=== PATIENT | female | born 1965 | race African-American/Black ===

== ENCOUNTER 2018-06-28 19:34 | Inpatient (IN) | payer MEDICARE, OTHER ==
[~2018-06-28] VITALS: Ht 165.1 cm; Wt 123.8 kg
[2018-06-28 19:40] VITALS: BP 126/72
--- NOTE | 2018-06-28 19:40 | NUR ---
ED Nurse Note: Patient presents wth complaints of increased pain and swelling at left middle finger and thumb, finger necrosis/gangrene confirmed.
[2018-06-28] MEDS ORDERED: DOCUSATE SODIU100 M2 ORAL (20:10)
[2018-06-28] MEDS ORDERED: FERROUS SULFAT325 M2 ORAL (20:10)
[2018-06-28] MEDS ORDERED: FLONASE1 SPRAYS NASAL (20:10)
[2018-06-28] MEDS ORDERED: NEURONTIN300 MG ORAL (20:10)
[2018-06-28] MEDS ORDERED: BISACODYL5 MG ORAL (20:10)
[2018-06-28] MEDS ORDERED: HYDROCODON-ACE1 EA13 ORAL (20:10)
[2018-06-28] MEDS ORDERED: LIPITOR80 MG ORAL (20:10)
[2018-06-28] MEDS ORDERED: ACETAMINOPHEN325 M1 ORAL (20:10)
[2018-06-28] MEDS ORDERED: LACTULOSE10 GM PO (20:10)
[2018-06-28] MEDS ORDERED: ELIQUIS2.5 MG PO (20:10)
--- NOTE | 2018-06-28 21:00 | Emergency Room Report ---
History of Present Illness General Chief Complaint: General Complaint Source: Patient Present Illness HPI 53-year-old female presents ED for evaluation. Patient brought in by EMS from long term facility. Complaining of pain and swelling and discoloration to her left middle finger and left thumb. Has been there for several months now. Was told that it may be gangrene. Had a procedure at [facility] one month ago to restore circulation to the extremity. States it did not help. Pain is throbbing, 8 out of 10, nonradiating. Denies fevers or chills. History of end- stage renal disease. Gets dialysis Saturday. No other aggravating relieving factors. Denies any other associated symptoms Allergies: Coded Allergies: LATEX (Verified Allergy, Unknown, 06/28/18) Patient History Past Medical History: DM, HTN, GERD, renal disease, dialysis Past Surgical History: none Pertinent Family History: none Social History: Denies: smoking, alcohol use, drug use Now: No Immunizations: UTD Reviewed Nursing Documentation: PMH: Agreed; PSxH: Agreed Nursing Documentation-PMH Hx Hypertension: Yes Hx Diabetes: Yes Hx Gastrointestinal Problems: Yes - GERD, constipation Hx Dialysis: Yes - Tue, Thur, Sat, Shunt on L arm, R leg amputation Hx Neurological Problems: Yes - Hx of fall Hx Cerebrovascular Accident: Yes - Anemia Review of Systems All Other Systems: negative except mentioned in HPI Physical Exam Vital Signs Date Time Temp Pulse Resp B/P (MAP) Pulse Ox O2 Delivery O2 Flow Rate FiO2 06/28/18 19:37 98.1 82 20 126/72 95 Room Air Sp02 EP Interpretation: reviewed, normal General Appearance: no apparent distress, alert, GCS 15, non-toxic, obese Head: normocephalic, atraumatic Eyes: bilateral eye normal inspection, bilateral eye PERRL ENT: hearing grossly normal, normal pharynx, no angioedema, normal voice Neck: full range of motion, supple/symm/no masses Respiratory: chest non-tender, lungs clear, normal breath sounds, speaking full sentences Cardiovascular #1: regular rate, rhythm, no edema Cardiovascular #2: 2+ carotid (R), 2+ carotid (L), 2+ radial (R), 2+ radial (L) , 2+ dorsalis pedis (R), 2+ dorsalis pedis (L) Gastrointestinal: normal bowel sounds, non tender, soft, non-distended, no guarding, no rebound Rectal: deferred Genitourinary: normal inspection, no CVA tenderness Musculoskeletal: back normal, gait/station normal, normal range of motion, tender - discoloration/swelling to L middle finger, L thumb. dry gangrene Neurologic: alert, oriented x3, responsive, motor strength/tone normal, sensory intact, speech normal Psychiatric: judgement/insight normal, memory normal, mood/affect normal, no suicidal/homicidal ideation Reflexes: 3+ bicep (R), 3+ bicep (L), 3+ tricep (R), 3+ tricep (L), 3+ knee (R) , 3+ knee (L) Skin: normal color, no rash, warm/dry, well hydrated Lymphatic: no adenopathy Medical Decision Making Diagnostic Impression: Primary Impression: Gangrene of finger of left hand Additional Impressions: ESRD (end stage renal disease) on dialysis Colitis ER Course dHospital Course 53 yo F presents to ED c/o gangrene L middle finger, L thumb gangrene. diarrhea Differential diagnoses include: Cellulitis, DVT, abscess, rash. Clinical course Patient placed on stretcher. After initial history and physical I ordered labs , blood Cx, UA, CXR, EKG labs reviewed - no leukocytosis, Hb/Hct stable, BUN/Cr elevatd, K ok EKG - NSR, no acute ischemic changes interpreted by me CXR - no acute process patient given small IVF bolus. Dr Santana consulted to evaluate the gangrene for possible operative intervention Case discussed with Dr Herbert and he agreed to accept the patient to his service for further care and support Diagnosis - gangrene of finger of L hand, ESRD on dialysis, colitis Patient admitted to floor in serious condition Labs Test 06/28/18 21:22 06/29/18 06:50 06/30/18 06:10 White Blood Count 9.1 K/UL (4.8-10.8) 8.0 K/UL (4.8-10.8) 8.6 K/UL (4.8-10.8) Red Blood Count 3.37 M/UL (4.20-5.40) 3.22 M/UL (4.20-5.40) 3.27 M/UL (4.20-5.40) Hemoglobin 9.4 G/DL (12.0-16.0) 9.0 G/DL (12.0-16.0) 9.0 G/DL (12.0-16.0) Hematocrit 30.0 % (37.0-47.0) 28.5 % (37.0-47.0) 29.1 % (37.0-47.0) Mean Corpuscular Volume 89 FL (80-99) 89 FL (80-99) 89 FL (80-99) Mean Corpuscular Hemoglobin 27.8 PG (27.0-31.0) 28.0 PG (27.0-31.0) 27.6 PG (27.0-31.0) Mean Corpuscular Hemoglobin Concent 31.2 G/DL (32.0-36.0) 31.7 G/DL (32.0-36.0) 30.9 G/DL (32.0-36.0) Red Cell Distribution Width 13.7 % (11.6-14.8) 14.1 % (11.6-14.8) 13.8 % (11.6-14.8) Platelet Count 218 K/UL (150-450) 219 K/UL (150-450) 219 K/UL (150-450) Mean Platelet Volume 6.1 FL (6.5-10.1) 7.3 FL (6.5-10.1) 7.2 FL (6.5-10.1) Neutrophils (%) (Auto) 56.8 % (45.0-75.0) 54.9 % (45.0-75.0) 62.9 % (45.0-75.0) Lymphocytes (%) (Auto) 33.9 % (20.0-45.0) 35.6 % (20.0-45.0) 27.3 % (20.0-45.0) Monocytes (%) (Auto) 6.8 % (1.0-10.0) 6.7 % (1.0-10.0) 7.1 % (1.0-10.0) Eosinophils (%) (Auto) 1.9 % (0.0-3.0) 2.0 % (0.0-3.0) 1.9 % (0.0-3.0) Basophils (%) (Auto) 0.6 % (0.0-2.0) 0.8 % (0.0-2.0) 0.8 % (0.0-2.0) Prothrombin Time 11.0 SEC (9.30-11.50) Prothromb Time International Ratio 1.0 (0.9-1.1) Activated Partial Thromboplast Time 35 SEC (23-33) Sodium Level 138 MMOL/L (136-145) 139 MMOL/L (136-145) 138 MMOL/L (136-145) Potassium Level 4.0 MMOL/L (3.5-5.1) 3.9 MMOL/L (3.5-5.1) 4.4 MMOL/L (3.5-5.1) Chloride Level 97 MMOL/L (98-107) 98 MMOL/L (98-107) 99 MMOL/L (98-107) Carbon Dioxide Level 35 MMOL/L (21-32) 32 MMOL/L (21-32) 29 MMOL/L (21-32) Anion Gap 7 mmol/L (5-15) 9 mmol/L (5-15) 11 mmol/L (5-15) Blood Urea Nitrogen 32 mg/dL (7-18) 34 mg/dL (7-18) 46 mg/dL (7-18) Creatinine 5.3 MG/DL (0.55-1.30) 5.7 MG/DL (0.55-1.30) 7.3 MG/DL (0.55-1.30) Estimat Glomerular Filtration Rate 10.3 mL/min (>60) 9.5 mL/min (>60) 7.2 mL/min (>60) Glucose Level 152 MG/DL (74-106) 119 MG/DL (74-106) 124 MG/DL (74-106) Lactic Acid Level 1.20 mmol/L (0.4-2.0) Calcium Level 9.1 MG/DL (8.5-10.1) 9.1 MG/DL (8.5-10.1) 9.4 MG/DL (8.5-10.1) Total Bilirubin 0.3 MG/DL (0.2-1.0) Aspartate Amino Transf (AST/SGOT) 8 U/L (15-37) Alanine Aminotransferase (ALT/SGPT) 15 U/L (12-78) Alkaline Phosphatase 123 U/L (46-116) Creatine Kinase MB 0.5 NG/ML (0.0-3.6) Total Protein 7.9 G/DL (6.4-8.2) Albumin 2.9 G/DL (3.4-5.0) Globulin 5.0 g/dL Albumin/Globulin Ratio 0.6 (1.0-2.7) Phosphorus Level 4.9 MG/DL (2.5-4.9) EKG Diagnostic Results Rate: normal Rhythm: NSR ST Segments: no acute changes ASA given to the pt in ED: No Rhythm Strip Diag. Results EP Interpretation: yes Rhythm: NSR, no PVC's, no ectopy Chest X-Ray Diagnostic Results Chest X-Ray Diagnostic Results : Chest X-Ray Ordered: Yes # of Views/Limited/Complete: 1 View Indication: Other Interpretation: no consolidation, no pneumothorax, other - cardiomegaly Impression: Other - cardiomegaly Electronically Signed by: Electronically signed by Johnny Guzman MD Last Vital Signs Date Time Temp Pulse Resp B/P (MAP) Pulse Ox O2 Delivery O2 Flow Rate FiO2 06/28/18 19:37 98.1 82 20 126/72 95 Room Air Status: improved Disposition: ADMITTED INPATIENT Condition: Serious Johnny Guzman MD Jun 28, 2018 21:00
[2018-06-28] MEDS ORDERED: SENNA8.6 M2 PO (21:05)
[2018-06-28] MEDS ORDERED: OMEPRAZOLE20 M2 ORAL (21:05)
[2018-06-28] MEDS ORDERED: PERCOCET 5-3251 EACH ORAL (21:05)
[2018-06-28] MEDS ORDERED: RENVELA800 MG ORAL (21:05)
[2018-06-28] MEDS ORDERED: LYRICA75 M1 ORAL (21:05)
[2018-06-28] MEDS ORDERED: VITAMIN C500 M1 ORAL (21:05)
[2018-06-28] MEDS ORDERED: LIDOCAINE700 M1 TP (21:05)
[2018-06-28 21:44] LABS: BASOPHILS % (AUTO) 0.6 % (0.0-2.0); EOSINOPHILS % (AUTO) 1.9 % (0.0-3.0); HEMOGLOBIN 9.4 G/DL (12.0-16.0); LYMPHOCYTES % (AUTO) 33.9 % (20.0-45.0); MEAN CORPUSCULAR VOLUME 89 FL (80-99); MONOCYTES % (AUTO) 6.8 % (1.0-10.0); NEUTROPHILS % (AUTO) 56.8 % (45.0-75.0); PLATELET COUNT 218 K/UL (150-450); RED BLOOD COUNT 3.37 M/UL (4.20-5.40); RED CELL DISTRIBUTION WIDTH 13.7 % (11.6-14.8); WHITE BLOOD COUNT 9.1 K/UL (4.8-10.8)
[2018-06-28] MEDS ORDERED: HYDROmorphone 1mg/ml Carpuject IVP ONE (21:45)
--- NOTE | 2018-06-28 21:51 | NUR ---
ED Nurse Note: patient tolerated medication well and is resting with no complaints of pain at this time.
[2018-06-28 21:57] LABS: ANION GAP 7 mmol/L (5-15); BLOOD UREA NITROGEN 32 mg/dL (7-18); CALCIUM 9.1 MG/DL (8.5-10.1); CARBON DIOXIDE 35 MMOL/L (21-32); CHLORIDE 97 MMOL/L (98-107); CREATININE 5.3 MG/DL (0.55-1.30); SODIUM 138 MMOL/L (136-145)
[2018-06-28 22:11] LABS: ALANINE AMINOTRANSFERASE 15 U/L (12-78); ALBUMIN 2.9 G/DL (3.4-5.0); ALBUMIN/GLOBULIN RATIO 0.6 (1.0-2.7); ALKALINE PHOSPHATASE 123 U/L (46-116); ASPARTATE AMINO TRANSFERASE 8 U/L (15-37); BILIRUBIN,TOTAL 0.3 MG/DL (0.2-1.0); CKMB 0.5 NG/ML (0.0-3.6)
[2018-06-28] MEDS ORDERED: LORazepam Inj 2mg/ml 1ml IV PRN (23:45)
--- NOTE | 2018-06-28 23:52 | NUR ---
ED Nurse Note: Patient cleared for transport to floor. Swabs done, pictures taken, report called into rony RN. Patient will be accompanied by geological technical officer to floor.
[2018-06-29] VITALS: BP 110/55
--- NOTE | 2018-06-29 | NUR ---
NURSE NOTES: Pt is admitted from ER in stable condition. Vitals stable.Pt is awake and alert. No acute distress noted. Pt reports pain on left thumb and left middle finger. Room air. Pt has right BKA skin tear, left toe wound. Wound pictures taken. Dressing applied to wounds per protocol. Pt is a HD patient Hx ESRD. Admission orders acknowledged from dr. Herbert. Pt is oriented to the unit. Pt's belongings checked, refused to send valuables for safekeeping. Bed low in position,side rails up and call light within reach. Pt will be monitored.
[2018-06-29] MEDS: Morphine Sulfate 2mg/ml Inj(IV/IM USE ONLY) IVP PRN ×4 (03:41→21:26)
[2018-06-29 04:00] VITALS: BP 122/51
--- NOTE | 2018-06-29 05:30 | NUR ---
NURSE NOTES: Pt is in bed, awake. No acute distress noted.
--- NOTE | 2018-06-29 06:00 | NUR ---
NURSE NOTES: Stock Repairer Lou unable to draw blood at this moment, someone from lab will come to draw lab again.
--- NOTE | 2018-06-29 07:20 | NUR ---
HAND-OFF: Report given to Nury Amato RN.
[2018-06-29 07:26] LABS: BASOPHILS % (AUTO) 0.8 % (0.0-2.0); HEMATOCRIT 28.5 % (37.0-47.0); LYMPHOCYTES % (AUTO) 35.6 % (20.0-45.0); MEAN CORPUSCULAR VOLUME 89 FL (80-99); MONOCYTES % (AUTO) 6.7 % (1.0-10.0); NEUTROPHILS % (AUTO) 54.9 % (45.0-75.0); PLATELET COUNT 219 K/UL (150-450); RED BLOOD COUNT 3.22 M/UL (4.20-5.40); RED CELL DISTRIBUTION WIDTH 14.1 % (11.6-14.8)
[2018-06-29 07:29] LABS: ANION GAP 9 mmol/L (5-15); BLOOD UREA NITROGEN 34 mg/dL (7-18); CALCIUM 9.1 MG/DL (8.5-10.1); CARBON DIOXIDE 32 MMOL/L (21-32); CHLORIDE 98 MMOL/L (98-107); CREATININE 5.7 MG/DL (0.55-1.30); PHOSPHORUS 4.9 MG/DL (2.5-4.9); POTASSIUM 3.9 MMOL/L (3.5-5.1); SODIUM 139 MMOL/L (136-145)
[2018-06-29 08:00] VITALS: BP 103/58
--- NOTE | 2018-06-29 08:00 | NUR ---
NURSE NOTES: RECEIVED PATIENT IN BED, RESTING AND ALERT X4. PATIENT C/O PAIN. WILL ADMINISTER PAIN MEDS ONCE DUE. NO SIGNS OF RESPIRATORY DISTRESS, PATIENT IN ROOM AIR. DRESSINGS INTACT. BED IN LOWEST POSITION, CALL LIGHT WITHIN REACH. WILL CONTINUE TO MONITOR.
[2018-06-29] MEDS: Docusate 100mg cap ORAL SCH ×3 (08:22→21:24)
[2018-06-29] MEDS: Ascorbic Acid 500mg tab ORAL SCH (08:23)
[2018-06-29] MEDS: Eliquis 2.5mg tablet ORAL SCH ×2 (09:58→17:05)
[2018-06-29 12:00] VITALS: BP 113/74
--- NOTE | 2018-06-29 12:49 | NUR ---
CASE MANAGEMENT: REVIEW 53/F BIBA FROM [facility] CC: SWELLING / PAIN LEFT MIDDLE FINGER & LEFT THUMB . DIARRHEA SI: GANGRENE OF FINGER OF LEFT HAND . ESRD ON HD T 98.1 HR 82 RR 20 BP 126/72 SAT 95% ROOM AIR H/H 9.4/30.0 BUN 32 CR 5.3 AST 8 ALK PHOS 123 IS: IVF BOLUS X1 ZOFRAN IV X1 DILAUDID IV X1 MED/SURG STATUS DCP: PATIENT IS FROM [facility]
[2018-06-29 16:00] VITALS: BP 130/54
--- NOTE | 2018-06-29 19:15 | History and Physical Report ---
DATE OF ADMISSION: 06/28/2018 REASON FOR ADMISSION: 1. End-stage renal disease, on dialysis. 2. Necrotic index finger. HISTORY OF PRESENT ILLNESS: The patient is a 53-year-old female, on chronic hemodialysis Saturday, , and Saturday. She was brought in from her [facility] facility complaining of pain and swelling of her left middle finger and thumb. Necrotic in nature. It had worsened despite care. The patient had a a vascularization 1 month ago to try to restore circulation to the extremity, but seemingly has not helped and the patient was complaining of 8/10 pain. ALLERGIES: Latex. PAST MEDICAL HISTORY: 1. Diabetes. 2. Hypertension. 3. GERD. 4. End-stage renal disease, on dialysis. 5. Anemia. 6. Secondary hyperparathyroidism. PAST SURGICAL HISTORY: 1. of digits. 2. Dialysis access. SOCIAL HISTORY: No tobacco, alcohol, or illicit drug use. FAMILY HISTORY: Positive for hypertension. REVIEW OF SYSTEMS: NEUROLOGIC: The patient denies headache, change in vision, syncope, or presyncopal episodes. CARDIOVASCULAR: No current chest pain, palpitations, or angina. PULMONARY: No difficulty breathing, productive cough, or sputum. GASTROINTESTINAL/GENITOURINARY: No change in bowel habits. No nausea, vomiting, or diarrhea. ENDOCRINOLOGY: No night sweats, fevers, or chills. MUSCULOSKELETAL: The patient complaining of left middle, index finger, and thumb pain. LABORATORY DATA: Labs dated 06/29/2018, sodium 139, potassium 3.9, BUN 34, creatinine 5.7, glucose 119. White cell count 8, hemoglobin 9, platelet count 219. PHYSICAL EXAMINATION: VITAL SIGNS: Blood pressure 122/51, pulse oximetry 93% on room air, respiratory rate 17, pulse 86, temperature 99.2. GENERAL: The patient awake, alert, not in distress. HEENT: Extraocular muscles intact. No lymphadenopathy noted. CARDIOVASCULAR: S1 and S2. No rubs or gallops. PULMONARY: Clear to auscultation bilaterally. No rales, rhonchi, or wheezes. ABDOMEN: Nondistended, nontender. EXTREMITIES: The patient noted to be right [id number] amputation. ASSESSMENT AND PLAN: 1. Necrotic left middle digit finger. At this time, we will consult Surgery, Dr. Santana to evaluate the patient. 2. End-stage renal disease, on hemodialysis. Electrolytes stable. Continue Saturday, , Saturday dialysis session. 3. Anemia of chronic kidney disease. We will continue Epogen with hemodialysis. 4. Hypertension. Adjust medications as appropriate. 5. Secondary hyperparathyroidism. Continue phosphate binder with meals. 6. Disposition. At this time, we will try to arrange the patient to be discharged home with home health to take care of her wound care. 7. DVT prophylaxis. This patient is already on Eliquis. Stephen Herbert MD DR: LAWRENCE JOB#: [id number] CC: JAY
--- NOTE | 2018-06-29 19:33 | NUR ---
HAND-OFF: Report given to PINKY STERN.
--- NOTE | 2018-06-29 19:59 | NUR ---
NURSE NOTES: Received report from PINKY Arrington. Patient sleeping. On room air, no signs of labored breathing or distress. IV intact, patent, and saline locked. Bed in lowest position with call light in reach. Will continue with plan of care.
[2018-06-29 20:00] VITALS: BP 103/49
[2018-06-29] MEDS: Atorvastatin 80mg tab ORAL SCH (21:25)
--- NOTE | 2018-06-29 21:33 | Consultation ---
History of Present Illness General Date patient seen: Jun 29, 2018 Reason for Hospitalization: General Complaint Present Illness HPI This is a 53-year-old female with multiple medical comorbidities who presented to the emergency department [facility] complaining of worsening left middle finger pain/left hand pain. Patient has end-stage renal disease on hemodialysis with a left upper extremity fistula that was created sometime ago. Over the past month patient states that she has began to develop gangrene of her left middle finger phalanx. States that she initially went to her vascular surgeon that created the fistula at [facility] and he had performed a procedure endovascular to help with blood flow. States that since finger has continued to hurt and recently began to hurt more. Denies any nausea vomiting fever chills. Denies any drainage. Has dry gangrene of the finger which has been worsening. States she no longer wants to go to [facility] and came to [facility]. States that she is used to taking a significant amount of narcotics and is asking directly for more because of the pain. Surgery called to evaluate. Patient seen, patient evaluated, chart reviewed. Labs noted. Allergies: Coded Allergies: LATEX (Verified Allergy, Unknown, 06/28/18) Medication History Scheduled Ascorbic Acid* (Vitamin C*), 500 MG ORAL DAILY, (Reported) Atorvastatin (Lipitor), 80 MG ORAL DAILY, (Reported) Bisacodyl* (Dulcolax*), 5 MG ORAL DAILY, (Reported) Docusate Sodium (Docusate Sodium), 100 MG ORAL TWICE A DAY, (Reported) Fluticasone Propionate (Fluticasone Propionate), 1 SPRAY NASAL DAILY, (Reported) Gabapentin (Neurontin), 300 MG ORAL THREE TIMES A DAY, (Reported) Hydrocodone Bit/Acetaminophen 10-325* (Hydrocodon-Acetaminophn 10-325*), 1 TAB ORAL Q6H, (Reported) Omeprazole (Omeprazole), 20 MG ORAL DAILY, (Reported) Pregabalin* (Lyrica*), 75 MG ORAL THREE TIMES A DAY, (Reported) Sevelamer Carbonate (Renvela), 800 MG ORAL THREE TIMES A DAY, (Reported) Scheduled PRN Acetaminophen* (Acetaminophen 325MG Tablet*), 325 MG ORAL Q4H PRN for Mild Pain/ Temp > 100.5, (Reported) Oxycodone/Acetaminophen 5-325* (Percocet 5-325 Mg Tablet*), 1 TAB ORAL Q6H PRN for For Pain, (Reported) Miscellaneous Medications Apixaban (Eliquis), 2.5 MG PO, (Reported) Ferrous Sulfate (Ferrous Sulfate), 325 MG ORAL, (Reported) Lactulose (Lactulose), 10 GM PO, (Reported) Lidocaine (Lidocaine), 700 MG TP, (Reported) Sennosides (Senna), 8.6 MG PO, (Reported) Patient History Healthcare decision maker Resuscitation status Full Code Advanced Directive on File Review of Systems Review of Symptoms General ROS: no weight loss or fever Psychological ROS: no depression or mood changes, no memory loss Ophthalmic ROS: no visual changes or eye irritation ENT ROS: no nasal congestion, hearing loss, dizziness Allergy and Immunology ROS: no allergic symptoms or urticaria Hematological and Lymphatic ROS: no swollen glands, unusual bleeding or bruising Endocrine ROS: no polyuria, polydipsia, weight changes, temperature intolerance Respiratory ROS: no cough, shortness of breath, or wheezing Cardiovascular ROS: no chest pain or dyspnea on exertion Gastrointestinal ROS: denies abdominal pain, bright red blood in stool. Musculoskeletal ROS: no myalgias or arthralgias Neurological ROS: no TIA or stroke symptoms Dermatological ROS: no new or changing skin lesions, rashes or pruritis Physical Exam Physical Exam General appearance: alert, cooperative, no distress, appears stated age Head: Normocephalic, without obvious abnormality, atraumatic Eyes: conjunctivae/corneas clear. PERRL, EOM's intact. Fundi benign Throat: Lips, mucosa, and tongue normal. Teeth and gums normal Neck: supple, symmetrical, trachea midline, no adenopathy, thyroid: not enlarged, symmetric, no tenderness/mass/nodules, no carotid bruit and no JVD Lungs: clear to auscultation bilaterally Heart: regular rate and rhythm, S1, S2 normal, no murmur, click, rub or gallop Abdomen: soft, non-tender. Bowel sounds normal. No masses, no organomegaly Extremities: left upper extremity fistula with good thrill. left distal middle finger with dry gangrene and tissue loss. no open wound, chronic without signs of active infection. tender on palpation. prior lower extremity amputation. Pulses: 2+ and symmetric Skin: Skin color, texture, turgor normal. No rashes or lesions Neurologic: Grossly normal Last 24 Hour Vital Signs Date Time Temp Pulse Resp B/P (MAP) Pulse Ox O2 Delivery O2 Flow Rate FiO2 06/29/18 16:00 99.6 81 16 130/54 (79) 97 06/29/18 12:00 98.1 84 18 113/74 (87) 99 06/29/18 09:00 Room Air 06/29/18 08:00 98.2 89 20 103/58 (73) 100 06/29/18 04:00 99.2 86 17 122/51 (74) 93 06/29/18 00:53 Room Air 06/29/18 00:00 99.6 87 17 110/55 (73) 94 06/28/18 23:51 98.1 20 126/72 95 Room Air Intake and Output 06/28/18 06/29/18 18:59 06:59 Intake Total 240 ml Balance 240 ml Intake Oral 240 ml # Voids 1 Laboratory Tests Test 06/29/18 06:50 White Blood Count 8.0 K/UL (4.8-10.8) Red Blood Count 3.22 M/UL (4.20-5.40) L Hemoglobin 9.0 G/DL (12.0-16.0) L Hematocrit 28.5 % (37.0-47.0) L Mean Corpuscular Volume 89 FL (80-99) Mean Corpuscular Hemoglobin 28.0 PG (27.0-31.0) Mean Corpuscular Hemoglobin Concent 31.7 G/DL (32.0-36.0) L Red Cell Distribution Width 14.1 % (11.6-14.8) Platelet Count 219 K/UL (150-450) Mean Platelet Volume 7.3 FL (6.5-10.1) Neutrophils (%) (Auto) 54.9 % (45.0-75.0) Lymphocytes (%) (Auto) 35.6 % (20.0-45.0) Monocytes (%) (Auto) 6.7 % (1.0-10.0) Eosinophils (%) (Auto) 2.0 % (0.0-3.0) Basophils (%) (Auto) 0.8 % (0.0-2.0) Sodium Level 139 MMOL/L (136-145) Potassium Level 3.9 MMOL/L (3.5-5.1) Chloride Level 98 MMOL/L (98-107) Carbon Dioxide Level 32 MMOL/L (21-32) Anion Gap 9 mmol/L (5-15) Blood Urea Nitrogen 34 mg/dL (7-18) H Creatinine 5.7 MG/DL (0.55-1.30) H Estimat Glomerular Filtration Rate 9.5 mL/min (>60) Glucose Level 119 MG/DL (74-106) H Calcium Level 9.1 MG/DL (8.5-10.1) Phosphorus Level 4.9 MG/DL (2.5-4.9) Height (Feet): 5 Height (Inches): 5.00 Weight (Pounds): 278 Medications Current Medications Medications (Trade) Dose Ordered Sig/Alex Route PRN Reason Start Time Stop Time Status Last Admin Dose Admin Acetaminophen (Tylenol) 650 mg Q4H PRN ORAL Mild Pain (Pain Scale 1-3) 06/28/18 23:45 07/28/18 23:44 Apixaban (Eliquis) 2.5 mg BID ORAL 06/29/18 09:00 07/29/18 08:59 06/29/18 17:05 Ascorbic Acid (Vitamin C) 500 mg DAILY ORAL 06/29/18 09:00 07/29/18 08:59 Atorvastatin Calcium (Lipitor) 80 mg BEDTIME ORAL 06/29/18 21:00 07/29/18 20:59 Dextrose (Dextrose 50%) 25 ml Q30M PRN IV Hypoglycemia 06/28/18 23:45 07/28/18 23:44 Dextrose (Dextrose 50%) 50 ml Q30M PRN IV Hypoglycemia 06/28/18 23:45 07/28/18 23:44 Diphenhydramine HCl (Benadryl) 25 mg Q6H PRN ORAL Itching/Pruritis 06/28/18 23:45 07/28/18 23:44 Docusate Sodium (Colace) 100 mg EVERY 12 HOURS ORAL 06/29/18 09:00 07/29/18 08:59 Epoetin Delfino (Epoetin Delfino(ESRD on dialysis)) 10,000 unit 3XW@2100 SUBQ 06/30/18 21:00 07/30/18 20:59 Gabapentin (Neurontin) 100 mg THREE TIMES A DAY ORAL 06/29/18 09:00 07/29/18 08:59 06/29/18 17:05 Lorazepam (Ativan 2mg/ml 1ml) 0.5 mg Q4H PRN IV For Anxiety 06/28/18 23:45 07/05/18 23:44 Morphine Sulfate (Morphine Sulfate) 2 mg Q4HR PRN IVP Moderate Pain (Pain Scale 4-6) 06/28/18 23:45 07/05/18 23:44 06/29/18 13:40 Ondansetron HCl (Zofran) 4 mg Q6H PRN IVP Nausea & Vomiting 06/28/18 23:45 07/28/18 23:44 Pantoprazole (Protonix) 40 mg ACBREAKFAST ORAL 06/29/18 06:30 07/29/18 06:29 06/29/18 05:46 Sevelamer Carbonate (Renvela) 800 mg BIDLS ORAL 06/29/18 11:30 07/29/18 11:29 06/29/18 17:05 Assessment/Plan Problem List: (1) Gangrene of finger of left hand Assessment & Plan: This is a 53-year-old female with 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 She has severe peripheral vasculopathy with history of diabetes, hypertension, end-stage renal disease on dialysis. She has a left upper extremity fistula that was created prior gangrene began after fistula creation. She has had prior intervention by her vascular surgeon to improve the blood flow and potentially salvage left upper extremity. She presents complaining of pain in the left upper extremity/ finger. There is no sign of active infection. Discussion was had with the patient regards to findings clinical examination and history. Patient expressed she does not want to go back to her treating facility for care any longer. I stated to the patient that she would be best served with a hand surgeon and/vascular team for her peripheral vasculopathy and resulting gangrene. Currently condition is chronic without any acute infection. Patient states the pain has been ongoing for some time now and she just needs more pain medication. We will see if a vascular surgeon is available to see patient while she is in the hospital. If not patient will need to follow-up with her vascular surgeon or obtain a another vascular surgeon for continued monitoring evaluation of her peripheral vasculopathy and attempts to salvage left hand/finger/upper extremity. Will follow with recommendations. Thank you. Studies ordered. ICD Codes: I96 - Gangrene, not elsewhere classified SNOMED: [id number] Melvin Santana Jun 29, 2018 21:33
[2018-06-30] VITALS: BP 141/61
[2018-06-30 04:00] VITALS: BP 136/50
[2018-06-30] MEDS: Morphine Sulfate 2mg/ml Inj(IV/IM USE ONLY) IVP PRN ×4 (05:02→20:43)
--- NOTE | 2018-06-30 07:04 | NUR ---
HAND-OFF: Report given to PINKY Mathis.
[2018-06-30 07:05] LABS: BASOPHILS % (AUTO) 0.8 % (0.0-2.0); EOSINOPHILS % (AUTO) 1.9 % (0.0-3.0); HEMATOCRIT 29.1 % (37.0-47.0); LYMPHOCYTES % (AUTO) 27.3 % (20.0-45.0); MEAN CORPUSCULAR VOLUME 89 FL (80-99); MONOCYTES % (AUTO) 7.1 % (1.0-10.0); NEUTROPHILS % (AUTO) 62.9 % (45.0-75.0); PLATELET COUNT 219 K/UL (150-450); RED BLOOD COUNT 3.27 M/UL (4.20-5.40); RED CELL DISTRIBUTION WIDTH 13.8 % (11.6-14.8); WHITE BLOOD COUNT 8.6 K/UL (4.8-10.8)
[2018-06-30 07:17] LABS: ANION GAP 11 mmol/L (5-15); BLOOD UREA NITROGEN 46 mg/dL (7-18); CALCIUM 9.4 MG/DL (8.5-10.1); CARBON DIOXIDE 29 MMOL/L (21-32); CHLORIDE 99 MMOL/L (98-107); CREATININE 7.3 MG/DL (0.55-1.30); POTASSIUM 4.4 MMOL/L (3.5-5.1); SODIUM 138 MMOL/L (136-145)
--- NOTE | 2018-06-30 07:52 | NUR ---
NURSE NOTES: Received report from PINKY Monroy. Pt in bed, asleep, respirations regular and unlabored, no apparent distress noted, bed in lowest position, call light within reach.
[2018-06-30 08:00] VITALS: BP 124/57
--- NOTE | 2018-06-30 08:36 | Nephrology Progress Note ---
Assessment/Plan Assessment/Plan A/P 1) ESRD- TTS dialysis arranged 2) Ischemic Digit - patient has requested amputation - Gen surg to follow 3) Anemia CKD- EPO 4) DVT prophylaxis- on eliquis Subjective Date patient seen: Jun 30, 2018 Time patient seen: 08:34 ROS Limited/Unobtainable: No Allergies: Coded Allergies: LATEX (Verified Allergy, Unknown, 06/28/18) Subjective C/O digit pain Objective Last 24 Hour Vital Signs Date Time Temp Pulse Resp B/P (MAP) Pulse Ox O2 Delivery O2 Flow Rate FiO2 06/30/18 04:00 99.5 88 18 136/50 (78) 100 06/30/18 00:00 98.6 89 18 141/61 (87) 100 06/29/18 21:00 Room Air 06/29/18 20:00 98.8 82 18 103/49 (67) 100 06/29/18 16:00 99.6 81 16 130/54 (79) 97 06/29/18 12:00 98.1 84 18 113/74 (87) 99 06/29/18 09:00 Room Air Intake and Output 06/29/18 06/30/18 19:00 07:00 Intake Total 850 ml Balance 850 ml Intake Oral 600 ml Other 250 ml # Voids 4 1 Laboratory Tests 06/30/18 06:10: White Blood Count 8.6, Red Blood Count 3.27L, Hemoglobin 9.0L, Hematocrit 29.1L , Mean Corpuscular Volume 89, Mean Corpuscular Hemoglobin 27.6, Mean Corpuscular Hemoglobin Concent 30.9L, Red Cell Distribution Width 13.8, Platelet Count 219, Mean Platelet Volume 7.2, Neutrophils (%) (Auto) 62.9, Lymphocytes (%) (Auto) 27.3, Monocytes (%) (Auto) 7.1, Eosinophils (%) (Auto) 1.9, Basophils (%) (Auto) 0.8, Sodium Level 138, Potassium Level 4.4, Chloride Level 99, Carbon Dioxide Level 29, Anion Gap 11, Blood Urea Nitrogen 46H, Creatinine 7.3H, Estimat Glomerular Filtration Rate 7.2, Glucose Level 124H, Calcium Level 9.4 Height (Feet): 5 Height (Inches): 5.00 Weight (Pounds): 278 General Appearance: no apparent distress, alert EENT: normal ENT inspection Neck: normal alignment, supple Cardiovascular: normal rate, regular rhythm Respiratory/Chest: lungs clear, normal breath sounds Abdomen: non tender, soft Edema: no edema noted Arm (L), no edema noted Arm (R), no edema noted Leg (L), no edema noted Leg (R), no edema noted Pedal (L), no edema noted Pedal (R), no edema noted Generalized Stephen Herbert MD Jun 30, 2018 08:35
[2018-06-30] MEDS: Docusate 100mg cap ORAL SCH ×3 (09:00→20:43)
[2018-06-30] MEDS: Eliquis 2.5mg tablet ORAL SCH ×2 (09:39→17:47)
[2018-06-30] MEDS: Ascorbic Acid 500mg tab ORAL SCH (09:39)
--- NOTE | 2018-06-30 10:44 | NUR ---
RADIOLOGY DEPT., LEFT HAND X-RAY PERFORMED.-P.DYE
[2018-06-30 11:57] VITALS: BP 123/52
--- NOTE | 2018-06-30 13:55 | Surgery Progress Note ---
Surgery Progress Note Subjective Additional Comments no acute events. states she feels better today. pain improved. Objective Last 24 Hour Vital Signs Date Time Temp Pulse Resp B/P (MAP) Pulse Ox O2 Delivery O2 Flow Rate FiO2 06/30/18 11:57 99.0 83 20 123/52 (75) 98 06/30/18 10:14 99.2 06/30/18 09:00 Room Air 06/30/18 08:00 99.2 87 18 124/57 (79) 100 06/30/18 04:00 99.5 88 18 136/50 (78) 100 06/30/18 00:00 98.6 89 18 141/61 (87) 100 06/29/18 21:00 Room Air 06/29/18 20:00 98.8 82 18 103/49 (67) 100 06/29/18 16:00 99.6 81 16 130/54 (79) 97 I&O Intake and Output 06/29/18 06/30/18 19:00 07:00 Intake Total 850 ml Balance 850 ml Intake Oral 600 ml Other 250 ml # Voids 4 1 Cardiovascular: RSR Respiratory: clear Abdomen: soft, non-tender, non-distended Extremities: tenderness, cyanosis, no edema Laboratory Tests Test 06/30/18 06:10 White Blood Count 8.6 K/UL (4.8-10.8) Red Blood Count 3.27 M/UL (4.20-5.40) L Hemoglobin 9.0 G/DL (12.0-16.0) L Hematocrit 29.1 % (37.0-47.0) L Mean Corpuscular Volume 89 FL (80-99) Mean Corpuscular Hemoglobin 27.6 PG (27.0-31.0) Mean Corpuscular Hemoglobin Concent 30.9 G/DL (32.0-36.0) L Red Cell Distribution Width 13.8 % (11.6-14.8) Platelet Count 219 K/UL (150-450) Mean Platelet Volume 7.2 FL (6.5-10.1) Neutrophils (%) (Auto) 62.9 % (45.0-75.0) Lymphocytes (%) (Auto) 27.3 % (20.0-45.0) Monocytes (%) (Auto) 7.1 % (1.0-10.0) Eosinophils (%) (Auto) 1.9 % (0.0-3.0) Basophils (%) (Auto) 0.8 % (0.0-2.0) Sodium Level 138 MMOL/L (136-145) Potassium Level 4.4 MMOL/L (3.5-5.1) Chloride Level 99 MMOL/L (98-107) Carbon Dioxide Level 29 MMOL/L (21-32) Anion Gap 11 mmol/L (5-15) Blood Urea Nitrogen 46 mg/dL (7-18) H Creatinine 7.3 MG/DL (0.55-1.30) H Estimat Glomerular Filtration Rate 7.2 mL/min (>60) Glucose Level 124 MG/DL (74-106) H Calcium Level 9.4 MG/DL (8.5-10.1) Plan Problems: (1) Gangrene of finger of left hand Assessment & Plan: This is a 53-year-old female with 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 She has severe peripheral vasculopathy with history of diabetes, hypertension, end-stage renal disease on dialysis. She has a left upper extremity fistula that was created prior gangrene began after fistula creation. She has had prior intervention by her vascular surgeon to improve the blood flow and potentially salvage left upper extremity. She presents complaining of pain in the left upper extremity/ finger. There is no sign of active infection. Discussion was had with the patient regards to findings clinical examination and history. Patient expressed she does not want to go back to her treating facility for care any longer. I stated to the patient that she would be best served with a hand surgeon and/vascular team for her peripheral vasculopathy and resulting gangrene. Currently condition is chronic without any acute infection. Patient states the pain has been ongoing for some time now and she just needs more pain medication. We will see if a vascular surgeon is available to see patient while she is in the hospital. If not patient will need to follow-up with her vascular surgeon or obtain a another vascular surgeon for continued monitoring evaluation of her peripheral vasculopathy and attempts to salvage left hand/finger/upper extremity. Will follow with recommendations. doing better today no active infection no arterial obstruction okay to d/c with outpatient follow with her vascular surgeon or hand surgeon no acute emergency surgical intervention planned. Melvin Santana Jun 30, 2018 13:55
--- NOTE | 2018-06-30 15:27 | NUR ---
RD ASSESSMENT & RECOMMENDATIONS SEE CARE ACTIVITY FOR COMPLETE ASSESSMENT DAILY ESTIMATED NEEDS: Needs based on Obesity, HD/ 74kg abw 22-25 kcals/kg 3199-8071 total kcals 1.2-1.8 g protein/kg 88-133 g total protein 20-22 mL/kg 0869-0838 total fluid mLs NUTRITION DIAGNOSIS: * Altered nutrition related lab values R/T ESRD, DM as evidenced by elev creat (7.3), elev BGs (124 119 152) CURRENT DIET:RENAL, CARDIAC PO DIET RECOMMENDATIONS: RENAL, CCHO MED ADDITIONAL RECOMMENDATIONS: * Calibrated bedscale wt for accurate CBW, obtain dry wt post HD * A1C for eval of glycemic control * Monitor BGs closely, rec accucheck w/ SSI- h/o DM * Monitor renal fxn + lytes * Delonte 1pkt BID for wound healing
--- NOTE | 2018-06-30 15:57 | NUR ---
CHARGE NURSE NOTES: DR. CARLSON MADE AWARE OF ATRIAL DUPLEX RESULT, DVT ON BASILIC VEIN. WITH NO NEW ORDERS AT THIS TIME.
[2018-06-30 16:00] VITALS: BP 140/89
--- NOTE | 2018-06-30 16:28 | NUR ---
P.T Note: P.T evaluation completed and treatment initiated. Please refer to P.T evaluation for current functional status. Pt. is limited by generalized weakness , R BKA and pain on the R middle finger affecting her mobility independence. Pt also has skin tear on the toes of the L foot limiting her standing ability. Pt currently require SBA for bed mobilities and MOD A for sit to/from stand transition with bed elevated at thigh high. Skilled P.T service is warranted to improve her functional mobility independence. Pt is good candidate for prosthetic training therefore would require intensive rehab. Recommend SNF for for short term rehab at [place]. Thank you for this referral.
--- NOTE | 2018-06-30 19:32 | NUR ---
HAND-OFF: Report given to PINKY Frank.
[2018-06-30 20:00] VITALS: BP 125/69
--- NOTE | 2018-06-30 20:30 | NUR ---
NURSE NOTES: Pt is in bed, awake and alert. No acute distress noted. vitals stable. Pt reports pain on left hand 8/10. Pain medication will be given as ordered PRN. bed low in position,side rails up and jane;l light within reach.
[2018-06-30] MEDS: Atorvastatin 80mg tab ORAL SCH (20:43)
[2018-06-30] MEDS ORDERED: Epoetin Alfa(ESRD on dialysis)10,000 unit/ml vial SUBQ SCH (21:00)
[2018-07-01] VITALS: BP 133/58
[2018-07-01 04:00] VITALS: BP 109/63
[2018-07-01] MEDS: Morphine Sulfate 2mg/ml Inj(IV/IM USE ONLY) IVP PRN ×3 (06:23→17:37)
--- NOTE | 2018-07-01 07:10 | NUR ---
HAND-OFF: Report given to Camilla Palmer RN.Pt is awake and alert. No acute distress noted.
[2018-07-01 08:00] VITALS: BP 114/47
--- NOTE | 2018-07-01 08:02 | NUR ---
NURSE NOTES: Patient alert x4, on room air, no sign of distress and shortness of breath; no sign of chest pain; IV LEJ, flushes well; patient schedules for dialysis for this shift, will follow up on that; will keep monitoring pain and give medications as ordered. Bed at lowest position, side rails up x2, breaks engaged; Call light within reach; will keep monitoring.
[2018-07-01] MEDS: Docusate 100mg cap ORAL SCH (09:01)
[2018-07-01] MEDS: Ascorbic Acid 500mg tab ORAL SCH (09:01)
[2018-07-01] MEDS: Eliquis 2.5mg tablet ORAL SCH ×2 (09:02→17:33)
--- NOTE | 2018-07-01 09:26 | Discharge Instructions ---
Discharge Instructions Discharge Instructions Services at Discharge: day care Diet: renal (80g protein, 2GM) Activity: light activity Follow Up Orders DC home with Home health and PT For Congestive Heart Failure Reminder Report to your physician any weight gain of 5 pounds or more in one week. Stephen Herbert MD Jul 01, 2018 09:26
--- NOTE | 2018-07-01 09:28 | Nephrology Progress Note ---
Assessment/Plan Assessment/Plan A/P 1) ESRD- TTS dialysis 2) Ischemic Digit - Needs outpt Vasc surgery follow up - Gen surg cleared for DC 3) Anemia CKD- EPO 4) DVT prophylaxis- on eliquis Subjective Date patient seen: Jul 01, 2018 Time patient seen: 09:27 ROS Limited/Unobtainable: No Allergies: Coded Allergies: LATEX (Verified Allergy, Unknown, 06/28/18) Subjective Patient stable. Set for DC today Objective Last 24 Hour Vital Signs Date Time Temp Pulse Resp B/P (MAP) Pulse Ox O2 Delivery O2 Flow Rate FiO2 07/01/18 09:00 Room Air 07/01/18 08:00 98.9 86 20 114/47 (69) 99 07/01/18 04:00 98.6 86 22 109/63 (78) 95 07/01/18 00:00 99.7 86 20 133/58 (83) 95 06/30/18 21:00 Room Air 06/30/18 20:00 99.3 85 18 125/69 (87) 95 06/30/18 16:00 98.5 80 17 140/89 (106) 100 06/30/18 14:45 99.0 06/30/18 11:57 99.0 83 20 123/52 (75) 98 Intake and Output 06/30/18 07/01/18 19:00 07:00 Intake Total 700 ml 240 ml Balance 700 ml 240 ml Intake Oral 700 ml 240 ml # Voids 6 Height (Feet): 5 Height (Inches): 5.00 Weight (Pounds): 273 General Appearance: no apparent distress, alert EENT: normal ENT inspection Neck: normal alignment, supple Cardiovascular: normal rate, regular rhythm Respiratory/Chest: lungs clear, normal breath sounds Abdomen: non tender, soft Edema: no edema noted Arm (L), no edema noted Arm (R), no edema noted Leg (L), no edema noted Leg (R), no edema noted Pedal (L), no edema noted Pedal (R), no edema noted Generalized Stephen Herbert MD Jul 01, 2018 09:28
--- NOTE | 2018-07-01 11:51 | NUR ---
DC PLANNING TEXT DR. ALEJANDRO TO CHANGE DC ORDER FROM HOME BK TO FACILITY DR SAID "OK" CALLED [facility] AND GOT Pt. BED 127C CONFIRMED PT DIALYSIS TTS AT 4:30 AM
[2018-07-01 12:00] VITALS: BP 124/41
--- NOTE | 2018-07-01 12:13 | NUR ---
DISCHARGE PLANNED Pt. WILL DC TO [facility] ROOM 127C SKILLED T- FOR NURSE TO NURSE REPORT [facility] HAS BEEN ARRANGED FOR 1330 TUBE DRAWING SUPERVISOR Addendum: 07/01/18 at 1229 by Clara Dash LVN PATIENT HAS DIALYSIS SCHEDULED FOR TODAY SO AMBULANCE TUBE DRAWING SUPERVISOR WAS CHANGED TO WILL CALL INSTEAD OF 1:30
[2018-07-01 13:00] LABS: ANION GAP 13 mmol/L (5-15); BLOOD UREA NITROGEN 57 mg/dL (7-18); CALCIUM 8.8 MG/DL (8.5-10.1); CARBON DIOXIDE 28 MMOL/L (21-32); CHLORIDE 99 MMOL/L (98-107); CREATININE 8.9 MG/DL (0.55-1.30); POTASSIUM 4.5 MMOL/L (3.5-5.1); SODIUM 140 MMOL/L (136-145)
--- NOTE | 2018-07-01 14:45 | NUR ---
NURSE NOTES: Patient is getting dialysis, will keep monitoring.
--- NOTE | 2018-07-01 15:49 | Surgery Progress Note ---
Surgery Progress Note Subjective Symptoms: improved, pain same, tolerating diet, passing flatus, BM Objective Last 24 Hour Vital Signs Date Time Temp Pulse Resp B/P (MAP) Pulse Ox O2 Delivery O2 Flow Rate FiO2 07/01/18 12:00 99.0 85 18 124/41 (68) 95 07/01/18 11:19 98.9 07/01/18 09:00 Room Air 07/01/18 08:00 98.9 86 20 114/47 (69) 99 07/01/18 04:00 98.6 86 22 109/63 (78) 95 07/01/18 00:00 99.7 86 20 133/58 (83) 95 06/30/18 21:00 Room Air 06/30/18 20:00 99.3 85 18 125/69 (87) 95 06/30/18 16:00 98.5 80 17 140/89 (106) 100 I&O Intake and Output 06/30/18 07/01/18 19:00 07:00 Intake Total 700 ml 240 ml Balance 700 ml 240 ml Intake Oral 700 ml 240 ml # Voids 6 Dressing: dry Wound: clean Drains: none Cardiovascular: RSR Respiratory: clear Abdomen: soft, flat, non-tender, present bowel sounds, non-distended Extremities: cyanosis, no cyanosis Laboratory Tests Test 07/01/18 12:00 Sodium Level 140 MMOL/L (136-145) Potassium Level 4.5 MMOL/L (3.5-5.1) Chloride Level 99 MMOL/L (98-107) Carbon Dioxide Level 28 MMOL/L (21-32) Anion Gap 13 mmol/L (5-15) Blood Urea Nitrogen 57 mg/dL (7-18) H Creatinine 8.9 MG/DL (0.55-1.30) H Estimat Glomerular Filtration Rate 5.7 mL/min (>60) Glucose Level 178 MG/DL (74-106) H Calcium Level 8.8 MG/DL (8.5-10.1) Plan Problems: (1) Gangrene of finger of left hand Assessment & Plan: This is a 53-year-old female with 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 She has severe peripheral vasculopathy with history of diabetes, hypertension, end-stage renal disease on dialysis. She has a left upper extremity fistula that was created prior gangrene began after fistula creation. She has had prior intervention by her vascular surgeon to improve the blood flow and potentially salvage left upper extremity. She presents complaining of pain in the left upper extremity/ finger. There is no sign of active infection. Discussion was had with the patient regards to findings clinical examination and history. Patient expressed she does not want to go back to her treating facility for care any longer. I stated to the patient that she would be best served with a hand surgeon and/vascular team for her peripheral vasculopathy and resulting gangrene. Currently condition is chronic without any acute infection. Patient states the pain has been ongoing for some time now and she just needs more pain medication. We will see if a vascular surgeon is available to see patient while she is in the hospital. If not patient will need to follow-up with her vascular surgeon or obtain a another vascular surgeon for continued monitoring evaluation of her peripheral vasculopathy and attempts to salvage left hand/finger/upper extremity. Will follow with recommendations. doing better today no active infection no arterial obstruction okay to d/c with outpatient follow with her vascular surgeon or hand surgeon no acute emergency surgical intervention planned. Melvin Santana Jul 01, 2018 15:49
[2018-07-01 16:00] VITALS: BP 90/40
--- NOTE | 2018-07-01 19:13 | Diagnostic Imaging Report ---
Indication: left hand pain. Findings: 3 views of the left hand were obtained. Normal alignment is demonstrated. The bones are osteopenic diffusely. No acute fractures, erosions, or periosteal reaction are seen. Soft tissues are unremarkable. Arterial calcifications noted throughout the hand. Impression: No acute findings. Vascular disease. Osteoporosis
--- NOTE | 2018-07-01 19:14 | Cardiology Report ---
APPROVED REPORT EKG Measurement Heart [id number] Normal sinus rhythm Voltage criteria for left ventricular hypertrophy Abnormal ECG
--- NOTE | 2018-07-01 19:16 | Diagnostic Imaging Report ---
APPROVED REPORT CPT Code: 40801 Symptoms Rest Pain : LEFT UPPER EXTREMITY: Imaging of the subclavian, axillary, brachial, radial and ulnar arteries is within normal limits. There is no evidence of stenosis or occlusions within these segments. The Doppler waveforms of the left upper extremity are multiphasic, consistent with normal inflow to the left upper extremity. Noted a synthetic graft from left axillary artery to left mid brachial artery. Velocities obtained from the fistula are within normal limits in the proximal and distal anastomotic site. The venous outflow is widely patent. There is no evidence of pseudo-aneurysm or abscess. Venous imaging reveals acute thrombus in distal left basillic vein in upper arm. PINKY Mathis was informed about abnormal results at 12:35.
--- NOTE | 2018-07-01 19:54 | NUR ---
NURSE NOTES: Patient left the floor by sanjeev accompanied by two ambulance personnel; vitals were stable upon discharge; report given to Saul; tylenol 650 mg before discharge; wound pictures taken and wound care provided upon discharge. IV access removed, name tag removed. Belonging list singed by discharging nurse and patient. patient was stable.
--- NOTE | 2018-07-03 11:26 | Discharge Summary ---
Discharge Summary Discharge Summary _ DATE OF ADMISSION: 06/28/2018 DATE OF DISCHARGE: 07/01/2018 DISCHARGED BY : Dr.De Sepulveda : REASON FOR ADMISSION: 53 years old female with past medical history of end-stage renal disease, hemodialysis, PVD, right BKA, secondary hyperparathyroidism, diabetes mellitus , hypertension, GERD, anemia, was brought from the group home facility due to pain and swelling on the left middle finger , which appeared to be necrotic . Apparently, condition worsened despite nursing care provided. Patient also had a vascularization procedure done 1 month ago to restore circulation, but it did not help . Patient was complaining of 8-10 pain in affected digit . Vital signs were stable. Laboratory workup revealed no leukocytosis. Hemoglobin 9.4, hematocrit 30. BUN 32, creatinine 5.3, consistent with known history of end-stage renal disease. Glucose 152. Lactic acid 1.2. Stable LFT and electrolytes. EKG revealed sinus rhythm, no acute ischemic changes. Chest x-ray revealed cardiomegaly , but no acute process otherwise. Patient subsequently was admitted for necrotic left middle digit . CONSULTANTS: surgery Dr. Santana HOSPITAL COURSE Patient admitted to medical surgical floor. General surgeon consulted for evaluation of necrotic left middle digit. According to surgeon patient had severe peripheral vasculopathy in the setting of diabetes, hypertension and end-stage renal disease, on dialysis. Patient also had left upper extremity fistula created. Gangrene began after fistula creation. Patient had prior intervention by her vascular surgeon to improve the blood flow, potentially salvage left upper extremity. Patient was explained that she will need to have a team of hand surgeon and vascular surgeon to address peripheral vasculopathy and resulting gangrene . Per surgeon, her condition appeared to be chronic, without any acute infection. There was no signs of active infection. Blood cultures were negative. Pain management was addressed , pain was controlled. Left hand x-ray revealed no acute findings ; vascular disease noted , osteoporosis noted. Venous Duplex left upper extremity revealed acute thrombus in the distal left basilic vein upper arm. Patient was already on Eliquis. Hemodialysis provided with close monitoring of volumes, renal parameters and electrolytes , electrolytes corrected as needed. Hemoglobin and hematocrit were closely monitored with goal to keep hemoglobin above 7. Epogen was continued. Blood pressure was closely monitored. Phosphate binders with meals continued for secondary hyperparathyroidism. Pain management was addressed as needed. Bowel regimen instituted. Supportive care provided. GI prophylaxis provided. Neurontin was continued. Patient need to follow-up with a vascular surgeon per general surgeon recommendation and continue management of peripheral vasculopathy and attempts to salvage left hand/finger/upper extremity. FINAL DIAGNOSES: Necrotic left middle digit finger Peripheral vasculopathy in the setting of hypertension, diabetes, end stage renal disease End-stage renal disease , on hemodialysis Anemia of chronic kidney disease Hypertension Secondary hyperparathyroidism DISCHARGE MEDICATIONS: See Medication Reconciliation list. DISCHARGE INSTRUCTIONS: Patient was discharged to the group home facility. Follow up with medical doctor at the facility. Follow up with vascuaklr surgeon for further management. I have been assigned to dictate discharge summary for this account. I was not involved in the patient's management. Monika White NP Jul 03, 2018 11:26
== END 2018-07-01 19:20 | DRG 299 ==
LOC: EDBD 19:34 → EMR 20:17 → EDBEDREQ 22:42 → 4E 22:53
PROC: 5A1D70Z Performance of Urinary Filtration, Intermittent, Less than 6 Hours Per Day (ICD-10-PCS; principal; 2018-07-01)
DX: E11.52 Type 2 diabetes mellitus with diabetic peripheral angiopathy with gangrene (principal); N18.6 End stage renal disease; I96 Gangrene, not elsewhere classified; I12.0 Hypertensive chronic kidney disease with stage 5 chronic kidney disease or end stage renal disease; N25.81 Secondary hyperparathyroidism of renal origin; M79.645 Pain in left finger(s); E11.22 Type 2 diabetes mellitus with diabetic chronic kidney disease; I82.622 Acute embolism and thrombosis of deep veins of left upper extremity; Z99.2 Dependence on renal dialysis; D63.1 Anemia in chronic kidney disease; Z89.511 Acquired absence of right leg below knee; M81.0 Age-related osteoporosis without current pathological fracture; Z79.01 Long term (current) use of anticoagulants
CPT/HCPCS: 36415; 71045; 80048; 80053; 82553; 82962; 83605; 84100; 85025; 85610; 85730; 86850; 86900; 86901; 87040; 93005; 93931; 96361; 96374; 96375; 99285; J2405

== ENCOUNTER 2018-10-06 08:48 | Inpatient (IN) | payer MEDICARE, OTHER ==
[~2018-10-06] VITALS: Ht 165.1 cm; Wt 135.2 kg
[~2018-10-06 08:48] MED LIST: ACETAMINOPHEN325 M1 ORAL; BISACODYL5 MG ORAL; DOCUSATE SODIU100 M2 ORAL; ELIQUIS2.5 MG PO; FERROUS SULFAT325 M2 ORAL; FLONASE1 SPRAYS NASAL; HYDROCODON-ACE1 EA13 ORAL; LACTULOSE10 GM PO; LIDOCAINE700 M1 TP; LIPITOR80 MG ORAL; LYRICA75 M1 ORAL; NEURONTIN300 MG ORAL; OMEPRAZOLE20 M2 ORAL; PERCOCET 5-3251 EACH ORAL; RENVELA800 MG ORAL; SENNA8.6 M2 PO; VITAMIN C500 M1 ORAL
--- NOTE | 2018-10-06 08:49 | NUR ---
ED Nurse Note: pt relates dialysis fistula is located on left arm. relates due for dialysis on and did receive dialysis on sat
--- NOTE | 2018-10-06 08:50 | NUR ---
ED Nurse Note: pt presents a/ox4 with cough and congestion x 4 days. states cough causes pain to chest area. pt speaks full sentences well. pt noted to have right BKA. md baum pt. pt indicates pressure and congestion to face along sinus area. non productive intermittant cough.
[2018-10-06] MEDS ORDERED: LORATADINE10 M1 PO (08:54)
[2018-10-06] MEDS ORDERED: NOVOLOG100 UNIT/4 SQ (08:54)
[2018-10-06] MEDS ORDERED: CRESTOR10 M2 ORAL (08:54)
[2018-10-06] MEDS ORDERED: NEPHROVITE1 TAB ORAL (08:54)
[2018-10-06] MEDS: Ipratropium 0.02% Inh Soln 2.5ml UD HHN SCH ×5 (09:15→19:29)
[2018-10-06] MEDS ORDERED: Solu-MEDROL 125mg Inj IVP ONE (09:15)
[2018-10-06] MEDS ORDERED: Albuterol ud Inhalation HHN SCH (09:15)
[2018-10-06] MEDS: Levalbuterol Inh UD 1.25mg/0.5ml HHN SCH ×4 (09:36→19:29)
--- NOTE | 2018-10-06 09:53 | NUR ---
ED Nurse Note: organic lab worker here to draw pt as she is difficult stick. pt states hhn has helped a little.
--- NOTE | 2018-10-06 10:23 | Emergency Room Report ---
History of Present Illness General Chief Complaint: Upper Respiratory Illness Source: Patient, Medical Record Present Illness HPI 53-year-old female presents ED for evaluation. Brought in by EMS from [facility] facility. Complaining of cough and shortness of breath for the last 5 days. Cough is productive with yellowish phlegm. Notes history of asthma. Denies chest pain. Denies fevers or chills. States she was at [facility] last night for similar presentation. Was subsequently discharged with patient states she does not feel better. No other aggravating relieving factors. Denies any other associated symptoms Allergies: Coded Allergies: LATEX (Verified Allergy, Unknown, 06/28/18) Patient History Past Medical History: GERD, renal disease, dialysis Past Surgical History: none Pertinent Family History: none Social History: Denies: smoking, alcohol use, drug use Now: No Immunizations: UTD Reviewed Nursing Documentation: PMH: Agreed; PSxH: Agreed Nursing Documentation-PMH Past Medical History: No History, Except For Hx Hypertension: Yes - HYPERLIPIDEMIA, DVT Hx Diabetes: Yes Hx Gastrointestinal Problems: Yes - GERD Hx Dialysis: Yes - Tue, Thur, Sat, Shunt on L arm, R leg amputation Hx Neurological Problems: Yes - Hx of fall Hx Cerebrovascular Accident: Yes - Anemia Review of Systems All Other Systems: negative except mentioned in HPI Physical Exam Vital Signs Date Time Temp Pulse Resp B/P (MAP) Pulse Ox O2 Delivery O2 Flow Rate FiO2 10/06/18 08:44 98.1 85 16 114/52 (72) 96 Room Air 10/06/18 09:30 21 Sp02 EP Interpretation: reviewed, normal General Appearance: no apparent distress, alert, GCS 15, non-toxic, obese Head: normocephalic, atraumatic Eyes: bilateral eye normal inspection, bilateral eye PERRL ENT: hearing grossly normal, normal pharynx, no angioedema, normal voice Neck: full range of motion, supple/symm/no masses Respiratory: chest non-tender, decreased breath sounds, speaking full sentences , wheezing Cardiovascular #1: regular rate, rhythm, no edema Cardiovascular #2: 2+ carotid (R), 2+ carotid (L), 2+ radial (R), 2+ radial (L) , 2+ dorsalis pedis (R), 2+ dorsalis pedis (L) Gastrointestinal: normal bowel sounds, non tender, soft, non-distended, no guarding, no rebound Rectal: deferred Genitourinary: normal inspection, no CVA tenderness Musculoskeletal: back normal, gait/station normal Neurologic: alert, oriented x3, responsive, motor strength/tone normal, sensory intact, speech normal Psychiatric: judgement/insight normal, memory normal, mood/affect normal, no suicidal/homicidal ideation Reflexes: 3+ bicep (R), 3+ bicep (L), 3+ tricep (R), 3+ tricep (L), 3+ knee (R) , 3+ knee (L) Skin: other - see nursing notes Lymphatic: no adenopathy Medical Decision Making Diagnostic Impression: Primary Impression: Bronchitis, acute, with bronchospasm Additional Impressions: ESRD (end stage renal disease) on dialysis UTI (urinary tract infection) Qualified Codes: N39.0 - Urinary tract infection, site not specified ER Course Hospital Course 53 yo F presents to ED c/o cough, SOB Differential diagnoses include: Pneumonia, CHF exacerbation, pneumothorax, fluid overload Clinical course Patient placed on stretcher. On electronic device monitor with stable vitals. After initial history and physical, I ordered nebulizer treatments, solumedrol. I ordered labs, IV fluids, EKG, chest x-ray, blood cultures, UA. Labs -no leukocytosis, hemoglobin/hematocrit stable, BUN/Cr elevated, trop negative, UA + bacteria EKG - NSR, no acute ischemic changes interpreted by me CXR - no obvious focal consolidation Abx given. patient seen at [facility] yest[facility] and evaluated/discharged. states she feels worse, we will admit today. Case discussed with Dr. Chan and he agreed to the patient to his service for further care and support I feel this is a highly complex case requiring extensive working including EKG/ Rhythm strip, Xray/CT/US, Blood/urine lab work, repeat exams while in ED, and administration of strong opiates/narcotics for pain control, admission to hospital or close patient follow up. Diagnosis - bronchitis with broncospasm, ESRD on dialysis, UTI Patient admitted to floor in serious condition Labs Test 10/06/18 09:12 10/06/18 10:00 10/06/18 10:20 10/06/18 13:50 White Blood Count 8.6 K/UL (4.8-10.8) Red Blood Count 3.55 M/UL (4.20-5.40) Hemoglobin 9.8 G/DL (12.0-16.0) Hematocrit 32.3 % (37.0-47.0) Mean Corpuscular Volume 91 FL (80-99) Mean Corpuscular Hemoglobin 27.6 PG (27.0-31.0) Mean Corpuscular Hemoglobin Concent 30.4 G/DL (32.0-36.0) Red Cell Distribution Width 16.2 % (11.6-14.8) Platelet Count 129 K/UL (150-450) Mean Platelet Volume 7.9 FL (6.5-10.1) Neutrophils (%) (Auto) 41.2 % (45.0-75.0) Lymphocytes (%) (Auto) 49.3 % (20.0-45.0) Monocytes (%) (Auto) 5.6 % (1.0-10.0) Eosinophils (%) (Auto) 2.8 % (0.0-3.0) Basophils (%) (Auto) 1.1 % (0.0-2.0) Sodium Level 141 MMOL/L (136-145) Potassium Level 5.3 MMOL/L (3.5-5.1) Chloride Level 101 MMOL/L (98-107) Carbon Dioxide Level 30 MMOL/L (21-32) Anion Gap 10 mmol/L (5-15) Blood Urea Nitrogen 62 mg/dL (7-18) Creatinine 6.6 MG/DL (0.55-1.30) Estimat Glomerular Filtration Rate 8.0 mL/min (>60) Glucose Level 237 MG/DL (74-106) Lactic Acid Level 1.30 mmol/L (0.4-2.0) Calcium Level 9.5 MG/DL (8.5-10.1) Total Bilirubin 0.4 MG/DL (0.2-1.0) Aspartate Amino Transf (AST/SGOT) 11 U/L (15-37) Alanine Aminotransferase (ALT/SGPT) 19 U/L (12-78) Alkaline Phosphatase 153 U/L (46-116) Total Creatine Kinase 59 U/L (26-308) Creatine Kinase MB 0.7 NG/ML (0.0-3.6) Creatine Kinase MB Relative Index 1.1 Pro-B-Type Natriuretic Peptide 519 pg/mL (0-125) Total Protein 7.5 G/DL (6.4-8.2) Albumin 3.1 G/DL (3.4-5.0) Globulin 4.4 g/dL Albumin/Globulin Ratio 0.7 (1.0-2.7) Urine Color Pale yellow Urine Appearance Clear Urine pH 8 (4.5-8.0) Urine Specific [place] 1.010 (1.005-1.035) Urine Protein 3+ (NEGATIVE) Urine Glucose (UA) 3+ (NEGATIVE) Urine Ketones Negative (NEGATIVE) Urine Blood 1+ (NEGATIVE) Urine Nitrite Negative (NEGATIVE) Urine Bilirubin Negative (NEGATIVE) Urine Urobilinogen Normal MG/DL (0.0-1.0) Urine Leukocyte Esterase 3+ (NEGATIVE) Urine RBC 2-4 /HPF (0 - 2) Urine WBC 15-20 /HPF (0 - 2) Urine Squamous Epithelial Cells Few /LPF (NONE/OCC) Urine Bacteria Few /HPF (NONE) Arterial Blood pH 7.374 (7.350-7.450) Arterial Blood Partial Pressure CO2 48.4 mmHg (35.0-45.0) Arterial Blood Partial Pressure O2 53.4 mmHg (75.0-100.0) Arterial Blood HCO3 27.6 mmol/L (22.0-26.0) Arterial Blood Oxygen Saturation 85.1 % (95-100) Arterial Blood Base Excess 1.9 (-2-2) Asim Test Positive EKG Diagnostic Results Rate: normal Rhythm: NSR ST Segments: no acute changes ASA given to the pt in ED: No Rhythm Strip Diag. Results EP Interpretation: yes Rhythm: NSR, no PVC's, no ectopy Chest X-Ray Diagnostic Results Chest X-Ray Diagnostic Results : Chest X-Ray Ordered: Yes # of Views/Limited/Complete: 1 View Indication: Shortness of Breath EP Interpretation: Yes Interpretation: no consolidation, no effusion, no pneumothorax, no acute cardiopulmonary disease Impression: No acute disease Electronically Signed by: Electronically signed by Johnny Guzman MD Last Vital Signs Date Time Temp Pulse Resp B/P (MAP) Pulse Ox O2 Delivery O2 Flow Rate FiO2 10/06/18 09:43 82 20 100 Room Air 21 10/06/18 08:44 98.1 114/52 (72) Status: improved Disposition: ADMITTED INPATIENT Condition: Serious Referrals: Archana Chan MD (PCP) Johnny Guzman MD Oct 06, 2018 10:23
[2018-10-06 10:25] LABS: BASOPHILS % (AUTO) 1.1 % (0.0-2.0); EOSINOPHILS % (AUTO) 2.8 % (0.0-3.0); HEMATOCRIT 32.3 % (37.0-47.0); HEMOGLOBIN 9.8 G/DL (12.0-16.0); LYMPHOCYTES % (AUTO) 49.3 % (20.0-45.0); MEAN CORPUSCULAR VOLUME 91 FL (80-99); MONOCYTES % (AUTO) 5.6 % (1.0-10.0); NEUTROPHILS % (AUTO) 41.2 % (45.0-75.0); PLATELET COUNT 129 K/UL (150-450); RED BLOOD COUNT 3.55 M/UL (4.20-5.40); RED CELL DISTRIBUTION WIDTH 16.2 % (11.6-14.8); WHITE BLOOD COUNT 8.6 K/UL (4.8-10.8)
[2018-10-06 10:30] VITALS: BP 131/40
[2018-10-06 10:36] LABS: ANION GAP 10 mmol/L (5-15); BLOOD UREA NITROGEN 62 mg/dL (7-18); CALCIUM 9.5 MG/DL (8.5-10.1); CARBON DIOXIDE 30 MMOL/L (21-32); CHLORIDE 101 MMOL/L (98-107); CREATININE 6.6 MG/DL (0.55-1.30); POTASSIUM 5.3 MMOL/L (3.5-5.1); SODIUM 141 MMOL/L (136-145)
--- NOTE | 2018-10-06 10:39 | NUR ---
ED Nurse Note: pt tolerates I/O st. cath urine obtainment well. clear light yellow urine noted, specimen sent to lab. pt with admission swabs and belongings list done.
[2018-10-06 10:43] LABS: APPEARANCE,URINE CLEAR; BILIRUBIN, URINE NEGATIVE (NEGATIVE); COLOR,URINE PALE YELLOW; GLUCOSE, URINE (UA) 3+ (NEGATIVE); KETONES,URINE NEGATIVE (NEGATIVE); LEUKOCYTE ESTERASE ,URINE 3+ (NEGATIVE); NITRITE,URINE NEGATIVE (NEGATIVE); PH,URINE 8 (4.5-8.0); PROTEIN,URINE 3+ (NEGATIVE); UROBILINOGEN,URINE NORMAL MG/DL (0.0-1.0)
--- NOTE | 2018-10-06 11:08 | Diagnostic Imaging Report ---
Indication: Shortness of breath Technique: One view of the chest Comparison: 06/28/2017 Findings: Body habitus limits evaluation. Inspiration is suboptimal. Equivocal mild interstitial prominence is probably exaggerated by low lung volumes. There is central bronchial wall thickening. No focal airspace consolidation. Pleural spaces are grossly clear. Heart size is upper limits of normal. No significant interim change allowing for differences in degree of inspiration Impression: Findings as noted. No definite acute process
--- NOTE | 2018-10-06 11:16 | NUR ---
ED Nurse Note: attempted to give report to rn on 3 [facility] states pt cannot be admitted to their unit as she has hx gangrene with amputations
[2018-10-06 11:24] LABS: ALANINE AMINOTRANSFERASE 19 U/L (12-78); ALBUMIN 3.1 G/DL (3.4-5.0); ALBUMIN/GLOBULIN RATIO 0.7 (1.0-2.7); ALKALINE PHOSPHATASE 153 U/L (46-116); ASPARTATE AMINO TRANSFERASE 11 U/L (15-37); BILIRUBIN,TOTAL 0.4 MG/DL (0.2-1.0); CKMB 0.7 NG/ML (0.0-3.6); CREATINE KINASE 59 U/L (26-308)
--- NOTE | 2018-10-06 11:46 | NUR ---
ED Nurse Note: md aware of labs and no new orders per md. admitting md to order further interventions.
--- NOTE | 2018-10-06 11:46 | NUR ---
ED Nurse Note: vice president medical affairs aware to transport pt to unit
--- NOTE | 2018-10-06 12:18 | Consultation ---
Consult Note Assessment/Plan DICT # [id number] Castillo Carrizales MD Oct 06, 2018 12:18
[2018-10-06 12:30] VITALS: BP 151/76
[2018-10-06] MEDS ORDERED: Ipratropium 0.02% Inh Soln 2.5ml UD HHN PRN (12:30)
[2018-10-06] MEDS ORDERED: Levalbuterol Inh UD 1.25mg/0.5ml HHN PRN (12:30)
[2018-10-06] MEDS ORDERED: Flonase Nasal Inhaler 16gm NASAL PRN (13:00)
[2018-10-06] MEDS ORDERED: Lactulose 20gm/30ml UDC ORAL PRN ×2 (13:00→13:30)
[2018-10-06] MEDS ORDERED: Sennosides 8.6mg tab ORAL PRN (13:00)
--- NOTE | 2018-10-06 14:17 | Infectious Diseases Prog Note ---
Assessment/Plan Problems: (1) Bronchitis, acute, with bronchospasm Assessment & Plan: will start vancomycin and cefepime and send sputum culture , continue inhalers (2) Cough productive of yellow sputum Assessment & Plan: possible pneumonia , will start vancomycin and cefepime since HD patient and send sputum culture (3) UTI (urinary tract infection) Assessment & Plan: will start cefepime pending urine culture (4) ESRD (end stage renal disease) on dialysis Assessment & Plan: continue HD as per renal Subjective Allergies: Coded Allergies: LATEX (Verified Allergy, Unknown, 06/28/18) Objective Vital Signs Last 24 Hour Vital Signs Date Time Temp Pulse Resp B/P (MAP) Pulse Ox O2 Delivery O2 Flow Rate FiO2 10/06/18 13:25 108 20 98 Room Air 21 10/06/18 13:06 105 20 95 Room Air 10/06/18 11:42 90 14 134/46 98 Room Air 10/06/18 10:30 88 14 131/40 96 Room Air 10/06/18 09:43 82 20 100 Room Air 10/06/18 09:41 85 16 Room Air 10/06/18 09:30 111 22 98 Room Air 10/06/18 09:30 36 10/06/18 09:30 111 22 98 Room Air 21 10/06/18 08:44 98.1 85 16 114/52 (72) 96 Room Air Height (Feet): 5 Height (Inches): 5.00 Weight (Pounds): 279 Microbiology Date/Time Source Procedure Growth Status 10/06/18 10:10 Rectal Mucosa Received Laboratory Tests Test 10/06/18 09:12 10/06/18 10:00 10/06/18 10:20 10/06/18 13:50 White Blood Count 8.6 K/UL (4.8-10.8) Red Blood Count 3.55 M/UL (4.20-5.40) L Hemoglobin 9.8 G/DL (12.0-16.0) L Hematocrit 32.3 % (37.0-47.0) L Mean Corpuscular Volume 91 FL (80-99) Mean Corpuscular Hemoglobin 27.6 PG (27.0-31.0) Mean Corpuscular Hemoglobin Concent 30.4 G/DL (32.0-36.0) L Red Cell Distribution Width 16.2 % (11.6-14.8) H Platelet Count 129 K/UL (150-450) L Mean Platelet Volume 7.9 FL (6.5-10.1) Neutrophils (%) (Auto) 41.2 % (45.0-75.0) L Lymphocytes (%) (Auto) 49.3 % (20.0-45.0) H Monocytes (%) (Auto) 5.6 % (1.0-10.0) Eosinophils (%) (Auto) 2.8 % (0.0-3.0) Basophils (%) (Auto) 1.1 % (0.0-2.0) Sodium Level 141 MMOL/L (136-145) Potassium Level 5.3 MMOL/L (3.5-5.1) H Chloride Level 101 MMOL/L (98-107) Carbon Dioxide Level 30 MMOL/L (21-32) Anion Gap 10 mmol/L (5-15) Blood Urea Nitrogen 62 mg/dL (7-18) H Creatinine 6.6 MG/DL (0.55-1.30) H Estimat Glomerular Filtration Rate 8.0 mL/min (>60) Glucose Level 237 MG/DL (74-106) H Lactic Acid Level 1.30 mmol/L (0.4-2.0) Calcium Level 9.5 MG/DL (8.5-10.1) Total Bilirubin 0.4 MG/DL (0.2-1.0) Aspartate Amino Transf (AST/SGOT) 11 U/L (15-37) L Alanine Aminotransferase (ALT/SGPT) 19 U/L (12-78) Alkaline Phosphatase 153 U/L (46-116) H Total Creatine Kinase 59 U/L (26-308) Creatine Kinase MB 0.7 NG/ML (0.0-3.6) Creatine Kinase MB Relative Index 1.1 Pro-B-Type Natriuretic Peptide 519 pg/mL (0-125) H Total Protein 7.5 G/DL (6.4-8.2) Albumin 3.1 G/DL (3.4-5.0) L Globulin 4.4 g/dL Albumin/Globulin Ratio 0.7 (1.0-2.7) L Urine Color Pale yellow Urine Appearance Clear Urine pH 8 (4.5-8.0) Urine Specific [place] 1.010 (1.005-1.035) Urine Protein 3+ (NEGATIVE) H Urine Glucose (UA) 3+ (NEGATIVE) H Urine Ketones Negative (NEGATIVE) Urine Blood 1+ (NEGATIVE) H Urine Nitrite Negative (NEGATIVE) Urine Bilirubin Negative (NEGATIVE) Urine Urobilinogen Normal MG/DL (0.0-1.0) Urine Leukocyte Esterase 3+ (NEGATIVE) H Urine RBC 2-4 /HPF (0 - 2) H Urine WBC 15-20 /HPF (0 - 2) H Urine Squamous Epithelial Cells Few /LPF (NONE/OCC) Urine Bacteria Few /HPF (NONE) Arterial Blood pH 7.374 (7.350-7.450) Arterial Blood Partial Pressure CO2 48.4 mmHg (35.0-45.0) H Arterial Blood Partial Pressure O2 53.4 mmHg (75.0-100.0) L Arterial Blood HCO3 27.6 mmol/L (22.0-26.0) H Arterial Blood Oxygen Saturation 85.1 % (95-100) *L Arterial Blood Base Excess 1.9 (-2-2) Asim Test Positive Current Medications Medications (Trade) Dose Ordered Sig/Alex Route PRN Reason Start Time Stop Time Status Last Admin Dose Admin Acetaminophen (Tylenol) 650 mg Q4H PRN ORAL Mild Pain/Temp > 100.5 10/06/18 13:00 11/05/18 12:59 Acetaminophen/ Hydrocodone Bitart ([place] 10/325) 1 tab Q6H PRN ORAL For Pain 10/06/18 13:00 10/13/18 12:59 Apixaban (Eliquis) 2.5 mg BID ORAL 10/06/18 18:00 11/05/18 17:59 Docusate Sodium (Colace) 100 mg THREE TIMES A DAY ORAL 10/06/18 13:20 11/05/18 13:19 Fluticasone Propionate (Flonase) 1 spray Q8H PRN NASAL NASAL CONGESTION 10/06/18 13:00 11/05/18 12:59 Gabapentin (Neurontin) 300 mg THREE TIMES A DAY ORAL 10/06/18 13:20 11/05/18 13:19 Ipratropium [place] (Atrovent) 500 mcg Q4H PRN HHN Shortness of Breath 10/06/18 12:30 10/11/18 12:29 Ipratropium [place] (Atrovent) 500 mcg Q6HRT HHN 10/06/18 13:00 10/11/18 12:59 10/06/18 13:00 Lactulose (Cephulac) 45 gm Q12H PRN ORAL CONSTIPATION 10/06/18 13:30 11/05/18 12:59 Levalbuterol HCl (Xopenex) 0.63 mg Q4H PRN HHN SOB/wheezing 10/06/18 12:30 10/11/18 12:29 Levalbuterol HCl (Xopenex) 0.63 mg Q6HRT HHN 10/06/18 13:00 10/11/18 12:59 10/06/18 13:00 Levofloxacin (Levaquin) 500 mg Q48H ORAL 10/08/18 09:00 10/15/18 08:59 Lidocaine (Lidoderm 5% PATCH) 1 patch DAILYPRN PRN TDERMAL BACK PAIN 10/06/18 13:00 11/05/18 12:59 Loratadine (Claritin 10mg) 10 mg DAILY ORAL 10/07/18 09:00 11/06/18 08:59 Methylprednisolone Sodium Succinate (Solu-MEDROL) 40 mg EVERY 12 HOURS IVP 10/06/18 21:00 11/05/18 20:59 Pregabalin (Lyrica) 75 mg BID ORAL 10/06/18 18:00 11/05/18 17:59 Sennosides (Senokot) 8.6 mg BIDPRN PRN ORAL Constipation 10/06/18 13:00 11/05/18 12:59 Sevelamer Carbonate (Renvela) 800 mg THREE TIMES A DAY ORAL 10/06/18 13:22 11/05/18 13:21 Vitamin B Complex/ Vit C/Folic Acid (Nephrovite) 1 tab DAILY ORAL 10/07/18 09:00 11/06/18 08:59 Zinc Sulfate (Zinc Sulfate) 220 mg DAILY ORAL 10/07/18 09:00 11/06/18 08:59 Naa Mina M.D. Oct 06, 2018 14:17
--- NOTE | 2018-10-06 14:36 | Consultation ---
Consult Note Consult Note asked to eval for dialysis management Chief Complaint: Upper Respiratory Illness 53-year-old female presents ED for evaluation. Brought in by EMS from alf facility. Complaining of cough and shortness of breath for the last 5 days. Cough is productive with yellowish phlegm. Notes history of asthma. Denies chest pain. Denies fevers or chills. States she was at [facility] last night for similar presentation. Was subsequently discharged with patient states she does not feel better. No other aggravating relieving factors. Denies any other associated symptoms Allergies: LATEX (Verified Allergy, Unknown, 06/28/18) Patient History Past Medical History: GERD, renal disease, dialysis Past Medical History: No History, Except For Hx Hypertension: Yes - HYPERLIPIDEMIA, DVT Hx Diabetes: Yes Hx Gastrointestinal Problems: Yes - GERD Hx Dialysis: Yes - [place], [place], Sat, Shunt on L arm, R leg amputation Hx Neurological Problems: Yes - Hx of fall Hx Cerebrovascular Accident: Yes - Anemia interviewed examined data reviewed . Assessment/Plan ESRD , HD Tue Gisela Sat Obese DM PVD s/p LE amputation Rt Anemia of CKD Bronchitis / UTI Per ID HD in am Kayexelate for now pulm toilet starlix BP and BS control per orders Ronen Leone MD Oct 06, 2018 14:36
[2018-10-06] MEDS ORDERED: Sodium Polystyrene Sulfonate 15gm Powder ORAL SCH (14:53)
[2018-10-06] MEDS: HYDROcodone/Acetamin 10/325 tab ORAL PRN (15:49)
[2018-10-06] MEDS: Docusate 100mg cap ORAL SCH ×2 (15:49→18:16)
[2018-10-06 16:00] VITALS: BP 173/89
[2018-10-06] MEDS: Cefepime HCl 1 GM in D5W 55 ML IVPB SCH (16:09)
[2018-10-06] MEDS: NovoLOG Insulin Flexpen SUBQ SCH ×2 (16:55→20:29)
[2018-10-06] MEDS ORDERED: Vancomycin 1.5gm Premix IVPB SCH (17:00)
--- NOTE | 2018-10-06 17:00 | NUR ---
NURSE NOTES: Received pt from PINKY BLOOM at 1200. Pt is alert and orient x4. 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 Dr BAUGH visited pt and ordered to continue SNF meds NAD levaquin 250mg iv q48hr. Noted and carried out. pt has AV SHUNT L arm. pt has order for sputum culture and she is aware about collecting it but she stated she doesn't have any at this moment. Dr is aware about K, BUN, CREA GLU and other lab results. pt has HTN at [address] castro, waiting to call back. endorsed to PINKY SMITH to F/U for HTN and SPUTUM CULTURE.
--- NOTE | 2018-10-06 17:34 | General Progress Note ---
Assessment/Plan Assessment/Plan: patient is seen and examined. Full Dictation completed Subjective Allergies: Coded Allergies: LATEX (Verified Allergy, Unknown, 06/28/18) Objective Last 24 Hour Vital Signs Date Time Temp Pulse Resp B/P (MAP) Pulse Ox O2 Delivery O2 Flow Rate FiO2 10/06/18 16:24 Nasal Cannula 2.0 10/06/18 16:19 98.0 10/06/18 16:00 99.0 99 20 173/89 (117) 95 10/06/18 13:25 108 20 98 Room Air 21 10/06/18 13:06 105 20 95 Room Air 21 10/06/18 12:30 98.4 93 20 151/76 (101) 93 10/06/18 11:42 90 14 134/46 98 Room Air 10/06/18 10:30 88 14 131/40 96 Room Air 10/06/18 09:43 82 20 100 Room Air 10/06/18 09:41 85 16 Room Air 10/06/18 09:30 111 22 98 Room Air 10/06/18 09:30 36 10/06/18 09:30 111 22 98 Room Air 21 10/06/18 08:44 98.1 85 16 114/52 (72) 96 Room Air Laboratory Tests 10/06/18 09:12: White Blood Count 8.6, Red Blood Count 3.55L, Hemoglobin 9.8L, Hematocrit 32.3L , Mean Corpuscular Volume 91, Mean Corpuscular Hemoglobin 27.6, Mean Corpuscular Hemoglobin Concent 30.4L, Red Cell Distribution Width 16.2H, Platelet Count 129L, Mean Platelet Volume 7.9, Neutrophils (%) (Auto) 41.2L, Lymphocytes (%) (Auto) 49.3H, Monocytes (%) (Auto) 5.6, Eosinophils (%) (Auto) 2.8, Basophils (%) (Auto) 1.1 10/06/18 10:00: Sodium Level 141, Potassium Level 5.3H, Chloride Level 101, Carbon Dioxide Level 30, Anion Gap 10, Blood Urea Nitrogen 62H, Creatinine 6.6H, Estimat Glomerular Filtration Rate 8.0, Glucose Level 237H, Lactic Acid Level 1.30, Calcium Level 9.5, Total Bilirubin 0.4, Aspartate Amino Transf (AST/SGOT) 11L, Alanine Aminotransferase (ALT/SGPT) 19, Alkaline Phosphatase 153H, Total Creatine Kinase 59, Creatine Kinase MB 0.7, Creatine Kinase MB Relative Index 1.1, Pro-B-Type Natriuretic Peptide 519H, Total Protein 7.5, Albumin 3.1L, Globulin 4.4, Albumin/Globulin Ratio 0.7L 10/06/18 10:20: Urine Color Pale yellow, Urine Appearance Clear, Urine pH 8, Urine Specific [place] 1.010, Urine Protein 3+H, Urine Glucose (UA) 3+H, Urine Ketones Negative , Urine Blood 1+H, Urine Nitrite Negative, Urine Bilirubin Negative, Urine Urobilinogen Normal, Urine Leukocyte Esterase 3+H, Urine RBC 2-4H, Urine WBC 15- 20H, Urine Squamous Epithelial Cells Few, Urine Bacteria Few 10/06/18 13:50: Arterial Blood pH 7.374, Arterial Blood Partial Pressure CO2 48.4H, Arterial Blood Partial Pressure O2 53.4L, Arterial Blood HCO3 27.6H, Arterial Blood Oxygen Saturation 85.1*L, Arterial Blood Base Excess 1.9, Asim Test Positive Height (Feet): 5 Height (Inches): 5.00 Weight (Pounds): 279 Archana Chan MD Oct 06, 2018 17:34
[2018-10-06] MEDS ORDERED: Eliquis 2.5mg tablet ORAL SCH (18:00)
--- NOTE | 2018-10-06 18:15 | NUR ---
NURSE NOTES: Patient received from [facility] for continuity of care. Will continue to monitor.
[2018-10-06] MEDS: Lyrica 75mg cap ORAL SCH (18:16)
[2018-10-06] MEDS: Eliquis 2.5mg tablet ORAL SCH (18:17)
[2018-10-06] MEDS ORDERED: LEVEMIR FL100 UNIT/1 SUBQ (18:20)
[2018-10-06] MEDS ORDERED: ZINC SULFATE220 M1 ORAL (18:23)
[2018-10-06] MEDS ORDERED: MILK OF MA400 MG/51 ORAL (18:41)
[2018-10-06] MEDS ORDERED: DULCOLAX10 MG RC (18:43)
[2018-10-06] MEDS ORDERED: FLUTICASONE PRO16 G1 NASAL (18:46)
[2018-10-06] MEDS ORDERED: LACTULOSE10 GM/154 PO (18:48)
[2018-10-06] MEDS ORDERED: LIDOCAINE 5% PATCH TOPIC (18:52)
[2018-10-06 19:29] VITALS: BP 123/94
--- NOTE | 2018-10-06 19:34 | NUR ---
HAND-OFF: Report given to PINKY Nelson.
--- NOTE | 2018-10-06 19:45 | NUR ---
NURSE NOTES: Received report from PINKY Choi. Patient in bed, awake and alert x 4, speaking on the phone. Two bed rails up and bed in the lowest position. Call light in reach. RT is at bedside. IV - right chest is intact. HOB elevated. Will continue to monitor.
--- NOTE | 2018-10-06 19:45 | Consultation ---
DATE OF CONSULTATION: 10/06/2018 CONSULTING PHYSICIAN: Castillo Carrizales M.D. REFERRING PHYSICIAN: Archana Chan M.D. REASON FOR CONSULTATION: Shortness of breath. HISTORY OF PRESENT ILLNESS: The patient is a 53-year-old female with a history of morbid obesity, end-stage renal disease on dialysis, peripheral vascular disease, status post right BKA and finger amputations, questionable history of asthma, and [facility] resident, presenting with shortness of breath and cough x5 days. She was seen in the [facility] Emergency Department last night, where her initial workup was negative and discharged home, but her symptoms persisted. Cough is productive of yellowish sputum. She had some wheezing. She is not using any inhalers. Denies any continued fevers or chills. No nausea, vomiting, diarrhea, constipation, or abdominal pain. She does have dysuria and culture procedure is pending. PAST MEDICAL HISTORY: 1. End-stage renal disease, on dialysis. 2. Hypertension. 3. Prior DVT. 4. Hyperlipidemia. 5. Peripheral vascular disease. 6. Obesity. 7. Question history of asthma. 8. Diabetes. 9. Neuropathy. PAST SURGICAL HISTORY: Right leg amputation below the knee and finger amputations as well as shunt. ALLERGIES: Latex. MEDICATIONS: Prior to admission medications, acetaminophen, [place], Eliquis, vitamin C, atorvastatin, bisacodyl, docusate, ferrous sulfate, Flonase, Neurontin, insulin, lactulose, omeprazole, oxycodone, Pregaba, sevelamer, and vitamin D. SOCIAL HISTORY: She denies tobacco, alcohol, or drug use. She lives with a cousin. FAMILY HISTORY: Noncontributory. REVIEW OF SYSTEMS: Negative other than history of present illness. PHYSICAL EXAMINATION: VITAL SIGNS: Temperature 98.1, pulse 85, blood pressure 114/50, and respiratory rate 16. Saturating 96% on room air. GENERAL: She is an obese female, in no acute distress. Awake, alert, and oriented x3. HEENT: Normocephalic and atraumatic. Oropharynx is clear with moist mucous membranes. NECK: Supple without lymphadenopathy or JVD. CHEST: Few scattered coarse breath sounds with faint end-expiratory wheezing, but good air movement. HEART: Regular rhythm. ABDOMEN: Obese, soft, nontender, and nondistended. EXTREMITIES: No cyanosis, clubbing, or edema. Evidence for right [id number] amputation and finger amputations. LABORATORY DATA: White count 8.6, hemoglobin 9.8, and platelet count 129. Sodium 141, potassium 5.3, chloride 101, bicarbonate 30, anion gap 10, BUN 60, and creatinine 6.2. Glucose 237. Lactic acid 1.3. Calcium 9.5. Total bilirubin 0.3. AST 11, ALT 19, and alkaline phosphatase 153. Total CK 59. BNP 519. CK-MB 1.1. Urinalysis, 1+ blood, negative nitrites, 3+ leukocyte esterase. Cultures pending. ASSESSMENT: The patient is a 53-year-old female with a history of obesity, questionable history of asthma, end-stage renal disease on dialysis, diabetes, hypertension, peripheral vascular disease, BKA and finger amputations, presenting with shortness of breath and cough likely secondary to URI/bronchitis with an exacerbation of her asthma. PROBLEM LIST: 1. URI/bronchitis. 2. Asthma with acute exacerbation. 3. Urinary tract infection. 4. Morbid obesity. 5. End-stage renal disease, on dialysis. 6. Diabetes. 7. Hypertension. 8. Peripheral vascular disease, status post right BKA and finger amputations. 9. Neuropathy. 10. Anemia. 11. Thrombocytopenia. 12. Prior stated history of DVT. TREATMENT PLAN: 1. Optimize pulmonary hygiene/mobilize as tolerated. 2. Check an ABG. 3. P.r.n. O2 to keep saturations greater than 90%. 4. Exdah-[id number]-vlbqs and p.r.n. Atrovent and Xopenex hand-held nebulizers (the patient states she has palpitations with albuterol). 5. We will start Levaquin for treatment of both urinary tract infection and atypical respiratory pathogens. 6. Follow up sputum culture. 7. Monitor volumes and renal function. 8. Diabetic diet. 9. Continue Eliquis for prior DVT. 10. Weight loss diet and exercise have to be addressed. 11. The patient should have full PFTs and a sleep study as an outpatient. Dr. Chan, thank you for allowing me to assist in the care of your patient. If I may be of any assistance, please not hesitate to ask. Castillo Carrizales M.D. DR: JENY JOB#: [id number] CC:
[2018-10-06 20:00] VITALS: BP 123/56
[2018-10-06] MEDS: Solu-MEDROL 40mg Inj IVP SCH (20:15)
[2018-10-06] MEDS: Levemir Flexpen SUBQ SCH (20:28)
--- NOTE | 2018-10-06 22:15 | Consultation ---
DATE OF CONSULTATION: 10/06/2018 INFECTIOUS DISEASES CONSULTATION CONSULTING PHYSICIAN: Naa Mina M.D. REQUESTING PHYSICIAN: Archana Chan M.D. REASON FOR CONSULTATION: Acute bronchitis with productive cough, possible pneumonia, urinary tract infection in hemodialysis patient. Recommendation for antibiotics treatment. HISTORY OF PRESENT ILLNESS: The patient is a 53-year-old female with past medical history of end-stage renal disease on hemodialysis, GERD, hyperlipidemia, diabetes, chronic anemia, DVT was sent to [facility] for worsening respiratory symptom. The patient was brought into the ER in [facility] by paramedics from [facility] due to cough productive of yellowish phlegm over the last five days with shortness of breath and difficulty breathing. The patient cough has been dry initially but now productive of yellowish phlegm. She also had a fever of 100.4, measured at home. The patient visited [facility] the night prior for similar presentation and she was subsequently discharged back to the [facility]. She had sore throat and earache. No runny nose. No headache or blurry vision. No recent travel but other resident in the long term facility has been coughing and sneezing around her. In ED, she had a chest x-ray, which did not reveal any infiltrates or pleural effusion. Urinalysis showed evidence of infection. The patient was started on Levaquin and steroid empirically and Infectious Diseases consultation was requested for antibiotics treatment and further management. REVIEW OF SYSTEMS: A 14-point of system reviewed were all negative apart from the one I mentioned above in my History and Physical. PAST MEDICAL HISTORY: Significant for end-stage renal disease on hemodialysis, GERD, hyperlipidemia, DVT, hypertension diabetes, anemia, remote history of asthma. PAST SURGICAL HISTORY: She had left arm graft placement. SOCIAL HISTORY: The patient lives at [facility]. No recent drugs, tobacco, or alcohol abuse. ALLERGIES: She is allergic to latex. MEDICATIONS: She was started on Levaquin 500 mg once daily. For the rest of her medications, please refer to MAR. LABORATORY AND DIAGNOSTIC DATA: White count of 8.6, hemoglobin of 9.8, platelet count of 129. BUN of 62, creatinine 6.6. AST of 11, ALT of 19, alkaline phosphatase 153. Urinalysis showed +3 leukocyte esterase, wbc's 15 to 20, with few bacteria. Imaging, chest x-ray showed no definite acute process. PHYSICAL EXAMINATION: VITAL SIGNS: Temperature 98.1, pulse 108, respirations 20, blood pressure 134/46, and saturation 98% on room air. GENERAL: Morbidly obese female, up in bed, coughing, sneezing, and wheezing, not in acute distress. HEENT: Normocephalic and atraumatic. Pupils are reactive to light equally. Moist oral mucosa. No exudate or thrush. NECK: Supple. No lymphadenopathy. CARDIOVASCULAR: Tachycardic. S1 and S2 normal. No gallop. LUNGS: She had diffuse wheezing mainly on the lower lobes with diminished breathing sounds. Poor air entry. Normal breathing efforts. ABDOMEN: Soft, morbidly obese, nontender, normal bowel sounds. No hepatosplenomegaly or ascites. EXTREMITIES: No edema or cyanosis. No clubbing. SKIN: No rash. No hives. No ulceration. ASSESSMENT AND RECOMMENDATION: 1. Acute bronchitis with bronchospasm, suspect asthma exacerbation. We will start vancomycin and cefepime empiric coverage and send sputum culture if she produces any more. Continue inhalers as needed. Monitor chest x-ray. 2. Cough productive of yellowish sputum, possible pneumonia in a hemodialysis patient, we will consider vancomycin and cefepime. Empiric coverage for now. Pending sputum culture and blood culture. We will deescalate antibiotics based on culture result and clinical improvement. 3. Urinary tract infection. We will start cefepime empirically, pending urine culture results. 4. End-stage renal disease, on hemodialysis. Continue dialysis as per Renal. 5. Diabetes mellitus. Recommend tight glycemic control to keep blood glucose between 100 to 140. Thank you for the consult. ID will continue to follow. Please feel free to call with any question. Naa Mina M.D. DR: Rich JOB#: [id number] CC:
--- NOTE | 2018-10-06 22:30 | NUR ---
NURSE NOTES: Administered Levofloxacin around 2029. Checked IV, which was patent and intact. Patient later called and reported her IV was leaking. Checked and noted her IV to be out and her gown to be wet. Patient was asking if she needs to have another dose. Sent a message to the pharmacy. Pharmacy put an order of 1 dose. Will administer as soon as we get IV access.
[2018-10-07] VITALS: BP 140/62
--- NOTE | 2018-10-07 00:30 | History and Physical Report ---
DATE OF ADMISSION: 10/06/2018 SOURCE OF INFORMATION: Patient and EMR. HISTORY OF PRESENT ILLNESS: The patient is 53-year-old female with a history of end-stage renal disease, on hemodialysis. The patient presented with feeling tired associated with shortness of breath for the last couple of days. The patient had a prior history of the urinary tract infection. Also, the patient reportedly had episodes of the low pulse ox with no chest pain. The patient had initially sent to the [facility] Emergency Room. However there, given the persistent symptoms, the patient requested to be transferred to this hospital. The patient denies any fever. Denies any severe headache or blurry vision. PAST MEDICAL HISTORY: History of atrial fibrillation, congestive heart failure, hyperlipidemia, anemia, diabetes, and end-stage renal disease. PAST SURGICAL HISTORY: Right-sided AKA and left-sided toe and left-sided finger amputations. CURRENT HOSPITAL MEDICATIONS: Including acetaminophen, Eliquis, and atorvastatin. ALLERGIES: Latex. SOCIAL HISTORY: The patient denies history of illicit drug abuse, smoking, or alcohol abuse. The patient has 2 children. FAMILY HISTORY: Reviewed and noncontributory. REVIEW OF SYSTEMS: All 12 elements of review of systems reviewed. Pertinent positives and negatives as above. PHYSICAL EXAMINATION: VITAL SIGNS: Blood pressure 170/80, temperature 98.2, pulse oximetry 98% on room air, respiratory rate 18, temperature 98.2, and pulse rate 110. HEAD AND NECK: Atraumatic and normocephalic. CHEST: Clear to auscultation. HEART: S1 and S2. Regular rate and rhythm. ABDOMEN: Soft. No organomegaly. MUSCULOSKELETAL: Positive for the right AKA, left-sided amputation of toe. NEUROLOGY: The patient is awake, alert, and oriented x3. LABORATORY DATA: Labs dated 10/06/2018 shows WBC 8.6, hemoglobin of 9.8, and platelet count of 129,000. Sodium 141, potassium 5.3, BUN 62, and creatinine 6.6. AST 11. Chest x-ray dated 10/06/2018 reviewed. It is unremarkable for the acute process. Urinalysis dated 10/06/2018 shows 15 to 20 wbc, negative for , and few bacteria. ASSESSMENT AND PLAN: 1. End-stage renal disease, on hemodialysis. 2. SIRS. 3. UTI. 4. AFib. On anticoagulation. 5. Hypoxemic respiratory distress, one episode. 6. Anemia. 7. Severe peripheral vascular disease, status post amputation of the extremities and toes. 8. Hypertension. 9. Diabetes type 2. 10. GI and DVT prophylaxis. PLAN OF CARE: Nephrology, Infectious Disease, and Pulmonary are consulted. We will continue with empiric antibiotic regimen treatments. We will agree with the admission to the medical floor. Start with the initial empiric antibiotic treatments. Archana Chan M.D. DR: HARIKA JOB#: [id number] CC:
[2018-10-07] MEDS: Ipratropium 0.02% Inh Soln 2.5ml UD HHN SCH ×4 (01:25→20:00)
[2018-10-07] MEDS: Levalbuterol Inh UD 1.25mg/0.5ml HHN SCH ×4 (01:25→20:00)
[2018-10-07 04:00] VITALS: BP 139/60
[2018-10-07] MEDS: NovoLOG Insulin Flexpen SUBQ SCH ×5 (06:42→20:14)
[2018-10-07 07:25] LABS: BASOPHILS % (AUTO) 0.2 % (0.0-2.0); HEMATOCRIT 30.6 % (37.0-47.0); HEMOGLOBIN 9.6 G/DL (12.0-16.0); LYMPHOCYTES % (AUTO) 19.2 % (20.0-45.0); MEAN CORPUSCULAR VOLUME 88 FL (80-99); MONOCYTES % (AUTO) 4.9 % (1.0-10.0); NEUTROPHILS % (AUTO) 75.8 % (45.0-75.0); PLATELET COUNT 145 K/UL (150-450); RED BLOOD COUNT 3.47 M/UL (4.20-5.40); RED CELL DISTRIBUTION WIDTH 16.3 % (11.6-14.8); WHITE BLOOD COUNT 5.9 K/UL (4.8-10.8)
--- NOTE | 2018-10-07 07:30 | NUR ---
NURSE NOTES: Received pt from [facility]. Pt is alert and orient x4. 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 pt has AV SHUNT L arm. Pt has schedule for HD today. pt has intact iv access RFA 20G SL. pt is eating breakfast independently. All needs attended, bed is locked and is in the lowest position. call light within easy reach. will continue to monitor.
--- NOTE | 2018-10-07 07:34 | NUR ---
HAND-OFF: Report given to PINK[facility] Macdonald.
[2018-10-07 07:50] LABS: AMMONIA < 10 umol/L (11-32)
[2018-10-07 07:54] LABS: % IRON SATURATION 29 % (15-50); IRON 47 ug/dL (50-175); TOTAL IRON BINDING CAPACITY 161 ug/dL (250-450)
[2018-10-07 07:59] LABS: ALANINE AMINOTRANSFERASE 16 U/L (12-78); ALBUMIN/GLOBULIN RATIO 0.7 (1.0-2.7); ALKALINE PHOSPHATASE 143 U/L (46-116); ANION GAP 15 mmol/L (5-15); ASPARTATE AMINO TRANSFERASE 10 U/L (15-37); BILIRUBIN,TOTAL 0.4 MG/DL (0.2-1.0); BLOOD UREA NITROGEN 78 mg/dL (7-18); CARBON DIOXIDE 24 MMOL/L (21-32); CHLORIDE 99 MMOL/L (98-107); CHOLESTEROL 108 MG/DL (< 200); CREATININE 7.4 MG/DL (0.55-1.30); FERRITIN 812 NG/ML (8-388); HDL CHOLESTEROL 53 MG/DL (40-60); POTASSIUM 5.7 MMOL/L (3.5-5.1); SODIUM 138 MMOL/L (136-145); TRIGLYCERIDES 27 MG/DL (30-150)
[2018-10-07 08:00] VITALS: BP 114/62
[2018-10-07 08:05] LABS: GAMMA GLUTAMYL TRANSPEPTIDASE 134 U/L (5-85)
[2018-10-07] MEDS: HYDROcodone/Acetamin 10/325 tab ORAL PRN ×2 (08:31→16:58)
[2018-10-07] MEDS: Zinc Sulfate 220mg cap ORAL SCH (08:32)
[2018-10-07] MEDS: Docusate 100mg cap ORAL SCH ×3 (08:32→16:59)
[2018-10-07] MEDS: Eliquis 2.5mg tablet ORAL SCH ×2 (08:32→16:59)
[2018-10-07] MEDS: Nephrovite tab (Rena-Vite) ORAL SCH (08:32)
[2018-10-07] MEDS: Solu-MEDROL 40mg Inj IVP SCH ×2 (08:33→20:03)
[2018-10-07] MEDS: Lyrica 75mg cap ORAL SCH ×2 (08:33→17:00)
--- NOTE | 2018-10-07 09:54 | NUR ---
NURSE NOTES: Dr NORTON visited pt and he is aware about K, PH, and other lab results, stated to CALL [facility] and let them know to come sooner because K is increasing. RN called [facility] spoke with ALFRED. will continue to monitor.
--- NOTE | 2018-10-07 10:58 | Nephrology Progress Note ---
Assessment/Plan Problem List: (1) ESRD (end stage renal disease) on dialysis (2) Bronchitis, acute, with bronchospasm (3) Morbid obesity (4) Anemia in chronic kidney disease (CKD) (5) PVD (peripheral vascular disease) Assessment ESRD , HD Tue Gisela Sat Obese DM PVD s/p LE amputation Rt Anemia of CKD Bronchitis / UTI Plan Per ID HD today Kayexelate as needed pulm toilet starlix BP and BS control per orders Subjective ROS Limited/Unobtainable: No Constitutional: Reports: malaise Objective Objective Last 24 Hour Vital Signs Date Time Temp Pulse Resp B/P (MAP) Pulse Ox O2 Delivery O2 Flow Rate FiO2 10/07/18 09:01 98.4 10/07/18 09:01 98.4 10/07/18 08:00 98.4 100 20 114/62 (79) 94 10/07/18 07:36 81 20 100 Nasal Cannula 2.0 28 10/07/18 07:36 80 22 100 Nasal Cannula 2.0 28 10/07/18 07:36 100 Nasal Cannula 2.0 28 10/07/18 07:28 78 18 100 Nasal Cannula 2.0 28 10/07/18 04:00 98.3 88 18 139/60 (86) 99 10/07/18 01:36 94 20 98 Nasal Cannula 2.0 28 10/07/18 01:25 89 18 98 Nasal Cannula 2.0 28 10/07/18 00:00 98.6 90 20 140/62 (88) 97 10/06/18 21:00 Nasal Cannula 2.0 10/06/18 20:00 99.9 92 18 123/56 (78) 99 10/06/18 19:39 95 20 95 Nasal Cannula 2.0 28 10/06/18 19:29 123/94 (104) 10/06/18 19:29 94 18 95 Nasal Cannula 3.0 32 10/06/18 19:29 94 18 95 Nasal Cannula 3.0 32 10/06/18 19:29 95 Nasal Cannula 3.0 32 10/06/18 16:24 Nasal Cannula 2.0 10/06/18 16:00 99.0 99 20 173/89 (117) 95 10/06/18 13:25 108 20 98 Room Air 21 10/06/18 13:06 105 20 95 Room Air 21 10/06/18 12:30 98.4 93 20 151/76 (101) 93 10/06/18 11:42 90 14 134/46 98 Room Air Intake and Output 10/06/18 10/07/18 19:00 07:00 Intake Total 515 ml 300 ml Output Total 600 ml 1200 ml Balance -85 ml -900 ml Intake Oral 460 ml 300 ml IV Total 55 ml Output Urine Total 600 ml 1200 ml Laboratory Tests 10/06/18 13:50: Arterial Blood pH 7.374, Arterial Blood Partial Pressure CO2 48.4H, Arterial Blood Partial Pressure O2 53.4L, Arterial Blood HCO3 27.6H, Arterial Blood Oxygen Saturation 85.1*L, Arterial Blood Base Excess 1.9, Asim Test Positive 10/07/18 07:00: White Blood Count 5.9, Red Blood Count 3.47L, Hemoglobin 9.6L, Hematocrit 30.6L , Mean Corpuscular Volume 88, Mean Corpuscular Hemoglobin 27.6, Mean Corpuscular Hemoglobin Concent 31.3L, Red Cell Distribution Width 16.3H, Platelet Count 145L, Mean Platelet Volume 7.9, Neutrophils (%) (Auto) 75.8H, Lymphocytes (%) (Auto) 19.2L, Monocytes (%) (Auto) 4.9, Eosinophils (%) (Auto) 0.0, Basophils (%) (Auto) 0.2, Sodium Level 138, Potassium Level 5.7H, Chloride Level 99, Carbon Dioxide Level 24, Anion Gap 15, Blood Urea Nitrogen 78H, Creatinine 7.4H, Estimat Glomerular Filtration Rate 7.0, Glucose Level 301H, Hemoglobin A1c 7.0H, Uric Acid 6.1, Calcium Level 9.0, Phosphorus Level 6.0H, Magnesium Level 2.1, Iron Level 47L, Total Iron Binding Capacity 161L, Percent Iron Saturation 29, Unsaturated Iron Binding 114, Ferritin 812H, Total Bilirubin 0.4, Gamma Glutamyl Transpeptidase 134H, Aspartate Amino Transf (AST/ SGOT) 10L, Alanine Aminotransferase (ALT/SGPT) 16, Alkaline Phosphatase 143H, Ammonia < 10L, Troponin I 0.009, C-Reactive Protein, Quantitative 2.8H, Pro-B- Type Natriuretic Peptide 1701H, Total Protein 7.5, Albumin 3.0L, Globulin 4.5, Albumin/Globulin Ratio 0.7L, Triglycerides Level 27L, Cholesterol Level 108, LDL Cholesterol 54, HDL Cholesterol 53, Cholesterol/HDL Ratio 2.0L, Vitamin B12 Level 1126H, Folate 41.4, Thyroid Stimulating Hormone (TSH) 0.552, Random Vancomycin Level 14.0 Height (Feet): 5 Height (Inches): 5.00 Weight (Pounds): 303 General Appearance: no apparent distress Cardiovascular: normal rate Respiratory/Chest: decreased breath sounds Abdomen: soft, distended Ronen Leone MD Oct 07, 2018 10:58
[2018-10-07] MEDS ORDERED: Vancomycin 1.5gm Premix IVPB ONE (11:00)
--- NOTE | 2018-10-07 11:20 | NUR ---
NURSE NOTES: Pt is during HD and VANCOMYCIN will start after HD. Will continue to monitor.
--- NOTE | 2018-10-07 11:53 | Pulmonology Progress Note ---
Assessment/Plan Problems: (1) Morbid obesity (2) ESRD (end stage renal disease) on dialysis (3) Bronchitis, acute, with bronchospasm (4) UTI (urinary tract infection) (5) Cough productive of yellow sputum (6) Bronchitis (7) PVD (peripheral vascular disease) (8) Anemia in chronic kidney disease (CKD) Assessment/Plan ASSESSMENT: The patient is a 53-year-old female with a history of obesity, questionable history of asthma, end-stage renal disease on dialysis, diabetes, hypertension, peripheral vascular disease, BKA and finger amputations, presenting with shortness of breath and cough likely secondary to URI/bronchitis with an exacerbation of her asthma. PROBLEM LIST: 1. URI/bronchitis. 2. Asthma with acute exacerbation. 3. Urinary tract infection. 4. Morbid obesity. 5. End-stage renal disease, on dialysis. 6. Diabetes. 7. Hypertension. 8. Peripheral vascular disease, status post right BKA and finger amputations. 9. Neuropathy. 10. Anemia. 11. Thrombocytopenia. 12. Prior stated history of DVT. 13. SANDOVAL, likely OHS TREATMENT PLAN: 1. Optimize pulmonary hygiene/mobilize as tolerated. 2. CPAP 12 cm qHS ordered 3. P.r.n. O2 to keep saturations greater than 90%. 4. [id number] and p.r.n. Atrovent and Xopenex hand-held nebulizers (the patient states she has palpitations with albuterol). 5. Abx per ID 6. Follow up Cx's 7. Monitor volumes and renal function. 8. Diabetic diet. 9. Continue Eliquis for prior DVT. 10. Weight loss diet and exercise have to be addressed. 11. The patient should have full PFTs and a sleep study as an outpatient. Subjective Allergies: Coded Allergies: LATEX (Verified Allergy, Unknown, 06/28/18) Subjective AFVSS on 2L Less cough and congestion some wheezing no FC Objective Last 24 Hour Vital Signs Date Time Temp Pulse Resp B/P (MAP) Pulse Ox O2 Delivery O2 Flow Rate FiO2 10/07/18 09:01 98.4 10/07/18 09:01 98.4 10/07/18 08:00 98.4 100 20 114/62 (79) 94 10/07/18 07:36 81 20 100 Nasal Cannula 2.0 28 10/07/18 07:36 80 22 100 Nasal Cannula 2.0 28 10/07/18 07:36 100 Nasal Cannula 2.0 28 10/07/18 07:28 78 18 100 Nasal Cannula 2.0 28 10/07/18 04:00 98.3 88 18 139/60 (86) 99 10/07/18 01:36 94 20 98 Nasal Cannula 2.0 28 10/07/18 01:25 89 18 98 Nasal Cannula 2.0 28 10/07/18 00:00 98.6 90 20 140/62 (88) 97 10/06/18 21:00 Nasal Cannula 2.0 10/06/18 20:00 99.9 92 18 123/56 (78) 99 10/06/18 19:39 95 20 95 Nasal Cannula 2.0 28 10/06/18 19:29 123/94 (104) 10/06/18 19:29 94 18 95 Nasal Cannula 3.0 32 10/06/18 19:29 94 18 95 Nasal Cannula 3.0 32 10/06/18 19:29 95 Nasal Cannula 3.0 32 10/06/18 16:24 Nasal Cannula 2.0 10/06/18 16:00 99.0 99 20 173/89 (117) 95 10/06/18 13:25 108 20 98 Room Air 21 10/06/18 13:06 105 20 95 Room Air 21 10/06/18 12:30 98.4 93 20 151/76 (101) 93 Intake and Output 10/06/18 10/07/18 19:00 07:00 Intake Total 515 ml 300 ml Output Total 600 ml 1200 ml Balance -85 ml -900 ml Intake Oral 460 ml 300 ml IV Total 55 ml Output Urine Total 600 ml 1200 ml General Appearance: WD/WN, no acute distress, other - morbidly obese female HEENT: normocephalic, atraumatic, anicteric, mucous membranes moist Respiratory/Chest: rhonchi Cardiovascular: normal peripheral pulses, normal rate, regular rhythm Abdomen: normal bowel sounds, soft, non tender, no organomegaly, non distended Extremities: no cyanosis, no clubbing, no edema, other - BKA Microbiology Date/Time Source Procedure Growth Status 10/07/18 00:45 Sputum Induced Gram Stain - Final Resulted 10/07/18 00:45 Sputum Induced Sputum Culture Pending Resulted 10/06/18 10:20 Urine,Clean Catch Urine Culture - Preliminary NO GROWTH Resulted 10/06/18 10:10 Rectal Mucosa Received Laboratory Tests 10/06/18 13:50: Arterial Blood pH 7.374, Arterial Blood Partial Pressure CO2 48.4H, Arterial Blood Partial Pressure O2 53.4L, Arterial Blood HCO3 27.6H, Arterial Blood Oxygen Saturation 85.1*L, Arterial Blood Base Excess 1.9, Asim Test Positive 10/07/18 07:00: White Blood Count 5.9, Red Blood Count 3.47L, Hemoglobin 9.6L, Hematocrit 30.6L , Mean Corpuscular Volume 88, Mean Corpuscular Hemoglobin 27.6, Mean Corpuscular Hemoglobin Concent 31.3L, Red Cell Distribution Width 16.3H, Platelet Count 145L, Mean Platelet Volume 7.9, Neutrophils (%) (Auto) 75.8H, Lymphocytes (%) (Auto) 19.2L, Monocytes (%) (Auto) 4.9, Eosinophils (%) (Auto) 0.0, Basophils (%) (Auto) 0.2, Sodium Level 138, Potassium Level 5.7H, Chloride Level 99, Carbon Dioxide Level 24, Anion Gap 15, Blood Urea Nitrogen 78H, Creatinine 7.4H, Estimat Glomerular Filtration Rate 7.0, Glucose Level 301H, Hemoglobin A1c 7.0H, Uric Acid 6.1, Calcium Level 9.0, Phosphorus Level 6.0H, Magnesium Level 2.1, Iron Level 47L, Total Iron Binding Capacity 161L, Percent Iron Saturation 29, Unsaturated Iron Binding 114, Ferritin 812H, Total Bilirubin 0.4, Gamma Glutamyl Transpeptidase 134H, Aspartate Amino Transf (AST/ SGOT) 10L, Alanine Aminotransferase (ALT/SGPT) 16, Alkaline Phosphatase 143H, Ammonia < 10L, Troponin I 0.009, C-Reactive Protein, Quantitative 2.8H, Pro-B- Type Natriuretic Peptide 1701H, Total Protein 7.5, Albumin 3.0L, Globulin 4.5, Albumin/Globulin Ratio 0.7L, Triglycerides Level 27L, Cholesterol Level 108, LDL Cholesterol 54, HDL Cholesterol 53, Cholesterol/HDL Ratio 2.0L, Vitamin B12 Level 1126H, Folate 41.4, Thyroid Stimulating Hormone (TSH) 0.552, Random Vancomycin Level 14.0 Current Medications Medications (Trade) Dose Ordered Sig/Alex Route PRN Reason Start Time Stop Time Status Last Admin Dose Admin Acetaminophen (Tylenol) 650 mg Q4H PRN ORAL Mild Pain/Temp > 100.5 10/06/18 13:00 11/05/18 12:59 Acetaminophen/ Hydrocodone Bitart ([place] 10/325) 1 tab Q6H PRN ORAL For Pain 10/06/18 13:00 10/13/18 12:59 10/07/18 08:31 Apixaban (Eliquis) 2.5 mg BID ORAL 10/06/18 18:00 11/05/18 17:59 10/07/18 08:32 Atorvastatin Calcium (Lipitor) 10 mg BEDTIME ORAL 10/06/18 21:00 11/05/18 20:59 10/06/18 20:16 Cefepime HCl 1 gm/ Dextrose 55 ml @ 110 mls/hr Q24H IVPB 10/06/18 16:00 10/13/18 15:59 10/06/18 16:09 Dextrose (Dextrose 50%) 25 ml Q30M PRN IV Hypoglycemia 10/06/18 15:15 11/05/18 15:14 Dextrose (Dextrose 50%) 50 ml Q30M PRN IV Hypoglycemia 10/06/18 15:15 11/05/18 15:14 Docusate Sodium (Colace) 100 mg THREE TIMES A DAY ORAL 10/06/18 13:20 11/05/18 13:19 10/07/18 08:32 Fluticasone Propionate (Flonase) 1 spray Q8H PRN NASAL NASAL CONGESTION 10/06/18 13:00 11/05/18 12:59 Gabapentin (Neurontin) 300 mg THREE TIMES A DAY ORAL 10/06/18 13:20 11/05/18 13:19 10/07/18 08:31 Insulin Aspart (NovoLOG) BEFORE MEALS AND HS SUBQ 10/06/18 16:30 11/05/18 16:29 10/07/18 06:42 Insulin Detemir (Levemir) 30 units BEDTIME SUBQ 10/06/18 21:00 11/05/18 20:59 10/06/18 20:28 Ipratropium Bond (Atrovent) 500 mcg Q4H PRN HHN Shortness of Breath 10/06/18 12:30 10/11/18 12:29 Ipratropium Bond (Atrovent) 500 mcg Q6HRT HHN 10/06/18 13:00 10/11/18 12:59 10/07/18 07:35 Lactulose (Cephulac) 45 gm Q12H PRN ORAL CONSTIPATION 10/06/18 13:30 11/05/18 12:59 Levalbuterol HCl (Xopenex) 0.63 mg Q4H PRN HHN SOB/wheezing 10/06/18 12:30 10/11/18 12:29 Levalbuterol HCl (Xopenex) 0.63 mg Q6HRT HHN 10/06/18 13:00 10/11/18 12:59 10/07/18 07:35 Levofloxacin 50 ml @ 50 mls/hr Q48H IVPB 10/06/18 20:00 10/13/18 19:59 10/06/18 20:15 Lidocaine (Lidoderm 5% PATCH) 1 patch DAILYPRN PRN TDERMAL BACK PAIN 10/06/18 13:00 11/05/18 12:59 Loratadine (Claritin 10mg) 10 mg DAILY ORAL 10/07/18 09:00 11/06/18 08:59 10/07/18 08:32 Methylprednisolone Sodium Succinate (Solu-MEDROL) 40 mg EVERY 12 HOURS IVP 10/06/18 21:00 11/05/18 20:59 10/07/18 08:33 Nateglinide (Starlix) 120 mg TIAC ORAL 10/06/18 16:30 11/05/18 16:29 10/07/18 06:37 Pantoprazole (Protonix) 40 mg DAILY ORAL 10/07/18 09:00 11/06/18 08:59 10/07/18 08:32 Pregabalin (Lyrica) 75 mg BID ORAL 10/06/18 18:00 11/05/18 17:59 10/07/18 08:33 Sennosides (Senokot) 8.6 mg BIDPRN PRN ORAL Constipation 10/06/18 13:00 11/05/18 12:59 Sevelamer Carbonate (Renvela) 1,600 mg THREE TIMES A DAY ORAL 10/07/18 13:00 11/05/18 13:21 Vancomycin HCl (Vanco rx to dose) 1 ea DAILY PRN MISC Per rx protocol 10/06/18 14:15 11/05/18 14:14 Vancomycin HCl/ Dextrose 275 ml @ 137.5 mls/ hr ONCE ONCE IVPB 10/07/18 11:00 10/07/18 12:59 Vitamin B Complex/ Vit C/Folic Acid (Nephrovite) 1 tab DAILY ORAL 10/07/18 09:00 11/06/18 08:59 10/07/18 08:32 Zinc Sulfate (Zinc Sulfate) 220 mg DAILY ORAL 10/07/18 09:00 11/06/18 08:59 10/07/18 08:32 Castillo Carrizales MD Oct 07, 2018 11:53
[2018-10-07 12:00] VITALS: BP 158/109
--- NOTE | 2018-10-07 12:09 | NUR ---
CASE MANAGEMENT: [facility] 53 [facility] PMHx: GERD. HD. ESRD. HLD. DVT. CVA. ANEMIA. SI:FLU LIKE SYMPTOMS. ASTHMA EXACERBATION. ESRD. T 98.1 HR 85 RR 16 B/P 114/52 SATS 96% ON RA K 5.3 BUN 62 CR 6.6 GLU 237 AST 11 ALP 153 BNP 519 ABGs PCO2 48.4 PO2 53.4 HCO3 27.6 O2 SAT 85.1 IS: DUO NEB HHN X1 SOLU MEDROL IV X1 LEVALBUTEROL HHN X1 PATIENT ADMITTED TO MED/SURG 10/06/2018 @ 1058 DCP: PATIENT TO BE DISCHARGED TO HOME ONCE MEDICALLY CLEARED. PLAN OF CARE: Nephrology, Infectious Disease, and Pulmonary CONSULT Addendum: 10/07/18 at 1333 by Martha Maya CM INTERQUAL MET
--- NOTE | 2018-10-07 12:37 | Consultation ---
History of Present Illness General Date patient seen: Oct 07, 2018 Reason for Hospitalization: Upper Respiratory Illness Present Illness HPI 53 year old female well known to me from prior hospital visits currently admitted for medical care and management. patient with multiple medical comorbidities and on HD. On admission c/o left hand/finger pain. of note patient prior had distal ischemia of left hand middle finger. since she has had a partial distal amputation that flap is not viable and has necrotic eschar. states second and forth digit are painful as well. surgery called to evaluate and assist with care. patient seen, chart reviewed, patient examined. Allergies: Coded Allergies: LATEX (Verified Allergy, Unknown, 06/28/18) Medication History Scheduled Apixaban (Eliquis), 2.5 MG PO BID, (Reported) Docusate Sodium (Docusate Sodium), 100 MG ORAL THREE TIMES A DAY, (Reported) Gabapentin (Neurontin), 300 MG ORAL THREE TIMES A DAY, (Reported) Insulin Aspart (Novolog), UNIT SQ AC + QHS, (Reported) Insulin Detemir (Levemir Flexpen), UNITS SUBQ BEDTIME, (Reported) Loratadine (Loratadine), 10 MG PO DAILY, (Reported) Omeprazole (Omeprazole), 20 MG ORAL DAILY, (Reported) Pregabalin* (Lyrica*), 75 MG ORAL BID, (Reported) Rosuvastatin Calcium* (Crestor*), 5 MG ORAL DAILY, (Reported) Sennosides (Senna), 8.6 MG PO BID, (Reported) Sevelamer Carbonate (Renvela), 800 MG ORAL THREE TIMES A DAY, (Reported) Vitamin B Cmplx/Vit C/Folic AC (Nephro-Yancy Tablet), 1 TAB ORAL DAILY, (Reported ) Zinc Sulfate (Zinc Sulfate*), 220 MG ORAL DAILY, (Reported) Scheduled PRN Acetaminophen* (Acetaminophen 325MG Tablet*), 650 MG ORAL Q4H PRN for Mild Pain/ Temp > 100.5, (Reported) Bisacodyl (Dulcolax), 10 MG RC DAILY PRN for Constipation, (Reported) Fluticasone Propionate* (Fluticasone Propionate*), 1 SPRAY NASAL EVERY 8 HOURS PRN for CONGESTION, (Reported) Hydrocodone Bit/Acetaminophen 10-325* (Hydrocodon-Acetaminophn 10-325*), 1 TAB ORAL Q6H PRN for Moderate Pain (Pain Scale 4-6), (Reported) Lactulose (Lactulose), 45 ML PO BID PRN for Constipation, (Reported) Magnesium Hydroxide* (Milk Of Magnesia*), 30 ML ORAL DAILY PRN for Constipation, (Reported) [Lidocaine 5% Patch], 1 PATCH TOPIC DAILY PRN for BACK PAIN, (Reported) Patient History History Provided By: Patient, Medical Record, PMD Healthcare decision maker Resuscitation status Advanced Directive on File Past Medical/Surgical History Past Medical/Surgical History: (1) Bronchitis (2) Cough productive of yellow sputum (3) UTI (urinary tract infection) (4) Bronchitis, acute, with bronchospasm (5) ESRD (end stage renal disease) on dialysis (6) Morbid obesity (7) Anemia in chronic kidney disease (CKD) (8) PVD (peripheral vascular disease) Review of Systems Review of Symptoms General ROS: no weight loss or fever Psychological ROS: no depression or mood changes, no memory loss Ophthalmic ROS: no visual changes or eye irritation ENT ROS: no nasal congestion, hearing loss, dizziness Allergy and Immunology ROS: no allergic symptoms or urticaria Hematological and Lymphatic ROS: no swollen glands, unusual bleeding or bruising Endocrine ROS: no polyuria, polydipsia, weight changes, temperature intolerance Respiratory ROS: no cough, shortness of breath, or wheezing Cardiovascular ROS: no chest pain or dyspnea on exertion Gastrointestinal ROS: denies abdominal pain,no bright red blood in stool. Musculoskeletal ROS: no myalgias or arthralgias Neurological ROS: no TIA or stroke symptoms Dermatological ROS: no new or changing skin lesions, rashes or pruritis Physical Exam Physical Exam General appearance: alert, cooperative, no distress, appears stated age Head: Normocephalic, without obvious abnormality, atraumatic Eyes: conjunctivae/corneas clear. PERRL, EOM's intact. Fundi benign Throat: Lips, mucosa, and tongue normal. Teeth and gums normal Neck: supple, symmetrical, trachea midline, no adenopathy, thyroid: not enlarged, symmetric, no tenderness/mass/nodules, no carotid bruit and no JVD Lungs: clear to auscultation bilaterally Heart: regular rate and rhythm, S1, S2 normal, no murmur, click, rub or gallop Abdomen: soft, non-tender. Bowel sounds normal. No masses, no organomegaly Extremities: extremities normal, atraumatic, no cyanosis or edema. right LE amputation, left foot great toe amputation, left hand distal 3rd digit amputation Pulses: 2+ and symmetric Skin: Skin color, texture, turgor normal. No rashes or lesions Neurologic: Grossly normal Last 24 Hour Vital Signs Date Time Temp Pulse Resp B/P (MAP) Pulse Ox O2 Delivery O2 Flow Rate FiO2 10/07/18 12:00 98.4 68 20 158/109 (125) 98 10/07/18 09:01 98.4 10/07/18 09:01 98.4 10/07/18 08:00 98.4 100 20 114/62 (79) 94 10/07/18 07:36 81 20 100 Nasal Cannula 2.0 28 10/07/18 07:36 80 22 100 Nasal Cannula 2.0 28 10/07/18 07:36 100 Nasal Cannula 2.0 28 10/07/18 07:28 78 18 100 Nasal Cannula 2.0 28 10/07/18 04:00 98.3 88 18 139/60 (86) 99 10/07/18 01:36 94 20 98 Nasal Cannula 2.0 28 10/07/18 01:25 89 18 98 Nasal Cannula 2.0 28 10/07/18 00:00 98.6 90 20 140/62 (88) 97 10/06/18 21:00 Nasal Cannula 2.0 10/06/18 20:00 99.9 92 18 123/56 (78) 99 10/06/18 19:39 95 20 95 Nasal Cannula 2.0 28 10/06/18 19:29 123/94 (104) 10/06/18 19:29 94 18 95 Nasal Cannula 3.0 32 10/06/18 19:29 94 18 95 Nasal Cannula 3.0 32 10/06/18 19:29 95 Nasal Cannula 3.0 32 10/06/18 16:24 Nasal Cannula 2.0 10/06/18 16:00 99.0 99 20 173/89 (117) 95 10/06/18 13:25 108 20 98 Room Air 21 10/06/18 13:06 105 20 95 Room Air 21 Intake and Output 10/06/18 10/07/18 19:00 07:00 Intake Total 515 ml 300 ml Output Total 600 ml 1200 ml Balance -85 ml -900 ml Intake Oral 460 ml 300 ml IV Total 55 ml Output Urine Total 600 ml 1200 ml Laboratory Tests Test 10/06/18 13:50 10/07/18 07:00 Arterial Blood pH 7.374 (7.350-7.450) Arterial Blood Partial Pressure CO2 48.4 mmHg (35.0-45.0) H Arterial Blood Partial Pressure O2 53.4 mmHg (75.0-100.0) L Arterial Blood HCO3 27.6 mmol/L (22.0-26.0) H Arterial Blood Oxygen Saturation 85.1 % (95-100) *L Arterial Blood Base Excess 1.9 (-2-2) Asim Test Positive White Blood Count 5.9 K/UL (4.8-10.8) Red Blood Count 3.47 M/UL (4.20-5.40) L Hemoglobin 9.6 G/DL (12.0-16.0) L Hematocrit 30.6 % (37.0-47.0) L Mean Corpuscular Volume 88 FL (80-99) Mean Corpuscular Hemoglobin 27.6 PG (27.0-31.0) Mean Corpuscular Hemoglobin Concent 31.3 G/DL (32.0-36.0) L Red Cell Distribution Width 16.3 % (11.6-14.8) H Platelet Count 145 K/UL (150-450) L Mean Platelet Volume 7.9 FL (6.5-10.1) Neutrophils (%) (Auto) 75.8 % (45.0-75.0) H Lymphocytes (%) (Auto) 19.2 % (20.0-45.0) L Monocytes (%) (Auto) 4.9 % (1.0-10.0) Eosinophils (%) (Auto) 0.0 % (0.0-3.0) Basophils (%) (Auto) 0.2 % (0.0-2.0) Sodium Level 138 MMOL/L (136-145) Potassium Level 5.7 MMOL/L (3.5-5.1) H Chloride Level 99 MMOL/L (98-107) Carbon Dioxide Level 24 MMOL/L (21-32) Anion Gap 15 mmol/L (5-15) Blood Urea Nitrogen 78 mg/dL (7-18) H Creatinine 7.4 MG/DL (0.55-1.30) H Estimat Glomerular Filtration Rate 7.0 mL/min (>60) Glucose Level 301 MG/DL (74-106) H Hemoglobin A1c 7.0 % (4.3-6.0) H Uric Acid 6.1 MG/DL (2.6-7.2) Calcium Level 9.0 MG/DL (8.5-10.1) Phosphorus Level 6.0 MG/DL (2.5-4.9) H Magnesium Level 2.1 MG/DL (1.8-2.4) Iron Level 47 ug/dL (50-175) L Total Iron Binding Capacity 161 ug/dL (250-450) L Percent Iron Saturation 29 % (15-50) Unsaturated Iron Binding 114 ug/dL (112-346) Ferritin 812 NG/ML (8-388) H Total Bilirubin 0.4 MG/DL (0.2-1.0) Gamma Glutamyl Transpeptidase 134 U/L (5-85) H Aspartate Amino Transf (AST/SGOT) 10 U/L (15-37) L Alanine Aminotransferase (ALT/SGPT) 16 U/L (12-78) Alkaline Phosphatase 143 U/L (46-116) H Ammonia < 10 umol/L (11-32) L Troponin I 0.009 ng/mL (0.000-0.056) C-Reactive Protein, Quantitative 2.8 mg/dL (0.00-0.90) H Pro-B-Type Natriuretic Peptide 1701 pg/mL (0-125) H Total Protein 7.5 G/DL (6.4-8.2) Albumin 3.0 G/DL (3.4-5.0) L Globulin 4.5 g/dL Albumin/Globulin Ratio 0.7 (1.0-2.7) L Triglycerides Level 27 MG/DL (30-150) L Cholesterol Level 108 MG/DL (< 200) LDL Cholesterol 54 mg/dL (<100) HDL Cholesterol 53 MG/DL (40-60) Cholesterol/HDL Ratio 2.0 (3.3-4.4) L Vitamin B12 Level 1126 PG/ML (193-986) H Folate 41.4 NG/ML (8.6-58.9) Thyroid Stimulating Hormone (TSH) 0.552 uiU/mL (0.358-3.740) Random Vancomycin Level 14.0 ug/mL Microbiology Date/Time Source Procedure Growth Status 10/07/18 00:45 Sputum Induced Gram Stain - Final Resulted 10/07/18 00:45 Sputum Induced Sputum Culture Pending Resulted Height (Feet): 5 Height (Inches): 5.00 Weight (Pounds): 303 Medications Current Medications Medications (Trade) Dose Ordered Sig/Alex Route PRN Reason Start Time Stop Time Status Last Admin Dose Admin Acetaminophen (Tylenol) 650 mg Q4H PRN ORAL Mild Pain/Temp > 100.5 10/06/18 13:00 11/05/18 12:59 Acetaminophen/ Hydrocodone Bitart ([place] 10/325) 1 tab Q6H PRN ORAL For Pain 10/06/18 13:00 10/13/18 12:59 10/07/18 08:31 Apixaban (Eliquis) 2.5 mg BID ORAL 10/06/18 18:00 11/05/18 17:59 10/07/18 08:32 Atorvastatin Calcium (Lipitor) 10 mg BEDTIME ORAL 10/06/18 21:00 11/05/18 20:59 10/06/18 20:16 Cefepime HCl 1 gm/ Dextrose 55 ml @ 110 mls/hr Q24H IVPB 10/06/18 16:00 10/13/18 15:59 10/06/18 16:09 Dextrose (Dextrose 50%) 25 ml Q30M PRN IV Hypoglycemia 10/06/18 15:15 11/05/18 15:14 Dextrose (Dextrose 50%) 50 ml Q30M PRN IV Hypoglycemia 10/06/18 15:15 11/05/18 15:14 Docusate Sodium (Colace) 100 mg THREE TIMES A DAY ORAL 10/06/18 13:20 11/05/18 13:19 10/07/18 08:32 Fluticasone Propionate (Flonase) 1 spray Q8H PRN NASAL NASAL CONGESTION 10/06/18 13:00 11/05/18 12:59 Gabapentin (Neurontin) 300 mg THREE TIMES A DAY ORAL 10/06/18 13:20 11/05/18 13:19 10/07/18 08:31 Insulin Aspart (NovoLOG) BEFORE MEALS AND HS SUBQ 10/06/18 16:30 11/05/18 16:29 10/07/18 06:42 Insulin Detemir (Levemir) 30 units BEDTIME SUBQ 10/06/18 21:00 11/05/18 20:59 10/06/18 20:28 Ipratropium [place] (Atrovent) 500 mcg Q4H PRN HHN Shortness of Breath 10/06/18 12:30 10/11/18 12:29 Ipratropium [place] (Atrovent) 500 mcg Q6HRT HHN 10/06/18 13:00 10/11/18 12:59 10/07/18 07:35 Lactulose (Cephulac) 45 gm Q12H PRN ORAL CONSTIPATION 10/06/18 13:30 11/05/18 12:59 Levalbuterol HCl (Xopenex) 0.63 mg Q4H PRN HHN SOB/wheezing 10/06/18 12:30 10/11/18 12:29 Levalbuterol HCl (Xopenex) 0.63 mg Q6HRT HHN 10/06/18 13:00 10/11/18 12:59 10/07/18 07:35 Levofloxacin 50 ml @ 50 mls/hr Q48H IVPB 10/06/18 20:00 10/13/18 19:59 10/06/18 20:15 Lidocaine (Lidoderm 5% PATCH) 1 patch DAILYPRN PRN TDERMAL BACK PAIN 10/06/18 13:00 11/05/18 12:59 Loratadine (Claritin 10mg) 10 mg DAILY ORAL 10/07/18 09:00 11/06/18 08:59 10/07/18 08:32 Methylprednisolone Sodium Succinate (Solu-MEDROL) 40 mg EVERY 12 HOURS IVP 10/06/18 21:00 11/05/18 20:59 10/07/18 08:33 Nateglinide (Starlix) 120 mg TIAC ORAL 10/06/18 16:30 11/05/18 16:29 10/07/18 06:37 Pantoprazole (Protonix) 40 mg DAILY ORAL 10/07/18 09:00 11/06/18 08:59 10/07/18 08:32 Pregabalin (Lyrica) 75 mg BID ORAL 10/06/18 18:00 11/05/18 17:59 10/07/18 08:33 Sennosides (Senokot) 8.6 mg BIDPRN PRN ORAL Constipation 10/06/18 13:00 11/05/18 12:59 Sevelamer Carbonate (Renvela) 1,600 mg THREE TIMES A DAY ORAL 10/07/18 13:00 11/05/18 13:21 Vancomycin HCl (Vanco rx to dose) 1 ea DAILY PRN MISC Per rx protocol 10/06/18 14:15 11/05/18 14:14 Vancomycin HCl/ Dextrose 275 ml @ 137.5 mls/ hr ONCE ONCE IVPB 10/07/18 11:00 10/07/18 12:59 Vitamin B Complex/ Vit C/Folic Acid (Nephrovite) 1 tab DAILY ORAL 10/07/18 09:00 11/06/18 08:59 10/07/18 08:32 Zinc Sulfate (Zinc Sulfate) 220 mg DAILY ORAL 10/07/18 09:00 11/06/18 08:59 10/07/18 08:32 Assessment/Plan Problem List: (1) Cellulitis Assessment & Plan: Patient presents with left hand 3rd finger discomfort. prior distal amputation with necrotic flap. no abscess. mild cellulitis vs edema. no acute surgical intervention planned will monitor while in hospital will need to see hand vs surgeon who performed amputation for revision. likely pip amp next as very poor distal flow. on HD with PVD and left arm used for HD via bb fistula okay to leave open to air. thank you ICD Codes: L03.90 - Cellulitis, unspecified SNOMED: 182770666 Qualifiers: Qualified Codes: L03.012 - Cellulitis of left finger (2) Bronchitis ICD Codes: J40 - Bronchitis, not specified as acute or chronic SNOMED: 46856757 (3) Cough productive of yellow sputum ICD Codes: R05 - Cough SNOMED: 318312415 (4) UTI (urinary tract infection) ICD Codes: N39.0 - Urinary tract infection, site not specified SNOMED: 21961441 Qualifiers: Qualified Codes: N39.0 - Urinary tract infection, site not specified (5) Bronchitis, acute, with bronchospasm ICD Codes: J20.9 - Acute bronchitis, unspecified SNOMED: 87653827 (6) ESRD (end stage renal disease) on dialysis ICD Codes: N18.6 - End stage renal disease; Z99.2 - Dependence on renal dialysis SNOMED: 668815330 (7) Morbid obesity ICD Codes: E66.01 - Morbid (severe) obesity due to excess calories SNOMED: 877123723 (8) Anemia in chronic kidney disease (CKD) ICD Codes: N18.9 - Chronic kidney disease, unspecified; D63.1 - Anemia in chronic kidney disease SNOMED: 085094485 (9) PVD (peripheral vascular disease) Assessment & Plan: known PVD multiple studies done prior right LE amputation stable. flap viable without wound left foot with great toe amp cont with current care plan ICD Codes: I73.9 - Peripheral vascular disease, unspecified SNOMED: 540965275 Melvin Santana Oct 07, 2018 12:37
--- NOTE | 2018-10-07 13:02 | NUR ---
NURSE NOTES: Dr BAUGH visited pt and he is aware about BS, order noted and carried out. will continue to monitor.
--- NOTE | 2018-10-07 13:14 | General Progress Note ---
Assessment/Plan Assessment/Plan: S: I am feeling warm O: seems comfortable. Denies chest pain. complains of stable SOB PHYSICAL EXAMINATION:HEAD AND NECK: Atraumatic and normocephalic. CHEST: Clear to auscultation.HEART: S1 and S2. Regular rate and rhythm. ABDOMEN: Soft. No organomegaly.MUSCULOSKELETAL: Positive for the right AKA, left-sided amputation of toe.NEUROLOGY: The patient is awake, alert, and oriented x3. Chest x-ray dated 10/06/2018 reviewed. It is unremarkable for the acute process. ASSESSMENT AND PLAN: 1. End-stage renal disease, on hemodialysis. 2. SIRS. 3. UTI. 4. AFib. On anticoagulation. 5. Hypoxemic respiratory distress, one episode. 6. Anemia. 7. Severe peripheral vascular disease, status post amputation of the extremities and toes. 8. Hypertension. 9. Diabetes type 2. 10. GI and DVT prophylaxis. plan: will follow culture results persistant sob, continue current mgt will add scheduled Meal time insulin Dr Roman is consulted Subjective Allergies: Coded Allergies: LATEX (Verified Allergy, Unknown, 06/28/18) Objective Last 24 Hour Vital Signs Date Time Temp Pulse Resp B/P (MAP) Pulse Ox O2 Delivery O2 Flow Rate FiO2 10/07/18 12:00 98.4 68 20 158/109 (125) 98 10/07/18 09:01 98.4 10/07/18 09:01 98.4 10/07/18 09:00 Nasal Cannula 2.0 10/07/18 08:00 98.4 100 20 114/62 (79) 94 10/07/18 07:36 81 20 100 Nasal Cannula 2.0 10/07/18 07:36 80 22 100 Nasal Cannula 2.0 28 10/07/18 07:36 100 Nasal Cannula 2.0 28 10/07/18 07:28 78 18 100 Nasal Cannula 2.0 28 10/07/18 04:00 98.3 88 18 139/60 (86) 99 10/07/18 01:36 94 20 98 Nasal Cannula 2.0 28 10/07/18 01:25 89 18 98 Nasal Cannula 2.0 28 10/07/18 00:00 98.6 90 20 140/62 (88) 97 10/06/18 21:00 Nasal Cannula 2.0 10/06/18 20:00 99.9 92 18 123/56 (78) 99 10/06/18 19:39 95 20 95 Nasal Cannula 2.0 28 10/06/18 19:29 123/94 (104) 10/06/18 19:29 94 18 95 Nasal Cannula 3.0 32 10/06/18 19:29 94 18 95 Nasal Cannula 3.0 32 10/06/18 19:29 95 Nasal Cannula 3.0 32 10/06/18 16:24 Nasal Cannula 2.0 10/06/18 16:00 99.0 99 20 173/89 (117) 95 10/06/18 13:25 108 20 98 Room Air 21 Intake and Output 10/06/18 10/07/18 18:59 06:59 Intake Total 515 ml 300 ml Output Total 600 ml 1200 ml Balance -85 ml -900 ml Intake Oral 460 ml 300 ml IV Total 55 ml Output Urine Total 600 ml 1200 ml Laboratory Tests 10/06/18 13:50: Arterial Blood pH 7.374, Arterial Blood Partial Pressure CO2 48.4H, Arterial Blood Partial Pressure O2 53.4L, Arterial Blood HCO3 27.6H, Arterial Blood Oxygen Saturation 85.1*L, Arterial Blood Base Excess 1.9, Asim Test Positive 10/07/18 07:00: White Blood Count 5.9, Red Blood Count 3.47L, Hemoglobin 9.6L, Hematocrit 30.6L , Mean Corpuscular Volume 88, Mean Corpuscular Hemoglobin 27.6, Mean Corpuscular Hemoglobin Concent 31.3L, Red Cell Distribution Width 16.3H, Platelet Count 145L, Mean Platelet Volume 7.9, Neutrophils (%) (Auto) 75.8H, Lymphocytes (%) (Auto) 19.2L, Monocytes (%) (Auto) 4.9, Eosinophils (%) (Auto) 0.0, Basophils (%) (Auto) 0.2, Sodium Level 138, Potassium Level 5.7H, Chloride Level 99, Carbon Dioxide Level 24, Anion Gap 15, Blood Urea Nitrogen 78H, Creatinine 7.4H, Estimat Glomerular Filtration Rate 7.0, Glucose Level 301H, Hemoglobin A1c 7.0H, Uric Acid 6.1, Calcium Level 9.0, Phosphorus Level 6.0H, Magnesium Level 2.1, Iron Level 47L, Total Iron Binding Capacity 161L, Percent Iron Saturation 29, Unsaturated Iron Binding 114, Ferritin 812H, Total Bilirubin 0.4, Gamma Glutamyl Transpeptidase 134H, Aspartate Amino Transf (AST/ SGOT) 10L, Alanine Aminotransferase (ALT/SGPT) 16, Alkaline Phosphatase 143H, Ammonia < 10L, Troponin I 0.009, C-Reactive Protein, Quantitative 2.8H, Pro-B- Type Natriuretic Peptide 1701H, Total Protein 7.5, Albumin 3.0L, Globulin 4.5, Albumin/Globulin Ratio 0.7L, Triglycerides Level 27L, Cholesterol Level 108, LDL Cholesterol 54, HDL Cholesterol 53, Cholesterol/HDL Ratio 2.0L, Vitamin B12 Level 1126H, Folate 41.4, Thyroid Stimulating Hormone (TSH) 0.552, Random Vancomycin Level 14.0 Height (Feet): 5 Height (Inches): 5.00 Weight (Pounds): 303 Archana Chan MD Oct 07, 2018 13:14
--- NOTE | 2018-10-07 13:38 | Infectious Diseases Prog Note ---
Assessment/Plan Problems: (1) Bronchitis, acute, with bronchospasm Assessment & Plan: continue vancomycin and cefepime pending sputum culture , continue inhalers (2) Cough productive of yellow sputum Assessment & Plan: possible pneumonia , on vancomycin and cefepime since HD patient pending sputum culture and blood culture (3) UTI (urinary tract infection) Assessment & Plan: already on cefepime pending urine culture (4) ESRD (end stage renal disease) on dialysis Assessment & Plan: continue HD as per renal Subjective Constitutional: Reports: fever, fatigue Respiratory: Reports: productive cough Cardiovascular: Reports: chest pain Gastrointestinal/Abdominal: Reports: no symptoms Genitourinary: Reports: no symptoms Neurologic: Reports: no symptoms Psychiatric: Reports: no symptoms Skin: Reports: no symptoms Endocrine: Reports: no symptoms Hematologic: Reports: no symptoms Musculoskeletal: Reports: no symptoms Allergies: Coded Allergies: LATEX (Verified Allergy, Unknown, 06/28/18) Objective Vital Signs Last 24 Hour Vital Signs Date Time Temp Pulse Resp B/P (MAP) Pulse Ox O2 Delivery O2 Flow Rate FiO2 10/07/18 12:00 98.4 68 20 158/109 (125) 98 10/07/18 09:01 98.4 10/07/18 09:01 98.4 10/07/18 09:00 Nasal Cannula 2.0 10/07/18 08:00 98.4 100 20 114/62 (79) 94 10/07/18 07:36 81 20 100 Nasal Cannula 2.0 10/07/18 07:36 80 22 100 Nasal Cannula 2.0 10/07/18 07:36 100 Nasal Cannula 2.0 28 10/07/18 07:28 78 18 100 Nasal Cannula 2.0 28 10/07/18 04:00 98.3 88 18 139/60 (86) 99 10/07/18 01:36 94 20 98 Nasal Cannula 2.0 28 10/07/18 01:25 89 18 98 Nasal Cannula 2.0 28 10/07/18 00:00 98.6 90 20 140/62 (88) 97 10/06/18 21:00 Nasal Cannula 2.0 10/06/18 20:00 99.9 92 18 123/56 (78) 99 10/06/18 19:39 95 20 95 Nasal Cannula 2.0 10/06/18 19:29 123/94 (104) 10/06/18 19:29 94 18 95 Nasal Cannula 3.0 32 10/06/18 19:29 94 18 95 Nasal Cannula 3.0 32 10/06/18 19:29 95 Nasal Cannula 3.0 32 10/06/18 16:24 Nasal Cannula 2.0 10/06/18 16:00 99.0 99 20 173/89 (117) 95 Height (Feet): 5 Height (Inches): 5.00 Weight (Pounds): 303 General Appearance: WD/WN, no acute distress HEENT: normocephalic, atraumatic, anicteric, mucous membranes moist, PERRL, EOMI, pharynx normal, supple, no JVD Respiratory/Chest: chest wall non-tender, no respiratory distress, no accessory muscle use, decreased breath sounds, crackles/rales, expiratory wheezing Cardiovascular: normal peripheral pulses, normal rate, regular rhythm, no gallop/murmur, no JVD Abdomen: normal bowel sounds, soft, non tender, no organomegaly, non distended , no mass, no scars Extremities: no cyanosis, no clubbing Skin: no rash, no lesions, no ulcers Neurologic/Psychiatric: alert, responsive Lymphatic: no neck adenopathy, no groin adenopathy Musculoskeletal: normal muscle bulk, no effusion Microbiology Date/Time Source Procedure Growth Status 10/07/18 00:45 Sputum Induced Gram Stain - Final Resulted 10/07/18 00:45 Sputum Induced Sputum Culture Pending Resulted 10/06/18 10:20 Urine,Clean Catch Urine Culture - Preliminary NO GROWTH Resulted 10/06/18 10:10 Rectal Mucosa Received Laboratory Tests Test 10/06/18 13:50 10/07/18 07:00 Arterial Blood pH 7.374 (7.350-7.450) Arterial Blood Partial Pressure CO2 48.4 mmHg (35.0-45.0) H Arterial Blood Partial Pressure O2 53.4 mmHg (75.0-100.0) L Arterial Blood HCO3 27.6 mmol/L (22.0-26.0) H Arterial Blood Oxygen Saturation 85.1 % (95-100) *L Arterial Blood Base Excess 1.9 (-2-2) Asim Test Positive White Blood Count 5.9 K/UL (4.8-10.8) Red Blood Count 3.47 M/UL (4.20-5.40) L Hemoglobin 9.6 G/DL (12.0-16.0) L Hematocrit 30.6 % (37.0-47.0) L Mean Corpuscular Volume 88 FL (80-99) Mean Corpuscular Hemoglobin 27.6 PG (27.0-31.0) Mean Corpuscular Hemoglobin Concent 31.3 G/DL (32.0-36.0) L Red Cell Distribution Width 16.3 % (11.6-14.8) H Platelet Count 145 K/UL (150-450) L Mean Platelet Volume 7.9 FL (6.5-10.1) Neutrophils (%) (Auto) 75.8 % (45.0-75.0) H Lymphocytes (%) (Auto) 19.2 % (20.0-45.0) L Monocytes (%) (Auto) 4.9 % (1.0-10.0) Eosinophils (%) (Auto) 0.0 % (0.0-3.0) Basophils (%) (Auto) 0.2 % (0.0-2.0) Sodium Level 138 MMOL/L (136-145) Potassium Level 5.7 MMOL/L (3.5-5.1) H Chloride Level 99 MMOL/L (98-107) Carbon Dioxide Level 24 MMOL/L (21-32) Anion Gap 15 mmol/L (5-15) Blood Urea Nitrogen 78 mg/dL (7-18) H Creatinine 7.4 MG/DL (0.55-1.30) H Estimat Glomerular Filtration Rate 7.0 mL/min (>60) Glucose Level 301 MG/DL (74-106) H Hemoglobin A1c 7.0 % (4.3-6.0) H Uric Acid 6.1 MG/DL (2.6-7.2) Calcium Level 9.0 MG/DL (8.5-10.1) Phosphorus Level 6.0 MG/DL (2.5-4.9) H Magnesium Level 2.1 MG/DL (1.8-2.4) Iron Level 47 ug/dL (50-175) L Total Iron Binding Capacity 161 ug/dL (250-450) L Percent Iron Saturation 29 % (15-50) Unsaturated Iron Binding 114 ug/dL (112-346) Ferritin 812 NG/ML (8-388) H Total Bilirubin 0.4 MG/DL (0.2-1.0) Gamma Glutamyl Transpeptidase 134 U/L (5-85) H Aspartate Amino Transf (AST/SGOT) 10 U/L (15-37) L Alanine Aminotransferase (ALT/SGPT) 16 U/L (12-78) Alkaline Phosphatase 143 U/L (46-116) H Ammonia < 10 umol/L (11-32) L Troponin I 0.009 ng/mL (0.000-0.056) C-Reactive Protein, Quantitative 2.8 mg/dL (0.00-0.90) H Pro-B-Type Natriuretic Peptide 1701 pg/mL (0-125) H Total Protein 7.5 G/DL (6.4-8.2) Albumin 3.0 G/DL (3.4-5.0) L Globulin 4.5 g/dL Albumin/Globulin Ratio 0.7 (1.0-2.7) L Triglycerides Level 27 MG/DL (30-150) L Cholesterol Level 108 MG/DL (< 200) LDL Cholesterol 54 mg/dL (<100) HDL Cholesterol 53 MG/DL (40-60) Cholesterol/HDL Ratio 2.0 (3.3-4.4) L Vitamin B12 Level 1126 PG/ML (193-986) H Folate 41.4 NG/ML (8.6-58.9) Thyroid Stimulating Hormone (TSH) 0.552 uiU/mL (0.358-3.740) Random Vancomycin Level 14.0 ug/mL Current Medications Medications (Trade) Dose Ordered Sig/Alex Route PRN Reason Start Time Stop Time Status Last Admin Dose Admin Acetaminophen (Tylenol) 650 mg Q4H PRN ORAL Mild Pain/Temp > 100.5 10/06/18 13:00 11/05/18 12:59 Acetaminophen/ Hydrocodone Bitart ([place] 10/325) 1 tab Q6H PRN ORAL For Pain 10/06/18 13:00 10/13/18 12:59 10/07/18 08:31 Apixaban (Eliquis) 2.5 mg BID ORAL 10/06/18 18:00 11/05/18 17:59 10/07/18 08:32 Atorvastatin Calcium (Lipitor) 10 mg BEDTIME ORAL 10/06/18 21:00 11/05/18 20:59 10/06/18 20:16 Cefepime HCl 1 gm/ Dextrose 55 ml @ 110 mls/hr Q24H IVPB 10/06/18 16:00 10/13/18 15:59 10/06/18 16:09 Dextrose (Dextrose 50%) 25 ml Q30M PRN IV Hypoglycemia 10/06/18 15:15 11/05/18 15:14 Dextrose (Dextrose 50%) 50 ml Q30M PRN IV Hypoglycemia 10/06/18 15:15 11/05/18 15:14 Docusate Sodium (Colace) 100 mg THREE TIMES A DAY ORAL 10/06/18 13:20 11/05/18 13:19 10/07/18 13:24 Fluticasone Propionate (Flonase) 1 spray Q8H PRN NASAL NASAL CONGESTION 10/06/18 13:00 11/05/18 12:59 Gabapentin (Neurontin) 300 mg THREE TIMES A DAY ORAL 10/06/18 13:20 11/05/18 13:19 10/07/18 13:24 Insulin Aspart (NovoLOG) BEFORE MEALS AND HS SUBQ 10/06/18 16:30 11/05/18 16:29 10/07/18 13:27 Insulin Aspart (NovoLOG) 5 units NOVOTIAC SUBQ 10/07/18 16:50 11/06/18 16:49 Insulin Detemir (Levemir) 30 units BEDTIME SUBQ 10/06/18 21:00 11/05/18 20:59 10/06/18 20:28 Ipratropium [place] (Atrovent) 500 mcg Q4H PRN HHN Shortness of Breath 10/06/18 12:30 10/11/18 12:29 Ipratropium [place] (Atrovent) 500 mcg Q6HRT HHN 10/06/18 13:00 10/11/18 12:59 10/07/18 07:35 Lactulose (Cephulac) 45 gm Q12H PRN ORAL CONSTIPATION 10/06/18 13:30 11/05/18 12:59 Levalbuterol HCl (Xopenex) 0.63 mg Q4H PRN HHN SOB/wheezing 10/06/18 12:30 10/11/18 12:29 Levalbuterol HCl (Xopenex) 0.63 mg Q6HRT HHN 10/06/18 13:00 10/11/18 12:59 10/07/18 07:35 Levofloxacin 50 ml @ 50 mls/hr Q48H IVPB 10/06/18 20:00 10/13/18 19:59 10/06/18 20:15 Lidocaine (Lidoderm 5% PATCH) 1 patch DAILYPRN PRN TDERMAL BACK PAIN 10/06/18 13:00 11/05/18 12:59 Loratadine (Claritin 10mg) 10 mg DAILY ORAL 10/07/18 09:00 11/06/18 08:59 10/07/18 08:32 Methylprednisolone Sodium Succinate (Solu-MEDROL) 40 mg EVERY 12 HOURS IVP 10/06/18 21:00 11/05/18 20:59 10/07/18 08:33 Nateglinide (Starlix) 120 mg TIAC ORAL 10/06/18 16:30 11/05/18 16:29 10/07/18 13:24 Pantoprazole (Protonix) 40 mg DAILY ORAL 10/07/18 09:00 11/06/18 08:59 10/07/18 08:32 Pregabalin (Lyrica) 75 mg BID ORAL 10/06/18 18:00 11/05/18 17:59 10/07/18 08:33 Sennosides (Senokot) 8.6 mg BIDPRN PRN ORAL Constipation 10/06/18 13:00 11/05/18 12:59 Sevelamer Carbonate (Renvela) 1,600 mg THREE TIMES A DAY ORAL 10/07/18 13:00 11/05/18 13:21 10/07/18 13:24 Vancomycin HCl (Vanco rx to dose) 1 ea DAILY PRN MISC Per rx protocol 10/06/18 14:15 11/05/18 14:14 Vitamin B Complex/ Vit C/Folic Acid (Nephrovite) 1 tab DAILY ORAL 10/07/18 09:00 11/06/18 08:59 10/07/18 08:32 Zinc Sulfate (Zinc Sulfate) 220 mg DAILY ORAL 10/07/18 09:00 11/06/18 08:59 10/07/18 08:32 Naa Mina M.D. Oct 07, 2018 13:38
--- NOTE | 2018-10-07 14:50 | NUR ---
NURSE NOTES: HD started 944 and finished 5 with 4LIT out put. pt is stable. will continue to monitor.
[2018-10-07] MEDS ORDERED: DiphenhydrAMINE 50mg/ml Inj IVP PRN (15:00)
--- NOTE | 2018-10-07 15:01 | Consultation ---
History of Present Illness General Date patient seen: Oct 07, 2018 Chief Complaint: Upper Respiratory Illness Present Illness Allergies: Coded Allergies: LATEX (Verified Allergy, Unknown, 06/28/18) Medication History Scheduled Apixaban (Eliquis), 2.5 MG PO BID, (Reported) Docusate Sodium (Docusate Sodium), 100 MG ORAL THREE TIMES A DAY, (Reported) Gabapentin (Neurontin), 300 MG ORAL THREE TIMES A DAY, (Reported) Insulin Aspart (Novolog), UNIT SQ AC + QHS, (Reported) Insulin Detemir (Levemir Flexpen), UNITS SUBQ BEDTIME, (Reported) Loratadine (Loratadine), 10 MG PO DAILY, (Reported) Omeprazole (Omeprazole), 20 MG ORAL DAILY, (Reported) Pregabalin* (Lyrica*), 75 MG ORAL BID, (Reported) Rosuvastatin Calcium* (Crestor*), 5 MG ORAL DAILY, (Reported) Sennosides (Senna), 8.6 MG PO BID, (Reported) Sevelamer Carbonate (Renvela), 800 MG ORAL THREE TIMES A DAY, (Reported) Vitamin B Cmplx/Vit C/Folic AC (Nephro-Yancy Tablet), 1 TAB ORAL DAILY, (Reported ) Zinc Sulfate (Zinc Sulfate*), 220 MG ORAL DAILY, (Reported) Scheduled PRN Acetaminophen* (Acetaminophen 325MG Tablet*), 650 MG ORAL Q4H PRN for Mild Pain/ Temp > 100.5, (Reported) Bisacodyl (Dulcolax), 10 MG RC DAILY PRN for Constipation, (Reported) Fluticasone Propionate* (Fluticasone Propionate*), 1 SPRAY NASAL EVERY 8 HOURS PRN for CONGESTION, (Reported) Hydrocodone Bit/Acetaminophen 10-325* (Hydrocodon-Acetaminophn 10-325*), 1 TAB ORAL Q6H PRN for Moderate Pain (Pain Scale 4-6), (Reported) Lactulose (Lactulose), 45 ML PO BID PRN for Constipation, (Reported) Magnesium Hydroxide* (Milk Of Magnesia*), 30 ML ORAL DAILY PRN for Constipation, (Reported) [Lidocaine 5% Patch], 1 PATCH TOPIC DAILY PRN for BACK PAIN, (Reported) Patient History Healthcare decision maker Resuscitation status Advanced Directive on File Physical Exam Last 24 Hour Vital Signs Date Time Temp Pulse Resp B/P (MAP) Pulse Ox O2 Delivery O2 Flow Rate FiO2 10/07/18 13:58 82 20 100 Nasal Cannula 2.0 28 10/07/18 13:52 86 16 100 Nasal Cannula 2.0 28 10/07/18 12:00 98.4 68 20 158/109 (125) 98 10/07/18 09:01 98.4 10/07/18 09:01 98.4 10/07/18 09:00 Nasal Cannula 2.0 10/07/18 08:00 98.4 100 20 114/62 (79) 94 10/07/18 07:36 81 20 100 Nasal Cannula 2.0 10/07/18 07:36 80 22 100 Nasal Cannula 2.0 10/07/18 07:36 100 Nasal Cannula 2.0 28 10/07/18 07:28 78 18 100 Nasal Cannula 2.0 28 10/07/18 04:00 98.3 88 18 139/60 (86) 99 10/07/18 01:36 94 20 98 Nasal Cannula 2.0 10/07/18 01:25 89 18 98 Nasal Cannula 2.0 28 10/07/18 00:00 98.6 90 20 140/62 (88) 97 10/06/18 21:00 Nasal Cannula 2.0 10/06/18 20:00 99.9 92 18 123/56 (78) 99 10/06/18 19:39 95 20 95 Nasal Cannula 2.0 28 10/06/18 19:29 123/94 (104) 10/06/18 19:29 94 18 95 Nasal Cannula 3.0 32 10/06/18 19:29 94 18 95 Nasal Cannula 3.0 32 10/06/18 19:29 95 Nasal Cannula 3.0 32 10/06/18 16:24 Nasal Cannula 2.0 10/06/18 16:00 99.0 99 20 173/89 (117) 95 Intake and Output 10/06/18 10/07/18 19:00 07:00 Intake Total 515 ml 300 ml Output Total 600 ml 1200 ml Balance -85 ml -900 ml Intake Oral 460 ml 300 ml IV Total 55 ml Output Urine Total 600 ml 1200 ml Laboratory Tests Test 10/07/18 07:00 White Blood Count 5.9 K/UL (4.8-10.8) Red Blood Count 3.47 M/UL (4.20-5.40) L Hemoglobin 9.6 G/DL (12.0-16.0) L Hematocrit 30.6 % (37.0-47.0) L Mean Corpuscular Volume 88 FL (80-99) Mean Corpuscular Hemoglobin 27.6 PG (27.0-31.0) Mean Corpuscular Hemoglobin Concent 31.3 G/DL (32.0-36.0) L Red Cell Distribution Width 16.3 % (11.6-14.8) H Platelet Count 145 K/UL (150-450) L Mean Platelet Volume 7.9 FL (6.5-10.1) Neutrophils (%) (Auto) 75.8 % (45.0-75.0) H Lymphocytes (%) (Auto) 19.2 % (20.0-45.0) L Monocytes (%) (Auto) 4.9 % (1.0-10.0) Eosinophils (%) (Auto) 0.0 % (0.0-3.0) Basophils (%) (Auto) 0.2 % (0.0-2.0) Sodium Level 138 MMOL/L (136-145) Potassium Level 5.7 MMOL/L (3.5-5.1) H Chloride Level 99 MMOL/L (98-107) Carbon Dioxide Level 24 MMOL/L (21-32) Anion Gap 15 mmol/L (5-15) Blood Urea Nitrogen 78 mg/dL (7-18) H Creatinine 7.4 MG/DL (0.55-1.30) H Estimat Glomerular Filtration Rate 7.0 mL/min (>60) Glucose Level 301 MG/DL (74-106) H Hemoglobin A1c 7.0 % (4.3-6.0) H Uric Acid 6.1 MG/DL (2.6-7.2) Calcium Level 9.0 MG/DL (8.5-10.1) Phosphorus Level 6.0 MG/DL (2.5-4.9) H Magnesium Level 2.1 MG/DL (1.8-2.4) Iron Level 47 ug/dL (50-175) L Total Iron Binding Capacity 161 ug/dL (250-450) L Percent Iron Saturation 29 % (15-50) Unsaturated Iron Binding 114 ug/dL (112-346) Ferritin 812 NG/ML (8-388) H Total Bilirubin 0.4 MG/DL (0.2-1.0) Gamma Glutamyl Transpeptidase 134 U/L (5-85) H Aspartate Amino Transf (AST/SGOT) 10 U/L (15-37) L Alanine Aminotransferase (ALT/SGPT) 16 U/L (12-78) Alkaline Phosphatase 143 U/L (46-116) H Ammonia < 10 umol/L (11-32) L Troponin I 0.009 ng/mL (0.000-0.056) C-Reactive Protein, Quantitative 2.8 mg/dL (0.00-0.90) H Pro-B-Type Natriuretic Peptide 1701 pg/mL (0-125) H Total Protein 7.5 G/DL (6.4-8.2) Albumin 3.0 G/DL (3.4-5.0) L Globulin 4.5 g/dL Albumin/Globulin Ratio 0.7 (1.0-2.7) L Triglycerides Level 27 MG/DL (30-150) L Cholesterol Level 108 MG/DL (< 200) LDL Cholesterol 54 mg/dL (<100) HDL Cholesterol 53 MG/DL (40-60) Cholesterol/HDL Ratio 2.0 (3.3-4.4) L Vitamin B12 Level 1126 PG/ML (193-986) H Folate 41.4 NG/ML (8.6-58.9) Thyroid Stimulating Hormone (TSH) 0.552 uiU/mL (0.358-3.740) Random Vancomycin Level 14.0 ug/mL Microbiology Date/Time Source Procedure Growth Status 10/07/18 00:45 Sputum Induced Gram Stain - Final Resulted 10/07/18 00:45 Sputum Induced Sputum Culture Pending Resulted Height (Feet): 5 Height (Inches): 5.00 Weight (Pounds): 297 Medications Current Medications Medications (Trade) Dose Ordered Sig/Alex Route PRN Reason Start Time Stop Time Status Last Admin Dose Admin Acetaminophen (Tylenol) 650 mg Q4H PRN ORAL Mild Pain/Temp > 100.5 10/06/18 13:00 11/05/18 12:59 Acetaminophen/ Hydrocodone Bitart ([place] 10325) 1 tab Q6H PRN ORAL For Pain 10/06/18 13:00 10/13/18 12:59 10/07/18 08:31 Apixaban (Eliquis) 2.5 mg BID ORAL 10/06/18 18:00 11/05/18 17:59 10/07/18 08:32 Atorvastatin Calcium (Lipitor) 10 mg BEDTIME ORAL 10/06/18 21:00 11/05/18 20:59 10/06/18 20:16 Cefepime HCl 1 gm/ Dextrose 55 ml @ 110 mls/hr Q24H IVPB 10/06/18 16:00 10/13/18 15:59 10/06/18 16:09 Dextrose (Dextrose 50%) 25 ml Q30M PRN IV Hypoglycemia 10/06/18 15:15 11/05/18 15:14 Dextrose (Dextrose 50%) 50 ml Q30M PRN IV Hypoglycemia 10/06/18 15:15 11/05/18 15:14 Docusate Sodium (Colace) 100 mg THREE TIMES A DAY ORAL 10/06/18 13:20 11/05/18 13:19 10/07/18 13:24 Fluticasone Propionate (Flonase) 1 spray Q8H PRN NASAL NASAL CONGESTION 10/06/18 13:00 11/05/18 12:59 Gabapentin (Neurontin) 300 mg THREE TIMES A DAY ORAL 10/06/18 13:20 11/05/18 13:19 10/07/18 13:24 Insulin Aspart (NovoLOG) BEFORE MEALS AND HS SUBQ 10/06/18 16:30 11/05/18 16:29 10/07/18 13:27 Insulin Aspart (NovoLOG) 5 units NOVOTIAC SUBQ 10/07/18 16:50 11/06/18 16:49 Insulin Detemir (Levemir) 30 units BEDTIME SUBQ 10/06/18 21:00 11/05/18 20:59 10/06/18 20:28 Ipratropium [place] (Atrovent) 500 mcg Q4H PRN HHN Shortness of Breath 10/06/18 12:30 10/11/18 12:29 Ipratropium [place] (Atrovent) 500 mcg Q6HRT HHN 10/06/18 13:00 10/11/18 12:59 10/07/18 13:59 Lactulose (Cephulac) 45 gm Q12H PRN ORAL CONSTIPATION 10/06/18 13:30 11/05/18 12:59 Levalbuterol HCl (Xopenex) 0.63 mg Q4H PRN HHN SOB/wheezing 10/06/18 12:30 10/11/18 12:29 Levalbuterol HCl (Xopenex) 0.63 mg Q6HRT HHN 10/06/18 13:00 10/11/18 12:59 10/07/18 13:58 Levofloxacin 50 ml @ 50 mls/hr Q48H IVPB 10/06/18 20:00 10/13/18 19:59 10/06/18 20:15 Lidocaine (Lidoderm 5% PATCH) 1 patch DAILYPRN PRN TDERMAL BACK PAIN 10/06/18 13:00 11/05/18 12:59 Loratadine (Claritin 10mg) 10 mg DAILY ORAL 10/07/18 09:00 11/06/18 08:59 10/07/18 08:32 Methylprednisolone Sodium Succinate (Solu-MEDROL) 40 mg EVERY 12 HOURS IVP 10/06/18 21:00 11/05/18 20:59 10/07/18 08:33 Nateglinide (Starlix) 120 mg TIAC ORAL 10/06/18 16:30 11/05/18 16:29 10/07/18 13:24 Pantoprazole (Protonix) 40 mg DAILY ORAL 10/07/18 09:00 11/06/18 08:59 10/07/18 08:32 Pregabalin (Lyrica) 75 mg BID ORAL 10/06/18 18:00 11/05/18 17:59 10/07/18 08:33 Sennosides (Senokot) 8.6 mg BIDPRN PRN ORAL Constipation 10/06/18 13:00 11/05/18 12:59 Sevelamer Carbonate (Renvela) 1,600 mg THREE TIMES A DAY ORAL 10/07/18 13:00 11/05/18 13:21 10/07/18 13:24 Vancomycin HCl (Vanco rx to dose) 1 ea DAILY PRN MISC Per rx protocol 10/06/18 14:15 11/05/18 14:14 Vitamin B Complex/ Vit C/Folic Acid (Nephrovite) 1 tab DAILY ORAL 10/07/18 09:00 11/06/18 08:59 10/07/18 08:32 Zinc Sulfate (Zinc Sulfate) 220 mg DAILY ORAL 10/07/18 09:00 11/06/18 08:59 10/07/18 08:32 Assessment/Plan Assessment/Plan: HEME/ONC CONSULTATION DOS: 10/07/2018 REFERRING MD: Archana Chan REASON FOR CONSULT: Thrombocytopenia HISTORY OF PRESENT ILLNESS: The patient is 53-year-old female with a history of end-stage renal disease, on hemodialysis. The patient presented with feeling tired associated with shortness of breath for the last couple of days. The patient had a prior history of the urinary tract infection. Also, the patient reportedly had episodes of the low pulse ox with no chest pain. The patient had initially sent to the [facility] Emergency Room. However there, given the persistent symptoms, the patient requested to be transferred to this hospital. The patient denies any fever, denies any severe headache or blurry vision. Review of cbc showed a low hgb level of 129k yesterday. Heme/Onc services were consulted for the evaluation and management of thrombocytopenia. PAST MEDICAL HISTORY: atrial fibrillation, congestive heart failure, hyperlipidemia, anemia, diabetes, and end-stage renal disease. PAST SURGICAL HISTORY: Right-sided AKA and left-sided toe and left-sided finger amputations. CURRENT HOSPITAL MEDICATIONS: acetaminophen, Eliquis, and atorvastatin. ALLERGIES: Latex. SOCIAL HISTORY: The patient denies history of illicit drug abuse, smoking, or alcohol abuse. The patient has 2 children. FAMILY HISTORY: Reviewed and noncontributory. REVIEW OF SYSTEMS: All 12 elements of review of systems reviewed. Pertinent positives and negatives as above. PHYSICAL EXAMINATION: VITAL SIGNS: Have been reviewed HEAD AND NECK: Atraumatic and normocephalic. CHEST: Clear to auscultation. HEART: S1 and S2. Regular rate and rhythm. ABDOMEN: Soft. No organomegaly. MUSCULOSKELETAL: Positive for the right AKA, left-sided amputation of toe. NEUROLOGY: The patient is awake, alert, and oriented x3. LABS wbc 5.9 hgb 9.6 plt 145 ASSESSMENT AND PLAN # Thrombocytopenia - potential causes multifactorial, evaluate liver and viral etiologies to begin, also could be related to underlying medications patient has received. --> Hep panel and HIV ordered --> US abd to evaluate for cirrhosis and hsm ordered --> Peripheral smear ordered to evaluate for blasts /schistocytes --> abx and other meds have been reviewed --> ok for ppx if plt >50k w/ either heparin or lovenox --> Transfuse if Plt < 20k and fever, or if Plt < 10k without fever # Anemia of chronic disease due to underlying chronic medical issues, multifactorial -- noted with HD --> Anemia workup has been ordered, rule out gi bleed --> No evidence of hemolysis is noted, peripheral smear has been reviewed. --> Hgb goal >7. Transfuse prn. --> Epogen 3X a week SQ as needed --> Medications have been reviewed --> low threshold for gi evaluation in case has occult + # DVT of the lower extremity --> given anemia that is not acute, okay to continue anticoag --> on eliquis at this time # ESRD. Nephro is following, appreciate recs. # SIRS. --> per ID recs # UTI. # AFib. On anticoagulation eliquis # Severe peripheral vascular disease, status post amputation of the extremities and toes. # Hypertension. # Diabetes type 2. The time this note is entered does not reflect the time the patient was examined. I greatly appreciate the consultation. Fabiano Perez MD Oct 07, 2018 15:01
--- NOTE | 2018-10-07 15:26 | NUR ---
NURSE NOTES:WOUND CARE NOTES: Morbidly obese female whom presented on admission with necrotic 3rd digit of L hand. 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 Hx of TMA L st metatarsal.Necrotic area noted to dorsal aspect of L TMA.Small amt sanguineous exudate noted. No odor noted .Periwound without erythema or edema. L heel is dry ,firm and blanchable. 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 No evidence of skin breakdown to sacrum. Pt demonstrated good mobility repositioning self in bed. Educated on wound prevention and encouraged to frequently turn and to off-lift buttocks when repositioning to prevent friction to skin. Tx.Plan: Swab 3rd digit of L hand with Betadine daily . May cover with Optifoam s needed. Swab L 1st TMA with Betadine. Cover with Gauze and wrap loosely with Kerlix Daily and prn. Off-load L heel with pillow. Encourage and assist as needed with repositioning at least every 2hours or as tolerated.
[2018-10-07 15:57] VITALS: BP 131/96
[2018-10-07] MEDS ORDERED: NovoLOG Insulin Flexpen SUBQ SCH (16:50)
[2018-10-07] MEDS: Cefepime HCl 1 GM in D5W 55 ML IVPB SCH (16:58)
--- NOTE | 2018-10-07 19:18 | NUR ---
NURSE NOTES: Received report from PINKY Macdonald. Patient is in bed sleeping. Patient on nasal cannula 2 L. No s/s of pain or respiratory distress. 2 side rails up and HOB elevated. Right forearm IV intact. Bed in lowest position with call light in reach. Will continue to monitor.
--- NOTE | 2018-10-07 19:29 | NUR ---
HAND-OFF: Report given to
[2018-10-07 20:00] VITALS: BP 116/59
[2018-10-07] MEDS: Levemir Flexpen SUBQ SCH (20:13)
--- NOTE | 2018-10-07 20:55 | NUR ---
NURSE NOTES: Patient's blood sugar was 404. Called MD at 2050 per protocol. Coverage was given - 12 units.
[2018-10-08] VITALS: BP 145/78
--- NOTE | 2018-10-08 00:20 | NUR ---
NURSE NOTES: PT CURRENTLY DO NOT HAVE IV ACCESS AFTER MANY ATTEMPTS TO START A NEW IV. D/C PREVIOUS IV PER PT FROM C/O PAIN AND BURNING. ANTIBIOTIC MEDICATIONS WERE DELIVERED LATE FROM PHARMACY. UNABLE TO ADMINISTER IV MEDICATIONS D/T NO IV ACCESS. CHARGE NURSE AWARE. NOTIFIED DR. BAUGH. WAITING FOR NEW ORDERS. WILL FOLLOW UP. Addendum: 10/09/18 at 0404 by Gisela Ridley RN DISREGARD. WRONG TIME STAMP.
[2018-10-08] MEDS: Ipratropium 0.02% Inh Soln 2.5ml UD HHN SCH ×4 (00:42→20:12)
[2018-10-08] MEDS: Levalbuterol Inh UD 1.25mg/0.5ml HHN SCH ×4 (00:42→20:12)
[2018-10-08] MEDS: HYDROcodone/Acetamin 10/325 tab ORAL PRN ×3 (00:52→22:47)
[2018-10-08 04:00] VITALS: BP 149/70
[2018-10-08] MEDS: NovoLOG Insulin Flexpen SUBQ SCH ×7 (05:55→22:04)
--- NOTE | 2018-10-08 07:47 | NUR ---
NURSE NOTES: Pt awake eating breakfast . Microbiology phoned for results pt positive vre to rectum. Will notify MD. Report given by Amira.
[2018-10-08 08:00] VITALS: BP 135/58
[2018-10-08 08:45] LABS: ANION GAP 10 mmol/L (5-15); BLOOD UREA NITROGEN 70 mg/dL (7-18); CALCIUM 8.5 MG/DL (8.5-10.1); CARBON DIOXIDE 29 MMOL/L (21-32); CHLORIDE 97 MMOL/L (98-107); CREATININE 6.5 MG/DL (0.55-1.30); POTASSIUM 4.5 MMOL/L (3.5-5.1); SODIUM 136 MMOL/L (136-145)
[2018-10-08 08:50] LABS: ALANINE AMINOTRANSFERASE 12 U/L (12-78); ALBUMIN 3.5 G/DL (3.4-5.0); ALBUMIN/GLOBULIN RATIO 0.9 (1.0-2.7); ALKALINE PHOSPHATASE 140 U/L (46-116); ASPARTATE AMINO TRANSFERASE 13 U/L (15-37); BILIRUBIN,TOTAL 0.3 MG/DL (0.2-1.0); PHOSPHORUS 5.9 MG/DL (2.5-4.9)
[2018-10-08] MEDS ORDERED: Levofloxacin 500mg tab ORAL SCH (09:00)
[2018-10-08] MEDS: Eliquis 2.5mg tablet ORAL SCH ×2 (09:08→17:54)
[2018-10-08] MEDS: Solu-MEDROL 40mg Inj IVP SCH ×3 (09:08→21:00)
[2018-10-08] MEDS: Nephrovite tab (Rena-Vite) ORAL SCH (09:09)
[2018-10-08] MEDS: Docusate 100mg cap ORAL SCH ×3 (09:09→18:05)
[2018-10-08] MEDS: Zinc Sulfate 220mg cap ORAL SCH (09:09)
[2018-10-08] MEDS: Lyrica 75mg cap ORAL SCH ×2 (09:11→17:55)
--- NOTE | 2018-10-08 09:27 | Nephrology Progress Note ---
Assessment/Plan Problem List: (1) ESRD (end stage renal disease) on dialysis (2) Bronchitis, acute, with bronchospasm (3) Morbid obesity (4) Anemia in chronic kidney disease (CKD) (5) PVD (peripheral vascular disease) (6) Diabetes mellitus Assessment: OOC Assessment ESRD , HD Tue Gisela Sat Obese DM PVD s/p LE amputation Rt Anemia of CKD Bronchitis / UTI Plan Per ID HD in am 7/ Kayexelate as needed pulm toilet BP and BS control taper steroids as possible per orders Subjective ROS Limited/Unobtainable: No Constitutional: Reports: malaise Objective Objective Last 24 Hour Vital Signs Date Time Temp Pulse Resp B/P (MAP) Pulse Ox O2 Delivery O2 Flow Rate FiO2 10/08/18 06:47 77 18 99 Nasal Cannula 2.0 28 10/08/18 06:30 98 Nasal Cannula 2.0 10/08/18 06:30 70 18 99 Nasal Cannula 2.0 10/08/18 06:30 70 18 99 Nasal Cannula 2.0 10/08/18 05:57 80 11 98 Facial 28 10/08/18 04:00 98.0 75 17 149/70 (96) 100 10/08/18 02:54 81 11 98 Facial 28 10/08/18 00:55 87 21 97 Facial 28 10/08/18 00:52 87 21 97 Bi-Pap 10/08/18 00:42 86 18 97 Nasal Cannula 2.0 10/08/18 00:00 98.2 80 16 145/78 (100) 99 10/07/18 21:00 Nasal Cannula 2.0 10/07/18 20:00 84 18 98 Nasal Cannula 2.0 10/07/18 20:00 98.1 89 17 116/59 (78) 96 10/07/18 20:00 Nasal Cannula 2.0 28 10/07/18 20:00 98 Nasal Cannula 2.0 10/07/18 20:00 84 98 Nasal Cannula 2.0 28 10/07/18 17:28 99.0 10/07/18 17:28 99.0 10/07/18 15:57 99.0 97 20 131/96 (108) 98 10/07/18 13:58 82 20 100 Nasal Cannula 2.0 28 10/07/18 13:52 86 16 100 Nasal Cannula 2.0 28 10/07/18 12:00 98.4 68 20 158/109 (125) 98 Intake and Output 10/07/18 10/08/18 19:00 07:00 Intake Total 1322.5 ml 480 ml Output Total 4500 ml 600 ml Balance -3177.5 ml -120 ml Intake Oral 1130 ml 480 ml IV Total 192.5 ml Output Urine Total 500 ml 600 ml Hemodialysis UF 4000 ml # Voids 7 1 # Bowel Movements 1 Laboratory Tests 10/08/18 08:20: Sodium Level 136, Potassium Level 4.5, Chloride Level 97L, Carbon Dioxide Level 29, Anion Gap 10, Blood Urea Nitrogen 70H, Creatinine 6.5H, Estimat Glomerular Filtration Rate 8.1, Glucose Level 330H, Calcium Level 8.5, Phosphorus Level 5.9H, Total Bilirubin 0.3, Aspartate Amino Transf (AST/SGOT) 13L, Alanine Aminotransferase (ALT/SGPT) 12, Alkaline Phosphatase 140H, Total Protein 7.6, Albumin 3.5, Globulin 4.1, Albumin/Globulin Ratio 0.9L Height (Feet): 5 Height (Inches): 5.00 Weight (Pounds): 299 General Appearance: no apparent distress Cardiovascular: normal rate Respiratory/Chest: decreased breath sounds Abdomen: soft Ronen Leone MD Oct 08, 2018 09:27
--- NOTE | 2018-10-08 11:04 | NUR ---
NURSE NOTES: [address] Chan office, to inform him of positive results vre, , pt is also coughing with complaint of pain.
--- NOTE | 2018-10-08 11:18 | NUR ---
NURSE NOTES: gave orders for chest xray stat. No new orders for VRE status
--- NOTE | 2018-10-08 11:24 | NUR ---
NURSE NOTES: Chest xray ordered , nno orders related to pain medication, will follow protocol for VRE status
--- NOTE | 2018-10-08 11:39 | Pulmonology Progress Note ---
Assessment/Plan Problems: (1) Morbid obesity (2) ESRD (end stage renal disease) on dialysis (3) Bronchitis, acute, with bronchospasm (4) UTI (urinary tract infection) (5) Cough productive of yellow sputum (6) Bronchitis (7) PVD (peripheral vascular disease) (8) Anemia in chronic kidney disease (CKD) Assessment/Plan ASSESSMENT: The patient is a 53-year-old female with a history of obesity, questionable history of asthma, end-stage renal disease on dialysis, diabetes, hypertension, peripheral vascular disease, BKA and finger amputations, presenting with shortness of breath and cough likely secondary to URI/bronchitis with an exacerbation of her asthma. PROBLEM LIST: 1. URI/bronchitis. 2. Asthma with acute exacerbation. 3. Urinary tract infection. 4. Morbid obesity. 5. End-stage renal disease, on dialysis. 6. Diabetes. 7. Hypertension. 8. Peripheral vascular disease, status post right BKA and finger amputations. 9. Neuropathy. 10. Anemia. 11. Thrombocytopenia. 12. Prior stated history of DVT. 13. SANDOVAL, likely OHS TREATMENT PLAN: 1. Optimize pulmonary hygiene/mobilize as tolerated. 2. CPAP 12 cm qHS 3. P.r.n. O2 to keep saturations greater than 90%. 4. [id number] and p.r.n. Atrovent and Xopenex hand-held nebulizers (the patient states she has palpitations with albuterol). 5. Abx per ID 6. Follow up Cx's 7. Monitor volumes and renal function. 8. Diabetic diet. 9. Continue Eliquis for prior DVT. 10. Weight loss diet and exercise have to be addressed. 11. The patient should have full PFTs and a sleep study as an outpatient. Subjective Allergies: Coded Allergies: LATEX (Verified Allergy, Unknown, 06/28/18) Subjective AFVSS O2 needs stable Less cough and congestion some wheezing no FC Objective Last 24 Hour Vital Signs Date Time Temp Pulse Resp B/P (MAP) Pulse Ox O2 Delivery O2 Flow Rate FiO2 10/08/18 06:47 77 18 99 Nasal Cannula 2.0 28 10/08/18 06:30 98 Nasal Cannula 2.0 28 10/08/18 06:30 70 18 99 Nasal Cannula 2.0 28 10/08/18 06:30 70 18 99 Nasal Cannula 2.0 28 10/08/18 05:57 80 11 98 Facial 28 10/08/18 04:00 98.0 75 17 149/70 (96) 100 10/08/18 02:54 81 11 98 Facial 28 10/08/18 00:55 87 21 97 Facial 28 10/08/18 00:52 87 21 97 Bi-Pap 10/08/18 00:42 86 18 97 Nasal Cannula 2.0 10/08/18 00:00 98.2 80 16 145/78 (100) 99 10/07/18 21:00 Nasal Cannula 2.0 10/07/18 20:00 84 18 98 Nasal Cannula 2.0 10/07/18 20:00 98.1 89 17 116/59 (78) 96 10/07/18 20:00 Nasal Cannula 2.0 10/07/18 20:00 98 Nasal Cannula 2.0 10/07/18 20:00 84 98 Nasal Cannula 2.0 10/07/18 17:28 99.0 10/07/18 17:28 99.0 10/07/18 15:57 99.0 97 20 131/96 (108) 98 10/07/18 13:58 82 20 100 Nasal Cannula 2.0 10/07/18 13:52 86 16 100 Nasal Cannula 2.0 10/07/18 12:00 98.4 68 20 158/109 (125) 98 Intake and Output 10/07/18 10/08/18 19:00 07:00 Intake Total 1322.5 ml 480 ml Output Total 4500 ml 600 ml Balance -3177.5 ml -120 ml Intake Oral 1130 ml 480 ml IV Total 192.5 ml Output Urine Total 500 ml 600 ml Hemodialysis UF 4000 ml # Voids 7 1 # Bowel Movements 1 General Appearance: WD/WN, no acute distress, other - ob F HEENT: normocephalic, atraumatic, anicteric, mucous membranes moist Respiratory/Chest: rhonchi Cardiovascular: normal peripheral pulses, normal rate, regular rhythm Abdomen: normal bowel sounds, soft, non tender, no organomegaly, non distended , no mass Extremities: no cyanosis, no clubbing, other - BKA Microbiology Date/Time Source Procedure Growth Status 10/06/18 10:00 Blood Blood Culture - Preliminary NO GROWTH AFTER 24 HOURS Resulted 10/06/18 09:55 Blood Blood Culture - Preliminary NO GROWTH AFTER 24 HOURS Resulted 10/07/18 00:45 Sputum Induced Gram Stain - Final Resulted 10/07/18 00:45 Sputum Induced Sputum Culture Pending Resulted 10/06/18 10:20 Urine,Clean Catch Urine Culture - Preliminary NO GROWTH AFTER 24 HOURS Resulted 10/06/18 10:10 Rectum - Final NO CARBAPENEM-RESISTANT ENTEROBACTERI... Complete 10/06/18 10:10 Rectal Mucosa VRE Culture - Final Enterococcus Faecalis - Vre Complete Laboratory Tests 10/08/18 08:20: Sodium Level 136, Potassium Level 4.5, Chloride Level 97L, Carbon Dioxide Level 29, Anion Gap 10, Blood Urea Nitrogen 70H, Creatinine 6.5H, Estimat Glomerular Filtration Rate 8.1, Glucose Level 330H, Calcium Level 8.5, Phosphorus Level 5.9H, Total Bilirubin 0.3, Aspartate Amino Transf (AST/SGOT) 13L, Alanine Aminotransferase (ALT/SGPT) 12, Alkaline Phosphatase 140H, Total Protein 7.6, Albumin 3.5, Globulin 4.1, Albumin/Globulin Ratio 0.9L Current Medications Medications (Trade) Dose Ordered Sig/Alex Route PRN Reason Start Time Stop Time Status Last Admin Dose Admin Acetaminophen (Tylenol) 650 mg Q4H PRN ORAL Mild Pain/Temp > 100.5 10/06/18 13:00 11/05/18 12:59 Acetaminophen/ Hydrocodone Bitart ([place] 10/325) 1 tab Q6H PRN ORAL For Pain 10/06/18 13:00 10/13/18 12:59 10/08/18 11:34 Apixaban (Eliquis) 2.5 mg BID ORAL 10/06/18 18:00 11/05/18 17:59 10/08/18 09:08 Atorvastatin Calcium (Lipitor) 10 mg BEDTIME ORAL 10/06/18 21:00 11/05/18 20:59 10/07/18 20:04 Cefepime HCl 0.5 gm/Dextrose 55 ml @ 110 mls/hr Q24H IVPB 10/08/18 16:00 10/15/18 15:59 Dextrose (Dextrose 50%) 25 ml Q30M PRN IV Hypoglycemia 10/06/18 15:15 11/05/18 15:14 Dextrose (Dextrose 50%) 50 ml Q30M PRN IV Hypoglycemia 10/06/18 15:15 11/05/18 15:14 Diphenhydramine HCl (Benadryl) 25 mg DAILYPRN PRN IVP Itching/Pruritis 10/07/18 15:00 11/06/18 14:59 10/07/18 17:00 Docusate Sodium (Colace) 100 mg THREE TIMES A DAY ORAL 10/06/18 13:20 11/05/18 13:19 10/08/18 09:09 Fluticasone Propionate (Flonase) 1 spray Q8H PRN NASAL NASAL CONGESTION 10/06/18 13:00 11/05/18 12:59 Gabapentin (Neurontin) 300 mg THREE TIMES A DAY ORAL 10/06/18 13:20 11/05/18 13:19 10/08/18 09:09 Insulin Aspart (NovoLOG) BEFORE MEALS AND HS SUBQ 10/06/18 16:30 11/05/18 16:29 10/08/18 05:55 Insulin Aspart (NovoLOG) 5 units BEFORE MEALS SUBQ 10/07/18 16:30 11/06/18 16:49 10/08/18 05:57 Insulin Detemir (Levemir) 30 units BEDTIME SUBQ 10/06/18 21:00 11/05/18 20:59 10/07/18 20:13 Ipratropium [place] (Atrovent) 500 mcg Q4H PRN HHN Shortness of Breath 10/06/18 12:30 10/11/18 12:29 Ipratropium [place] (Atrovent) 500 mcg Q6HRT HHN 10/06/18 13:00 10/11/18 12:59 10/08/18 06:33 Lactulose (Cephulac) 45 gm Q12H PRN ORAL CONSTIPATION 10/06/18 13:30 11/05/18 12:59 Levalbuterol HCl (Xopenex) 0.63 mg Q4H PRN HHN SOB/wheezing 10/06/18 12:30 10/11/18 12:29 Levalbuterol HCl (Xopenex) 0.63 mg Q6HRT HHN 10/06/18 13:00 10/11/18 12:59 10/08/18 06:33 Levofloxacin 50 ml @ 50 mls/hr Q48H IVPB 10/06/18 20:00 10/13/18 19:59 10/06/18 20:15 Lidocaine (Lidoderm 5% PATCH) 1 patch DAILYPRN PRN TDERMAL BACK PAIN 10/06/18 13:00 11/05/18 12:59 Loratadine (Claritin 10mg) 10 mg DAILY ORAL 10/07/18 09:00 11/06/18 08:59 10/08/18 09:09 Methylprednisolone Sodium Succinate (Solu-MEDROL) 40 mg EVERY 12 HOURS IVP 10/06/18 21:00 11/05/18 20:59 10/08/18 09:08 Nateglinide (Starlix) 120 mg TIAC ORAL 10/06/18 16:30 11/05/18 16:29 10/08/18 11:32 Pantoprazole (Protonix) 40 mg DAILY ORAL 10/07/18 09:00 11/06/18 08:59 10/08/18 09:09 Pregabalin (Lyrica) 75 mg BID ORAL 10/06/18 18:00 11/05/18 17:59 10/08/18 09:11 Sennosides (Senokot) 8.6 mg BIDPRN PRN ORAL Constipation 10/06/18 13:00 11/05/18 12:59 Sevelamer Carbonate (Renvela) 1,600 mg THREE TIMES A DAY ORAL 10/07/18 13:00 11/05/18 13:21 10/08/18 09:09 Vancomycin HCl (Vanco rx to dose) 1 ea DAILY PRN MISC Per rx protocol 10/06/18 14:15 11/05/18 14:14 Vitamin B Complex/ Vit C/Folic Acid (Nephrovite) 1 tab DAILY ORAL 10/07/18 09:00 11/06/18 08:59 10/08/18 09:09 Zinc Sulfate (Zinc Sulfate) 220 mg DAILY ORAL 10/07/18 09:00 11/06/18 08:59 10/08/18 09:09 Castillo Carrizales MD Oct 08, 2018 11:39
[2018-10-08 12:00] VITALS: BP 137/66
--- NOTE | 2018-10-08 12:43 | Diagnostic Imaging Report ---
Indication: Dyspnea Comparison: 10/06/2018 A single view chest radiograph was obtained. Findings: There is suspected mild pulmonary vascular congestion with cardiomegaly. Findings are unchanged. IMPRESSION: Suspected mild pulmonary vascular congestion
--- NOTE | 2018-10-08 13:13 | Surgery Progress Note ---
Surgery Progress Note Objective Last 24 Hour Vital Signs Date Time Temp Pulse Resp B/P (MAP) Pulse Ox O2 Delivery O2 Flow Rate FiO2 10/08/18 12:39 76 18 100 Nasal Cannula 2.0 10/08/18 12:28 78 20 98 Nasal Cannula 2.0 10/08/18 08:00 98.2 96 18 135/58 (83) 96 10/08/18 06:47 77 18 99 Nasal Cannula 2.0 10/08/18 06:30 98 Nasal Cannula 2.0 10/08/18 06:30 70 18 99 Nasal Cannula 2.0 10/08/18 06:30 70 18 99 Nasal Cannula 2.0 10/08/18 05:57 80 11 98 Facial 28 10/08/18 04:00 98.0 75 17 149/70 (96) 100 10/08/18 02:54 81 11 98 Facial 10/08/18 00:55 87 21 97 Facial 28 10/08/18 00:52 87 21 97 Bi-Pap 10/08/18 00:42 86 18 97 Nasal Cannula 2.0 10/08/18 00:00 98.2 80 16 145/78 (100) 99 10/07/18 21:00 Nasal Cannula 2.0 10/07/18 20:00 84 18 98 Nasal Cannula 2.0 10/07/18 20:00 98.1 89 17 116/59 (78) 96 10/07/18 20:00 Nasal Cannula 2.0 10/07/18 20:00 98 Nasal Cannula 2.0 10/07/18 20:00 84 98 Nasal Cannula 2.0 10/07/18 17:28 99.0 10/07/18 17:28 99.0 10/07/18 15:57 99.0 97 20 131/96 (108) 98 10/07/18 13:58 82 20 100 Nasal Cannula 2.0 10/07/18 13:52 86 16 100 Nasal Cannula 2.0 28 I&O Intake and Output 10/07/18 10/08/18 19:00 07:00 Intake Total 1322.5 ml 480 ml Output Total 4500 ml 600 ml Balance -3177.5 ml -120 ml Intake Oral 1130 ml 480 ml IV Total 192.5 ml Output Urine Total 500 ml 600 ml Hemodialysis UF 4000 ml # Voids 7 1 # Bowel Movements 1 Dressing: dry Wound: clean Cardiovascular: RSR Respiratory: clear Abdomen: soft, flat, non-tender, present bowel sounds Extremities: tenderness, cyanosis, no edema Laboratory Tests Test 10/08/18 08:20 Sodium Level 136 MMOL/L (136-145) Potassium Level 4.5 MMOL/L (3.5-5.1) Chloride Level 97 MMOL/L (98-107) L Carbon Dioxide Level 29 MMOL/L (21-32) Anion Gap 10 mmol/L (5-15) Blood Urea Nitrogen 70 mg/dL (7-18) H Creatinine 6.5 MG/DL (0.55-1.30) H Estimat Glomerular Filtration Rate 8.1 mL/min (>60) Glucose Level 330 MG/DL (74-106) H Calcium Level 8.5 MG/DL (8.5-10.1) Phosphorus Level 5.9 MG/DL (2.5-4.9) H Total Bilirubin 0.3 MG/DL (0.2-1.0) Aspartate Amino Transf (AST/SGOT) 13 U/L (15-37) L Alanine Aminotransferase (ALT/SGPT) 12 U/L (12-78) Alkaline Phosphatase 140 U/L (46-116) H Total Protein 7.6 G/DL (6.4-8.2) Albumin 3.5 G/DL (3.4-5.0) Globulin 4.1 g/dL Albumin/Globulin Ratio 0.9 (1.0-2.7) L Plan Problems: (1) Cellulitis Assessment & Plan: Morbidly obese female whom presented on admission with necrotic 3rd digit of L hand. 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 Hx of TMA L st metatarsal.Necrotic area noted to dorsal aspect of L TMA.Small amt sanguineous exudate noted. No odor noted .Periwound without erythema or edema. L heel is dry ,firm and blanchable. 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 No evidence of skin breakdown to sacrum. Pt demonstrated good mobility repositioning self in bed. Educated on wound prevention and encouraged to frequently turn and to off-lift buttocks when repositioning to prevent friction to skin. Tx.Plan: Swab 3rd digit of L hand with Betadine daily . May cover with Optifoam s needed. Swab L 1st TMA with Betadine. Cover with Gauze and wrap loosely with Kerlix Daily and prn. Off-load L heel with pillow. Encourage and assist as needed with repositioning at least every 2hours or as tolerated. f/u with plastic and podiatry as outpatient for revision (2) Bronchitis (3) Cough productive of yellow sputum (4) UTI (urinary tract infection) (5) Bronchitis, acute, with bronchospasm (6) ESRD (end stage renal disease) on dialysis (7) Morbid obesity (8) Anemia in chronic kidney disease (CKD) (9) PVD (peripheral vascular disease) Assessment & Plan: known PVD multiple studies done prior right LE amputation stable. flap viable without wound left foot with great toe amp cont with current care plan Melvin Santana Oct 08, 2018 13:13
--- NOTE | 2018-10-08 15:17 | Infectious Diseases Prog Note ---
Assessment/Plan Problems: (1) Bronchitis, acute, with bronchospasm Assessment & Plan: continue vancomycin and cefepime pending sputum culture , continue inhalers (2) Cough productive of yellow sputum Assessment & Plan: possible pneumonia , on vancomycin and cefepime since HD patient pending sputum culture and blood culture (3) UTI (urinary tract infection) Assessment & Plan: already on cefepime pending urine culture (4) ESRD (end stage renal disease) on dialysis Assessment & Plan: continue HD as per renal Subjective Constitutional: Reports: no symptoms HEENT: Reports: no symptoms Respiratory: Reports: dry cough Cardiovascular: Reports: chest pain Gastrointestinal/Abdominal: Reports: no symptoms Genitourinary: Reports: no symptoms Neurologic: Reports: no symptoms Psychiatric: Reports: no symptoms Skin: Reports: no symptoms Endocrine: Reports: no symptoms Hematologic: Reports: no symptoms Musculoskeletal: Reports: no symptoms Allergies: Coded Allergies: LATEX (Verified Allergy, Unknown, 06/28/18) Objective Vital Signs Last 24 Hour Vital Signs Date Time Temp Pulse Resp B/P (MAP) Pulse Ox O2 Delivery O2 Flow Rate FiO2 10/08/18 12:39 76 18 100 Nasal Cannula 2.0 10/08/18 12:28 78 20 98 Nasal Cannula 2.0 10/08/18 12:00 98.1 87 18 137/66 (89) 97 10/08/18 09:00 Room Air 10/08/18 08:00 98.2 96 18 135/58 (83) 96 10/08/18 06:47 77 18 99 Nasal Cannula 2.0 10/08/18 06:30 98 Nasal Cannula 2.0 10/08/18 06:30 70 18 99 Nasal Cannula 2.0 10/08/18 06:30 70 18 99 Nasal Cannula 2.0 10/08/18 05:57 80 11 98 Facial 28 10/08/18 04:00 98.0 75 17 149/70 (96) 100 10/08/18 02:54 81 11 98 Facial 28 10/08/18 00:55 87 21 97 Facial 28 10/08/18 00:52 87 21 97 Bi-Pap 10/08/18 00:42 86 18 97 Nasal Cannula 2.0 10/08/18 00:00 98.2 80 16 145/78 (100) 99 10/07/18 21:00 Nasal Cannula 2.0 10/07/18 20:00 84 18 98 Nasal Cannula 2.0 28 10/07/18 20:00 98.1 89 17 116/59 (78) 96 10/07/18 20:00 Nasal Cannula 2.0 28 10/07/18 20:00 98 Nasal Cannula 2.0 28 10/07/18 20:00 84 98 Nasal Cannula 2.0 28 10/07/18 17:28 99.0 10/07/18 17:28 99.0 10/07/18 15:57 99.0 97 20 131/96 (108) 98 Height (Feet): 5 Height (Inches): 5.00 Weight (Pounds): 299 General Appearance: WD/WN, no acute distress HEENT: normocephalic, atraumatic, anicteric, mucous membranes moist, PERRL Respiratory/Chest: chest wall non-tender, lungs clear, normal breath sounds, no respiratory distress, no accessory muscle use Cardiovascular: normal peripheral pulses, normal rate, regular rhythm, no gallop/murmur, no JVD Abdomen: normal bowel sounds, soft, non tender, no organomegaly, non distended , no mass, no scars Extremities: no cyanosis, no clubbing Skin: no rash, no lesions, no ulcers Neurologic/Psychiatric: alert, responsive Lymphatic: no neck adenopathy, no groin adenopathy Musculoskeletal: normal muscle bulk, no effusion Microbiology Date/Time Source Procedure Growth Status 10/06/18 10:00 Blood Blood Culture - Preliminary NO GROWTH AFTER 24 HOURS Resulted 10/06/18 09:55 Blood Blood Culture - Preliminary NO GROWTH AFTER 24 HOURS Resulted 10/07/18 00:45 Sputum Induced Gram Stain - Final Resulted 10/07/18 00:45 Sputum Induced Sputum Culture Pending Resulted 10/06/18 10:20 Urine,Clean Catch Urine Culture - Preliminary NO GROWTH AFTER 24 HOURS Resulted 10/06/18 10:10 Rectum - Final NO CARBAPENEM-RESISTANT ENTEROBACTERI... Complete 10/06/18 10:10 Rectal Mucosa VRE Culture - Final Enterococcus Faecalis - Vre Complete Laboratory Tests Test 10/08/18 08:20 Sodium Level 136 MMOL/L (136-145) Potassium Level 4.5 MMOL/L (3.5-5.1) Chloride Level 97 MMOL/L (98-107) L Carbon Dioxide Level 29 MMOL/L (21-32) Anion Gap 10 mmol/L (5-15) Blood Urea Nitrogen 70 mg/dL (7-18) H Creatinine 6.5 MG/DL (0.55-1.30) H Estimat Glomerular Filtration Rate 8.1 mL/min (>60) Glucose Level 330 MG/DL (74-106) H Calcium Level 8.5 MG/DL (8.5-10.1) Phosphorus Level 5.9 MG/DL (2.5-4.9) H Total Bilirubin 0.3 MG/DL (0.2-1.0) Aspartate Amino Transf (AST/SGOT) 13 U/L (15-37) L Alanine Aminotransferase (ALT/SGPT) 12 U/L (12-78) Alkaline Phosphatase 140 U/L (46-116) H Total Protein 7.6 G/DL (6.4-8.2) Albumin 3.5 G/DL (3.4-5.0) Globulin 4.1 g/dL Albumin/Globulin Ratio 0.9 (1.0-2.7) L Current Medications Medications (Trade) Dose Ordered Sig/Alex Route PRN Reason Start Time Stop Time Status Last Admin Dose Admin Acetaminophen (Tylenol) 650 mg Q4H PRN ORAL Mild Pain/Temp > 100.5 10/06/18 13:00 11/05/18 12:59 Acetaminophen/ Hydrocodone Bitart ([place] 10/325) 1 tab Q6H PRN ORAL For Pain 10/06/18 13:00 10/13/18 12:59 10/08/18 11:34 Apixaban (Eliquis) 2.5 mg BID ORAL 10/06/18 18:00 11/05/18 17:59 10/08/18 09:08 Atorvastatin Calcium (Lipitor) 10 mg BEDTIME ORAL 10/06/18 21:00 11/05/18 20:59 10/07/18 20:04 Cefepime HCl 0.5 gm/Dextrose 55 ml @ 110 mls/hr Q24H IVPB 10/08/18 16:00 10/15/18 15:59 Dextrose (Dextrose 50%) 25 ml Q30M PRN IV Hypoglycemia 10/06/18 15:15 11/05/18 15:14 Dextrose (Dextrose 50%) 50 ml Q30M PRN IV Hypoglycemia 10/06/18 15:15 11/05/18 15:14 Diphenhydramine HCl (Benadryl) 25 mg DAILYPRN PRN IVP Itching/Pruritis 10/07/18 15:00 11/06/18 14:59 10/07/18 17:00 Docusate Sodium (Colace) 100 mg THREE TIMES A DAY ORAL 10/06/18 13:20 11/05/18 13:19 10/08/18 13:00 Fluticasone Propionate (Flonase) 1 spray Q8H PRN NASAL NASAL CONGESTION 10/06/18 13:00 11/05/18 12:59 Gabapentin (Neurontin) 300 mg THREE TIMES A DAY ORAL 10/06/18 13:20 11/05/18 13:19 10/08/18 14:50 Insulin Aspart (NovoLOG) BEFORE MEALS AND HS SUBQ 10/06/18 16:30 11/05/18 16:29 10/08/18 12:10 Insulin Aspart (NovoLOG) 5 units BEFORE MEALS SUBQ 10/07/18 16:30 11/06/18 16:49 10/08/18 12:09 Insulin Detemir (Levemir) 30 units BEDTIME SUBQ 10/06/18 21:00 11/05/18 20:59 10/07/18 20:13 Ipratropium [place] (Atrovent) 500 mcg Q4H PRN HHN Shortness of Breath 10/06/18 12:30 10/11/18 12:29 Ipratropium [place] (Atrovent) 500 mcg Q6HRT HHN 10/06/18 13:00 10/11/18 12:59 10/08/18 12:28 Lactulose (Cephulac) 45 gm Q12H PRN ORAL CONSTIPATION 10/06/18 13:30 11/05/18 12:59 Levalbuterol HCl (Xopenex) 0.63 mg Q4H PRN HHN SOB/wheezing 10/06/18 12:30 10/11/18 12:29 Levalbuterol HCl (Xopenex) 0.63 mg Q6HRT HHN 10/06/18 13:00 10/11/18 12:59 10/08/18 12:28 Levofloxacin 50 ml @ 50 mls/hr Q48H IVPB 10/06/18 20:00 10/13/18 19:59 10/06/18 20:15 Lidocaine (Lidoderm 5% PATCH) 1 patch DAILYPRN PRN TDERMAL BACK PAIN 10/06/18 13:00 11/05/18 12:59 Loratadine (Claritin 10mg) 10 mg DAILY ORAL 10/07/18 09:00 11/06/18 08:59 10/08/18 09:09 Methylprednisolone Sodium Succinate (Solu-MEDROL) 40 mg EVERY 12 HOURS IVP 10/06/18 21:00 11/05/18 20:59 10/08/18 09:08 Nateglinide (Starlix) 120 mg TIAC ORAL 10/06/18 16:30 11/05/18 16:29 10/08/18 11:32 Pantoprazole (Protonix) 40 mg DAILY ORAL 10/07/18 09:00 11/06/18 08:59 10/08/18 09:09 Pregabalin (Lyrica) 75 mg BID ORAL 10/06/18 18:00 11/05/18 17:59 10/08/18 09:11 Sennosides (Senokot) 8.6 mg BIDPRN PRN ORAL Constipation 10/06/18 13:00 11/05/18 12:59 Sevelamer Carbonate (Renvela) 1,600 mg THREE TIMES A DAY ORAL 10/07/18 13:00 11/05/18 13:21 10/08/18 14:50 Vancomycin HCl (Vanco rx to dose) 1 ea DAILY PRN MISC Per rx protocol 10/06/18 14:15 11/05/18 14:14 Vitamin B Complex/ Vit C/Folic Acid (Nephrovite) 1 tab DAILY ORAL 10/07/18 09:00 11/06/18 08:59 10/08/18 09:09 Zinc Sulfate (Zinc Sulfate) 220 mg DAILY ORAL 10/07/18 09:00 11/06/18 08:59 10/08/18 09:09 Naa Mina M.D. Oct 08, 2018 15:16
[2018-10-08 16:00] VITALS: BP 152/71
[2018-10-08] MEDS ORDERED: Cefepime HCl 0.5 GM in D5W 55 ML IVPB SCH (16:00)
--- NOTE | 2018-10-08 16:02 | NUR ---
NURSE NOTES: Pt is able to verbalize needs . Very talkative lacks knowledge of disease process. Per pt has had DM for over 25 years. Pt is inquiring if she can give her partner VRE , denies engaging in anal sex. Positive VRE to rectal area . Will attempt to inquire
--- NOTE | 2018-10-08 16:11 | Hematology/Onc Progress Note ---
Assessment/Plan Assessment/Plan # Thrombocytopenia - potential causes multifactorial, evaluate liver and viral etiologies to begin, also could be related to underlying medications patient has received. --> Hep panel and HIV ordered --> US abd to evaluate for cirrhosis and hsm ordered --> Peripheral smear ordered to evaluate for blasts /schistocytes --> abx and other meds have been reviewed --> ok for ppx if plt >50k w/ either heparin or lovenox --> Traend 129k-->145k # Anemia of chronic disease due to underlying chronic medical issues, multifactorial -- noted with HD --> Anemia workup has been ordered, rule out gi bleed --> No evidence of hemolysis is noted, peripheral smear has been reviewed. --> Hgb goal >7. Transfuse prn. --> Epogen 3X a week SQ as needed --> Medications have been reviewed --> low threshold for gi evaluation in case has occult + --> trend hgb 9.8-->9.6 # DVT of the lower extremity --> given anemia that is not acute, okay to continue anticoag --> on eliquis at this time # ESRD. Nephro is following, appreciate recs. # SIRS. --> per ID recs # UTI. # AFib. On anticoagulation eliquis # Severe peripheral vascular disease, status post amputation of the extremities and toes. # Hypertension. # Diabetes type 2. The time this note is entered does not reflect the time the patient was examined. I greatly appreciate the consultation. Subjective Cardiovascular: Denies: no symptoms, chest pain, edema, irregular heart rate, lightheadedness, palpitations, syncope, other Respiratory: Denies: no symptoms, cough, shortness of breath, SOB with excertion, SOB at rest, sputum, wheezing, other Gastrointestinal/Abdominal: Denies: no symptoms, abdomen distended, abdominal pain, black stools, tarry stools, blood in stool, constipated, diarrhea, difficulty swallowing, nausea, poor appetite, poor fluid intake, rectal bleeding , vomiting, other Genitourinary: Denies: no symptoms, burning, discharge, frequency, flank pain, hematuria, incontinence, pain, urgency, other Endocrine: Denies: no symptoms, excessive sweating, flushing, intolerance to cold, intolerance to heat, increased hunger, increased thirst, increased urine, unexplained weight gain, unexplained weight loss, other Hematologic/Lymphatic: Denies: no symptoms, anemia, easy bleeding, easy bruising, adenopathy, other Allergies: Coded Allergies: LATEX (Verified Allergy, Unknown, 06/28/18) Subjective 10/08: cxr is better, is on abx per id Objective Objective Current Medications Medications (Trade) Dose Ordered Sig/Alex Route PRN Reason Start Time Stop Time Status Last Admin Dose Admin Acetaminophen (Tylenol) 650 mg Q4H PRN ORAL Mild Pain/Temp > 100.5 10/06/18 13:00 11/05/18 12:59 Acetaminophen/ Hydrocodone Bitart ([place] 10/325) 1 tab Q6H PRN ORAL For Pain 10/06/18 13:00 10/13/18 12:59 10/08/18 11:34 Apixaban (Eliquis) 2.5 mg BID ORAL 10/06/18 18:00 11/05/18 17:59 10/08/18 09:08 Atorvastatin Calcium (Lipitor) 10 mg BEDTIME ORAL 10/06/18 21:00 11/05/18 20:59 10/07/18 20:04 Cefepime HCl 0.5 gm/Dextrose 55 ml @ 110 mls/hr Q24H IVPB 10/08/18 16:00 10/15/18 15:59 Dextrose (Dextrose 50%) 25 ml Q30M PRN IV Hypoglycemia 10/06/18 15:15 11/05/18 15:14 Dextrose (Dextrose 50%) 50 ml Q30M PRN IV Hypoglycemia 10/06/18 15:15 11/05/18 15:14 Diphenhydramine HCl (Benadryl) 25 mg DAILYPRN PRN IVP Itching/Pruritis 10/07/18 15:00 11/06/18 14:59 10/07/18 17:00 Docusate Sodium (Colace) 100 mg THREE TIMES A DAY ORAL 10/06/18 13:20 11/05/18 13:19 10/08/18 13:00 Fluticasone Propionate (Flonase) 1 spray Q8H PRN NASAL NASAL CONGESTION 10/06/18 13:00 11/05/18 12:59 Gabapentin (Neurontin) 300 mg THREE TIMES A DAY ORAL 10/06/18 13:20 11/05/18 13:19 10/08/18 14:50 Insulin Aspart (NovoLOG) BEFORE MEALS AND HS SUBQ 10/06/18 16:30 11/05/18 16:29 10/08/18 12:10 Insulin Aspart (NovoLOG) 5 units BEFORE MEALS SUBQ 10/07/18 16:30 11/06/18 16:49 10/08/18 12:09 Insulin Detemir (Levemir) 30 units BEDTIME SUBQ 10/06/18 21:00 11/05/18 20:59 10/07/18 20:13 Ipratropium [place] (Atrovent) 500 mcg Q4H PRN HHN Shortness of Breath 10/06/18 12:30 10/11/18 12:29 Ipratropium [place] (Atrovent) 500 mcg Q6HRT N 10/06/18 13:00 10/11/18 12:59 10/08/18 12:28 Lactulose (Cephulac) 45 gm Q12H PRN ORAL CONSTIPATION 10/06/18 13:30 11/05/18 12:59 Levalbuterol HCl (Xopenex) 0.63 mg Q4H PRN HHN SOB/wheezing 10/06/18 12:30 10/11/18 12:29 Levalbuterol HCl (Xopenex) 0.63 mg Q6HRT HHN 10/06/18 13:00 10/11/18 12:59 10/08/18 12:28 Levofloxacin 50 ml @ 50 mls/hr Q48H IVPB 10/06/18 20:00 10/13/18 19:59 10/06/18 20:15 Lidocaine (Lidoderm 5% PATCH) 1 patch DAILYPRN PRN TDERMAL BACK PAIN 10/06/18 13:00 11/05/18 12:59 Loratadine (Claritin 10mg) 10 mg DAILY ORAL 10/07/18 09:00 11/06/18 08:59 10/08/18 09:09 Methylprednisolone Sodium Succinate (Solu-MEDROL) 40 mg EVERY 12 HOURS IVP 10/06/18 21:00 11/05/18 20:59 10/08/18 09:08 Nateglinide (Starlix) 120 mg TIAC ORAL 10/06/18 16:30 11/05/18 16:29 10/08/18 11:32 Pantoprazole (Protonix) 40 mg DAILY ORAL 10/07/18 09:00 11/06/18 08:59 10/08/18 09:09 Pregabalin (Lyrica) 75 mg BID ORAL 10/06/18 18:00 11/05/18 17:59 10/08/18 09:11 Sennosides (Senokot) 8.6 mg BIDPRN PRN ORAL Constipation 10/06/18 13:00 11/05/18 12:59 Sevelamer Carbonate (Renvela) 1,600 mg THREE TIMES A DAY ORAL 10/07/18 13:00 11/05/18 13:21 10/08/18 14:50 Vancomycin HCl (Vanco rx to dose) 1 ea DAILY PRN MISC Per rx protocol 10/06/18 14:15 11/05/18 14:14 Vitamin B Complex/ Vit C/Folic Acid (Nephrovite) 1 tab DAILY ORAL 10/07/18 09:00 11/06/18 08:59 10/08/18 09:09 Zinc Sulfate (Zinc Sulfate) 220 mg DAILY ORAL 10/07/18 09:00 11/06/18 08:59 10/08/18 09:09 Last 24 Hour Vital Signs Date Time Temp Pulse Resp B/P (MAP) Pulse Ox O2 Delivery O2 Flow Rate FiO2 10/08/18 12:39 76 18 100 Nasal Cannula 2.0 10/08/18 12:28 78 20 98 Nasal Cannula 2.0 10/08/18 12:00 98.1 87 18 137/66 (89) 97 10/08/18 09:00 Room Air 10/08/18 08:00 98.2 96 18 135/58 (83) 96 10/08/18 06:47 77 18 99 Nasal Cannula 2.0 28 10/08/18 06:30 98 Nasal Cannula 2.0 28 10/08/18 06:30 70 18 99 Nasal Cannula 2.0 28 10/08/18 06:30 70 18 99 Nasal Cannula 2.0 28 10/08/18 05:57 80 11 98 Facial 28 10/08/18 04:00 98.0 75 17 149/70 (96) 100 10/08/18 02:54 81 11 98 Facial 28 10/08/18 00:55 87 21 97 Facial 28 10/08/18 00:52 87 21 97 Bi-Pap 10/08/18 00:42 86 18 97 Nasal Cannula 2.0 10/08/18 00:00 98.2 80 16 145/78 (100) 99 10/07/18 21:00 Nasal Cannula 2.0 10/07/18 20:00 84 18 98 Nasal Cannula 2.0 10/07/18 20:00 98.1 89 17 116/59 (78) 96 10/07/18 20:00 Nasal Cannula 2.0 10/07/18 20:00 98 Nasal Cannula 2.0 10/07/18 20:00 84 98 Nasal Cannula 2.0 10/07/18 17:28 99.0 10/07/18 17:28 99.0 10/07/18 15:57 99.0 97 20 131/96 (108) 98 10/07/18 13:58 82 20 100 Nasal Cannula 2.0 10/07/18 13:52 86 16 100 Nasal Cannula 2.0 10/07/18 12:00 98.4 68 20 158/109 (125) 98 10/07/18 09:00 Nasal Cannula 2.0 10/07/18 08:00 98.4 100 20 114/62 (79) 94 10/07/18 07:36 81 20 100 Nasal Cannula 2.0 10/07/18 07:36 80 22 100 Nasal Cannula 2.0 10/07/18 07:36 100 Nasal Cannula 2.0 10/07/18 07:28 78 18 100 Nasal Cannula 2.0 10/07/18 04:00 98.3 88 18 139/60 (86) 99 10/07/18 01:36 94 20 98 Nasal Cannula 2.0 10/07/18 01:25 89 18 98 Nasal Cannula 2.0 10/07/18 00:00 98.6 90 20 140/62 (88) 97 10/06/18 21:00 Nasal Cannula 2.0 10/06/18 20:00 99.9 92 18 123/56 (78) 99 10/06/18 19:39 95 20 95 Nasal Cannula 2.0 10/06/18 19:29 123/94 (104) 10/06/18 19:29 94 18 95 Nasal Cannula 3.0 32 10/06/18 19:29 94 18 95 Nasal Cannula 3.0 32 10/06/18 19:29 95 Nasal Cannula 3.0 32 10/06/18 16:24 Nasal Cannula 2.0 Intake and Output 10/07/18 10/08/18 19:00 07:00 Intake Total 1322.5 ml 480 ml Output Total 4500 ml 600 ml Balance -3177.5 ml -120 ml Intake Oral 1130 ml 480 ml IV Total 192.5 ml Output Urine Total 500 ml 600 ml Hemodialysis UF 4000 ml # Voids 7 1 # Bowel Movements 1 Labs Test 10/06/18 09:12 10/06/18 10:00 10/06/18 10:20 10/06/18 13:50 White Blood Count 8.6 K/UL (4.8-10.8) Red Blood Count 3.55 M/UL (4.20-5.40) Hemoglobin 9.8 G/DL (12.0-16.0) Hematocrit 32.3 % (37.0-47.0) Mean Corpuscular Volume 91 FL (80-99) Mean Corpuscular Hemoglobin 27.6 PG (27.0-31.0) Mean Corpuscular Hemoglobin Concent 30.4 G/DL (32.0-36.0) Red Cell Distribution Width 16.2 % (11.6-14.8) Platelet Count 129 K/UL (150-450) Mean Platelet Volume 7.9 FL (6.5-10.1) Neutrophils (%) (Auto) 41.2 % (45.0-75.0) Lymphocytes (%) (Auto) 49.3 % (20.0-45.0) Monocytes (%) (Auto) 5.6 % (1.0-10.0) Eosinophils (%) (Auto) 2.8 % (0.0-3.0) Basophils (%) (Auto) 1.1 % (0.0-2.0) Sodium Level 141 MMOL/L (136-145) Potassium Level 5.3 MMOL/L (3.5-5.1) Chloride Level 101 MMOL/L (98-107) Carbon Dioxide Level 30 MMOL/L (21-32) Anion Gap 10 mmol/L (5-15) Blood Urea Nitrogen 62 mg/dL (7-18) Creatinine 6.6 MG/DL (0.55-1.30) Estimat Glomerular Filtration Rate 8.0 mL/min (>60) Glucose Level 237 MG/DL (74-106) Lactic Acid Level 1.30 mmol/L (0.4-2.0) Calcium Level 9.5 MG/DL (8.5-10.1) Total Bilirubin 0.4 MG/DL (0.2-1.0) Aspartate Amino Transf (AST/SGOT) 11 U/L (15-37) Alanine Aminotransferase (ALT/SGPT) 19 U/L (12-78) Alkaline Phosphatase 153 U/L (46-116) Total Creatine Kinase 59 U/L (26-308) Creatine Kinase MB 0.7 NG/ML (0.0-3.6) Creatine Kinase MB Relative Index 1.1 Pro-B-Type Natriuretic Peptide 519 pg/mL (0-125) Total Protein 7.5 G/DL (6.4-8.2) Albumin 3.1 G/DL (3.4-5.0) Globulin 4.4 g/dL Albumin/Globulin Ratio 0.7 (1.0-2.7) Urine Color Pale yellow Urine Appearance Clear Urine pH 8 (4.5-8.0) Urine Specific [place] 1.010 (1.005-1.035) Urine Protein 3+ (NEGATIVE) Urine Glucose (UA) 3+ (NEGATIVE) Urine Ketones Negative (NEGATIVE) Urine Blood 1+ (NEGATIVE) Urine Nitrite Negative (NEGATIVE) Urine Bilirubin Negative (NEGATIVE) Urine Urobilinogen Normal MG/DL (0.0-1.0) Urine Leukocyte Esterase 3+ (NEGATIVE) Urine RBC 2-4 /HPF (0 - 2) Urine WBC 15-20 /HPF (0 - 2) Urine Squamous Epithelial Cells Few /LPF (NONE/OCC) Urine Bacteria Few /HPF (NONE) Arterial Blood pH 7.374 (7.350-7.450) Arterial Blood Partial Pressure CO2 48.4 mmHg (35.0-45.0) Arterial Blood Partial Pressure O2 53.4 mmHg (75.0-100.0) Arterial Blood HCO3 27.6 mmol/L (22.0-26.0) Arterial Blood Oxygen Saturation 85.1 % (95-100) Arterial Blood Base Excess 1.9 (-2-2) Asim Test Positive Test 10/07/18 07:00 10/08/18 08:20 White Blood Count 5.9 K/UL (4.8-10.8) Red Blood Count 3.47 M/UL (4.20-5.40) Hemoglobin 9.6 G/DL (12.0-16.0) Hematocrit 30.6 % (37.0-47.0) Mean Corpuscular Volume 88 FL (80-99) Mean Corpuscular Hemoglobin 27.6 PG (27.0-31.0) Mean Corpuscular Hemoglobin Concent 31.3 G/DL (32.0-36.0) Red Cell Distribution Width 16.3 % (11.6-14.8) Platelet Count 145 K/UL (150-450) Mean Platelet Volume 7.9 FL (6.5-10.1) Neutrophils (%) (Auto) 75.8 % (45.0-75.0) Lymphocytes (%) (Auto) 19.2 % (20.0-45.0) Monocytes (%) (Auto) 4.9 % (1.0-10.0) Eosinophils (%) (Auto) 0.0 % (0.0-3.0) Basophils (%) (Auto) 0.2 % (0.0-2.0) Sodium Level 138 MMOL/L (136-145) 136 MMOL/L (136-145) Potassium Level 5.7 MMOL/L (3.5-5.1) 4.5 MMOL/L (3.5-5.1) Chloride Level 99 MMOL/L (98-107) 97 MMOL/L (98-107) Carbon Dioxide Level 24 MMOL/L (21-32) 29 MMOL/L (21-32) Anion Gap 15 mmol/L (5-15) 10 mmol/L (5-15) Blood Urea Nitrogen 78 mg/dL (7-18) 70 mg/dL (7-18) Creatinine 7.4 MG/DL (0.55-1.30) 6.5 MG/DL (0.55-1.30) Estimat Glomerular Filtration Rate 7.0 mL/min (>60) 8.1 mL/min (>60) Glucose Level 301 MG/DL (74-106) 330 MG/DL (74-106) Hemoglobin A1c 7.0 % (4.3-6.0) Uric Acid 6.1 MG/DL (2.6-7.2) Calcium Level 9.0 MG/DL (8.5-10.1) 8.5 MG/DL (8.5-10.1) Phosphorus Level 6.0 MG/DL (2.5-4.9) 5.9 MG/DL (2.5-4.9) Magnesium Level 2.1 MG/DL (1.8-2.4) Iron Level 47 ug/dL (50-175) Total Iron Binding Capacity 161 ug/dL (250-450) Percent Iron Saturation 29 % (15-50) Unsaturated Iron Binding 114 ug/dL (112-346) Ferritin 812 NG/ML (8-388) Total Bilirubin 0.4 MG/DL (0.2-1.0) 0.3 MG/DL (0.2-1.0) Gamma Glutamyl Transpeptidase 134 U/L (5-85) Aspartate Amino Transf (AST/SGOT) 10 U/L (15-37) 13 U/L (15-37) Alanine Aminotransferase (ALT/SGPT) 16 U/L (12-78) 12 U/L (12-78) Alkaline Phosphatase 143 U/L (46-116) 140 U/L (46-116) Ammonia < 10 umol/L (11-32) Troponin I 0.009 ng/mL (0.000-0.056) C-Reactive Protein, Quantitative 2.8 mg/dL (0.00-0.90) Pro-B-Type Natriuretic Peptide 1701 pg/mL (0-125) Total Protein 7.5 G/DL (6.4-8.2) 7.6 G/DL (6.4-8.2) Albumin 3.0 G/DL (3.4-5.0) 3.5 G/DL (3.4-5.0) Globulin 4.5 g/dL 4.1 g/dL Albumin/Globulin Ratio 0.7 (1.0-2.7) 0.9 (1.0-2.7) Triglycerides Level 27 MG/DL (30-150) Cholesterol Level 108 MG/DL (< 200) LDL Cholesterol 54 mg/dL (<100) HDL Cholesterol 53 MG/DL (40-60) Cholesterol/HDL Ratio 2.0 (3.3-4.4) Vitamin B12 Level 1126 PG/ML (193-986) Folate 41.4 NG/ML (8.6-58.9) Thyroid Stimulating Hormone (TSH) 0.552 uiU/mL (0.358-3.740) Random Vancomycin Level 14.0 ug/mL Hepatitis A IgM Antibody Negative (Negative) Hepatitis B Surface Antigen Negative (Negative) Hepatitis B Core IgM Antibody Negative (Negative) Hepatitis C Antibody <0.1 s/co ratio HIV (1&2) Antibody Rapid Negative (NEGATIVE) Height (Feet): 5 Height (Inches): 5.00 Weight (Pounds): 299 Objective PHYSICAL EXAMINATION: VITAL SIGNS: Have been reviewed HEAD AND NECK: Atraumatic and normocephalic. CHEST: Clear to auscultation. HEART: S1 and S2. Regular rate and rhythm. ABDOMEN: Soft. No organomegaly. MUSCULOSKELETAL: Positive for the right AKA, left-sided amputation of toe. NEUROLOGY: The patient is awake, alert, and oriented x3. Fabiano Perez MD Oct 08, 2018 16:11
--- NOTE | 2018-10-08 16:27 | Cardiology Report ---
APPROVED REPORT EKG Measurement Heart [id number] AL [id number] [id number] [id number] Normal sinus rhythm Minimal voltage criteria for LVH, may be normal variant Cannot rule out Anterior infarct, age undetermined Abnormal ECG
[2018-10-08] MEDS ORDERED: guaiFENesin 100mg/5ml Liq ud ORAL PRN (17:30)
--- NOTE | 2018-10-08 18:48 | NUR ---
NURSE NOTES: Lyrica is routine per pt medication is not effective pain goes down slowly from 7-8 on pain scale at times staying at 7 and going to a 6/10 . made aware earlier in shift in regards to her chronic pain. NNO given
--- NOTE | 2018-10-08 18:50 | NUR ---
NURSE NOTES: Mor is not available to give lead pharmacy technician informed
[2018-10-08] MEDS: Cefepime HCl 0.5 GM in D5W 55 ML IVPB SCH ×2 (19:00→20:52)
--- NOTE | 2018-10-08 19:42 | NUR ---
NURSE NOTES: Pt very talkative requires emotional support. Dr Roman here seen pt made aware of elevated blood sugar at 410 . stated he would adjust her medications. Related her high sugar levels to Solumedrol use. Pt requires emotional support for disease process, regrets that she did not take care of herself properly. Call light is in reach pt is able to verbalize known needs. Low platelet and possible parameters follow up endorsed to oncoming nurse.
[2018-10-08 20:00] VITALS: BP 129/53
--- NOTE | 2018-10-08 20:05 | NUR ---
HAND-OFF: Report given to Lucy VANCE.
--- NOTE | 2018-10-08 20:10 | NUR ---
NURSE NOTES: RECEIVED PT FROM PINKY ANDRES. PT IS AWAKE, AAO X4, ON NC 2L. NO ACUTE DISTRESS NOTED. IV NOTED ON LEFT FA 20G, INTACT, FLUSHING WELL. GANGRENE NOTED ON LEFT 3RD DIGIT, AND R KNEE AMPUTATED. BED IS LOCKED AT THE LOWEST POSITION, BED ALARMS ACTIVE, SIDE RAILS UP X2, CALL LIGHT IS WITHIN REACH. WILL CONTINUE TO MONITOR.
[2018-10-08] MEDS: Levemir Flexpen SUBQ SCH (22:02)
[2018-10-09] VITALS: BP 132/59
[2018-10-09] MEDS: Ipratropium 0.02% Inh Soln 2.5ml UD HHN SCH ×4 (00:10→19:31)
[2018-10-09] MEDS: Levalbuterol Inh UD 1.25mg/0.5ml HHN SCH ×4 (00:10→19:32)
--- NOTE | 2018-10-09 00:20 | NUR ---
NURSE NOTES: PT CURRENTLY DO NOT HAVE IV ACCESS AFTER MANY ATTEMPTS TO START A NEW IV. D/C PREVIOUS IV PER PT FROM C/O PAIN AND BURNING. ANTIBIOTIC MEDICATIONS WERE DELIVERED LATE FROM PHARMACY. UNABLE TO ADMINISTER IV MEDICATIONS D/T NO IV ACCESS. CHARGE NURSE AWARE. NOTIFIED DR. BAUGH. WAITING FOR NEW ORDERS. WILL FOLLOW UP
--- NOTE | 2018-10-09 02:30 | Consultation ---
DATE OF CONSULTATION: 10/08/2018 ENDOCRINOLOGY CONSULTATION CONSULTING PHYSICIAN: Todd Roman M.D. REFERRING PHYSICIAN: Archana Chan M.D. REASON FOR CONSULTATION: Diabetes management. HISTORY OF PRESENT ILLNESS: This is a morbidly obese female with a history of diabetes, presented to the hospital with bronchospasm and was started on intravenous Solu-Medrol which raised glucose level significantly. Endocrinology was consulted in order to assist in the management of hyperglycemia. Glucose is running in the 200 to 300 mg/dL range. The patient has end-stage renal disease, on hemodialysis. PAST MEDICAL HISTORY: 1. End-stage renal disease, on hemodialysis. 2. Morbid obesity. 3. Hypertension. 4. Diabetes. 5. Neuropathy. 6. Asthma. 7. Peripheral vascular disease. 8. Hyperlipidemia. 9. DVT. PAST SURGICAL HISTORY: Right knee amputation below the knee and finger amputation as well as shunt placement. HOME MEDICATIONS: Reviewed and reconciled. ALLERGIES: Latex. SOCIAL HISTORY: No smoking, alcohol, or drug use. FAMILY HISTORY: Noncontributory. REVIEW OF SYSTEMS: A 12-point review of systems was performed and the pertinent positives and negatives as mentioned in the history of present illness. PHYSICAL EXAM: GENERAL: She is awake and alert. VITAL SIGNS: Blood pressure 152/71, pulse 92, temperature 98.9, and respiratory rate of 20. HEENT: Pupils are equal and reactive to light. Sclerae anicteric. NECK: No jugular venous distention. HEART: Regular. LUNGS: Clear. ABDOMEN: Positive bowel sounds. EXTREMITIES: + edema. LABORATORY DATA: WBC 5, hemoglobin 9.6, hematocrit 30.6, and platelets of 145,000. Sodium 136, potassium 4.5, chloride 97, bicarbonate 29, BUN 70, creatinine 6.5, and glucose of 330. Hemoglobin A1c of 7. DIAGNOSIS: 1. Diabetes exacerbated by stero. 2. Morbid obesity. 3. End-stage renal disease. 4. Bronchospasm. PLAN: 1. Increase Levemir to 40 units at bedtime. 2. Increase NovoLog to 12 units before each meal. 3. Starlix 120 mg before meals b.i.d. 4. Further adjustment according to blood glucose value and steadily taper. 5. I will follow the patient closely during the hospital stay. Thank you, Dr. Chan, for the courtesy of this consultation. Todd Roman M.D. DR: JEANNE JOB#: [id number] CC: JAY
[2018-10-09 04:00] VITALS: BP 102/49
[2018-10-09] MEDS: NovoLOG Insulin Flexpen SUBQ SCH ×7 (06:51→21:10)
--- NOTE | 2018-10-09 07:44 | General Progress Note ---
Assessment/Plan Problem List: (1) ESRD (end stage renal disease) on dialysis ICD Codes: N18.6 - End stage renal disease; Z99.2 - Dependence on renal dialysis SNOMED: 443249131 (2) Bronchitis, acute, with bronchospasm ICD Codes: J20.9 - Acute bronchitis, unspecified SNOMED: 28670811 (3) Morbid obesity ICD Codes: E66.01 - Morbid (severe) obesity due to excess calories SNOMED: 902113098 (4) Diabetes mellitus ICD Codes: E11.9 - Type 2 diabetes mellitus without complications SNOMED: 12755623 (5) PVD (peripheral vascular disease) ICD Codes: I73.9 - Peripheral vascular disease, unspecified SNOMED: 576119736 Assessment/Plan: continue Levemir 40 units qhs continue Novolog 12 units ac tid continue NISS ac / hs continue Starlix 120 mg ac tid Subjective Allergies: Coded Allergies: LATEX (Verified Allergy, Unknown, 06/28/18) All Systems: reviewed and negative except above Subjective events noted glucose values are trending down Item Value Date Time Bedside Blood Glucose 213 mg/dl H 10/09/18 0652 Bedside Blood Glucose 393 mg/dl H 10/08/18 2204 Bedside Blood Glucose 410 mg/dl H 10/08/18 1804 Bedside Blood Glucose 299 mg/dl H 10/08/18 1210 Objective Last 24 Hour Vital Signs Date Time Temp Pulse Resp B/P (MAP) Pulse Ox O2 Delivery O2 Flow Rate FiO2 10/09/18 07:34 66 20 99 Nasal Cannula 2.0 28 10/09/18 07:24 99 Nasal Cannula 2.0 28 10/09/18 04:45 84 16 95 Facial 28 10/09/18 04:00 98.7 86 15 102/49 (66) 99 10/09/18 03:40 88 15 97 Facial 28 10/09/18 00:25 102 14 96 Facial 28 10/09/18 00:20 102 18 98 Bi-Pap 28 10/09/18 00:10 112 22 96 Bi-Pap 28 10/09/18 00:00 98.9 94 16 132/59 (83) 99 10/08/18 23:25 82 16 96 Facial 28 10/08/18 21:04 95 Nasal Cannula 3.0 32 10/08/18 21:00 Nasal Cannula 2.0 10/08/18 20:22 86 18 99 Nasal Cannula 3.0 32 10/08/18 20:12 84 20 95 Nasal Cannula 2.0 28 10/08/18 20:00 99.4 91 18 129/53 (78) 98 10/08/18 16:00 98.9 93 20 152/71 (98) 98 10/08/18 12:39 76 18 100 Nasal Cannula 2.0 28 10/08/18 12:28 78 20 98 Nasal Cannula 2.0 28 10/08/18 12:00 98.1 87 18 137/66 (89) 97 10/08/18 09:00 Room Air 10/08/18 08:00 98.2 96 18 135/58 (83) 96 Intake and Output 10/08/18 10/09/18 18:59 06:59 Intake Total 960 ml Output Total 600 ml 400 ml Balance 360 ml -400 ml Intake Oral 960 ml Output Urine Total 600 ml 400 ml # Voids 1 # Bowel Movements 1 Laboratory Tests 10/08/18 08:20: Sodium Level 136, Potassium Level 4.5, Chloride Level 97L, Carbon Dioxide Level 29, Anion Gap 10, Blood Urea Nitrogen 70H, Creatinine 6.5H, Estimat Glomerular Filtration Rate 8.1, Glucose Level 330H, Calcium Level 8.5, Phosphorus Level 5.9H, Total Bilirubin 0.3, Aspartate Amino Transf (AST/SGOT) 13L, Alanine Aminotransferase (ALT/SGPT) 12, Alkaline Phosphatase 140H, Total Protein 7.6, Albumin 3.5, Globulin 4.1, Albumin/Globulin Ratio 0.9L Height (Feet): 5 Height (Inches): 5.00 Weight (Pounds): 299 General Appearance: no apparent distress Neck: normal alignment Cardiovascular: normal rate Respiratory/Chest: expiratory wheezing Abdomen: normal bowel sounds Pelvis: normal external exam Edema: 1+ Arm (L), 1+ Arm (R), 1+ Leg (L), 1+ Leg (R), 1+ Pedal (L), 1+ Pedal ( R), 1+ Generalized Objective Current Medications Medications (Trade) Dose Ordered Sig/Alex Route PRN Reason Start Time Stop Time Status Last Admin Dose Admin Acetaminophen (Tylenol) 650 mg Q4H PRN ORAL Mild Pain/Temp > 100.5 10/06/18 13:00 11/05/18 12:59 Acetaminophen/ Hydrocodone Bitart ([place] 10/325) 1 tab Q6H PRN ORAL For Pain 10/06/18 13:00 10/13/18 12:59 10/08/18 22:47 Apixaban (Eliquis) 2.5 mg BID ORAL 10/06/18 18:00 11/05/18 17:59 10/08/18 17:54 Atorvastatin Calcium (Lipitor) 10 mg BEDTIME ORAL 10/06/18 21:00 11/05/18 20:59 10/08/18 20:53 Cefepime HCl 0.5 gm/Dextrose 55 ml @ 110 mls/hr Q24H IVPB 10/08/18 19:00 10/15/18 18:59 Dextrose (Dextrose 50%) 25 ml Q30M PRN IV Hypoglycemia 10/06/18 15:15 11/05/18 15:14 Dextrose (Dextrose 50%) 50 ml Q30M PRN IV Hypoglycemia 10/06/18 15:15 11/05/18 15:14 Diphenhydramine HCl (Benadryl) 25 mg DAILYPRN PRN IVP Itching/Pruritis 10/07/18 15:00 11/06/18 14:59 10/07/18 17:00 Docusate Sodium (Colace) 100 mg THREE TIMES A DAY ORAL 10/06/18 13:20 11/05/18 13:19 10/08/18 18:05 Fluticasone Propionate (Flonase) 1 spray Q8H PRN NASAL NASAL CONGESTION 10/06/18 13:00 11/05/18 12:59 Gabapentin (Neurontin) 300 mg THREE TIMES A DAY ORAL 10/06/18 13:20 11/05/18 13:19 10/08/18 17:57 Guaifenesin (Robitussin) 200 mg Q4H PRN ORAL For Cough 10/08/18 17:30 11/07/18 17:29 Insulin Aspart (NovoLOG) BEFORE MEALS AND HS SUBQ 10/06/18 16:30 11/05/18 16:29 10/09/18 06:51 Insulin Aspart (NovoLOG) 12 units BEFORE MEALS SUBQ 10/09/18 06:30 11/06/18 16:49 10/09/18 06:52 Insulin Detemir (Levemir) 40 units BEDTIME SUBQ 10/08/18 21:00 11/05/18 20:59 10/08/18 22:02 Ipratropium [place] (Atrovent) 500 mcg Q4H PRN HHN Shortness of Breath 10/06/18 12:30 10/11/18 12:29 Ipratropium [place] (Atrovent) 500 mcg Q6HRT HHN 10/06/18 13:00 10/11/18 12:59 10/09/18 00:10 Lactulose (Cephulac) 45 gm Q12H PRN ORAL CONSTIPATION 10/06/18 13:30 11/05/18 12:59 Levalbuterol HCl (Xopenex) 0.63 mg Q4H PRN HHN SOB/wheezing 10/06/18 12:30 10/11/18 12:29 Levalbuterol HCl (Xopenex) 0.63 mg Q6HRT HHN 10/06/18 13:00 10/11/18 12:59 10/09/18 00:10 Levofloxacin 50 ml @ 50 mls/hr Q48H IVPB 10/06/18 20:00 10/13/18 19:59 10/06/18 20:15 Lidocaine (Lidoderm 5% PATCH) 1 patch DAILYPRN PRN TDERMAL BACK PAIN 10/06/18 13:00 11/05/18 12:59 Loratadine (Claritin 10mg) 10 mg DAILY ORAL 10/07/18 09:00 11/06/18 08:59 10/08/18 09:09 Methylprednisolone Sodium Succinate (Solu-MEDROL) 40 mg EVERY 12 HOURS IVP 10/06/18 21:00 11/05/18 20:59 10/08/18 09:08 Nateglinide (Starlix) 120 mg TIAC ORAL 10/06/18 16:30 11/05/18 16:29 10/09/18 06:50 Pantoprazole (Protonix) 40 mg DAILY ORAL 10/07/18 09:00 11/06/18 08:59 10/08/18 09:09 Pregabalin (Lyrica) 75 mg BID ORAL 10/06/18 18:00 11/05/18 17:59 10/08/18 17:55 Sennosides (Senokot) 8.6 mg BIDPRN PRN ORAL Constipation 10/06/18 13:00 11/05/18 12:59 Sevelamer Carbonate (Renvela) 1,600 mg THREE TIMES A DAY ORAL 10/07/18 13:00 11/05/18 13:21 10/08/18 17:57 Vancomycin HCl (Vanco rx to dose) 1 ea DAILY PRN MISC Per rx protocol 10/06/18 14:15 11/05/18 14:14 Vitamin B Complex/ Vit C/Folic Acid (Nephrovite) 1 tab DAILY ORAL 10/07/18 09:00 11/06/18 08:59 10/08/18 09:09 Zinc Sulfate (Zinc Sulfate) 220 mg DAILY ORAL 10/07/18 09:00 11/06/18 08:59 10/08/18 09:09 Todd Roman MD Oct 09, 2018 07:44
--- NOTE | 2018-10-09 07:52 | NUR ---
HAND-OFF: Report given to PINKY MAYORGA.
--- NOTE | 2018-10-09 07:54 | NUR ---
NURSE NOTES: received report from Gisela,RN patient in bed. alert. oriented. verbally responsive. no respiratory distress noted on 2l via NC. no pain at this time. NoIV aware no further order at this time. Contact isolation. HD today with VIP. bed in the lowest position . call light within reach. will continue to monitor.
[2018-10-09 08:00] VITALS: BP 120/63
[2018-10-09] MEDS: Solu-MEDROL 40mg Inj IVP SCH ×2 (08:25→08:30)
[2018-10-09] MEDS: Eliquis 2.5mg tablet ORAL SCH ×2 (08:25→17:32)
[2018-10-09] MEDS: Zinc Sulfate 220mg cap ORAL SCH (08:25)
[2018-10-09] MEDS: Docusate 100mg cap ORAL SCH ×3 (08:25→17:32)
[2018-10-09] MEDS: Nephrovite tab (Rena-Vite) ORAL SCH (08:25)
[2018-10-09] MEDS: Lyrica 75mg cap ORAL SCH ×2 (08:26→17:32)
[2018-10-09] MEDS: HYDROcodone/Acetamin 10/325 tab ORAL PRN ×3 (08:35→23:40)
--- NOTE | 2018-10-09 11:44 | Nephrology Progress Note ---
Assessment/Plan Problem List: (1) ESRD (end stage renal disease) on dialysis (2) Bronchitis, acute, with bronchospasm (3) Morbid obesity (4) Anemia in chronic kidney disease (CKD) (5) PVD (peripheral vascular disease) (6) Diabetes mellitus Assessment: OOC Assessment ESRD , HD Tue Gisela Sat Obese DM PVD s/p LE amputation Rt Anemia of CKD Bronchitis / UTI Plan Per ID HD in am 7/4 in process Kayexelate as needed pulm toilet BP and BS control taper steroids as possible per orders Subjective ROS Limited/Unobtainable: No Objective Objective Last 24 Hour Vital Signs Date Time Temp Pulse Resp B/P (MAP) Pulse Ox O2 Delivery O2 Flow Rate FiO2 10/09/18 09:00 Nasal Cannula 2.0 10/09/18 08:00 98.2 82 19 120/63 (82) 97 10/09/18 07:49 83 20 99 Bi-Pap 10/09/18 07:34 66 20 99 Nasal Cannula 2.0 10/09/18 07:24 99 Nasal Cannula 2.0 10/09/18 04:45 84 16 95 Facial 28 10/09/18 04:00 98.7 86 15 102/49 (66) 99 10/09/18 03:40 88 15 97 Facial 28 10/09/18 00:25 102 14 96 Facial 28 10/09/18 00:20 102 18 98 Bi-Pap 10/09/18 00:10 112 22 96 Bi-Pap 28 10/09/18 00:00 98.9 94 16 132/59 (83) 99 10/08/18 23:25 82 16 96 Facial 28 10/08/18 21:04 95 Nasal Cannula 3.0 32 10/08/18 21:00 Nasal Cannula 2.0 10/08/18 20:22 86 18 99 Nasal Cannula 3.0 32 10/08/18 20:12 84 20 95 Nasal Cannula 2.0 10/08/18 20:00 99.4 91 18 129/53 (78) 98 10/08/18 16:00 98.9 93 20 152/71 (98) 98 10/08/18 12:39 76 18 100 Nasal Cannula 2.0 28 10/08/18 12:28 78 20 98 Nasal Cannula 2.0 28 7/3/19 12:00 98.1 87 18 137/66 (89) 97 Intake and Output 10/08/18 10/09/18 19:00 07:00 Intake Total 960 ml Output Total 600 ml 400 ml Balance 360 ml -400 ml Intake Oral 960 ml Output Urine Total 600 ml 400 ml # Voids 1 # Bowel Movements 1 Laboratory Tests 10/09/18 09:30: Random Vancomycin Level 20.7 Height (Feet): 5 Height (Inches): 5.00 Weight (Pounds): 299 General Appearance: no apparent distress Objective no change Ronen Leone MD Oct 09, 2018 11:44
[2018-10-09 12:00] VITALS: BP 107/43
--- NOTE | 2018-10-09 12:45 | Surgery Progress Note ---
Surgery Progress Note Subjective Symptoms: other Objective Last 24 Hour Vital Signs Date Time Temp Pulse Resp B/P (MAP) Pulse Ox O2 Delivery O2 Flow Rate FiO2 10/09/18 12:00 97.4 80 19 107/43 (64) 98 10/09/18 09:00 Nasal Cannula 2.0 10/09/18 08:00 98.2 82 19 120/63 (82) 97 10/09/18 07:49 83 20 99 Bi-Pap 28 10/09/18 07:34 66 20 99 Nasal Cannula 2.0 28 10/09/18 07:24 99 Nasal Cannula 2.0 28 10/09/18 04:45 84 16 95 Facial 28 10/09/18 04:00 98.7 86 15 102/49 (66) 99 10/09/18 03:40 88 15 97 Facial 28 10/09/18 00:25 102 14 96 Facial 28 10/09/18 00:20 102 18 98 Bi-Pap 28 10/09/18 00:10 112 22 96 Bi-Pap 28 10/09/18 00:00 98.9 94 16 132/59 (83) 99 10/08/18 23:25 82 16 96 Facial 28 10/08/18 21:04 95 Nasal Cannula 3.0 32 10/08/18 21:00 Nasal Cannula 2.0 10/08/18 20:22 86 18 99 Nasal Cannula 3.0 32 10/08/18 20:12 84 20 95 Nasal Cannula 2.0 28 10/08/18 20:00 99.4 91 18 129/53 (78) 98 10/08/18 16:00 98.9 93 20 152/71 (98) 98 I&O Intake and Output 10/08/18 10/09/18 19:00 07:00 Intake Total 960 ml Output Total 600 ml 400 ml Balance 360 ml -400 ml Intake Oral 960 ml Output Urine Total 600 ml 400 ml # Voids 1 # Bowel Movements 1 Dressing: dry Wound: clean, other Drains: other Cardiovascular: RSR Respiratory: decreased breath sounds Abdomen: soft, present bowel sounds, non-distended Extremities: cyanosis Laboratory Tests Test 10/09/18 09:30 Random Vancomycin Level 20.7 ug/mL Plan Problems: (1) Cellulitis Assessment & Plan: Morbidly obese female whom presented on admission with necrotic 3rd digit of L hand. 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 Hx of TMA L st metatarsal.Necrotic area noted to dorsal aspect of L TMA.Small amt sanguineous exudate noted. No odor noted .Periwound without erythema or edema. L heel is dry ,firm and blanchable. 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 No evidence of skin breakdown to sacrum. Pt demonstrated good mobility repositioning self in bed. Educated on wound prevention and encouraged to frequently turn and to off-lift buttocks when repositioning to prevent friction to skin. Tx.Plan: Swab 3rd digit of L hand with Betadine daily . May cover with Optifoam s needed. Swab L 1st TMA with Betadine. Cover with Gauze and wrap loosely with Kerlix Daily and prn. Off-load L heel with pillow. Encourage and assist as needed with repositioning at least every 2hours or as tolerated. f/u with plastic and podiatry as outpatient for revision (2) Bronchitis (3) Cough productive of yellow sputum (4) UTI (urinary tract infection) (5) Bronchitis, acute, with bronchospasm (6) ESRD (end stage renal disease) on dialysis (7) Morbid obesity (8) Anemia in chronic kidney disease (CKD) (9) PVD (peripheral vascular disease) Assessment & Plan: known PVD multiple studies done prior right LE amputation stable. flap viable without wound left foot with great toe amp cont with current care plan Melvin Santana Oct 09, 2018 12:45
[2018-10-09 16:00] VITALS: BP 97/39
--- NOTE | 2018-10-09 16:39 | General Progress Note ---
Assessment/Plan Assessment/Plan: S: I am feeling better O: seems comfortable. Denies chest pain. complains of stable SOB PHYSICAL EXAMINATION:HEAD AND NECK: Atraumatic and normocephalic. CHEST: Clear to auscultation.HEART: S1 and S2. Regular rate and rhythm. ABDOMEN: Soft. No organomegaly.MUSCULOSKELETAL: Positive for the right AKA, left-sided amputation of toe.NEUROLOGY: The patient is awake, alert, and oriented x3. Chest x-ray dated 10/06/2018 reviewed. It is unremarkable for the acute process. ASSESSMENT AND PLAN: 1. End-stage renal disease, on hemodialysis. 2. SIRS. 3. UTI. 4. AFib. On anticoagulation. 5. Hypoxemic respiratory distress, one episode. 6. Anemia. 7. Severe peripheral vascular disease, status post amputation of the extremities and toes. 8. Hypertension. 9. Diabetes type 2. 10. GI and DVT prophylaxis. plan: negative cultures Current empirical antibiotic Will c/s DC planning Subjective Allergies: Coded Allergies: LATEX (Verified Allergy, Unknown, 06/28/18) Objective Last 24 Hour Vital Signs Date Time Temp Pulse Resp B/P (MAP) Pulse Ox O2 Delivery O2 Flow Rate FiO2 10/09/18 13:02 Nasal Cannula 2.0 28 10/09/18 13:02 Nasal Cannula 2.0 10/09/18 12:00 97.4 80 19 107/43 (64) 98 10/09/18 09:00 Nasal Cannula 2.0 10/09/18 08:00 98.2 82 19 120/63 (82) 97 10/09/18 07:49 83 20 99 Nasal Cannula 2.0 10/09/18 07:34 66 20 99 Nasal Cannula 2.0 10/09/18 07:24 99 Nasal Cannula 2.0 10/09/18 04:45 84 16 95 Facial 28 10/09/18 04:00 98.7 86 15 102/49 (66) 99 10/09/18 03:40 88 15 97 Facial 10/09/18 00:25 102 14 96 Facial 10/09/18 00:20 102 18 98 Bi-Pap 10/09/18 00:10 112 22 96 Bi-Pap 10/09/18 00:00 98.9 94 16 132/59 (83) 99 10/08/18 23:25 82 16 96 Facial 28 10/08/18 21:04 95 Nasal Cannula 3.0 32 10/08/18 21:00 Nasal Cannula 2.0 10/08/18 20:22 86 18 99 Nasal Cannula 3.0 32 10/08/18 20:12 84 20 95 Nasal Cannula 2.0 28 10/08/18 20:00 99.4 91 18 129/53 (78) 98 Intake and Output 10/08/18 10/09/18 19:00 07:00 Intake Total 960 ml Output Total 600 ml 400 ml Balance 360 ml -400 ml Intake Oral 960 ml Output Urine Total 600 ml 400 ml # Voids 1 # Bowel Movements 1 Laboratory Tests 10/09/18 09:30: Random Vancomycin Level 20.7 Height (Feet): 5 Height (Inches): 5.00 Weight (Pounds): 299 Archana Chan MD Oct 09, 2018 16:39
--- NOTE | 2018-10-09 18:08 | Coder Physician Query ---
Clarification is required for compliance, coding accuracy, and to reflect severity of illness for this patient Dear Dr. Mina Date: 10/09/18 CDS Name: Jairo Bueno Possible Pneumonia has been documented in consult and PNs. Upon review it is difficult to determine whether this diagnosis has been treated, ruled out or still being worked up. Patient is admitted with Acute Bronchitis. Rx: IV Cefepime, Vancomycin Can you please clarify the status of Pneumonia? [ ] Treated and resolved [ ] Presumed and treated [ ] Still being worked up [ ] Ruled out Present on Admission: [ ] Yes [ ] No [ ] Clinically Undetermined Physician signature Date Please also document in your Progress Notes and/or Discharge Summary and indicate if the condition was present on admission. JOHND
[2018-10-09] MEDS ORDERED: Vancomycin 1 GM in D5W 275 ML IVPB ONE (18:15)
--- NOTE | 2018-10-09 18:19 | NUR ---
NURSE NOTES: patient does not have IV access since yesterday. hard stick. not able to get IV access. notified Dr. Mina and received change order of Vanco 1gm once on saturday (10/11/18) during HD. Cefepime 2gm on //SAT during HD. order noted and carried out.
--- NOTE | 2018-10-09 19:03 | NUR ---
HAND-OFF: Report given to PINKY Higgins.
--- NOTE | 2018-10-09 19:21 | NUR ---
NURSE NOTES: RECEIVED PT FROM PINKY MAYORGA. PT IS AWAKE, AAOX4, VERY TALKATIVE. PT IS ON NC 2L, DENIES SOB, AND PAIN AT THE MOMENT. DRESSING ON LEFT FOOT IS INTACT AND DRY. LEFT HAND GANGRENE WOUND IS DRY OPEN TO AIR PER PT REQUEST, WILL FOLLOW UP AND CHANGE DRESSING. BED IS LOCKED AT THE LOWEST POSITION, BED ALARMS ACTIVE, SIDE RAILS UP X2 AND CALL LIGHT IS WITHIN REACH. WILL CONTINUE TO MONITOR.
--- NOTE | 2018-10-09 19:26 | NUR ---
NURSE NOTES: PT STILL DOES NOT HAVE AN IV ACCESS. MD AWARE. PT REQUESTED AND INSISTED ON HAVING A NEW IV INSERTED EVEN WHEN RN INFORMED ABOUT MD NEW ANTIBIOTIC TREATMENT PLANS. WILL FOLLOW UP.
[2018-10-09 20:00] VITALS: BP 97/51
--- NOTE | 2018-10-09 20:13 | Infectious Diseases Prog Note ---
Assessment/Plan Problems: (1) Bronchitis, acute, with bronchospasm Assessment & Plan: continue vancomycin and cefepime for 7-10 days empirically . sputum culture grew normal tessa , continue inhalers (2) Cough productive of yellow sputum Assessment & Plan: possible pneumonia , on vancomycin and cefepime since HD patient and improving clinically on this regimen , sputum culture and blood culture showed no growth of pathogenic bacteria (3) UTI (urinary tract infection) Assessment & Plan: already on cefepime pending urine culture (4) ESRD (end stage renal disease) on dialysis Assessment & Plan: continue HD as per renal Subjective Constitutional: Reports: no symptoms HEENT: Reports: no symptoms Respiratory: Reports: dry cough Breasts: Reports: no symptoms Cardiovascular: Reports: no symptoms Gastrointestinal/Abdominal: Reports: no symptoms Genitourinary: Reports: no symptoms Neurologic: Reports: no symptoms Psychiatric: Reports: no symptoms Skin: Reports: no symptoms Endocrine: Reports: no symptoms Hematologic: Reports: no symptoms Musculoskeletal: Reports: no symptoms Allergies: Coded Allergies: LATEX (Verified Allergy, Unknown, 06/28/18) Objective Vital Signs Last 24 Hour Vital Signs Date Time Temp Pulse Resp B/P (MAP) Pulse Ox O2 Delivery O2 Flow Rate FiO2 10/09/18 19:49 81 18 97 Nasal Cannula 2.0 10/09/18 19:31 84 20 99 Nasal Cannula 2.0 10/09/18 19:31 99 Nasal Cannula 2.0 10/09/18 16:00 98.8 89 19 97/39 (58) 100 10/09/18 13:02 Nasal Cannula 2.0 10/09/18 13:02 Nasal Cannula 2.0 10/09/18 12:00 97.4 80 19 107/43 (64) 98 10/09/18 09:00 Nasal Cannula 2.0 10/09/18 08:00 98.2 82 19 120/63 (82) 97 10/09/18 07:49 83 20 99 Nasal Cannula 2.0 10/09/18 07:34 66 20 99 Nasal Cannula 2.0 10/09/18 07:24 99 Nasal Cannula 2.0 10/09/18 04:45 84 16 95 Facial 28 10/09/18 04:00 98.7 86 15 102/49 (66) 99 10/09/18 03:40 88 15 97 Facial 28 10/09/18 00:25 102 14 96 Facial 28 10/09/18 00:20 102 18 98 Bi-Pap 28 10/09/18 00:10 112 22 96 Bi-Pap 28 10/09/18 00:00 98.9 94 16 132/59 (83) 99 10/08/18 23:25 82 16 96 Facial 28 10/08/18 21:04 95 Nasal Cannula 3.0 32 10/08/18 21:00 Nasal Cannula 2.0 10/08/18 20:22 86 18 99 Nasal Cannula 3.0 32 10/08/18 20:12 84 20 95 Nasal Cannula 2.0 28 Height (Feet): 5 Height (Inches): 5.00 Weight (Pounds): 296 General Appearance: WD/WN, no acute distress HEENT: normocephalic, atraumatic, anicteric, mucous membranes moist, PERRL, EOMI, pharynx normal, supple, no JVD Respiratory/Chest: chest wall non-tender, no respiratory distress, no accessory muscle use, decreased breath sounds, expiratory wheezing Cardiovascular: normal peripheral pulses, normal rate, regular rhythm, no gallop/murmur, no JVD Abdomen: normal bowel sounds, soft, non tender, no organomegaly, non distended , no mass, no scars Genitourinary: normal external genitalia Extremities: no cyanosis, no clubbing Skin: no rash, no lesions, no ulcers Neurologic/Psychiatric: staking technician II-XII grossly normal, no motor/sensory deficits, oriented x 3, responsive, normal mood/affect Lymphatic: no neck adenopathy, no groin adenopathy Musculoskeletal: normal muscle bulk, no effusion Microbiology Date/Time Source Procedure Growth Status 10/07/18 00:45 Sputum Induced Gram Stain - Final Complete 10/07/18 00:45 Sputum Induced Sputum Culture - Final NORMAL UPPER RESPIRATORY TESSA PRESENT Complete Laboratory Tests Test 10/09/18 09:30 Random Vancomycin Level 20.7 ug/mL Current Medications Medications (Trade) Dose Ordered Sig/Alex Route PRN Reason Start Time Stop Time Status Last Admin Dose Admin Acetaminophen (Tylenol) 650 mg Q4H PRN ORAL Mild Pain/Temp > 100.5 10/06/18 13:00 11/05/18 12:59 Acetaminophen/ Hydrocodone Bitart ([place] 10/325) 1 tab Q6H PRN ORAL For Pain 10/06/18 13:00 10/13/18 12:59 10/09/18 17:10 Apixaban (Eliquis) 2.5 mg BID ORAL 10/06/18 18:00 11/05/18 17:59 10/09/18 17:32 Atorvastatin Calcium (Lipitor) 10 mg BEDTIME ORAL 10/06/18 21:00 11/05/18 20:59 10/08/18 20:53 Cefepime HCl 2 gm/ Dextrose 55 ml @ 110 mls/hr 3XW IVPB 10/11/18 09:00 10/18/18 08:59 UNV Dextrose (Dextrose 50%) 25 ml Q30M PRN IV Hypoglycemia 10/06/18 15:15 11/05/18 15:14 Dextrose (Dextrose 50%) 50 ml Q30M PRN IV Hypoglycemia 10/06/18 15:15 11/05/18 15:14 Diphenhydramine HCl (Benadryl) 25 mg DAILYPRN PRN IVP Itching/Pruritis 10/07/18 15:00 11/06/18 14:59 10/07/18 17:00 Docusate Sodium (Colace) 100 mg THREE TIMES A DAY ORAL 10/06/18 13:20 11/05/18 13:19 10/09/18 17:32 Fluticasone Propionate (Flonase) 1 spray Q8H PRN NASAL NASAL CONGESTION 10/06/18 13:00 11/05/18 12:59 Gabapentin (Neurontin) 300 mg THREE TIMES A DAY ORAL 10/06/18 13:20 11/05/18 13:19 10/09/18 17:31 Guaifenesin (Robitussin) 200 mg Q4H PRN ORAL For Cough 10/08/18 17:30 11/07/18 17:29 Insulin Aspart (NovoLOG) BEFORE MEALS AND HS SUBQ 10/06/18 16:30 11/05/18 16:29 10/09/18 17:19 Insulin Aspart (NovoLOG) 12 units BEFORE MEALS SUBQ 10/09/18 06:30 11/06/18 16:49 10/09/18 06:52 Insulin Detemir (Levemir) 40 units BEDTIME SUBQ 10/08/18 21:00 11/05/18 20:59 10/08/18 22:02 Ipratropium Mclain (Atrovent) 500 mcg Q4H PRN HHN Shortness of Breath 10/06/18 12:30 10/11/18 12:29 Ipratropium Mclain (Atrovent) 500 mcg Q6HRT HHN 10/06/18 13:00 10/11/18 12:59 10/09/18 19:31 Lactulose (Cephulac) 45 gm Q12H PRN ORAL CONSTIPATION 10/06/18 13:30 11/05/18 12:59 Levalbuterol HCl (Xopenex) 0.63 mg Q4H PRN HHN SOB/wheezing 10/06/18 12:30 10/11/18 12:29 Levalbuterol HCl (Xopenex) 0.63 mg Q6HRT HHN 10/06/18 13:00 10/11/18 12:59 10/09/18 19:32 Lidocaine (Lidoderm 5% PATCH) 1 patch DAILYPRN PRN TDERMAL BACK PAIN 10/06/18 13:00 11/05/18 12:59 Loratadine (Claritin 10mg) 10 mg DAILY ORAL 10/07/18 09:00 11/06/18 08:59 10/09/18 08:25 Nateglinide (Starlix) 120 mg TIAC ORAL 10/06/18 16:30 11/05/18 16:29 10/09/18 17:09 Pantoprazole (Protonix) 40 mg DAILY ORAL 10/07/18 09:00 11/06/18 08:59 10/09/18 08:25 Prednisone (PredniSONE) 40 mg DAILY ORAL 10/10/18 09:00 11/09/18 08:59 Pregabalin (Lyrica) 75 mg BID ORAL 10/06/18 18:00 11/05/18 17:59 10/09/18 17:32 Sennosides (Senokot) 8.6 mg BIDPRN PRN ORAL Constipation 10/06/18 13:00 11/05/18 12:59 Sevelamer Carbonate (Renvela) 1,600 mg THREE TIMES A DAY ORAL 10/07/18 13:00 11/05/18 13:21 10/09/18 17:31 Vancomycin HCl (Vanco rx to dose) 1 ea DAILY PRN MISC Per rx protocol 10/06/18 14:15 11/05/18 14:14 Vancomycin HCl 1 gm/Dextrose 275 ml @ 183.708 mls/hr ONCE ONCE IVPB 10/09/18 18:15 10/09/18 19:44 UNV Vitamin B Complex/ Vit C/Folic Acid (Nephrovite) 1 tab DAILY ORAL 10/07/18 09:00 11/06/18 08:59 10/09/18 08:25 Zinc Sulfate (Zinc Sulfate) 220 mg DAILY ORAL 10/07/18 09:00 11/06/18 08:59 10/09/18 08:25 Naa Mina M.D. Oct 09, 2018 20:13
[2018-10-09] MEDS ORDERED: Tubing IV Secondary IV ONE (20:54)
[2018-10-09] MEDS: Levemir Flexpen SUBQ SCH (21:11)
--- NOTE | 2018-10-09 22:55 | Pulmonology Progress Note ---
Assessment/Plan Assessment/Plan Pulmonary Progress Note Assessment/Plan Problems: (1) Morbid obesity (2) ESRD (end stage renal disease) on dialysis (3) Bronchitis, acute, with bronchospasm (4) UTI (urinary tract infection) (5) Cough productive of yellow sputum (6) Bronchitis (7) PVD (peripheral vascular disease) (8) Anemia in chronic kidney disease (CKD) Assessment/Plan ASSESSMENT: The patient is a 53-year-old female with a history of obesity, questionable history of asthma, end-stage renal disease on dialysis, diabetes, hypertension, peripheral vascular disease, BKA and finger amputations, presenting with shortness of breath and cough likely secondary to URI/bronchitis with an exacerbation of her asthma. Less SOB PROBLEM LIST: 1. URI/bronchitis. 2. Asthma with acute exacerbation. 3. Urinary tract infection. 4. Morbid obesity. 5. End-stage renal disease, on dialysis. 6. Diabetes. 7. Hypertension. 8. Peripheral vascular disease, status post right BKA and finger amputations. 9. Neuropathy. 10. Anemia. 11. Thrombocytopenia. 12. Prior stated history of DVT. 13. SANDOVAL, likely OHS TREATMENT PLAN: 1. Optimize pulmonary hygiene/mobilize as tolerated. 2. CPAP 12 cm qHS 3. P.r.n. O2 to keep saturations greater than 90%. 4. Ajrdr-env-qnrve and p.r.n. Atrovent and Xopenex hand-held nebulizers (the patient states she has palpitations with albuterol). 5. Abx per ID 6. Follow up Cx's 7. Monitor volumes and renal function. 8. Diabetic diet. 9. Continue Eliquis for prior DVT. 10. Weight loss diet and exercise have to be addressed. 11. The patient should have full PFTs and a sleep study as an outpatient. Subjective Allergies: Coded Allergies: LATEX (Verified Allergy, Unknown, 06/28/18) Subjective AFVSS O2 needs stable Less cough and congestion some wheezing no FC Objective Vital Signs Noted General Appearance: WD/WN, no acute distress, other - ob F HEENT: normocephalic, atraumatic, anicteric, mucous membranes moist Respiratory/Chest: rhonchi Cardiovascular: normal peripheral pulses, normal rate, regular rhythm Abdomen: normal bowel sounds, soft, non tender, no organomegaly, non distended , no mass Extremities: no cyanosis, no clubbing, other - BKA Microbiology Date/Time Source Procedure Growth Status 10/06/18 10:00 Blood Blood Culture - Preliminary NO GROWTH AFTER 24 HOURS Resulted 10/06/18 09:55 Blood Blood Culture - Preliminary NO GROWTH AFTER 24 HOURS Resulted 10/07/18 00:45 Sputum Induced Gram Stain - Final Resulted 10/07/18 00:45 Sputum Induced Sputum Culture Pending Resulted 10/06/18 10:20 Urine,Clean Catch Urine Culture - Preliminary NO GROWTH AFTER 24 HOURS Resulted 10/06/18 10:10 Rectum - Final NO CARBAPENEM-RESISTANT ENTEROBACTERI... Complete 10/06/18 10:10 Rectal Mucosa VRE Culture - Final Enterococcus Faecalis - Vre Complete Laboratory Tests 10/08/18 08:20: Sodium Level 136, Potassium Level 4.5, Chloride Level 97L, Carbon Dioxide Level 29, Anion Gap 10, Blood Urea Nitrogen 70H, Creatinine 6.5H, Estimat Glomerular Filtration Rate 8.1, Glucose Level 330H, Calcium Level 8.5, Phosphorus Level 5.9H, Total Bilirubin 0.3, Aspartate Amino Transf (AST/SGOT) 13L, Alanine Aminotransferase (ALT/SGPT) 12, Alkaline Phosphatase 140H, Total Protein 7.6, Albumin 3.5, Globulin 4.1, Albumin/Globulin Ratio 0.9L Current Medications Medications (Trade) Dose Ordered Sig/Alex Route PRN Reason Start Time Stop Time Status Last Admin Dose Admin Acetaminophen (Tylenol) 650 mg Q4H PRN ORAL Mild Pain/Temp > 100.5 10/06/18 13:00 11/05/18 12:59 Acetaminophen/ Hydrocodone Bitart ([place] 10/325) 1 tab Q6H PRN ORAL For Pain 10/06/18 13:00 10/13/18 12:59 10/08/18 11:34 Apixaban (Eliquis) 2.5 mg BID ORAL 10/06/18 18:00 11/05/18 17:59 10/08/18 09:08 Atorvastatin Calcium (Lipitor) 10 mg BEDTIME ORAL 10/06/18 21:00 11/05/18 20:59 10/07/18 20:04 Cefepime HCl 0.5 gm/Dextrose 55 ml @ 110 mls/hr Q24H IVPB 10/08/18 16:00 10/15/18 15:59 Dextrose (Dextrose 50%) 25 ml Q30M PRN IV Hypoglycemia 10/06/18 15:15 11/05/18 15:14 Dextrose (Dextrose 50%) 50 ml Q30M PRN IV Hypoglycemia 10/06/18 15:15 11/05/18 15:14 Diphenhydramine HCl (Benadryl) 25 mg DAILYPRN PRN IVP Itching/Pruritis 10/07/18 15:00 11/06/18 14:59 10/07/18 17:00 Docusate Sodium (Colace) 100 mg THREE TIMES A DAY ORAL 10/06/18 13:20 11/05/18 13:19 10/08/18 09:09 Fluticasone Propionate (Flonase) 1 spray Q8H PRN NASAL NASAL CONGESTION 10/06/18 13:00 11/05/18 12:59 Gabapentin (Neurontin) 300 mg THREE TIMES A DAY ORAL 10/06/18 13:20 11/05/18 13:19 10/08/18 09:09 Insulin Aspart (NovoLOG) BEFORE MEALS AND HS SUBQ 10/06/18 16:30 11/05/18 16:29 10/08/18 05:55 Insulin Aspart (NovoLOG) 5 units BEFORE MEALS SUBQ 10/07/18 16:30 11/06/18 16:49 10/08/18 05:57 Insulin Detemir (Levemir) 30 units BEDTIME SUBQ 10/06/18 21:00 11/05/18 20:59 10/07/18 20:13 Ipratropium [place] (Atrovent) 500 mcg Q4H PRN HHN Shortness of Breath 10/06/18 12:30 10/11/18 12:29 Ipratropium [place] (Atrovent) 500 mcg Q6HRT HHN 10/06/18 13:00 10/11/18 12:59 10/08/18 06:33 Lactulose (Cephulac) 45 gm Q12H PRN ORAL CONSTIPATION 10/06/18 13:30 11/05/18 12:59 Levalbuterol HCl (Xopenex) 0.63 mg Q4H PRN HHN SOB/wheezing 10/06/18 12:30 10/11/18 12:29 Levalbuterol HCl (Xopenex) 0.63 mg Q6HRT HHN 10/06/18 13:00 10/11/18 12:59 10/08/18 06:33 Levofloxacin 50 ml @ 50 mls/hr Q48H IVPB 10/06/18 20:00 10/13/18 19:59 10/06/18 20:15 Lidocaine (Lidoderm 5% PATCH) 1 patch DAILYPRN PRN TDERMAL BACK PAIN 10/06/18 13:00 11/05/18 12:59 Loratadine (Claritin 10mg) 10 mg DAILY ORAL 10/07/18 09:00 11/06/18 08:59 10/08/18 09:09 Methylprednisolone Sodium Succinate (Solu-MEDROL) 40 mg EVERY 12 HOURS IVP 10/06/18 21:00 11/05/18 20:59 10/08/18 09:08 Nateglinide (Starlix) 120 mg TIAC ORAL 10/06/18 16:30 11/05/18 16:29 10/08/18 11:32 Pantoprazole (Protonix) 40 mg DAILY ORAL 10/07/18 09:00 11/06/18 08:59 10/08/18 09:09 Pregabalin (Lyrica) 75 mg BID ORAL 10/06/18 18:00 11/05/18 17:59 10/08/18 09:11 Sennosides (Senokot) 8.6 mg BIDPRN PRN ORAL Constipation 10/06/18 13:00 11/05/18 12:59 Sevelamer Carbonate (Renvela) 1,600 mg THREE TIMES A DAY ORAL 10/07/18 13:00 11/05/18 13:21 10/08/18 09:09 Vancomycin HCl (Vanco rx to dose) 1 ea DAILY PRN MISC Per rx protocol 10/06/18 14:15 11/05/18 14:14 Vitamin B Complex/ Vit C/Folic Acid (Nephrovite) 1 tab DAILY ORAL 10/07/18 09:00 11/06/18 08:59 10/08/18 09:09 Zinc Sulfate (Zinc Sulfate) 220 mg DAILY ORAL 10/07/18 09:00 11/06/18 08:59 10/08/18 09:09 Subjective ROS Limited/Unobtainable: No Allergies: Coded Allergies: LATEX (Verified Allergy, Unknown, 06/28/18) Objective Last 24 Hour Vital Signs Date Time Temp Pulse Resp B/P (MAP) Pulse Ox O2 Delivery O2 Flow Rate FiO2 10/09/18 19:49 81 18 97 Nasal Cannula 2.0 28 10/09/18 19:31 84 20 99 Nasal Cannula 2.0 28 10/09/18 19:31 99 Nasal Cannula 2.0 28 10/09/18 16:00 98.8 89 19 97/39 (58) 100 10/09/18 13:02 Nasal Cannula 2.0 28 10/09/18 13:02 Nasal Cannula 2.0 28 10/09/18 12:00 97.4 80 19 107/43 (64) 98 10/09/18 09:00 Nasal Cannula 2.0 10/09/18 08:00 98.2 82 19 120/63 (82) 97 10/09/18 07:49 83 20 99 Nasal Cannula 2.0 28 10/09/18 07:34 66 20 99 Nasal Cannula 2.0 28 10/09/18 07:24 99 Nasal Cannula 2.0 28 10/09/18 04:45 84 16 95 Facial 28 10/09/18 04:00 98.7 86 15 102/49 (66) 99 10/09/18 03:40 88 15 97 Facial 28 10/09/18 00:25 102 14 96 Facial 28 10/09/18 00:20 102 18 98 Bi-Pap 28 10/09/18 00:10 112 22 96 Bi-Pap 28 10/09/18 00:00 98.9 94 16 132/59 (83) 99 10/08/18 23:25 82 16 96 Facial 28 Intake and Output 10/08/18 10/09/18 19:00 07:00 Intake Total 960 ml Output Total 600 ml 400 ml Balance 360 ml -400 ml Intake Oral 960 ml Output Urine Total 600 ml 400 ml # Voids 1 # Bowel Movements 1 Microbiology Date/Time Source Procedure Growth Status 10/07/18 00:45 Sputum Induced Gram Stain - Final Complete 10/07/18 00:45 Sputum Induced Sputum Culture - Final NORMAL UPPER RESPIRATORY ADAM PRESENT Complete Laboratory Tests 10/09/18 09:30: Random Vancomycin Level 20.7 Current Medications Medications (Trade) Dose Ordered Sig/Alex Route PRN Reason Start Time Stop Time Status Last Admin Dose Admin Acetaminophen (Tylenol) 650 mg Q4H PRN ORAL Mild Pain/Temp > 100.5 10/06/18 13:00 11/05/18 12:59 Acetaminophen/ Hydrocodone Bitart ([place] 10/325) 1 tab Q6H PRN ORAL For Pain 10/06/18 13:00 10/13/18 12:59 10/09/18 17:10 Apixaban (Eliquis) 2.5 mg BID ORAL 10/06/18 18:00 11/05/18 17:59 10/09/18 17:32 Atorvastatin Calcium (Lipitor) 10 mg BEDTIME ORAL 10/06/18 21:00 11/05/18 20:59 10/09/18 20:39 Cefepime HCl 2 gm/ Dextrose 55 ml @ 110 mls/hr 3XW IVPB 10/11/18 09:00 10/18/18 08:59 UNV Dextrose (Dextrose 50%) 25 ml Q30M PRN IV Hypoglycemia 10/06/18 15:15 11/05/18 15:14 Dextrose (Dextrose 50%) 50 ml Q30M PRN IV Hypoglycemia 10/06/18 15:15 11/05/18 15:14 Diphenhydramine HCl (Benadryl) 25 mg DAILYPRN PRN IVP Itching/Pruritis 10/07/18 15:00 11/06/18 14:59 10/07/18 17:00 Docusate Sodium (Colace) 100 mg THREE TIMES A DAY ORAL 10/06/18 13:20 11/05/18 13:19 10/09/18 17:32 Fluticasone Propionate (Flonase) 1 spray Q8H PRN NASAL NASAL CONGESTION 10/06/18 13:00 11/05/18 12:59 Gabapentin (Neurontin) 300 mg THREE TIMES A DAY ORAL 10/06/18 13:20 11/05/18 13:19 10/09/18 17:31 Guaifenesin (Robitussin) 200 mg Q4H PRN ORAL For Cough 10/08/18 17:30 11/07/18 17:29 Insulin Aspart (NovoLOG) BEFORE MEALS AND HS SUBQ 10/06/18 16:30 11/05/18 16:29 10/09/18 21:10 Insulin Aspart (NovoLOG) 12 units BEFORE MEALS SUBQ 10/09/18 06:30 11/06/18 16:49 10/09/18 06:52 Insulin Detemir (Levemir) 40 units BEDTIME SUBQ 10/08/18 21:00 11/05/18 20:59 10/09/18 21:11 Ipratropium [place] (Atrovent) 500 mcg Q4H PRN HHN Shortness of Breath 10/06/18 12:30 10/11/18 12:29 Ipratropium [place] (Atrovent) 500 mcg Q6HRT HHN 10/06/18 13:00 10/11/18 12:59 10/09/18 19:31 Lactulose (Cephulac) 45 gm Q12H PRN ORAL CONSTIPATION 10/06/18 13:30 11/05/18 12:59 Levalbuterol HCl (Xopenex) 0.63 mg Q4H PRN N /wheezing 10/06/18 12:30 10/11/18 12:29 Levalbuterol HCl (Xopenex) 0.63 mg Q6HRT N 10/06/18 13:00 10/11/18 12:59 10/09/18 19:32 Lidocaine (Lidoderm 5% PATCH) 1 patch DAILYPRN PRN TDERMAL BACK PAIN 10/06/18 13:00 11/05/18 12:59 Loratadine (Claritin 10mg) 10 mg DAILY ORAL 10/07/18 09:00 11/06/18 08:59 10/09/18 08:25 Nateglinide (Starlix) 120 mg TIAC ORAL 10/06/18 16:30 11/05/18 16:29 10/09/18 17:09 Pantoprazole (Protonix) 40 mg DAILY ORAL 10/07/18 09:00 11/06/18 08:59 10/09/18 08:25 Prednisone (PredniSONE) 40 mg DAILY ORAL 10/10/18 09:00 11/09/18 08:59 Pregabalin (Lyrica) 75 mg BID ORAL 10/06/18 18:00 11/05/18 17:59 10/09/18 17:32 Sennosides (Senokot) 8.6 mg BIDPRN PRN ORAL Constipation 10/06/18 13:00 11/05/18 12:59 Sevelamer Carbonate (Renvela) 1,600 mg THREE TIMES A DAY ORAL 10/07/18 13:00 11/05/18 13:21 10/09/18 17:31 Vancomycin HCl (Vanco rx to dose) 1 ea DAILY PRN MISC Per rx protocol 10/06/18 14:15 11/05/18 14:14 Vancomycin HCl 1 gm/Dextrose 275 ml @ 183.708 mls/hr ONCE ONCE IVPB 10/09/18 18:15 10/09/18 19:44 UNV Vitamin B Complex/ Vit C/Folic Acid (Nephrovite) 1 tab DAILY ORAL 10/07/18 09:00 11/06/18 08:59 10/09/18 08:25 Zinc Sulfate (Zinc Sulfate) 220 mg DAILY ORAL 10/07/18 09:00 11/06/18 08:59 10/09/18 08:25 Colby Baez MD Oct 09, 2018 22:54
--- NOTE | 2018-10-09 23:30 | NUR ---
NURSE NOTES: GAVE PT A BED BATH, AND CHANGED DRESSINGS ON LEFT 3RD DIGIT, LEFT TOE.
[2018-10-10] VITALS: BP 105/53
[2018-10-10] MEDS: Ipratropium 0.02% Inh Soln 2.5ml UD HHN SCH ×4 (00:17→19:00)
[2018-10-10] MEDS: Levalbuterol Inh UD 1.25mg/0.5ml HHN SCH ×4 (00:17→19:00)
--- NOTE | 2018-10-10 00:19 | NUR ---
RESPIRATORY NOTE: Pt placed on CPAP for nightly use. Pt was on 2L NC. Pt now on CPAP 12, 28%. Pt on a Facial mask, skin intact, no redness/breakdowns noted. Foam tape applied on pt's nosebridge/cheeks/chin to prevent any irritations. Pt is alert/awake, follows commands. B/S adam. diminished, nonproductive cough. BiPAP plugged into red outlet, alarms on & audible. Pt resting comfortably, in no apparent distress at this time. Will continue plan of care.
[2018-10-10] MEDS: NovoLOG Insulin Flexpen SUBQ SCH ×7 (06:27→20:35)
--- NOTE | 2018-10-10 06:51 | General Progress Note ---
Assessment/Plan Problem List: (1) ESRD (end stage renal disease) on dialysis ICD Codes: N18.6 - End stage renal disease; Z99.2 - Dependence on renal dialysis SNOMED: 411476322 (2) Bronchitis, acute, with bronchospasm ICD Codes: J20.9 - Acute bronchitis, unspecified SNOMED: 90112258 (3) Morbid obesity ICD Codes: E66.01 - Morbid (severe) obesity due to excess calories SNOMED: 286009751 (4) Diabetes mellitus ICD Codes: E11.9 - Type 2 diabetes mellitus without complications SNOMED: 75648411 (5) PVD (peripheral vascular disease) ICD Codes: I73.9 - Peripheral vascular disease, unspecified SNOMED: 175592835 Assessment/Plan: continue Levemir 40 units qhs continue Novolog 12 units ac tid continue NISS ac / hs continue Starlix 120 mg ac tid Subjective Allergies: Coded Allergies: LATEX (Verified Allergy, Unknown, 06/28/18) All Systems: reviewed and negative except above Subjective events noted Item Value Date Time Bedside Blood Glucose 269 mg/dl H 10/10/18 0630 Bedside Blood Glucose 255 mg/dl H 10/09/18 2111 Bedside Blood Glucose 166 mg/dl H 10/09/18 1719 Bedside Blood Glucose 108 mg/dl 10/09/18 1130 Objective Last 24 Hour Vital Signs Date Time Temp Pulse Resp B/P (MAP) Pulse Ox O2 Delivery O2 Flow Rate FiO2 10/10/18 06:35 80 20 98 Room Air 21 10/10/18 06:35 98 Room Air 21 10/10/18 05:34 82 14 98 Facial 28 10/10/18 03:21 80 15 98 Facial 28 10/10/18 00:27 84 13 98 Bi-Pap 28 10/10/18 00:17 84 18 97 Bi-Pap 28 10/10/18 00:15 84 18 96 Facial 28 10/10/18 00:00 98.7 84 19 105/53 (70) 97 10/09/18 21:00 Nasal Cannula 2.0 10/09/18 20:00 97.9 89 19 97/51 (66) 97 10/09/18 19:49 81 18 97 Nasal Cannula 2.0 28 10/09/18 19:31 84 20 99 Nasal Cannula 2.0 28 10/09/18 19:31 99 Nasal Cannula 2.0 28 10/09/18 16:00 98.8 89 19 97/39 (58) 100 10/09/18 13:02 Nasal Cannula 2.0 28 10/09/18 13:02 Nasal Cannula 2.0 28 10/09/18 12:00 97.4 80 19 107/43 (64) 98 10/09/18 09:00 Nasal Cannula 2.0 10/09/18 08:00 98.2 82 19 120/63 (82) 97 10/09/18 07:49 83 20 99 Nasal Cannula 2.0 28 10/09/18 07:34 66 20 99 Nasal Cannula 2.0 28 10/09/18 07:24 99 Nasal Cannula 2.0 28 Intake and Output 10/09/18 10/10/18 18:59 06:59 Intake Total 1200 ml 1200 ml Output Total 3000 ml Balance -1800 ml 1200 ml Other 1200 ml 1200 ml Hemodialysis UF 3000 ml # Bowel Movements 1 Laboratory Tests 10/09/18 09:30: Random Vancomycin Level 20.7 Height (Feet): 5 Height (Inches): 5.00 Weight (Pounds): 302 General Appearance: no apparent distress Neck: normal alignment Cardiovascular: normal rate Respiratory/Chest: expiratory wheezing Abdomen: normal bowel sounds Pelvis: normal external exam Objective Current Medications Medications (Trade) Dose Ordered Sig/Alex Route PRN Reason Start Time Stop Time Status Last Admin Dose Admin Acetaminophen (Tylenol) 650 mg Q4H PRN ORAL Mild Pain/Temp > 100.5 10/06/18 13:00 11/05/18 12:59 Acetaminophen/ Hydrocodone Bitart ([place] 10/325) 1 tab Q6H PRN ORAL For Pain 10/06/18 13:00 10/13/18 12:59 10/09/18 23:40 Apixaban (Eliquis) 2.5 mg BID ORAL 10/06/18 18:00 11/05/18 17:59 10/09/18 17:32 Atorvastatin Calcium (Lipitor) 10 mg BEDTIME ORAL 10/06/18 21:00 11/05/18 20:59 10/09/18 20:39 Cefepime HCl 2 gm/ Dextrose 55 ml @ 110 mls/hr 3XW IVPB 10/11/18 09:00 10/18/18 08:59 UNV Dextrose (Dextrose 50%) 25 ml Q30M PRN IV Hypoglycemia 10/06/18 15:15 11/05/18 15:14 Dextrose (Dextrose 50%) 50 ml Q30M PRN IV Hypoglycemia 10/06/18 15:15 11/05/18 15:14 Diphenhydramine HCl (Benadryl) 25 mg DAILYPRN PRN IVP Itching/Pruritis 10/07/18 15:00 11/06/18 14:59 10/07/18 17:00 Docusate Sodium (Colace) 100 mg THREE TIMES A DAY ORAL 10/06/18 13:20 11/05/18 13:19 10/09/18 17:32 Fluticasone Propionate (Flonase) 1 spray Q8H PRN NASAL NASAL CONGESTION 10/06/18 13:00 11/05/18 12:59 Gabapentin (Neurontin) 300 mg THREE TIMES A DAY ORAL 10/06/18 13:20 11/05/18 13:19 10/09/18 17:31 Guaifenesin (Robitussin) 200 mg Q4H PRN ORAL For Cough 10/08/18 17:30 11/07/18 17:29 Insulin Aspart (NovoLOG) BEFORE MEALS AND HS SUBQ 10/06/18 16:30 11/05/18 16:29 10/10/18 06:27 Insulin Aspart (NovoLOG) 12 units BEFORE MEALS SUBQ 10/09/18 06:30 11/06/18 16:49 10/10/18 06:28 Insulin Detemir (Levemir) 40 units BEDTIME SUBQ 10/08/18 21:00 11/05/18 20:59 10/09/18 21:11 Ipratropium [place] (Atrovent) 500 mcg Q4H PRN HHN Shortness of Breath 10/06/18 12:30 10/11/18 12:29 Ipratropium [place] (Atrovent) 500 mcg Q6HRT HHN 10/06/18 13:00 10/11/18 12:59 10/10/18 06:35 Lactulose (Cephulac) 45 gm Q12H PRN ORAL CONSTIPATION 10/06/18 13:30 11/05/18 12:59 Levalbuterol HCl (Xopenex) 0.63 mg Q4H PRN HHN SOB/wheezing 10/06/18 12:30 10/11/18 12:29 Levalbuterol HCl (Xopenex) 0.63 mg Q6HRT HHN 10/06/18 13:00 10/11/18 12:59 10/10/18 06:35 Lidocaine (Lidoderm 5% PATCH) 1 patch DAILYPRN PRN TDERMAL BACK PAIN 10/06/18 13:00 11/05/18 12:59 Loratadine (Claritin 10mg) 10 mg DAILY ORAL 10/07/18 09:00 11/06/18 08:59 10/09/18 08:25 Nateglinide (Starlix) 120 mg TIAC ORAL 10/06/18 16:30 11/05/18 16:29 10/10/18 06:18 Pantoprazole (Protonix) 40 mg DAILY ORAL 10/07/18 09:00 11/06/18 08:59 10/09/18 08:25 Prednisone (PredniSONE) 40 mg DAILY ORAL 10/10/18 09:00 11/09/18 08:59 Pregabalin (Lyrica) 75 mg BID ORAL 10/06/18 18:00 11/05/18 17:59 10/09/18 17:32 Sennosides (Senokot) 8.6 mg BIDPRN PRN ORAL Constipation 10/06/18 13:00 11/05/18 12:59 Sevelamer Carbonate (Renvela) 1,600 mg THREE TIMES A DAY ORAL 10/07/18 13:00 11/05/18 13:21 10/09/18 17:31 Vancomycin HCl (Vanco rx to dose) 1 ea DAILY PRN MISC Per rx protocol 10/06/18 14:15 11/05/18 14:14 Vancomycin HCl 1 gm/Dextrose 275 ml @ 183.708 mls/hr ONCE ONCE IVPB 10/09/18 18:15 10/09/18 19:44 UNV Vitamin B Complex/ Vit C/Folic Acid (Nephrovite) 1 tab DAILY ORAL 10/07/18 09:00 11/06/18 08:59 10/09/18 08:25 Zinc Sulfate (Zinc Sulfate) 220 mg DAILY ORAL 10/07/18 09:00 11/06/18 08:59 10/09/18 08:25 Todd Roman MD Oct 10, 2018 06:51
--- NOTE | 2018-10-10 07:15 | NUR ---
HAND-OFF: Report given to PINKY MAYORGA.
--- NOTE | 2018-10-10 07:32 | NUR ---
NURSE NOTES: received report from Gisela,RN. patient in bed. alert. oriented. verbally responsive. no respiratory distress noted on 2l via NC. no pain at this time. NO IV access. HD shunt on left arm intact. positive thrill and bruit. no bleeding. HD t/th/sa with VIP. ATB tx during HD d/t no IV access. bed in the lowest position , call light within reach. will provide plan of care.
[2018-10-10 08:00] VITALS: BP 114/61
[2018-10-10] MEDS: Nephrovite tab (Rena-Vite) ORAL SCH (08:07)
[2018-10-10] MEDS: Docusate 100mg cap ORAL SCH ×3 (08:07→17:06)
[2018-10-10] MEDS: Zinc Sulfate 220mg cap ORAL SCH (08:07)
[2018-10-10] MEDS: Eliquis 2.5mg tablet ORAL SCH ×2 (08:08→17:06)
[2018-10-10] MEDS: Lyrica 75mg cap ORAL SCH ×2 (08:08→17:07)
[2018-10-10] MEDS ORDERED: Vancomycin 1gm/D5W 275ml IVPB ONE ×2 (09:00)
[2018-10-10 09:36] LABS: BASOPHILS % (AUTO) 0.7 % (0.0-2.0); EOSINOPHILS % (AUTO) 3.3 % (0.0-3.0); HEMATOCRIT 33.1 % (37.0-47.0); HEMOGLOBIN 9.9 G/DL (12.0-16.0); LYMPHOCYTES % (AUTO) 28.7 % (20.0-45.0); MEAN CORPUSCULAR VOLUME 90 FL (80-99); MONOCYTES % (AUTO) 5.6 % (1.0-10.0); NEUTROPHILS % (AUTO) 61.7 % (45.0-75.0); PLATELET COUNT 165 K/UL (150-450); RED BLOOD COUNT 3.67 M/UL (4.20-5.40); RED CELL DISTRIBUTION WIDTH 16.6 % (11.6-14.8); WHITE BLOOD COUNT 8.6 K/UL (4.8-10.8)
[2018-10-10 09:37] LABS: ALANINE AMINOTRANSFERASE 7 U/L (12-78); ALBUMIN 3.4 G/DL (3.4-5.0); ALBUMIN/GLOBULIN RATIO 0.9 (1.0-2.7); ALKALINE PHOSPHATASE 140 U/L (46-116); ANION GAP 11 mmol/L (5-15); ASPARTATE AMINO TRANSFERASE 7 U/L (15-37); BILIRUBIN,TOTAL 0.3 MG/DL (0.2-1.0); BLOOD UREA NITROGEN 74 mg/dL (7-18); CARBON DIOXIDE 28 MMOL/L (21-32); CHLORIDE 99 MMOL/L (98-107); CREATININE 6.8 MG/DL (0.55-1.30); PHOSPHORUS 6.4 MG/DL (2.5-4.9); POTASSIUM 4.4 MMOL/L (3.5-5.1); SODIUM 138 MMOL/L (136-145)
[2018-10-10 12:00] VITALS: BP 114/76
--- NOTE | 2018-10-10 12:15 | Nephrology Progress Note ---
Assessment/Plan Problem List: (1) ESRD (end stage renal disease) on dialysis (2) Bronchitis, acute, with bronchospasm (3) Morbid obesity (4) Anemia in chronic kidney disease (CKD) (5) PVD (peripheral vascular disease) (6) Diabetes mellitus Assessment: OOC Assessment ESRD , HD Tue Gisela Sat Obese DM PVD s/p LE amputation Rt Anemia of CKD Bronchitis / UTI Plan Per ID HD in am 7/ Kayexelate as needed pulm toilet BP and BS control taper steroids as possible per orders ? DC planning? Subjective ROS Limited/Unobtainable: No Constitutional: Reports: malaise, weakness Objective Objective Last 24 Hour Vital Signs Date Time Temp Pulse Resp B/P (MAP) Pulse Ox O2 Delivery O2 Flow Rate FiO2 10/10/18 09:00 Nasal Cannula 2.0 10/10/18 08:00 98.3 94 20 114/61 (78) 95 10/10/18 06:49 88 20 99 Room Air 10/10/18 06:35 80 20 98 Room Air 21 10/10/18 06:35 98 Room Air 21 10/10/18 05:34 82 14 98 Facial 28 10/10/18 03:21 80 15 98 Facial 28 10/10/18 00:27 84 13 98 Bi-Pap 28 10/10/18 00:17 84 18 97 Bi-Pap 28 10/10/18 00:15 84 18 96 Facial 28 10/10/18 00:00 98.7 84 19 105/53 (70) 97 10/09/18 21:00 Nasal Cannula 2.0 10/09/18 20:00 97.9 89 19 97/51 (66) 97 10/09/18 19:49 81 18 97 Nasal Cannula 2.0 28 10/09/18 19:31 84 20 99 Nasal Cannula 2.0 28 10/09/18 19:31 99 Nasal Cannula 2.0 28 10/09/18 16:00 98.8 89 19 97/39 (58) 100 10/09/18 13:02 Nasal Cannula 2.0 28 10/09/18 13:02 Nasal Cannula 2.0 28 Intake and Output 10/09/18 10/10/18 18:59 06:59 Intake Total 1200 ml 1200 ml Output Total 3000 ml 1600 ml Balance -1800 ml -400 ml Other 1200 ml 1200 ml Output Urine Total 1600 ml Hemodialysis UF 3000 ml # Voids 4 # Bowel Movements 1 Laboratory Tests 10/10/18 09:00: White Blood Count 8.6, Red Blood Count 3.67L, Hemoglobin 9.9L, Hematocrit 33.1L , Mean Corpuscular Volume 90, Mean Corpuscular Hemoglobin 27.0, Mean Corpuscular Hemoglobin Concent 30.0L, Red Cell Distribution Width 16.6H, Platelet Count 165, Mean Platelet Volume 7.7, Neutrophils (%) (Auto) 61.7, Lymphocytes (%) (Auto) 28.7, Monocytes (%) (Auto) 5.6, Eosinophils (%) (Auto) 3.3H, Basophils (%) (Auto) 0.7, Sodium Level 138, Potassium Level 4.4, Chloride Level 99, Carbon Dioxide Level 28, Anion Gap 11, Blood Urea Nitrogen 74H, Creatinine 6.8H, Estimat Glomerular Filtration Rate 7.8, Glucose Level 244H, Calcium Level 9.0, Phosphorus Level 6.4H, Total Bilirubin 0.3, Aspartate Amino Transf (AST/SGOT) 7L, Alanine Aminotransferase (ALT/SGPT) 7L, Alkaline Phosphatase 140H, Total Protein 7.3, Albumin 3.4, Globulin 3.9, Albumin/ Globulin Ratio 0.9L Height (Feet): 5 Height (Inches): 5.00 Weight (Pounds): 303 General Appearance: no apparent distress Cardiovascular: normal rate Respiratory/Chest: decreased breath sounds Abdomen: distended Objective no change Ronen Leone MD Oct 10, 2018 12:15
[2018-10-10] MEDS: HYDROcodone/Acetamin 10/325 tab ORAL PRN ×2 (12:44→22:58)
--- NOTE | 2018-10-10 13:22 | NUR ---
RD ASSESSMENT & RECOMMENDATIONS SEE CARE ACTIVITY FOR COMPLETE ASSESSMENT DAILY ESTIMATED NEEDS: Needs based on Obesity, HD/ 77kg abw 22-25 kcals/kg 1685-9562 total kcals 1.2-1.8 g protein/kg 92-138 g total protein 20-22 mL/kg 3673-4093 total fluid mLs NUTRITION DIAGNOSIS: * Altered nutrition related lab values R/T ESRD, DM as evidenced by elev creat (6.8), elev A1C of 7.0, elev BGs (244 330) * Morbid obesity R/T excessive energy intake, life style factors as evidenced by BMI of 49.5, w/ possible wt gain of 22lbs/7.9% in <3.5 months CURRENT DIET:RENAL, CCHO MED PO DIET RECOMMENDATIONS: RENAL, CCHO MED ADDITIONAL RECOMMENDATIONS: * Calibrated bedscale wt for accurate CBW, obtain dry wt post HD * Monitor BGs closely while on steroidal med * Diet ed on healthy wt loss provided on 10/10 .
--- NOTE | 2018-10-10 13:42 | Surgery Progress Note ---
Surgery Progress Note Subjective Additional Comments no acute events. comfortable stable. no complaints Objective Last 24 Hour Vital Signs Date Time Temp Pulse Resp B/P (MAP) Pulse Ox O2 Delivery O2 Flow Rate FiO2 10/10/18 12:00 98.2 86 20 114/76 (89) 95 10/10/18 09:00 Nasal Cannula 2.0 10/10/18 08:00 98.3 94 20 114/61 (78) 95 10/10/18 06:49 88 20 99 Room Air 21 10/10/18 06:35 80 20 98 Room Air 21 10/10/18 06:35 98 Room Air 21 10/10/18 05:34 82 14 98 Facial 28 10/10/18 03:21 80 15 98 Facial 28 10/10/18 00:27 84 13 98 Bi-Pap 28 10/10/18 00:17 84 18 97 Bi-Pap 28 10/10/18 00:15 84 18 96 Facial 28 10/10/18 00:00 98.7 84 19 105/53 (70) 97 10/09/18 21:00 Nasal Cannula 2.0 10/09/18 20:00 97.9 89 19 97/51 (66) 97 10/09/18 19:49 81 18 97 Nasal Cannula 2.0 28 10/09/18 19:31 84 20 99 Nasal Cannula 2.0 28 10/09/18 19:31 99 Nasal Cannula 2.0 28 10/09/18 16:00 98.8 89 19 97/39 (58) 100 I&O Intake and Output 10/09/18 10/10/18 19:00 07:00 Intake Total 1200 ml 1200 ml Output Total 3000 ml 1600 ml Balance -1800 ml -400 ml Other 1200 ml 1200 ml Output Urine Total 1600 ml Hemodialysis UF 3000 ml # Voids 4 # Bowel Movements 1 Dressing: dry Wound: other Drains: other Cardiovascular: RSR Respiratory: clear Abdomen: soft, flat, non-tender, present bowel sounds Extremities: cyanosis Laboratory Tests Test 10/10/18 09:00 White Blood Count 8.6 K/UL (4.8-10.8) Red Blood Count 3.67 M/UL (4.20-5.40) L Hemoglobin 9.9 G/DL (12.0-16.0) L Hematocrit 33.1 % (37.0-47.0) L Mean Corpuscular Volume 90 FL (80-99) Mean Corpuscular Hemoglobin 27.0 PG (27.0-31.0) Mean Corpuscular Hemoglobin Concent 30.0 G/DL (32.0-36.0) L Red Cell Distribution Width 16.6 % (11.6-14.8) H Platelet Count 165 K/UL (150-450) Mean Platelet Volume 7.7 FL (6.5-10.1) Neutrophils (%) (Auto) 61.7 % (45.0-75.0) Lymphocytes (%) (Auto) 28.7 % (20.0-45.0) Monocytes (%) (Auto) 5.6 % (1.0-10.0) Eosinophils (%) (Auto) 3.3 % (0.0-3.0) H Basophils (%) (Auto) 0.7 % (0.0-2.0) Sodium Level 138 MMOL/L (136-145) Potassium Level 4.4 MMOL/L (3.5-5.1) Chloride Level 99 MMOL/L (98-107) Carbon Dioxide Level 28 MMOL/L (21-32) Anion Gap 11 mmol/L (5-15) Blood Urea Nitrogen 74 mg/dL (7-18) H Creatinine 6.8 MG/DL (0.55-1.30) H Estimat Glomerular Filtration Rate 7.8 mL/min (>60) Glucose Level 244 MG/DL (74-106) H Calcium Level 9.0 MG/DL (8.5-10.1) Phosphorus Level 6.4 MG/DL (2.5-4.9) H Total Bilirubin 0.3 MG/DL (0.2-1.0) Aspartate Amino Transf (AST/SGOT) 7 U/L (15-37) L Alanine Aminotransferase (ALT/SGPT) 7 U/L (12-78) L Alkaline Phosphatase 140 U/L (46-116) H Total Protein 7.3 G/DL (6.4-8.2) Albumin 3.4 G/DL (3.4-5.0) Globulin 3.9 g/dL Albumin/Globulin Ratio 0.9 (1.0-2.7) L Plan Problems: (1) Cellulitis Assessment & Plan: Morbidly obese female whom presented on admission with necrotic 3rd digit of L hand. 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 Hx of TMA L st metatarsal.Necrotic area noted to dorsal aspect of L TMA.Small amt sanguineous exudate noted. No odor noted .Periwound without erythema or edema. L heel is dry ,firm and blanchable. 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 No evidence of skin breakdown to sacrum. Pt demonstrated good mobility repositioning self in bed. Educated on wound prevention and encouraged to frequently turn and to off-lift buttocks when repositioning to prevent friction to skin. Tx.Plan: Swab 3rd digit of L hand with Betadine daily . May cover with Optifoam s needed. Swab L 1st TMA with Betadine. Cover with Gauze and wrap loosely with Kerlix Daily and prn. Off-load L heel with pillow. Encourage and assist as needed with repositioning at least every 2hours or as tolerated. f/u with plastic and podiatry as outpatient for revision (2) Bronchitis (3) Cough productive of yellow sputum (4) UTI (urinary tract infection) (5) Bronchitis, acute, with bronchospasm (6) ESRD (end stage renal disease) on dialysis (7) Morbid obesity (8) Anemia in chronic kidney disease (CKD) (9) PVD (peripheral vascular disease) Assessment & Plan: known PVD multiple studies done prior right LE amputation stable. flap viable without wound left foot with great toe amp cont with current care plan Melvin Santana Oct 10, 2018 13:42
--- NOTE | 2018-10-10 14:21 | General Progress Note ---
Assessment/Plan Assessment/Plan: S: I am Not feeling better O: Seems in Mild discomfort. Denies chest pain. Complains of stable SOB PHYSICAL EXAMINATION:HEAD AND NECK: Atraumatic and normocephalic. CHEST: Clear to auscultation.HEART: S1 and S2. Regular rate and rhythm. ABDOMEN: Soft. No organomegaly.MUSCULOSKELETAL: Positive for the right AKA, left-sided amputation of toe.NEUROLOGY: The patient is awake, alert, and oriented x3. Chest x-ray dated 10/06/2018 reviewed. It is unremarkable for the acute process. ASSESSMENT AND PLAN: 1. End-stage renal disease, on hemodialysis. 2. SIRS. 3. UTI. 4. AFib. On anticoagulation. 5. Hypoxemic respiratory distress, one episode. 6. HCA- PNA, can not be excluded 6. Anemia. 7. Severe peripheral vascular disease, status post amputation of the extremities and toes. 8. Hypertension. 9. Diabetes type 2. 10. GI and DVT prophylaxis. plan: negative cultures Current empirical antibiotic HD per Nephrology tomorrow , Will be Dc tommrow after HD with IV abx Subjective Allergies: Coded Allergies: LATEX (Verified Allergy, Unknown, 06/28/18) Objective Last 24 Hour Vital Signs Date Time Temp Pulse Resp B/P (MAP) Pulse Ox O2 Delivery O2 Flow Rate FiO2 10/10/18 13:29 78 18 100 Room Air 10/10/18 13:15 68 18 97 Room Air 10/10/18 12:00 98.2 86 20 114/76 (89) 95 10/10/18 09:00 Nasal Cannula 2.0 10/10/18 08:00 98.3 94 20 114/61 (78) 95 10/10/18 06:49 88 20 99 Room Air 10/10/18 06:35 80 20 98 Room Air 10/10/18 06:35 98 Room Air 10/10/18 05:34 82 14 98 Facial 28 10/10/18 03:21 80 15 98 Facial 28 10/10/18 00:27 84 13 98 Bi-Pap 28 10/10/18 00:17 84 18 97 Bi-Pap 28 10/10/18 00:15 84 18 96 Facial 28 10/10/18 00:00 98.7 84 19 105/53 (70) 97 10/09/18 21:00 Nasal Cannula 2.0 10/09/18 20:00 97.9 89 19 97/51 (66) 97 10/09/18 19:49 81 18 97 Nasal Cannula 2.0 28 10/09/18 19:31 84 20 99 Nasal Cannula 2.0 28 10/09/18 19:31 99 Nasal Cannula 2.0 28 10/09/18 16:00 98.8 89 19 97/39 (58) 100 Intake and Output 10/09/18 10/10/18 19:00 07:00 Intake Total 1200 ml 1200 ml Output Total 3000 ml 1600 ml Balance -1800 ml -400 ml Other 1200 ml 1200 ml Output Urine Total 1600 ml Hemodialysis UF 3000 ml # Voids 4 # Bowel Movements 1 Laboratory Tests 10/10/18 09:00: White Blood Count 8.6, Red Blood Count 3.67L, Hemoglobin 9.9L, Hematocrit 33.1L , Mean Corpuscular Volume 90, Mean Corpuscular Hemoglobin 27.0, Mean Corpuscular Hemoglobin Concent 30.0L, Red Cell Distribution Width 16.6H, Platelet Count 165, Mean Platelet Volume 7.7, Neutrophils (%) (Auto) 61.7, Lymphocytes (%) (Auto) 28.7, Monocytes (%) (Auto) 5.6, Eosinophils (%) (Auto) 3.3H, Basophils (%) (Auto) 0.7, Sodium Level 138, Potassium Level 4.4, Chloride Level 99, Carbon Dioxide Level 28, Anion Gap 11, Blood Urea Nitrogen 74H, Creatinine 6.8H, Estimat Glomerular Filtration Rate 7.8, Glucose Level 244H, Calcium Level 9.0, Phosphorus Level 6.4H, Total Bilirubin 0.3, Aspartate Amino Transf (AST/SGOT) 7L, Alanine Aminotransferase (ALT/SGPT) 7L, Alkaline Phosphatase 140H, Total Protein 7.3, Albumin 3.4, Globulin 3.9, Albumin/ Globulin Ratio 0.9L Height (Feet): 5 Height (Inches): 5.00 Weight (Pounds): 303 Archana Chan MD Oct 10, 2018 14:21
--- NOTE | 2018-10-10 15:00 | Pulmonology Progress Note ---
Assessment/Plan Assessment/Plan Pulmonary Progress Note Assessment/Plan Problems: (1) Morbid obesity (2) ESRD (end stage renal disease) on dialysis (3) Bronchitis, acute, with bronchospasm (4) UTI (urinary tract infection) (5) Cough productive of yellow sputum (6) Bronchitis (7) PVD (peripheral vascular disease) (8) Anemia in chronic kidney disease (CKD) Assessment/Plan ASSESSMENT: The patient is a 53-year-old female with a history of obesity, questionable history of asthma, end-stage renal disease on dialysis, diabetes, hypertension, peripheral vascular disease, BKA and finger amputations, presenting with shortness of breath and cough likely secondary to URI/bronchitis with an exacerbation of her asthma. Less SOB PROBLEM LIST: 1. URI/bronchitis. 2. Asthma with acute exacerbation. 3. Urinary tract infection. 4. Morbid obesity. 5. End-stage renal disease, on dialysis. 6. Diabetes. 7. Hypertension. 8. Peripheral vascular disease, status post right BKA and finger amputations. 9. Neuropathy. 10. Anemia. 11. Thrombocytopenia. 12. Prior stated history of DVT. 13. SANDOVAL, likely OHS TREATMENT PLAN: 1. Optimize pulmonary hygiene/mobilize as tolerated. 2. CPAP 12 cm qHS 3. P.r.n. O2 to keep saturations greater than 90%. 4. Fjled-sdy-wtozl and p.r.n. Atrovent and Xopenex hand-held nebulizers (the patient states she has palpitations with albuterol). 5. Abx per ID 6. Follow up Cx's 7. Monitor volumes and renal function. 8. Diabetic diet. 9. Continue Eliquis for prior DVT. 10. Weight loss diet and exercise have to be addressed. 11. The patient should have full PFTs and a sleep study as an outpatient. Subjective Allergies: Coded Allergies: LATEX (Verified Allergy, Unknown, 06/28/18) Subjective AFVSS O2 needs stable Less cough and congestion some wheezing no FC Objective Vital Signs Noted General Appearance: WD/WN, no acute distress, other - ob F HEENT: normocephalic, atraumatic, anicteric, mucous membranes moist Respiratory/Chest: rhonchi Cardiovascular: normal peripheral pulses, normal rate, regular rhythm Abdomen: normal bowel sounds, soft, non tender, no organomegaly, non distended , no mass Extremities: no cyanosis, no clubbing, other - BKA Microbiology Date/Time Source Procedure Growth Status 10/06/18 10:00 Blood Blood Culture - Preliminary NO GROWTH AFTER 24 HOURS Resulted 10/06/18 09:55 Blood Blood Culture - Preliminary NO GROWTH AFTER 24 HOURS Resulted 10/07/18 00:45 Sputum Induced Gram Stain - Final Resulted 10/07/18 00:45 Sputum Induced Sputum Culture Pending Resulted 10/06/18 10:20 Urine,Clean Catch Urine Culture - Preliminary NO GROWTH AFTER 24 HOURS Resulted 10/06/18 10:10 Rectum - Final NO CARBAPENEM-RESISTANT ENTEROBACTERI... Complete 10/06/18 10:10 Rectal Mucosa VRE Culture - Final Enterococcus Faecalis - Vre Complete Laboratory Tests 10/08/18 08:20: Sodium Level 136, Potassium Level 4.5, Chloride Level 97L, Carbon Dioxide Level 29, Anion Gap 10, Blood Urea Nitrogen 70H, Creatinine 6.5H, Estimat Glomerular Filtration Rate 8.1, Glucose Level 330H, Calcium Level 8.5, Phosphorus Level 5.9H, Total Bilirubin 0.3, Aspartate Amino Transf (AST/SGOT) 13L, Alanine Aminotransferase (ALT/SGPT) 12, Alkaline Phosphatase 140H, Total Protein 7.6, Albumin 3.5, Globulin 4.1, Albumin/Globulin Ratio 0.9L Current Medications Medications (Trade) Dose Ordered Sig/Alex Route PRN Reason Start Time Stop Time Status Last Admin Dose Admin Acetaminophen (Tylenol) 650 mg Q4H PRN ORAL Mild Pain/Temp > 100.5 10/06/18 13:00 11/05/18 12:59 Acetaminophen/ Hydrocodone Bitart ([place] 10/325) 1 tab Q6H PRN ORAL For Pain 10/06/18 13:00 10/13/18 12:59 10/08/18 11:34 Apixaban (Eliquis) 2.5 mg BID ORAL 10/06/18 18:00 11/05/18 17:59 10/08/18 09:08 Atorvastatin Calcium (Lipitor) 10 mg BEDTIME ORAL 10/06/18 21:00 11/05/18 20:59 10/07/18 20:04 Cefepime HCl 0.5 gm/Dextrose 55 ml @ 110 mls/hr Q24H IVPB 10/08/18 16:00 10/15/18 15:59 Dextrose (Dextrose 50%) 25 ml Q30M PRN IV Hypoglycemia 10/06/18 15:15 11/05/18 15:14 Dextrose (Dextrose 50%) 50 ml Q30M PRN IV Hypoglycemia 10/06/18 15:15 11/05/18 15:14 Diphenhydramine HCl (Benadryl) 25 mg DAILYPRN PRN IVP Itching/Pruritis 10/07/18 15:00 11/06/18 14:59 10/07/18 17:00 Docusate Sodium (Colace) 100 mg THREE TIMES A DAY ORAL 10/06/18 13:20 11/05/18 13:19 10/08/18 09:09 Fluticasone Propionate (Flonase) 1 spray Q8H PRN NASAL NASAL CONGESTION 10/06/18 13:00 11/05/18 12:59 Gabapentin (Neurontin) 300 mg THREE TIMES A DAY ORAL 10/06/18 13:20 11/05/18 13:19 10/08/18 09:09 Insulin Aspart (NovoLOG) BEFORE MEALS AND HS SUBQ 10/06/18 16:30 11/05/18 16:29 10/08/18 05:55 Insulin Aspart (NovoLOG) 5 units BEFORE MEALS SUBQ 10/07/18 16:30 11/06/18 16:49 10/08/18 05:57 Insulin Detemir (Levemir) 30 units BEDTIME SUBQ 10/06/18 21:00 11/05/18 20:59 10/07/18 20:13 Ipratropium [place] (Atrovent) 500 mcg Q4H PRN HHN Shortness of Breath 10/06/18 12:30 10/11/18 12:29 Ipratropium [place] (Atrovent) 500 mcg Q6HRT HHN 10/06/18 13:00 10/11/18 12:59 10/08/18 06:33 Lactulose (Cephulac) 45 gm Q12H PRN ORAL CONSTIPATION 10/06/18 13:30 11/05/18 12:59 Levalbuterol HCl (Xopenex) 0.63 mg Q4H PRN HHN SOB/wheezing 10/06/18 12:30 10/11/18 12:29 Levalbuterol HCl (Xopenex) 0.63 mg Q6HRT HHN 10/06/18 13:00 10/11/18 12:59 10/08/18 06:33 Levofloxacin 50 ml @ 50 mls/hr Q48H IVPB 10/06/18 20:00 10/13/18 19:59 10/06/18 20:15 Lidocaine (Lidoderm 5% PATCH) 1 patch DAILYPRN PRN TDERMAL BACK PAIN 10/06/18 13:00 11/05/18 12:59 Loratadine (Claritin 10mg) 10 mg DAILY ORAL 10/07/18 09:00 11/06/18 08:59 10/08/18 09:09 Methylprednisolone Sodium Succinate (Solu-MEDROL) 40 mg EVERY 12 HOURS IVP 10/06/18 21:00 11/05/18 20:59 10/08/18 09:08 Nateglinide (Starlix) 120 mg TIAC ORAL 10/06/18 16:30 11/05/18 16:29 10/08/18 11:32 Pantoprazole (Protonix) 40 mg DAILY ORAL 10/07/18 09:00 11/06/18 08:59 10/08/18 09:09 Pregabalin (Lyrica) 75 mg BID ORAL 10/06/18 18:00 11/05/18 17:59 10/08/18 09:11 Sennosides (Senokot) 8.6 mg BIDPRN PRN ORAL Constipation 10/06/18 13:00 11/05/18 12:59 Sevelamer Carbonate (Renvela) 1,600 mg THREE TIMES A DAY ORAL 10/07/18 13:00 11/05/18 13:21 10/08/18 09:09 Vancomycin HCl (Vanco rx to dose) 1 ea DAILY PRN MISC Per rx protocol 10/06/18 14:15 11/05/18 14:14 Vitamin B Complex/ Vit C/Folic Acid (Nephrovite) 1 tab DAILY ORAL 10/07/18 09:00 11/06/18 08:59 10/08/18 09:09 Zinc Sulfate (Zinc Sulfate) 220 mg DAILY ORAL 10/07/18 09:00 11/06/18 08:59 10/08/18 09:09 Subjective ROS Limited/Unobtainable: No Allergies: Coded Allergies: LATEX (Verified Allergy, Unknown, 06/28/18) Objective Last 24 Hour Vital Signs Date Time Temp Pulse Resp B/P (MAP) Pulse Ox O2 Delivery O2 Flow Rate FiO2 10/10/18 13:29 78 18 100 Room Air 21 10/10/18 13:15 68 18 97 Room Air 21 10/10/18 12:00 98.2 86 20 114/76 (89) 95 10/10/18 09:00 Nasal Cannula 2.0 10/10/18 08:00 98.3 94 20 114/61 (78) 95 10/10/18 06:49 88 20 99 Room Air 10/10/18 06:35 80 20 98 Room Air 10/10/18 06:35 98 Room Air 10/10/18 05:34 82 14 98 Facial 28 10/10/18 03:21 80 15 98 Facial 28 10/10/18 00:27 84 13 98 Bi-Pap 28 10/10/18 00:17 84 18 97 Bi-Pap 28 10/10/18 00:15 84 18 96 Facial 28 10/10/18 00:00 98.7 84 19 105/53 (70) 97 10/09/18 21:00 Nasal Cannula 2.0 10/09/18 20:00 97.9 89 19 97/51 (66) 97 10/09/18 19:49 81 18 97 Nasal Cannula 2.0 28 10/09/18 19:31 84 20 99 Nasal Cannula 2.0 28 10/09/18 19:31 99 Nasal Cannula 2.0 28 10/09/18 16:00 98.8 89 19 97/39 (58) 100 Intake and Output 10/09/18 10/10/18 19:00 07:00 Intake Total 1200 ml 1200 ml Output Total 3000 ml 1600 ml Balance -1800 ml -400 ml Other 1200 ml 1200 ml Output Urine Total 1600 ml Hemodialysis UF 3000 ml # Voids 4 # Bowel Movements 1 Laboratory Tests 10/10/18 09:00: White Blood Count 8.6, Red Blood Count 3.67L, Hemoglobin 9.9L, Hematocrit 33.1L , Mean Corpuscular Volume 90, Mean Corpuscular Hemoglobin 27.0, Mean Corpuscular Hemoglobin Concent 30.0L, Red Cell Distribution Width 16.6H, Platelet Count 165, Mean Platelet Volume 7.7, Neutrophils (%) (Auto) 61.7, Lymphocytes (%) (Auto) 28.7, Monocytes (%) (Auto) 5.6, Eosinophils (%) (Auto) 3.3H, Basophils (%) (Auto) 0.7, Sodium Level 138, Potassium Level 4.4, Chloride Level 99, Carbon Dioxide Level 28, Anion Gap 11, Blood Urea Nitrogen 74H, Creatinine 6.8H, Estimat Glomerular Filtration Rate 7.8, Glucose Level 244H, Calcium Level 9.0, Phosphorus Level 6.4H, Total Bilirubin 0.3, Aspartate Amino Transf (AST/SGOT) 7L, Alanine Aminotransferase (ALT/SGPT) 7L, Alkaline Phosphatase 140H, Total Protein 7.3, Albumin 3.4, Globulin 3.9, Albumin/ Globulin Ratio 0.9L Current Medications Medications (Trade) Dose Ordered Sig/Alex Route PRN Reason Start Time Stop Time Status Last Admin Dose Admin Acetaminophen (Tylenol) 650 mg Q4H PRN ORAL Mild Pain/Temp > 100.5 10/06/18 13:00 11/05/18 12:59 Acetaminophen/ Hydrocodone Bitart ([place] 10/325) 1 tab Q6H PRN ORAL For Pain 10/06/18 13:00 10/13/18 12:59 10/10/18 12:44 Apixaban (Eliquis) 2.5 mg BID ORAL 10/06/18 18:00 11/05/18 17:59 10/10/18 08:08 Atorvastatin Calcium (Lipitor) 10 mg BEDTIME ORAL 10/06/18 21:00 11/05/18 20:59 10/09/18 20:39 Cefepime HCl 2 gm/ Dextrose 55 ml @ 110 mls/hr 3XW IVPB 10/11/18 09:00 10/18/18 08:59 UNV Dextrose (Dextrose 50%) 25 ml Q30M PRN IV Hypoglycemia 10/06/18 15:15 11/05/18 15:14 Dextrose (Dextrose 50%) 50 ml Q30M PRN IV Hypoglycemia 10/06/18 15:15 11/05/18 15:14 Diphenhydramine HCl (Benadryl) 25 mg DAILYPRN PRN IVP Itching/Pruritis 10/07/18 15:00 11/06/18 14:59 10/07/18 17:00 Docusate Sodium (Colace) 100 mg THREE TIMES A DAY ORAL 10/06/18 13:20 11/05/18 13:19 10/10/18 12:03 Fluticasone Propionate (Flonase) 1 spray Q8H PRN NASAL NASAL CONGESTION 10/06/18 13:00 11/05/18 12:59 Gabapentin (Neurontin) 300 mg THREE TIMES A DAY ORAL 10/06/18 13:20 11/05/18 13:19 10/10/18 12:03 Guaifenesin (Robitussin) 200 mg Q4H PRN ORAL For Cough 10/08/18 17:30 11/07/18 17:29 Insulin Aspart (NovoLOG) BEFORE MEALS AND HS SUBQ 10/06/18 16:30 11/05/18 16:29 10/10/18 12:04 Insulin Aspart (NovoLOG) 12 units BEFORE MEALS SUBQ 10/09/18 06:30 11/06/18 16:49 10/10/18 12:05 Insulin Detemir (Levemir) 40 units BEDTIME SUBQ 10/08/18 21:00 11/05/18 20:59 10/09/18 21:11 Ipratropium [place] (Atrovent) 500 mcg Q4H PRN HHN Shortness of Breath 10/06/18 12:30 10/11/18 12:29 Ipratropium [place] (Atrovent) 500 mcg Q6HRT HHN 10/06/18 13:00 10/11/18 12:59 10/10/18 13:41 Lactulose (Cephulac) 45 gm Q12H PRN ORAL CONSTIPATION 10/06/18 13:30 11/05/18 12:59 Levalbuterol HCl (Xopenex) 0.63 mg Q4H PRN HHN SOB/wheezing 10/06/18 12:30 10/11/18 12:29 Levalbuterol HCl (Xopenex) 0.63 mg Q6HRT HHN 10/06/18 13:00 10/11/18 12:59 10/10/18 13:41 Lidocaine (Lidoderm 5% PATCH) 1 patch DAILYPRN PRN TDERMAL BACK PAIN 10/06/18 13:00 11/05/18 12:59 Loratadine (Claritin 10mg) 10 mg DAILY ORAL 10/07/18 09:00 11/06/18 08:59 10/10/18 08:06 Nateglinide (Starlix) 120 mg TIAC ORAL 10/06/18 16:30 11/05/18 16:29 10/10/18 12:02 Pantoprazole (Protonix) 40 mg DAILY ORAL 10/07/18 09:00 11/06/18 08:59 10/10/18 08:07 Prednisone (PredniSONE) 40 mg DAILY ORAL 10/10/18 09:00 11/09/18 08:59 10/10/18 08:06 Pregabalin (Lyrica) 75 mg BID ORAL 10/06/18 18:00 11/05/18 17:59 10/10/18 08:08 Sennosides (Senokot) 8.6 mg BIDPRN PRN ORAL Constipation 10/06/18 13:00 11/05/18 12:59 Sevelamer Carbonate (Renvela) 2,400 mg THREE TIMES A DAY ORAL 10/10/18 13:00 11/05/18 13:21 10/10/18 12:45 Vancomycin HCl (Vanco rx to dose) 1 ea DAILY PRN MISC Per rx protocol 10/06/18 14:15 11/05/18 14:14 Vancomycin HCl 1 gm/Dextrose 275 ml @ 183.708 mls/hr ONCE ONCE IVPB 10/09/18 18:15 10/09/18 19:44 UNV Vitamin B Complex/ Vit C/Folic Acid (Nephrovite) 1 tab DAILY ORAL 10/07/18 09:00 11/06/18 08:59 10/10/18 08:07 Zinc Sulfate (Zinc Sulfate) 220 mg DAILY ORAL 10/07/18 09:00 11/06/18 08:59 10/10/18 08:07 Colby Baez MD Oct 10, 2018 15:00
--- NOTE | 2018-10-10 15:02 | Infectious Diseases Prog Note ---
Assessment/Plan Problems: (1) Bronchitis, acute, with bronchospasm Assessment & Plan: continue vancomycin and cefepime for 10 days total empirically . sputum culture grew normal tessa , continue inhalers as needed (2) Cough productive of yellow sputum Assessment & Plan: possible pneumonia , on vancomycin and cefepime since HD patient and improving clinically on this regimen , sputum culture and blood culture showed no growth of pathogenic bacteria (3) UTI (urinary tract infection) Assessment & Plan: already on cefepime pending urine culture (4) ESRD (end stage renal disease) on dialysis Assessment & Plan: continue HD as per renal Subjective Constitutional: Reports: no symptoms HEENT: Reports: no symptoms Respiratory: Reports: dry cough Breasts: Reports: no symptoms Cardiovascular: Reports: no symptoms Gastrointestinal/Abdominal: Reports: no symptoms Genitourinary: Reports: no symptoms Neurologic: Reports: no symptoms Psychiatric: Reports: no symptoms Skin: Reports: no symptoms Endocrine: Reports: no symptoms Hematologic: Reports: no symptoms Musculoskeletal: Reports: no symptoms Allergies: Coded Allergies: LATEX (Verified Allergy, Unknown, 06/28/18) Objective Vital Signs Last 24 Hour Vital Signs Date Time Temp Pulse Resp B/P (MAP) Pulse Ox O2 Delivery O2 Flow Rate FiO2 10/10/18 13:29 78 18 100 Room Air 10/10/18 13:15 68 18 97 Room Air 10/10/18 12:00 98.2 86 20 114/76 (89) 95 10/10/18 09:00 Nasal Cannula 2.0 10/10/18 08:00 98.3 94 20 114/61 (78) 95 10/10/18 06:49 88 20 99 Room Air 10/10/18 06:35 80 20 98 Room Air 21 10/10/18 06:35 98 Room Air 21 10/10/18 05:34 82 14 98 Facial 28 10/10/18 03:21 80 15 98 Facial 28 10/10/18 00:27 84 13 98 Bi-Pap 28 10/10/18 00:17 84 18 97 Bi-Pap 28 10/10/18 00:15 84 18 96 Facial 28 10/10/18 00:00 98.7 84 19 105/53 (70) 97 10/09/18 21:00 Nasal Cannula 2.0 10/09/18 20:00 97.9 89 19 97/51 (66) 97 10/09/18 19:49 81 18 97 Nasal Cannula 2.0 28 10/09/18 19:31 84 20 99 Nasal Cannula 2.0 28 10/09/18 19:31 99 Nasal Cannula 2.0 28 10/09/18 16:00 98.8 89 19 97/39 (58) 100 Height (Feet): 5 Height (Inches): 5.00 Weight (Pounds): 303 General Appearance: WD/WN, no acute distress HEENT: normocephalic, atraumatic, anicteric, mucous membranes moist, PERRL, EOMI, pharynx normal, supple, no JVD Respiratory/Chest: chest wall non-tender, lungs clear, no respiratory distress , no accessory muscle use, decreased breath sounds Cardiovascular: normal peripheral pulses, normal rate, regular rhythm, no gallop/murmur, no JVD Abdomen: normal bowel sounds, soft, non tender, no organomegaly, non distended , no mass, no scars Genitourinary: normal external genitalia Extremities: no cyanosis, no clubbing Skin: no rash, no lesions, no ulcers Neurologic/Psychiatric: buggy loader II-XII grossly normal, no motor/sensory deficits, alert, oriented x 3, responsive Lymphatic: no neck adenopathy, no groin adenopathy Musculoskeletal: normal muscle bulk, no effusion Laboratory Tests Test 10/10/18 09:00 White Blood Count 8.6 K/UL (4.8-10.8) Red Blood Count 3.67 M/UL (4.20-5.40) L Hemoglobin 9.9 G/DL (12.0-16.0) L Hematocrit 33.1 % (37.0-47.0) L Mean Corpuscular Volume 90 FL (80-99) Mean Corpuscular Hemoglobin 27.0 PG (27.0-31.0) Mean Corpuscular Hemoglobin Concent 30.0 G/DL (32.0-36.0) L Red Cell Distribution Width 16.6 % (11.6-14.8) H Platelet Count 165 K/UL (150-450) Mean Platelet Volume 7.7 FL (6.5-10.1) Neutrophils (%) (Auto) 61.7 % (45.0-75.0) Lymphocytes (%) (Auto) 28.7 % (20.0-45.0) Monocytes (%) (Auto) 5.6 % (1.0-10.0) Eosinophils (%) (Auto) 3.3 % (0.0-3.0) H Basophils (%) (Auto) 0.7 % (0.0-2.0) Sodium Level 138 MMOL/L (136-145) Potassium Level 4.4 MMOL/L (3.5-5.1) Chloride Level 99 MMOL/L (98-107) Carbon Dioxide Level 28 MMOL/L (21-32) Anion Gap 11 mmol/L (5-15) Blood Urea Nitrogen 74 mg/dL (7-18) H Creatinine 6.8 MG/DL (0.55-1.30) H Estimat Glomerular Filtration Rate 7.8 mL/min (>60) Glucose Level 244 MG/DL (74-106) H Calcium Level 9.0 MG/DL (8.5-10.1) Phosphorus Level 6.4 MG/DL (2.5-4.9) H Total Bilirubin 0.3 MG/DL (0.2-1.0) Aspartate Amino Transf (AST/SGOT) 7 U/L (15-37) L Alanine Aminotransferase (ALT/SGPT) 7 U/L (12-78) L Alkaline Phosphatase 140 U/L (46-116) H Total Protein 7.3 G/DL (6.4-8.2) Albumin 3.4 G/DL (3.4-5.0) Globulin 3.9 g/dL Albumin/Globulin Ratio 0.9 (1.0-2.7) L Current Medications Medications (Trade) Dose Ordered Sig/Alex Route PRN Reason Start Time Stop Time Status Last Admin Dose Admin Acetaminophen (Tylenol) 650 mg Q4H PRN ORAL Mild Pain/Temp > 100.5 10/06/18 13:00 11/05/18 12:59 Acetaminophen/ Hydrocodone Bitart ([place] 10/325) 1 tab Q6H PRN ORAL For Pain 10/06/18 13:00 10/13/18 12:59 10/10/18 12:44 Apixaban (Eliquis) 2.5 mg BID ORAL 10/06/18 18:00 11/05/18 17:59 10/10/18 08:08 Atorvastatin Calcium (Lipitor) 10 mg BEDTIME ORAL 10/06/18 21:00 11/05/18 20:59 10/09/18 20:39 Cefepime HCl 2 gm/ Dextrose 55 ml @ 110 mls/hr 3XW IVPB 10/11/18 09:00 10/18/18 08:59 UNV Dextrose (Dextrose 50%) 25 ml Q30M PRN IV Hypoglycemia 10/06/18 15:15 11/05/18 15:14 Dextrose (Dextrose 50%) 50 ml Q30M PRN IV Hypoglycemia 10/06/18 15:15 11/05/18 15:14 Diphenhydramine HCl (Benadryl) 25 mg DAILYPRN PRN IVP Itching/Pruritis 10/07/18 15:00 11/06/18 14:59 10/07/18 17:00 Docusate Sodium (Colace) 100 mg THREE TIMES A DAY ORAL 10/06/18 13:20 11/05/18 13:19 10/10/18 12:03 Fluticasone Propionate (Flonase) 1 spray Q8H PRN NASAL NASAL CONGESTION 10/06/18 13:00 11/05/18 12:59 Gabapentin (Neurontin) 300 mg THREE TIMES A DAY ORAL 10/06/18 13:20 11/05/18 13:19 10/10/18 12:03 Guaifenesin (Robitussin) 200 mg Q4H PRN ORAL For Cough 10/08/18 17:30 11/07/18 17:29 Insulin Aspart (NovoLOG) BEFORE MEALS AND HS SUBQ 10/06/18 16:30 11/05/18 16:29 10/10/18 12:04 Insulin Aspart (NovoLOG) 12 units BEFORE MEALS SUBQ 10/09/18 06:30 11/06/18 16:49 10/10/18 12:05 Insulin Detemir (Levemir) 40 units BEDTIME SUBQ 10/08/18 21:00 11/05/18 20:59 10/09/18 21:11 Ipratropium [place] (Atrovent) 500 mcg Q4H PRN HHN Shortness of Breath 10/06/18 12:30 10/11/18 12:29 Ipratropium [place] (Atrovent) 500 mcg Q6HRT HHN 10/06/18 13:00 10/11/18 12:59 10/10/18 13:41 Lactulose (Cephulac) 45 gm Q12H PRN ORAL CONSTIPATION 10/06/18 13:30 11/05/18 12:59 Levalbuterol HCl (Xopenex) 0.63 mg Q4H PRN HHN SOB/wheezing 10/06/18 12:30 10/11/18 12:29 Levalbuterol HCl (Xopenex) 0.63 mg Q6HRT N 10/06/18 13:00 10/11/18 12:59 10/10/18 13:41 Lidocaine (Lidoderm 5% PATCH) 1 patch DAILYPRN PRN TDERMAL BACK PAIN 10/06/18 13:00 11/05/18 12:59 Loratadine (Claritin 10mg) 10 mg DAILY ORAL 10/07/18 09:00 11/06/18 08:59 10/10/18 08:06 Nateglinide (Starlix) 120 mg TIAC ORAL 10/06/18 16:30 11/05/18 16:29 10/10/18 12:02 Pantoprazole (Protonix) 40 mg DAILY ORAL 10/07/18 09:00 11/06/18 08:59 10/10/18 08:07 Prednisone (PredniSONE) 40 mg DAILY ORAL 10/10/18 09:00 11/09/18 08:59 10/10/18 08:06 Pregabalin (Lyrica) 75 mg BID ORAL 10/06/18 18:00 11/05/18 17:59 10/10/18 08:08 Sennosides (Senokot) 8.6 mg BIDPRN PRN ORAL Constipation 10/06/18 13:00 11/05/18 12:59 Sevelamer Carbonate (Renvela) 2,400 mg THREE TIMES A DAY ORAL 10/10/18 13:00 11/05/18 13:21 10/10/18 12:45 Vancomycin HCl (Vanco rx to dose) 1 ea DAILY PRN MISC Per rx protocol 10/06/18 14:15 11/05/18 14:14 Vancomycin HCl 1 gm/Dextrose 275 ml @ 183.708 mls/hr ONCE ONCE IVPB 10/09/18 18:15 10/09/18 19:44 UNV Vitamin B Complex/ Vit C/Folic Acid (Nephrovite) 1 tab DAILY ORAL 10/07/18 09:00 11/06/18 08:59 10/10/18 08:07 Zinc Sulfate (Zinc Sulfate) 220 mg DAILY ORAL 10/07/18 09:00 11/06/18 08:59 10/10/18 08:07 Naa Mina M.D. Oct 10, 2018 15:01
[2018-10-10 16:00] VITALS: BP 111/68
--- NOTE | 2018-10-10 19:37 | NUR ---
HAND-OFF: Report given to PINKY Russo.
--- NOTE | 2018-10-10 19:38 | NUR ---
NURSE NOTES: Received report from PINKY Schreiber. patient in bed. alert. oriented x4. Pleasant disposition. no respiratory distress noted on 2 L NC. Slight pain at this time but said she will call "closer to bedtime". NO IV access, MD aware. HD shunt on left arm intact. Thrill and bruit present. HD next on 10/11 with VIP. Antibiotic tx to occur following HD d/t no IV access. Bed in the lowest position , call light within reach. will continue to monitor and implement plan of care.
[2018-10-10 20:00] VITALS: BP 125/53
[2018-10-10] MEDS: Levemir Flexpen SUBQ SCH (20:34)
--- NOTE | 2018-10-10 20:46 | NUR ---
NURSE NOTES: I called Selma at [facility] and confirmed pt is scheduled for dialysis on 10/11. She confirmed pt name and room number and is scheduled for 10/11. She will call tomorrow.
[2018-10-11] VITALS: BP 101/59
[2018-10-11] MEDS: Ipratropium 0.02% Inh Soln 2.5ml UD HHN SCH ×3 (01:47→19:26)
[2018-10-11] MEDS: Levalbuterol Inh UD 1.25mg/0.5ml HHN SCH ×2 (01:47→07:10)
[2018-10-11] MEDS: NovoLOG Insulin Flexpen SUBQ SCH ×7 (06:02→21:57)
[2018-10-11] MEDS: HYDROcodone/Acetamin 10/325 tab ORAL PRN ×2 (06:36→22:52)
--- NOTE | 2018-10-11 06:59 | General Progress Note ---
Assessment/Plan Problem List: (1) ESRD (end stage renal disease) on dialysis ICD Codes: N18.6 - End stage renal disease; Z99.2 - Dependence on renal dialysis SNOMED: 595468476 (2) Bronchitis, acute, with bronchospasm ICD Codes: J20.9 - Acute bronchitis, unspecified SNOMED: 24044938 (3) Morbid obesity ICD Codes: E66.01 - Morbid (severe) obesity due to excess calories SNOMED: 941241439 (4) Diabetes mellitus ICD Codes: E11.9 - Type 2 diabetes mellitus without complications SNOMED: 32022421 (5) PVD (peripheral vascular disease) ICD Codes: I73.9 - Peripheral vascular disease, unspecified SNOMED: 367131285 Assessment/Plan: increase Levemir to 50 units qhs increase Novolog to 16 units ac tid continue NISS ac / hs continue Starlix 120 mg ac tid Subjective Allergies: Coded Allergies: LATEX (Verified Allergy, Unknown, 06/28/18) All Systems: reviewed and negative except above Subjective events noted glucose still elevated despite increased insulin dosage she is off IVSM - on Prednisone 40 mg daily Item Value Date Time Bedside Blood Glucose 297 mg/dl H 10/11/18 0633 Bedside Blood Glucose 382 mg/dl H 10/10/18 2100 Bedside Blood Glucose 247 mg/dl H 10/10/18 1711 Bedside Blood Glucose 184 mg/dl H 10/10/18 1205 Objective Last 24 Hour Vital Signs Date Time Temp Pulse Resp B/P (MAP) Pulse Ox O2 Delivery O2 Flow Rate FiO2 10/11/18 05:11 86 12 99 Facial 28 10/11/18 02:31 79 12 98 Facial 28 10/11/18 01:48 Bi-Pap 28 10/11/18 01:47 Bi-Pap 28 10/11/18 01:20 84 14 99 Facial 28 10/11/18 00:00 98.7 90 19 101/59 (73) 98 10/10/18 23:12 86 14 98 Facial 28 10/10/18 23:07 86 14 98 Bi-Pap 28 10/10/18 21:00 Nasal Cannula 2.0 10/10/18 20:00 99.1 102 19 125/53 (77) 96 10/10/18 19:05 Room Air 21 10/10/18 19:04 97 Room Air 21 10/10/18 19:04 Room Air 21 10/10/18 16:00 98.4 102 20 111/68 (82) 99 10/10/18 13:29 78 18 100 Room Air 21 10/10/18 13:15 68 18 97 Room Air 21 10/10/18 12:00 98.2 86 20 114/76 (89) 95 10/10/18 09:00 Nasal Cannula 2.0 10/10/18 08:00 98.3 94 20 114/61 (78) 95 Intake and Output 10/10/18 10/11/18 19:00 07:00 Intake Total 960 ml Output Total 200 ml Balance 760 ml Intake Oral 960 ml Output Urine Total 200 ml # Voids 6 # Bowel Movements 1 Laboratory Tests 10/10/18 09:00: White Blood Count 8.6, Red Blood Count 3.67L, Hemoglobin 9.9L, Hematocrit 33.1L , Mean Corpuscular Volume 90, Mean Corpuscular Hemoglobin 27.0, Mean Corpuscular Hemoglobin Concent 30.0L, Red Cell Distribution Width 16.6H, Platelet Count 165, Mean Platelet Volume 7.7, Neutrophils (%) (Auto) 61.7, Lymphocytes (%) (Auto) 28.7, Monocytes (%) (Auto) 5.6, Eosinophils (%) (Auto) 3.3H, Basophils (%) (Auto) 0.7, Sodium Level 138, Potassium Level 4.4, Chloride Level 99, Carbon Dioxide Level 28, Anion Gap 11, Blood Urea Nitrogen 74H, Creatinine 6.8H, Estimat Glomerular Filtration Rate 7.8, Glucose Level 244H, Calcium Level 9.0, Phosphorus Level 6.4H, Total Bilirubin 0.3, Aspartate Amino Transf (AST/SGOT) 7L, Alanine Aminotransferase (ALT/SGPT) 7L, Alkaline Phosphatase 140H, Total Protein 7.3, Albumin 3.4, Globulin 3.9, Albumin/ Globulin Ratio 0.9L Height (Feet): 5 Height (Inches): 5.00 Weight (Pounds): 304 General Appearance: no apparent distress Neck: normal alignment Cardiovascular: normal rate Respiratory/Chest: expiratory wheezing Abdomen: normal bowel sounds Pelvis: normal external exam Extremities: other - BKA Objective Current Medications Medications (Trade) Dose Ordered Sig/Alex Route PRN Reason Start Time Stop Time Status Last Admin Dose Admin Acetaminophen (Tylenol) 650 mg Q4H PRN ORAL Mild Pain/Temp > 100.5 10/06/18 13:00 11/05/18 12:59 Acetaminophen/ Hydrocodone Bitart ([place] 10/325) 1 tab Q6H PRN ORAL For Pain 10/06/18 13:00 10/13/18 12:59 10/11/18 06:36 Apixaban (Eliquis) 2.5 mg BID ORAL 10/06/18 18:00 11/05/18 17:59 10/10/18 17:06 Atorvastatin Calcium (Lipitor) 10 mg BEDTIME ORAL 10/06/18 21:00 11/05/18 20:59 10/10/18 20:35 Cefepime HCl 2 gm/ Dextrose 55 ml @ 110 mls/hr 3XW IVPB 10/11/18 09:00 10/18/18 08:59 UNV Dextrose (Dextrose 50%) 25 ml Q30M PRN IV Hypoglycemia 10/06/18 15:15 11/05/18 15:14 Dextrose (Dextrose 50%) 50 ml Q30M PRN IV Hypoglycemia 10/06/18 15:15 11/05/18 15:14 Diphenhydramine HCl (Benadryl) 25 mg DAILYPRN PRN IVP Itching/Pruritis 10/07/18 15:00 11/06/18 14:59 10/07/18 17:00 Docusate Sodium (Colace) 100 mg THREE TIMES A DAY ORAL 10/06/18 13:20 11/05/18 13:19 10/10/18 17:06 Fluticasone Propionate (Flonase) 1 spray Q8H PRN NASAL NASAL CONGESTION 10/06/18 13:00 11/05/18 12:59 Gabapentin (Neurontin) 300 mg THREE TIMES A DAY ORAL 10/06/18 13:20 11/05/18 13:19 10/10/18 17:06 Guaifenesin (Robitussin) 200 mg Q4H PRN ORAL For Cough 10/08/18 17:30 11/07/18 17:29 Insulin Aspart (NovoLOG) BEFORE MEALS AND HS SUBQ 10/06/18 16:30 11/05/18 16:29 10/11/18 06:03 Insulin Aspart (NovoLOG) 12 units BEFORE MEALS SUBQ 10/09/18 06:30 11/06/18 16:49 10/11/18 06:02 Insulin Detemir (Levemir) 40 units BEDTIME SUBQ 10/08/18 21:00 11/05/18 20:59 10/10/18 20:34 Ipratropium [place] (Atrovent) 500 mcg Q4H PRN HHN Shortness of Breath 10/06/18 12:30 10/11/18 12:29 10/10/18 23:06 Ipratropium [place] (Atrovent) 500 mcg Q6HRT HHN 10/06/18 13:00 10/11/18 12:59 10/10/18 13:41 Lactulose (Cephulac) 45 gm Q12H PRN ORAL CONSTIPATION 10/06/18 13:30 11/05/18 12:59 Levalbuterol HCl (Xopenex) 0.63 mg Q4H PRN HHN /wheezing 10/06/18 12:30 10/11/18 12:29 10/10/18 23:07 Levalbuterol HCl (Xopenex) 0.63 mg Q6HRT HHN 10/06/18 13:00 10/11/18 12:59 10/10/18 13:41 Lidocaine (Lidoderm 5% PATCH) 1 patch DAILYPRN PRN TDERMAL BACK PAIN 10/06/18 13:00 11/05/18 12:59 Loratadine (Claritin 10mg) 10 mg DAILY ORAL 10/07/18 09:00 11/06/18 08:59 10/10/18 08:06 Nateglinide (Starlix) 120 mg TIAC ORAL 10/06/18 16:30 11/05/18 16:29 10/11/18 06:01 Pantoprazole (Protonix) 40 mg DAILY ORAL 10/07/18 09:00 11/06/18 08:59 10/10/18 08:07 Prednisone (PredniSONE) 40 mg DAILY ORAL 10/10/18 09:00 11/09/18 08:59 10/10/18 08:06 Pregabalin (Lyrica) 75 mg BID ORAL 10/06/18 18:00 11/05/18 17:59 10/10/18 17:07 Sennosides (Senokot) 8.6 mg BIDPRN PRN ORAL Constipation 10/06/18 13:00 11/05/18 12:59 Sevelamer Carbonate (Renvela) 2,400 mg THREE TIMES A DAY ORAL 10/10/18 13:00 11/05/18 13:21 10/10/18 17:06 Vancomycin HCl (Vanco rx to dose) 1 ea DAILY PRN MISC Per rx protocol 10/06/18 14:15 11/05/18 14:14 Vancomycin HCl 1 gm/Dextrose 275 ml @ 183.708 mls/hr ONCE ONCE IVPB 10/09/18 18:15 10/09/18 19:44 UNV Vitamin B Complex/ Vit C/Folic Acid (Nephrovite) 1 tab DAILY ORAL 10/07/18 09:00 11/06/18 08:59 10/10/18 08:07 Zinc Sulfate (Zinc Sulfate) 220 mg DAILY ORAL 10/07/18 09:00 11/06/18 08:59 10/10/18 08:07 Todd Roman MD Oct 11, 2018 06:59
--- NOTE | 2018-10-11 07:36 | NUR ---
HAND-OFF: Report given to PINKY Lane
--- NOTE | 2018-10-11 07:37 | NUR ---
NURSE NOTES: Patient alert x4, on nasal cannula 2Liter, no sign of distress and shortness of breath; NO IV access; dialysis shunt on Left-Upper Arm; patient scheduled for dialysis today, I called to [facility] [phone] and spoke to Georgina Erickson said the dialysis nurse will call to confirm the schedule, patient is aware; bed at lowest position, side rails up x2, breaks engaged; call light within reach; will check blood sugar as scheduled; will keep monitoring.
[2018-10-11 08:00] VITALS: BP 109/64
--- NOTE | 2018-10-11 08:10 | Hematology/Onc Progress Note ---
Assessment/Plan Assessment/Plan LATE ENTRY 10/10/2018 # Thrombocytopenia - potential causes multifactorial, evaluate liver and viral etiologies to begin, also could be related to underlying medications patient has received. --> Hep panel and HIV ordered --> US abd to evaluate for cirrhosis and hsm ordered --> Peripheral smear ordered to evaluate for blasts /schistocytes --> abx and other meds have been reviewed --> ok for ppx if plt >50k w/ either heparin or lovenox --> Traend 129k-->145k # Anemia of chronic disease due to underlying chronic medical issues, multifactorial -- noted with HD --> Anemia workup has been ordered, rule out gi bleed --> No evidence of hemolysis is noted, peripheral smear has been reviewed. --> Hgb goal >7. Transfuse prn. --> Epogen 3X a week SQ as needed --> Medications have been reviewed --> low threshold for gi evaluation in case has occult + --> trend hgb 9.8-->9.6 # DVT of the lower extremity --> given anemia that is not acute, okay to continue anticoag --> on eliquis at this time # ESRD. Nephro is following, appreciate recs. # SIRS. --> per ID recs # UTI. # AFib. On anticoagulation eliquis # Severe peripheral vascular disease, status post amputation of the extremities and toes. # Hypertension. # Diabetes type 2. The time this note is entered does not reflect the time the patient was examined. I greatly appreciate the consultation. 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 Objective Objective Current Medications Medications (Trade) Dose Ordered Sig/Alex Route PRN Reason Start Time Stop Time Status Last Admin Dose Admin Acetaminophen (Tylenol) 650 mg Q4H PRN ORAL Mild Pain/Temp > 100.5 10/06/18 13:00 11/05/18 12:59 Acetaminophen/ Hydrocodone Bitart ([place] 10/325) 1 tab Q6H PRN ORAL For Pain 10/06/18 13:00 10/13/18 12:59 10/11/18 06:36 Apixaban (Eliquis) 2.5 mg BID ORAL 10/06/18 18:00 11/05/18 17:59 10/10/18 17:06 Atorvastatin Calcium (Lipitor) 10 mg BEDTIME ORAL 10/06/18 21:00 11/05/18 20:59 10/10/18 20:35 Cefepime HCl 2 gm/ Dextrose 55 ml @ 110 mls/hr 3XW IVPB 10/11/18 09:00 10/18/18 08:59 UNV Dextrose (Dextrose 50%) 25 ml Q30M PRN IV Hypoglycemia 10/06/18 15:15 11/05/18 15:14 Dextrose (Dextrose 50%) 25 ml Q30M PRN IV Hypoglycemia 10/11/18 07:15 11/10/18 07:14 Dextrose (Dextrose 50%) 50 ml Q30M PRN IV Hypoglycemia 10/06/18 15:15 11/05/18 15:14 Dextrose (Dextrose 50%) 50 ml Q30M PRN IV Hypoglycemia 10/11/18 07:15 11/10/18 07:14 Diphenhydramine HCl (Benadryl) 25 mg DAILYPRN PRN IVP Itching/Pruritis 10/07/18 15:00 11/06/18 14:59 10/07/18 17:00 Docusate Sodium (Colace) 100 mg THREE TIMES A DAY ORAL 10/06/18 13:20 11/05/18 13:19 10/10/18 17:06 Fluticasone Propionate (Flonase) 1 spray Q8H PRN NASAL NASAL CONGESTION 10/06/18 13:00 11/05/18 12:59 Gabapentin (Neurontin) 300 mg THREE TIMES A DAY ORAL 10/06/18 13:20 11/05/18 13:19 10/10/18 17:06 Guaifenesin (Robitussin) 200 mg Q4H PRN ORAL For Cough 10/08/18 17:30 11/07/18 17:29 Insulin Aspart (NovoLOG) BEFORE MEALS AND HS SUBQ 10/11/18 11:30 11/10/18 11:29 Insulin Aspart (NovoLOG) 16 units BEFORE MEALS SUBQ 10/11/18 11:30 11/06/18 16:49 Insulin Detemir (Levemir) 50 units BEDTIME SUBQ 10/11/18 21:00 11/05/18 20:59 Ipratropium [place] (Atrovent) 500 mcg Q4H PRN HHN Shortness of Breath 10/06/18 12:30 10/11/18 12:29 10/10/18 23:06 Ipratropium [place] (Atrovent) 500 mcg Q6HRT HHN 10/06/18 13:00 10/11/18 12:59 10/11/18 07:10 Lactulose (Cephulac) 45 gm Q12H PRN ORAL CONSTIPATION 10/06/18 13:30 11/05/18 12:59 Levalbuterol HCl (Xopenex) 0.63 mg Q4H PRN HHN SOB/wheezing 10/06/18 12:30 10/11/18 12:29 10/10/18 23:07 Levalbuterol HCl (Xopenex) 0.63 mg Q6HRT HHN 10/06/18 13:00 10/11/18 12:59 10/11/18 07:10 Lidocaine (Lidoderm 5% PATCH) 1 patch DAILYPRN PRN TDERMAL BACK PAIN 10/06/18 13:00 11/05/18 12:59 Loratadine (Claritin 10mg) 10 mg DAILY ORAL 10/07/18 09:00 11/06/18 08:59 10/10/18 08:06 Nateglinide (Starlix) 120 mg TIAC ORAL 10/06/18 16:30 11/05/18 16:29 10/11/18 06:01 Pantoprazole (Protonix) 40 mg DAILY ORAL 10/07/18 09:00 11/06/18 08:59 10/10/18 08:07 Prednisone (PredniSONE) 40 mg DAILY ORAL 10/10/18 09:00 11/09/18 08:59 10/10/18 08:06 Pregabalin (Lyrica) 75 mg BID ORAL 10/06/18 18:00 11/05/18 17:59 10/10/18 17:07 Sennosides (Senokot) 8.6 mg BIDPRN PRN ORAL Constipation 10/06/18 13:00 11/05/18 12:59 Sevelamer Carbonate (Renvela) 2,400 mg THREE TIMES A DAY ORAL 10/10/18 13:00 11/05/18 13:21 10/10/18 17:06 Vancomycin HCl (Vanco rx to dose) 1 ea DAILY PRN MISC Per rx protocol 10/06/18 14:15 11/05/18 14:14 Vancomycin HCl 1 gm/Dextrose 275 ml @ 183.708 mls/hr ONCE ONCE IVPB 10/09/18 18:15 10/09/18 19:44 UNV Vitamin B Complex/ Vit C/Folic Acid (Nephrovite) 1 tab DAILY ORAL 10/07/18 09:00 11/06/18 08:59 10/10/18 08:07 Zinc Sulfate (Zinc Sulfate) 220 mg DAILY ORAL 10/07/18 09:00 11/06/18 08:59 10/10/18 08:07 Last 24 Hour Vital Signs Date Time Temp Pulse Resp B/P (MAP) Pulse Ox O2 Delivery O2 Flow Rate FiO2 10/11/18 07:18 86 18 99 Room Air 10/11/18 07:13 99 Room Air 10/11/18 07:10 83 18 99 Room Air 10/11/18 05:11 86 12 99 Facial 28 10/11/18 02:31 79 12 98 Facial 28 10/11/18 01:48 Bi-Pap 28 10/11/18 01:47 Bi-Pap 28 10/11/18 01:20 84 14 99 Facial 28 10/11/18 00:00 98.7 90 19 101/59 (73) 98 10/10/18 23:12 86 14 98 Facial 28 10/10/18 23:07 86 14 98 Bi-Pap 28 10/10/18 21:00 Nasal Cannula 2.0 10/10/18 20:00 99.1 102 19 125/53 (77) 96 10/10/18 19:05 Room Air 10/10/18 19:04 97 Room Air 10/10/18 19:04 Room Air 10/10/18 16:00 98.4 102 20 111/68 (82) 99 10/10/18 13:29 78 18 100 Room Air 10/10/18 13:15 68 18 97 Room Air 10/10/18 12:00 98.2 86 20 114/76 (89) 95 10/10/18 09:00 Nasal Cannula 2.0 10/10/18 08:00 98.3 94 20 114/61 (78) 95 10/10/18 06:49 88 20 99 Room Air 21 10/10/18 06:35 80 20 98 Room Air 21 10/10/18 06:35 98 Room Air 10/10/18 05:34 82 14 98 Facial 28 10/10/18 03:21 80 15 98 Facial 28 10/10/18 00:27 84 13 98 Bi-Pap 28 10/10/18 00:17 84 18 97 Bi-Pap 28 10/10/18 00:15 84 18 96 Facial 28 10/10/18 00:00 98.7 84 19 105/53 (70) 97 10/09/18 21:00 Nasal Cannula 2.0 10/09/18 20:00 97.9 89 19 97/51 (66) 97 10/09/18 19:49 81 18 97 Nasal Cannula 2.0 28 10/09/18 19:31 84 20 99 Nasal Cannula 2.0 28 10/09/18 19:31 99 Nasal Cannula 2.0 28 10/09/18 16:00 98.8 89 19 97/39 (58) 100 10/09/18 13:02 Nasal Cannula 2.0 28 10/09/18 13:02 Nasal Cannula 2.0 28 10/09/18 12:00 97.4 80 19 107/43 (64) 98 10/09/18 09:00 Nasal Cannula 2.0 Intake and Output 10/10/18 10/11/18 18:59 06:59 Intake Total 960 ml 2880 ml Output Total 200 ml 6600 ml Balance 760 ml -3720 ml Intake Oral 960 ml 480 ml Other 2400 ml Output Urine Total 200 ml 600 ml Hemodialysis UF 6000 ml # Voids 6 2 # Bowel Movements 1 1 Labs Test 10/08/18 08:20 10/09/18 09:30 10/10/18 09:00 Sodium Level 136 MMOL/L (136-145) 138 MMOL/L (136-145) Potassium Level 4.5 MMOL/L (3.5-5.1) 4.4 MMOL/L (3.5-5.1) Chloride Level 97 MMOL/L (98-107) 99 MMOL/L (98-107) Carbon Dioxide Level 29 MMOL/L (21-32) 28 MMOL/L (21-32) Anion Gap 10 mmol/L (5-15) 11 mmol/L (5-15) Blood Urea Nitrogen 70 mg/dL (7-18) 74 mg/dL (7-18) Creatinine 6.5 MG/DL (0.55-1.30) 6.8 MG/DL (0.55-1.30) Estimat Glomerular Filtration Rate 8.1 mL/min (>60) 7.8 mL/min (>60) Glucose Level 330 MG/DL (74-106) 244 MG/DL (74-106) Calcium Level 8.5 MG/DL (8.5-10.1) 9.0 MG/DL (8.5-10.1) Phosphorus Level 5.9 MG/DL (2.5-4.9) 6.4 MG/DL (2.5-4.9) Total Bilirubin 0.3 MG/DL (0.2-1.0) 0.3 MG/DL (0.2-1.0) Aspartate Amino Transf (AST/SGOT) 13 U/L (15-37) 7 U/L (15-37) Alanine Aminotransferase (ALT/SGPT) 12 U/L (12-78) 7 U/L (12-78) Alkaline Phosphatase 140 U/L (46-116) 140 U/L (46-116) Total Protein 7.6 G/DL (6.4-8.2) 7.3 G/DL (6.4-8.2) Albumin 3.5 G/DL (3.4-5.0) 3.4 G/DL (3.4-5.0) Globulin 4.1 g/dL 3.9 g/dL Albumin/Globulin Ratio 0.9 (1.0-2.7) 0.9 (1.0-2.7) Random Vancomycin Level 20.7 ug/mL White Blood Count 8.6 K/UL (4.8-10.8) Red Blood Count 3.67 M/UL (4.20-5.40) Hemoglobin 9.9 G/DL (12.0-16.0) Hematocrit 33.1 % (37.0-47.0) Mean Corpuscular Volume 90 FL (80-99) Mean Corpuscular Hemoglobin 27.0 PG (27.0-31.0) Mean Corpuscular Hemoglobin Concent 30.0 G/DL (32.0-36.0) Red Cell Distribution Width 16.6 % (11.6-14.8) Platelet Count 165 K/UL (150-450) Mean Platelet Volume 7.7 FL (6.5-10.1) Neutrophils (%) (Auto) 61.7 % (45.0-75.0) Lymphocytes (%) (Auto) 28.7 % (20.0-45.0) Monocytes (%) (Auto) 5.6 % (1.0-10.0) Eosinophils (%) (Auto) 3.3 % (0.0-3.0) Basophils (%) (Auto) 0.7 % (0.0-2.0) Height (Feet): 5 Height (Inches): 5.00 Weight (Pounds): 304 Objective Objective PHYSICAL EXAMINATION: VITAL SIGNS: Have been reviewed HEAD AND NECK: Atraumatic and normocephalic. CHEST: Clear to auscultation. HEART: S1 and S2. Regular rate and rhythm. ABDOMEN: Soft. No organomegaly. MUSCULOSKELETAL: Positive for the right AKA, left-sided amputation of toe. NEUROLOGY: The patient is awake, alert, and oriented x3. Lina Shah NP Oct 11, 2018 08:10
[2018-10-11] MEDS: Lyrica 75mg cap ORAL SCH ×2 (08:16→17:03)
[2018-10-11] MEDS: Zinc Sulfate 220mg cap ORAL SCH (08:16)
[2018-10-11] MEDS: Docusate 100mg cap ORAL SCH ×3 (08:16→17:02)
[2018-10-11] MEDS: Eliquis 2.5mg tablet ORAL SCH ×2 (08:17→17:03)
[2018-10-11] MEDS: Nephrovite tab (Rena-Vite) ORAL SCH (08:18)
[2018-10-11] MEDS ORDERED: Vancomycin 1 GM in D5W 275 ML IVPB ONE (09:00)
[2018-10-11 12:00] VITALS: BP 155/65
[2018-10-11] MEDS ORDERED: Levalbuterol Inh UD 1.25mg/0.5ml HHN SCH (15:30)
[2018-10-11 16:00] VITALS: BP 134/63
--- NOTE | 2018-10-11 16:10 | Surgery Progress Note ---
Surgery Progress Note Subjective Symptoms: improved, pain decreased Objective Last 24 Hour Vital Signs Date Time Temp Pulse Resp B/P (MAP) Pulse Ox O2 Delivery O2 Flow Rate FiO2 10/11/18 13:26 Room Air 10/11/18 13:26 Room Air 10/11/18 12:00 98.5 87 18 155/65 (95) 95 10/11/18 09:00 Nasal Cannula 2.0 10/11/18 08:46 98.7 10/11/18 08:00 98.8 98 19 109/64 (79) 95 10/11/18 07:18 86 18 99 Room Air 21 10/11/18 07:13 99 Room Air 21 10/11/18 07:10 83 18 99 Room Air 21 10/11/18 05:11 86 12 99 Facial 28 10/11/18 02:31 79 12 98 Facial 28 10/11/18 01:48 Bi-Pap 28 10/11/18 01:47 Bi-Pap 28 10/11/18 01:20 84 14 99 Facial 28 10/11/18 00:00 98.7 90 19 101/59 (73) 98 10/10/18 23:12 86 14 98 Facial 28 10/10/18 23:07 86 14 98 Bi-Pap 28 10/10/18 21:00 Nasal Cannula 2.0 10/10/18 20:00 99.1 102 19 125/53 (77) 96 10/10/18 19:05 Room Air 21 10/10/18 19:04 97 Room Air 21 10/10/18 19:04 Room Air 21 I&O Intake and Output 10/10/18 10/11/18 18:59 06:59 Intake Total 960 ml 2880 ml Output Total 200 ml 6600 ml Balance 760 ml -3720 ml Intake Oral 960 ml 480 ml Other 2400 ml Output Urine Total 200 ml 600 ml Hemodialysis UF 6000 ml # Voids 6 2 # Bowel Movements 1 1 Dressing: dry Wound: other Drains: other Cardiovascular: RSR Respiratory: clear Abdomen: soft, present bowel sounds, non-distended Extremities: tenderness, cyanosis Plan Problems: (1) Cellulitis Assessment & Plan: Morbidly obese female whom presented on admission with necrotic 3rd digit of L hand. 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 Hx of TMA L st metatarsal.Necrotic area noted to dorsal aspect of L TMA.Small amt sanguineous exudate noted. No odor noted .Periwound without erythema or edema. L heel is dry ,firm and blanchable. 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 No evidence of skin breakdown to sacrum. Pt demonstrated good mobility repositioning self in bed. Educated on wound prevention and encouraged to frequently turn and to off-lift buttocks when repositioning to prevent friction to skin. Tx.Plan: Swab 3rd digit of L hand with Betadine daily . May cover with Optifoam s needed. Swab L 1st TMA with Betadine. Cover with Gauze and wrap loosely with Kerlix Daily and prn. Off-load L heel with pillow. Encourage and assist as needed with repositioning at least every 2hours or as tolerated. f/u with plastic and podiatry as outpatient for revision (2) Bronchitis (3) Cough productive of yellow sputum (4) UTI (urinary tract infection) (5) Bronchitis, acute, with bronchospasm (6) ESRD (end stage renal disease) on dialysis (7) Morbid obesity (8) Anemia in chronic kidney disease (CKD) (9) PVD (peripheral vascular disease) Assessment & Plan: known PVD multiple studies done prior right LE amputation stable. flap viable without wound left foot with great toe amp cont with current care plan Melvin Santana Oct 11, 2018 16:09
[2018-10-11] MEDS ORDERED: Levalbuterol Inh UD 1.25mg/0.5ml HHN PRN ×2 (16:15→17:30)
--- NOTE | 2018-10-11 17:23 | NUR ---
CASE MANAGEMENT: REVIEW SI: ESRD . ASTHMA . BRONCHITIS T 98.9 HR 87 RR 18 BP 155/65 SAT 95% 2L/NC IS: ATROVENT HHN Q6HR XOPENEX HHN Q6HR PRN CEFEPIME 3X/WEEK PREDNISONE 40MG PO QD SEVELAMER PO TID MED/SURG STATUS DCP: PATIENT IS FROM [facility]
[2018-10-11] MEDS ORDERED: Ipratropium 0.02% Inh Soln 2.5ml UD HHN PRN (17:30)
--- NOTE | 2018-10-11 17:30 | NUR ---
CASE MANAGEMENT: DCPNOTE PER MD ORDER PATIENT REFERRED BACK TO [facility] [phone] PH / FAX [phone] PER AUXENCIA PATIENT IS ASSIGNED TO ROOM [address] [facility] [phone] IS IN AGREEMENT WITH PATIENT TRANSFERRING BACK TO THIS [facility] TRANSPORTATION [facility]IA [facility] [id number] / BARIATRIC TRANSPORTATION ON WILL CALL S/W SHAQDO PATIENT RECEIVING DIALYSIS TODAY
--- NOTE | 2018-10-11 18:15 | Pulmonology Progress Note ---
Assessment/Plan Assessment/Plan Pulmonary Progress Note Problems: (1) Morbid obesity (2) ESRD (end stage renal disease) on dialysis (3) Bronchitis, acute, with bronchospasm (4) UTI (urinary tract infection) (5) Cough productive of yellow sputum (6) Bronchitis (7) PVD (peripheral vascular disease) (8) Anemia in chronic kidney disease (CKD) Assessment/Plan ASSESSMENT: The patient is a 53-year-old female with a history of obesity, questionable history of asthma, end-stage renal disease on dialysis, diabetes, hypertension, peripheral vascular disease, BKA and finger amputations, presenting with shortness of breath and cough likely secondary to URI/bronchitis with an exacerbation of her asthma. Less SOB PROBLEM LIST: 1. URI/bronchitis. 2. Asthma with acute exacerbation. 3. Urinary tract infection. 4. Morbid obesity. 5. End-stage renal disease, on dialysis. 6. Diabetes. 7. Hypertension. 8. Peripheral vascular disease, status post right BKA and finger amputations. 9. Neuropathy. 10. Anemia. 11. Thrombocytopenia. 12. Prior stated history of DVT. 13. SANDOVAL, likely OHS TREATMENT PLAN: 1. Optimize pulmonary hygiene/mobilize as tolerated. 2. CPAP 12 cm qHS 3. P.r.n. O2 to keep saturations greater than 90%. 4. [id number] and p.r.n. Atrovent and Xopenex hand-held nebulizers (the patient states she has palpitations with albuterol). 5. Abx per ID 6. Follow up Cx's 7. Monitor volumes and renal function. 8. Diabetic diet. 9. Continue Eliquis for prior DVT. 10. Weight loss diet and exercise have to be addressed. 11. The patient should have full PFTs and a sleep study as an outpatient. Subjective Allergies: Coded Allergies: LATEX (Verified Allergy, Unknown, 06/28/18) Subjective AFVSS O2 needs stable Less cough and congestion some wheezing no FC Objective Vital Signs Noted General Appearance: WD/WN, no acute distress, other - ob F HEENT: normocephalic, atraumatic, anicteric, mucous membranes moist Respiratory/Chest: rhonchi Cardiovascular: normal peripheral pulses, normal rate, regular rhythm Abdomen: normal bowel sounds, soft, non tender, no organomegaly, non distended , no mass Extremities: no cyanosis, no clubbing, other - BKA Microbiology Date/Time Source Procedure Growth Status 10/06/18 10:00 Blood Blood Culture - Preliminary NO GROWTH AFTER 24 HOURS Resulted 10/06/18 09:55 Blood Blood Culture - Preliminary NO GROWTH AFTER 24 HOURS Resulted 10/07/18 00:45 Sputum Induced Gram Stain - Final Resulted 10/07/18 00:45 Sputum Induced Sputum Culture Pending Resulted 10/06/18 10:20 Urine,Clean Catch Urine Culture - Preliminary NO GROWTH AFTER 24 HOURS Resulted 10/06/18 10:10 Rectum - Final NO CARBAPENEM-RESISTANT ENTEROBACTERI... Complete 10/06/18 10:10 Rectal Mucosa VRE Culture - Final Enterococcus Faecalis - Vre Complete Laboratory Tests 10/08/18 08:20: Sodium Level 136, Potassium Level 4.5, Chloride Level 97L, Carbon Dioxide Level 29, Anion Gap 10, Blood Urea Nitrogen 70H, Creatinine 6.5H, Estimat Glomerular Filtration Rate 8.1, Glucose Level 330H, Calcium Level 8.5, Phosphorus Level 5.9H, Total Bilirubin 0.3, Aspartate Amino Transf (AST/SGOT) 13L, Alanine Aminotransferase (ALT/SGPT) 12, Alkaline Phosphatase 140H, Total Protein 7.6, Albumin 3.5, Globulin 4.1, Albumin/Globulin Ratio 0.9L Current Medications Medications (Trade) Dose Ordered Sig/Laex Route PRN Reason Start Time Stop Time Status Last Admin Dose Admin Acetaminophen (Tylenol) 650 mg Q4H PRN ORAL Mild Pain/Temp > 100.5 10/06/18 13:00 11/05/18 12:59 Acetaminophen/ Hydrocodone Bitart ([place] 10/325) 1 tab Q6H PRN ORAL For Pain 10/06/18 13:00 10/13/18 12:59 10/08/18 11:34 Apixaban (Eliquis) 2.5 mg BID ORAL 10/06/18 18:00 11/05/18 17:59 10/08/18 09:08 Atorvastatin Calcium (Lipitor) 10 mg BEDTIME ORAL 10/06/18 21:00 11/05/18 20:59 10/07/18 20:04 Cefepime HCl 0.5 gm/Dextrose 55 ml @ 110 mls/hr Q24H IVPB 10/08/18 16:00 10/15/18 15:59 Dextrose (Dextrose 50%) 25 ml Q30M PRN IV Hypoglycemia 10/06/18 15:15 11/05/18 15:14 Dextrose (Dextrose 50%) 50 ml Q30M PRN IV Hypoglycemia 10/06/18 15:15 11/05/18 15:14 Diphenhydramine HCl (Benadryl) 25 mg DAILYPRN PRN IVP Itching/Pruritis 10/07/18 15:00 11/06/18 14:59 10/07/18 17:00 Docusate Sodium (Colace) 100 mg THREE TIMES A DAY ORAL 10/06/18 13:20 11/05/18 13:19 10/08/18 09:09 Fluticasone Propionate (Flonase) 1 spray Q8H PRN NASAL NASAL CONGESTION 10/06/18 13:00 11/05/18 12:59 Gabapentin (Neurontin) 300 mg THREE TIMES A DAY ORAL 10/06/18 13:20 11/05/18 13:19 10/08/18 09:09 Insulin Aspart (NovoLOG) BEFORE MEALS AND HS SUBQ 10/06/18 16:30 11/05/18 16:29 10/08/18 05:55 Insulin Aspart (NovoLOG) 5 units BEFORE MEALS SUBQ 10/07/18 16:30 11/06/18 16:49 10/08/18 05:57 Insulin Detemir (Levemir) 30 units BEDTIME SUBQ 10/06/18 21:00 11/05/18 20:59 10/07/18 20:13 Ipratropium [place] (Atrovent) 500 mcg Q4H PRN HHN Shortness of Breath 10/06/18 12:30 10/11/18 12:29 Ipratropium [place] (Atrovent) 500 mcg Q6HRT HHN 10/06/18 13:00 10/11/18 12:59 10/08/18 06:33 Lactulose (Cephulac) 45 gm Q12H PRN ORAL CONSTIPATION 10/06/18 13:30 11/05/18 12:59 Levalbuterol HCl (Xopenex) 0.63 mg Q4H PRN HHN SOB/wheezing 10/06/18 12:30 10/11/18 12:29 Levalbuterol HCl (Xopenex) 0.63 mg Q6HRT HHN 10/06/18 13:00 10/11/18 12:59 10/08/18 06:33 Levofloxacin 50 ml @ 50 mls/hr Q48H IVPB 10/06/18 20:00 10/13/18 19:59 10/06/18 20:15 Lidocaine (Lidoderm 5% PATCH) 1 patch DAILYPRN PRN TDERMAL BACK PAIN 10/06/18 13:00 11/05/18 12:59 Loratadine (Claritin 10mg) 10 mg DAILY ORAL 10/07/18 09:00 11/06/18 08:59 10/08/18 09:09 Methylprednisolone Sodium Succinate (Solu-MEDROL) 40 mg EVERY 12 HOURS IVP 10/06/18 21:00 11/05/18 20:59 10/08/18 09:08 Nateglinide (Starlix) 120 mg TIAC ORAL 10/06/18 16:30 11/05/18 16:29 10/08/18 11:32 Pantoprazole (Protonix) 40 mg DAILY ORAL 10/07/18 09:00 11/06/18 08:59 10/08/18 09:09 Pregabalin (Lyrica) 75 mg BID ORAL 10/06/18 18:00 11/05/18 17:59 10/08/18 09:11 Sennosides (Senokot) 8.6 mg BIDPRN PRN ORAL Constipation 10/06/18 13:00 11/05/18 12:59 Sevelamer Carbonate (Renvela) 1,600 mg THREE TIMES A DAY ORAL 10/07/18 13:00 11/05/18 13:21 10/08/18 09:09 Vancomycin HCl (Vanco rx to dose) 1 ea DAILY PRN MISC Per rx protocol 10/06/18 14:15 11/05/18 14:14 Vitamin B Complex/ Vit C/Folic Acid (Nephrovite) 1 tab DAILY ORAL 10/07/18 09:00 11/06/18 08:59 10/08/18 09:09 Zinc Sulfate (Zinc Sulfate) 220 mg DAILY ORAL 10/07/18 09:00 11/06/18 08:59 10/08/18 09:09 IMPRESSION: Suspected mild pulmonary vascular congestion Subjective ROS Limited/Unobtainable: No Allergies: Coded Allergies: LATEX (Verified Allergy, Unknown, 06/28/18) Objective Last 24 Hour Vital Signs Date Time Temp Pulse Resp B/P (MAP) Pulse Ox O2 Delivery O2 Flow Rate FiO2 10/11/18 17:33 98.9 10/11/18 16:00 98.9 86 18 134/63 (86) 96 10/11/18 13:26 Room Air 10/11/18 13:26 Room Air 10/11/18 12:00 98.5 87 18 155/65 (95) 95 10/11/18 09:00 Nasal Cannula 2.0 10/11/18 08:00 98.8 98 19 109/64 (79) 95 10/11/18 07:18 86 18 99 Room Air 21 10/11/18 07:13 99 Room Air 21 10/11/18 07:10 83 18 99 Room Air 21 10/11/18 05:11 86 12 99 Facial 28 10/11/18 02:31 79 12 98 Facial 28 10/11/18 01:48 Bi-Pap 28 10/11/18 01:47 Bi-Pap 28 10/11/18 01:20 84 14 99 Facial 28 10/11/18 00:00 98.7 90 19 101/59 (73) 98 10/10/18 23:12 86 14 98 Facial 28 10/10/18 23:07 86 14 98 Bi-Pap 28 10/10/18 21:00 Nasal Cannula 2.0 10/10/18 20:00 99.1 102 19 125/53 (77) 96 10/10/18 19:05 Room Air 21 10/10/18 19:04 97 Room Air 21 10/10/18 19:04 Room Air 21 Intake and Output 10/10/18 10/11/18 19:00 07:00 Intake Total 960 ml 2880 ml Output Total 200 ml 6600 ml Balance 760 ml -3720 ml Intake Oral 960 ml 480 ml Other 2400 ml Output Urine Total 200 ml 600 ml Hemodialysis UF 6000 ml # Voids 6 2 # Bowel Movements 1 1 Current Medications Medications (Trade) Dose Ordered Sig/Alex Route PRN Reason Start Time Stop Time Status Last Admin Dose Admin Acetaminophen (Tylenol) 650 mg Q4H PRN ORAL Mild Pain/Temp > 100.5 10/06/18 13:00 11/05/18 12:59 Acetaminophen/ Hydrocodone Bitart ([place] 10/325) 1 tab Q6H PRN ORAL For Pain 10/06/18 13:00 10/13/18 12:59 10/11/18 06:36 Apixaban (Eliquis) 2.5 mg BID ORAL 10/06/18 18:00 11/05/18 17:59 10/11/18 17:03 Atorvastatin Calcium (Lipitor) 10 mg BEDTIME ORAL 10/06/18 21:00 11/05/18 20:59 10/10/18 20:35 Cefepime HCl 2 gm/ Dextrose 55 ml @ 110 mls/hr 3XW IVPB 10/11/18 09:00 10/18/18 08:59 UNV Dextrose (Dextrose 50%) 25 ml Q30M PRN IV Hypoglycemia 10/06/18 15:15 11/05/18 15:14 Dextrose (Dextrose 50%) 25 ml Q30M PRN IV Hypoglycemia 10/11/18 07:15 11/10/18 07:14 Dextrose (Dextrose 50%) 50 ml Q30M PRN IV Hypoglycemia 10/06/18 15:15 11/05/18 15:14 Dextrose (Dextrose 50%) 50 ml Q30M PRN IV Hypoglycemia 10/11/18 07:15 11/10/18 07:14 Diphenhydramine HCl (Benadryl) 25 mg DAILYPRN PRN IVP Itching/Pruritis 10/07/18 15:00 11/06/18 14:59 10/07/18 17:00 Docusate Sodium (Colace) 100 mg THREE TIMES A DAY ORAL 10/06/18 13:20 11/05/18 13:19 10/11/18 17:02 Fluticasone Propionate (Flonase) 1 spray Q8H PRN NASAL NASAL CONGESTION 10/06/18 13:00 11/05/18 12:59 Gabapentin (Neurontin) 300 mg THREE TIMES A DAY ORAL 10/06/18 13:20 11/05/18 13:19 10/11/18 17:03 Guaifenesin (Robitussin) 200 mg Q4H PRN ORAL For Cough 10/08/18 17:30 11/07/18 17:29 Insulin Aspart (NovoLOG) BEFORE MEALS AND HS SUBQ 10/11/18 11:30 11/10/18 11:29 10/11/18 17:05 Insulin Aspart (NovoLOG) 16 units BEFORE MEALS SUBQ 10/11/18 11:30 11/06/18 16:49 10/11/18 17:06 Insulin Detemir (Levemir) 50 units BEDTIME SUBQ 10/11/18 21:00 11/05/18 20:59 Ipratropium [place] (Atrovent) 500 mcg Q6HRT HHN 10/11/18 19:00 10/16/18 18:59 Ipratropium [place] (Atrovent) 500 mcg Q6HRT PRN HHN Shortness of Breath 10/11/18 17:30 10/16/18 17:29 UNV Lactulose (Cephulac) 45 gm Q12H PRN ORAL CONSTIPATION 10/06/18 13:30 11/05/18 12:59 Levalbuterol HCl (Xopenex) 1.25 mg Q4H PRN HHN Shortness of Breath 10/11/18 16:15 10/16/18 16:14 Levalbuterol HCl (Xopenex) 1.25 mg Q6HR PRN HHN Shortness of Breath 10/11/18 17:30 10/16/18 17:29 UNV Lidocaine (Lidoderm 5% PATCH) 1 patch DAILYPRN PRN TDERMAL BACK PAIN 10/06/18 13:00 11/05/18 12:59 Loratadine (Claritin 10mg) 10 mg DAILY ORAL 10/07/18 09:00 11/06/18 08:59 10/11/18 08:17 Nateglinide (Starlix) 120 mg TIAC ORAL 10/06/18 16:30 11/05/18 16:29 10/11/18 17:03 Pantoprazole (Protonix) 40 mg DAILY ORAL 10/07/18 09:00 11/06/18 08:59 10/11/18 08:16 Prednisone (PredniSONE) 40 mg DAILY ORAL 10/10/18 09:00 11/09/18 08:59 10/11/18 08:18 Pregabalin (Lyrica) 75 mg BID ORAL 10/06/18 18:00 11/05/18 17:59 10/11/18 17:03 Sennosides (Senokot) 8.6 mg BIDPRN PRN ORAL Constipation 10/06/18 13:00 11/05/18 12:59 Sevelamer Carbonate (Renvela) 2,400 mg THREE TIMES A DAY ORAL 10/10/18 13:00 11/05/18 13:21 10/11/18 17:02 Vancomycin HCl (Vanco rx to dose) 1 ea DAILY PRN MISC Per rx protocol 10/06/18 14:15 11/05/18 14:14 Vancomycin HCl 1 gm/Dextrose 275 ml @ 183.708 mls/hr ONCE ONCE IVPB 10/09/18 18:15 10/09/18 19:44 UNV Vitamin B Complex/ Vit C/Folic Acid (Nephrovite) 1 tab DAILY ORAL 10/07/18 09:00 11/06/18 08:59 10/11/18 08:18 Zinc Sulfate (Zinc Sulfate) 220 mg DAILY ORAL 10/07/18 09:00 11/06/18 08:59 10/11/18 08:16 Colby Baez MD Oct 11, 2018 18:15
[2018-10-11] MEDS ORDERED: Cefepime HCl 2 GM in D5W 55 ML IVPB SCH (18:30)
--- NOTE | 2018-10-11 18:40 | NUR ---
NURSE NOTES: Received order from MD Baez, carried out as ordered.
--- NOTE | 2018-10-11 18:49 | Nephrology Progress Note ---
Assessment/Plan Problem List: (1) ESRD (end stage renal disease) on dialysis (2) Bronchitis, acute, with bronchospasm (3) Morbid obesity (4) Anemia in chronic kidney disease (CKD) (5) PVD (peripheral vascular disease) (6) Diabetes mellitus Assessment: OOC Assessment ESRD , HD Tue Gisela Sat Obese DM PVD s/p LE amputation Rt Anemia of CKD Bronchitis / UTI Plan Per ID HD in am of 10/11 Kayexelate as needed pulm toilet BP and BS control taper steroids as possible per orders ? DC planning? Subjective ROS Limited/Unobtainable: No Constitutional: Reports: malaise Objective Objective Last 24 Hour Vital Signs Date Time Temp Pulse Resp B/P (MAP) Pulse Ox O2 Delivery O2 Flow Rate FiO2 10/11/18 17:33 98.9 10/11/18 16:00 98.9 86 18 134/63 (86) 96 10/11/18 13:26 Room Air 10/11/18 13:26 Room Air 10/11/18 12:00 98.5 87 18 155/65 (95) 95 10/11/18 09:00 Nasal Cannula 2.0 10/11/18 08:00 98.8 98 19 109/64 (79) 95 10/11/18 07:18 86 18 99 Room Air 21 10/11/18 07:13 99 Room Air 21 10/11/18 07:10 83 18 99 Room Air 21 10/11/18 05:11 86 12 99 Facial 28 10/11/18 02:31 79 12 98 Facial 28 10/11/18 01:48 Bi-Pap 28 10/11/18 01:47 Bi-Pap 28 10/11/18 01:20 84 14 99 Facial 28 10/11/18 00:00 98.7 90 19 101/59 (73) 98 10/10/18 23:12 86 14 98 Facial 28 10/10/18 23:07 86 14 98 Bi-Pap 28 10/10/18 21:00 Nasal Cannula 2.0 10/10/18 20:00 99.1 102 19 125/53 (77) 96 10/10/18 19:05 Room Air 21 10/10/18 19:04 97 Room Air 21 10/10/18 19:04 Room Air 21 Intake and Output 10/10/18 10/11/18 19:00 07:00 Intake Total 960 ml 2880 ml Output Total 200 ml 6600 ml Balance 760 ml -3720 ml Intake Oral 960 ml 480 ml Other 2400 ml Output Urine Total 200 ml 600 ml Hemodialysis UF 6000 ml # Voids 6 2 # Bowel Movements 1 1 Height (Feet): 5 Height (Inches): 5.00 Weight (Pounds): 306 General Appearance: no apparent distress Objective no change Ronen Leone MD Oct 11, 2018 18:49
[2018-10-11] MEDS ORDERED: LEVEMIR FL100 UNIT/1 SUBQ (18:59)
[2018-10-11] MEDS ORDERED: PREDNISONE10 MG ORAL (18:59)
[2018-10-11] MEDS ORDERED: Vancomycin 1 GM in D5W 275 ML IVPB SCH (19:00)
--- NOTE | 2018-10-11 19:01 | General Progress Note ---
Assessment/Plan Assessment/Plan: S: I am feeling better O: Seems in Mild discomfort. Denies chest pain. Complains of stable SOB PHYSICAL EXAMINATION:HEAD AND NECK: Atraumatic and normocephalic. CHEST: Clear to auscultation.HEART: S1 and S2. Regular rate and rhythm. ABDOMEN: Soft. No organomegaly.MUSCULOSKELETAL: Positive for the right AKA, left-sided amputation of toe.NEUROLOGY: The patient is awake, alert, and oriented x3. Chest x-ray dated 10/06/2018 reviewed. It is unremarkable for the acute process. ASSESSMENT AND PLAN: 1. End-stage renal disease, on hemodialysis. 2. SIRS. 3. UTI. 4. AFib. On anticoagulation. 5. Hypoxemic respiratory distress, one episode. 6. HCA- PNA, can not be excluded 6. Anemia. 7. Severe peripheral vascular disease, status post amputation of the extremities and toes. 8. Hypertension. 9. Diabetes type 2. 10. GI and DVT prophylaxis. plan: negative cultures Will be Dc tomorrow Am after HD this PM. she will need IV abx and PO abx, per ID. Subjective Allergies: Coded Allergies: LATEX (Verified Allergy, Unknown, 06/28/18) Objective Last 24 Hour Vital Signs Date Time Temp Pulse Resp B/P (MAP) Pulse Ox O2 Delivery O2 Flow Rate FiO2 10/11/18 17:33 98.9 10/11/18 16:00 98.9 86 18 134/63 (86) 96 10/11/18 13:26 Room Air 10/11/18 13:26 Room Air 10/11/18 12:00 98.5 87 18 155/65 (95) 95 10/11/18 09:00 Nasal Cannula 2.0 10/11/18 08:00 98.8 98 19 109/64 (79) 95 10/11/18 07:18 86 18 99 Room Air 21 10/11/18 07:13 99 Room Air 21 10/11/18 07:10 83 18 99 Room Air 21 10/11/18 05:11 86 12 99 Facial 28 10/11/18 02:31 79 12 98 Facial 28 10/11/18 01:48 Bi-Pap 28 10/11/18 01:47 Bi-Pap 28 10/11/18 01:20 84 14 99 Facial 28 10/11/18 00:00 98.7 90 19 101/59 (73) 98 10/10/18 23:12 86 14 98 Facial 28 10/10/18 23:07 86 14 98 Bi-Pap 28 10/10/18 21:00 Nasal Cannula 2.0 10/10/18 20:00 99.1 102 19 125/53 (77) 96 10/10/18 19:05 Room Air 21 10/10/18 19:04 97 Room Air 21 10/10/18 19:04 Room Air 21 Intake and Output 10/10/18 10/11/18 19:00 07:00 Intake Total 960 ml 2880 ml Output Total 200 ml 6600 ml Balance 760 ml -3720 ml Intake Oral 960 ml 480 ml Other 2400 ml Output Urine Total 200 ml 600 ml Hemodialysis UF 6000 ml # Voids 6 2 # Bowel Movements 1 1 Height (Feet): 5 Height (Inches): 5.00 Weight (Pounds): 306 Archana Chan MD Oct 11, 2018 19:01
--- NOTE | 2018-10-11 19:16 | NUR ---
NURSE NOTES: Patient is getting dialysis at room 402-1; dialysis nurse is aware that she needs to hung the anti-biotics, Vanco and Cefepime.
--- NOTE | 2018-10-11 19:18 | NUR ---
HAND-OFF: Report given to PINKY Ridley.
--- NOTE | 2018-10-11 19:20 | NUR ---
NURSE NOTES: RECEIVED PT FROM PINKY ROSENBAUM. PT IS AWAKE, AAOX4. CURRENTLY RECEIVING DIALYSIS WITH PINKY GONZALEZ FROM [facility]. VVS. DRESSINGS ON L HAND 3RD DIGIT, AND LEFT TOE ARE INTACT AND DRY. BED IS LOCKED AT THE LOWEST POSITION. BED ALARMS ACTIVE. SIDE RAILS UP X2. CALL LIGHT IS WITHIN REACH. WILL CONTINUE TO MONITOR.
--- NOTE | 2018-10-11 19:33 | Infectious Diseases Prog Note ---
Assessment/Plan Problems: (1) Bronchitis, acute, with bronchospasm Assessment & Plan: continue vancomycin and cefepime for 10 days total empirically . sputum culture grew normal tessa , continue inhalers as needed (2) Cough productive of yellow sputum Assessment & Plan: possible pneumonia , on vancomycin and cefepime since HD patient and improving clinically on this regimen , sputum culture and blood culture showed no growth of pathogenic bacteria (3) UTI (urinary tract infection) Assessment & Plan: already on cefepime pending urine culture (4) ESRD (end stage renal disease) on dialysis Assessment & Plan: continue HD as per renal Subjective Constitutional: Reports: no symptoms HEENT: Reports: no symptoms Respiratory: Reports: dry cough Breasts: Reports: no symptoms Cardiovascular: Reports: no symptoms Gastrointestinal/Abdominal: Reports: no symptoms Genitourinary: Reports: no symptoms Neurologic: Reports: no symptoms Psychiatric: Reports: no symptoms Skin: Reports: no symptoms Endocrine: Reports: no symptoms Hematologic: Reports: no symptoms Musculoskeletal: Reports: no symptoms Allergies: Coded Allergies: LATEX (Verified Allergy, Unknown, 06/28/18) Objective Vital Signs Last 24 Hour Vital Signs Date Time Temp Pulse Resp B/P (MAP) Pulse Ox O2 Delivery O2 Flow Rate FiO2 10/11/18 19:26 86 18 98 Nasal Cannula 2.0 10/11/18 19:26 98 Nasal Cannula 2.0 10/11/18 17:33 98.9 10/11/18 16:00 98.9 86 18 134/63 (86) 96 10/11/18 13:26 Room Air 10/11/18 13:26 Room Air 10/11/18 12:00 98.5 87 18 155/65 (95) 95 10/11/18 09:00 Nasal Cannula 2.0 10/11/18 08:00 98.8 98 19 109/64 (79) 95 10/11/18 07:18 86 18 99 Room Air 21 10/11/18 07:13 99 Room Air 10/11/18 07:10 83 18 99 Room Air 10/11/18 05:11 86 12 99 Facial 28 10/11/18 02:31 79 12 98 Facial 28 10/11/18 01:48 Bi-Pap 28 10/11/18 01:47 Bi-Pap 28 10/11/18 01:20 84 14 99 Facial 28 10/11/18 00:00 98.7 90 19 101/59 (73) 98 10/10/18 23:12 86 14 98 Facial 28 10/10/18 23:07 86 14 98 Bi-Pap 28 10/10/18 21:00 Nasal Cannula 2.0 10/10/18 20:00 99.1 102 19 125/53 (77) 96 Height (Feet): 5 Height (Inches): 5.00 Weight (Pounds): 306 General Appearance: WD/WN, no acute distress HEENT: normocephalic, atraumatic, anicteric, mucous membranes moist, supple, no JVD Respiratory/Chest: chest wall non-tender, lungs clear, normal breath sounds, no respiratory distress, no accessory muscle use Cardiovascular: normal peripheral pulses, normal rate, regular rhythm, no gallop/murmur, no JVD Abdomen: normal bowel sounds, soft, non tender, no organomegaly, non distended , no mass, no scars Genitourinary: normal external genitalia Extremities: no cyanosis, no clubbing Skin: no rash, no lesions, no ulcers Neurologic/Psychiatric: 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, no motor/sensory deficits, alert, oriented x 3, responsive Lymphatic: no neck adenopathy, no groin adenopathy Musculoskeletal: normal muscle bulk, no effusion Current Medications Medications (Trade) Dose Ordered Sig/Alex Route PRN Reason Start Time Stop Time Status Last Admin Dose Admin Acetaminophen (Tylenol) 650 mg Q4H PRN ORAL Mild Pain/Temp > 100.5 10/06/18 13:00 11/05/18 12:59 Acetaminophen/ Hydrocodone Bitart ([place] 10/325) 1 tab Q6H PRN ORAL For Pain 10/06/18 13:00 10/13/18 12:59 10/11/18 06:36 Apixaban (Eliquis) 2.5 mg BID ORAL 10/06/18 18:00 11/05/18 17:59 10/11/18 17:03 Atorvastatin Calcium (Lipitor) 10 mg BEDTIME ORAL 10/06/18 21:00 11/05/18 20:59 10/10/18 20:35 Cefdinir (Cefdinir) 300 mg Q12HR ORAL 10/11/18 21:00 10/18/18 20:59 Dextrose (Dextrose 50%) 25 ml Q30M PRN IV Hypoglycemia 10/06/18 15:15 11/05/18 15:14 Dextrose (Dextrose 50%) 25 ml Q30M PRN IV Hypoglycemia 10/11/18 07:15 11/10/18 07:14 Dextrose (Dextrose 50%) 50 ml Q30M PRN IV Hypoglycemia 10/06/18 15:15 11/05/18 15:14 Dextrose (Dextrose 50%) 50 ml Q30M PRN IV Hypoglycemia 10/11/18 07:15 11/10/18 07:14 Diphenhydramine HCl (Benadryl) 25 mg DAILYPRN PRN IVP Itching/Pruritis 10/07/18 15:00 11/06/18 14:59 10/07/18 17:00 Docusate Sodium (Colace) 100 mg THREE TIMES A DAY ORAL 10/06/18 13:20 11/05/18 13:19 10/11/18 17:02 Fluticasone Propionate (Flonase) 1 spray Q8H PRN NASAL NASAL CONGESTION 10/06/18 13:00 11/05/18 12:59 Gabapentin (Neurontin) 300 mg THREE TIMES A DAY ORAL 10/06/18 13:20 11/05/18 13:19 10/11/18 17:03 Guaifenesin (Robitussin) 200 mg Q4H PRN ORAL For Cough 10/08/18 17:30 11/07/18 17:29 Insulin Aspart (NovoLOG) BEFORE MEALS AND HS SUBQ 10/11/18 11:30 11/10/18 11:29 10/11/18 17:05 Insulin Aspart (NovoLOG) 16 units BEFORE MEALS SUBQ 10/11/18 11:30 11/06/18 16:49 10/11/18 17:06 Insulin Detemir (Levemir) 50 units BEDTIME SUBQ 10/11/18 21:00 11/05/18 20:59 Ipratropium [place] (Atrovent) 500 mcg Q6H PRN HHN Shortness of Breath 10/11/18 17:30 10/16/18 17:29 Ipratropium [place] (Atrovent) 500 mcg Q6HRT HHN 10/11/18 19:00 10/16/18 18:59 10/11/18 19:26 Lactulose (Cephulac) 45 gm Q12H PRN ORAL CONSTIPATION 10/06/18 13:30 11/05/18 12:59 Levalbuterol HCl (Xopenex) 1.25 mg Q6H PRN HHN Shortness of Breath 10/11/18 17:30 10/16/18 17:29 Lidocaine (Lidoderm 5% PATCH) 1 patch DAILYPRN PRN TDERMAL BACK PAIN 10/06/18 13:00 11/05/18 12:59 Loratadine (Claritin 10mg) 10 mg DAILY ORAL 10/07/18 09:00 11/06/18 08:59 10/11/18 08:17 Nateglinide (Starlix) 120 mg TIAC ORAL 10/06/18 16:30 11/05/18 16:29 10/11/18 17:03 Pantoprazole (Protonix) 40 mg DAILY ORAL 10/07/18 09:00 11/06/18 08:59 10/11/18 08:16 Prednisone (PredniSONE) 30 mg DAILY ORAL 10/12/18 09:00 11/11/18 08:59 Pregabalin (Lyrica) 75 mg BID ORAL 10/06/18 18:00 11/05/18 17:59 10/11/18 17:03 Sennosides (Senokot) 8.6 mg BIDPRN PRN ORAL Constipation 10/06/18 13:00 11/05/18 12:59 Sevelamer Carbonate (Renvela) 2,400 mg THREE TIMES A DAY ORAL 10/10/18 13:00 11/05/18 13:21 10/11/18 17:02 Vancomycin HCl (Vanco rx to dose) 1 ea DAILY PRN MISC Per rx protocol 10/06/18 14:15 11/05/18 14:14 Vancomycin HCl 1 gm/Dextrose 275 ml @ 183.708 mls/hr ONCE IVPB 10/11/18 19:00 10/11/18 22:00 Vitamin B Complex/ Vit C/Folic Acid (Nephrovite) 1 tab DAILY ORAL 10/07/18 09:00 11/06/18 08:59 10/11/18 08:18 Zinc Sulfate (Zinc Sulfate) 220 mg DAILY ORAL 10/07/18 09:00 11/06/18 08:59 10/11/18 08:16 Naa Mina M.D. Oct 11, 2018 19:33
--- NOTE | 2018-10-11 19:51 | Hematology/Onc Progress Note ---
Assessment/Plan Assessment/Plan ASSESSMENT AND REC'S # Thrombocytopenia - potential causes multifactorial, evaluate liver and viral etiologies to begin, also could be related to underlying medications patient has received. --> Hep panel and HIV ordered --> US abd to evaluate for cirrhosis and hsm ordered --> Peripheral smear ordered to evaluate for blasts /schistocytes --> abx and other meds have been reviewed --> ok for ppx if plt >50k w/ either heparin or lovenox --> Trend 129k-->145k--> 165k # Anemia of chronic disease due to underlying chronic medical issues, multifactorial -- noted with HD --> Anemia workup has been ordered, rule out gi bleed --> No evidence of hemolysis is noted, peripheral smear has been reviewed. --> Hgb goal >7. Transfuse prn. --> Epogen 3X a week SQ as needed --> Medications have been reviewed --> low threshold for gi evaluation in case has occult + --> trend hgb 9.8-->9.6--> 9.9 # DVT of the lower extremity --> given anemia that is not acute, okay to continue anticoag --> on eliquis at this time # ESRD. Nephro is following, appreciate recs. # SIRS. --> per ID recs # UTI. # AFib. On anticoagulation eliquis # Severe peripheral vascular disease, status post amputation of the extremities and toes. # Hypertension. # Diabetes type 2. The time this note is entered does not reflect the time the patient was examined. I greatly appreciate the consultation. 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 10/11: Awaiting HD today. Objective Objective Current Medications Medications (Trade) Dose Ordered Sig/Alex Route PRN Reason Start Time Stop Time Status Last Admin Dose Admin Acetaminophen (Tylenol) 650 mg Q4H PRN ORAL Mild Pain/Temp > 100.5 10/06/18 13:00 11/05/18 12:59 Acetaminophen/ Hydrocodone Bitart ([place] 10/325) 1 tab Q6H PRN ORAL For Pain 10/06/18 13:00 10/13/18 12:59 10/11/18 06:36 Apixaban (Eliquis) 2.5 mg BID ORAL 10/06/18 18:00 11/05/18 17:59 10/11/18 17:03 Atorvastatin Calcium (Lipitor) 10 mg BEDTIME ORAL 10/06/18 21:00 11/05/18 20:59 10/10/18 20:35 Cefdinir (Cefdinir) 300 mg Q12HR ORAL 10/11/18 21:00 10/18/18 20:59 Dextrose (Dextrose 50%) 25 ml Q30M PRN IV Hypoglycemia 10/06/18 15:15 11/05/18 15:14 Dextrose (Dextrose 50%) 25 ml Q30M PRN IV Hypoglycemia 10/11/18 07:15 11/10/18 07:14 Dextrose (Dextrose 50%) 50 ml Q30M PRN IV Hypoglycemia 10/06/18 15:15 11/05/18 15:14 Dextrose (Dextrose 50%) 50 ml Q30M PRN IV Hypoglycemia 10/11/18 07:15 11/10/18 07:14 Diphenhydramine HCl (Benadryl) 25 mg DAILYPRN PRN IVP Itching/Pruritis 10/07/18 15:00 11/06/18 14:59 10/07/18 17:00 Docusate Sodium (Colace) 100 mg THREE TIMES A DAY ORAL 10/06/18 13:20 11/05/18 13:19 10/11/18 17:02 Fluticasone Propionate (Flonase) 1 spray Q8H PRN NASAL NASAL CONGESTION 10/06/18 13:00 11/05/18 12:59 Gabapentin (Neurontin) 300 mg THREE TIMES A DAY ORAL 10/06/18 13:20 11/05/18 13:19 10/11/18 17:03 Guaifenesin (Robitussin) 200 mg Q4H PRN ORAL For Cough 10/08/18 17:30 11/07/18 17:29 Insulin Aspart (NovoLOG) BEFORE MEALS AND HS SUBQ 10/11/18 11:30 11/10/18 11:29 10/11/18 17:05 Insulin Aspart (NovoLOG) 16 units BEFORE MEALS SUBQ 10/11/18 11:30 11/06/18 16:49 10/11/18 17:06 Insulin Detemir (Levemir) 50 units BEDTIME SUBQ 10/11/18 21:00 11/05/18 20:59 Ipratropium [place] (Atrovent) 500 mcg Q6H PRN HHN Shortness of Breath 10/11/18 17:30 10/16/18 17:29 Ipratropium [place] (Atrovent) 500 mcg Q6HRT HHN 10/11/18 19:00 10/16/18 18:59 10/11/18 19:26 Lactulose (Cephulac) 45 gm Q12H PRN ORAL CONSTIPATION 10/06/18 13:30 11/05/18 12:59 Levalbuterol HCl (Xopenex) 1.25 mg Q6H PRN HHN Shortness of Breath 10/11/18 17:30 10/16/18 17:29 Lidocaine (Lidoderm 5% PATCH) 1 patch DAILYPRN PRN TDERMAL BACK PAIN 10/06/18 13:00 11/05/18 12:59 Loratadine (Claritin 10mg) 10 mg DAILY ORAL 10/07/18 09:00 11/06/18 08:59 10/11/18 08:17 Nateglinide (Starlix) 120 mg TIAC ORAL 10/06/18 16:30 11/05/18 16:29 10/11/18 17:03 Pantoprazole (Protonix) 40 mg DAILY ORAL 10/07/18 09:00 11/06/18 08:59 10/11/18 08:16 Prednisone (PredniSONE) 30 mg DAILY ORAL 10/12/18 09:00 11/11/18 08:59 Pregabalin (Lyrica) 75 mg BID ORAL 10/06/18 18:00 11/05/18 17:59 10/11/18 17:03 Sennosides (Senokot) 8.6 mg BIDPRN PRN ORAL Constipation 10/06/18 13:00 11/05/18 12:59 Sevelamer Carbonate (Renvela) 2,400 mg THREE TIMES A DAY ORAL 10/10/18 13:00 11/05/18 13:21 10/11/18 17:02 Vancomycin HCl (Vanco rx to dose) 1 ea DAILY PRN MISC Per rx protocol 10/06/18 14:15 11/05/18 14:14 Vancomycin HCl 1 gm/Dextrose 275 ml @ 183.708 mls/hr ONCE IVPB 10/11/18 19:00 10/11/18 22:00 10/11/18 19:44 Vitamin B Complex/ Vit C/Folic Acid (Nephrovite) 1 tab DAILY ORAL 10/07/18 09:00 11/06/18 08:59 10/11/18 08:18 Zinc Sulfate (Zinc Sulfate) 220 mg DAILY ORAL 10/07/18 09:00 11/06/18 08:59 10/11/18 08:16 Last 24 Hour Vital Signs Date Time Temp Pulse Resp B/P (MAP) Pulse Ox O2 Delivery O2 Flow Rate FiO2 10/11/18 19:26 86 18 98 Nasal Cannula 2.0 28 10/11/18 19:26 98 Nasal Cannula 2.0 28 10/11/18 17:33 98.9 10/11/18 16:00 98.9 86 18 134/63 (86) 96 10/11/18 13:26 Room Air 10/11/18 13:26 Room Air 10/11/18 12:00 98.5 87 18 155/65 (95) 95 10/11/18 09:00 Nasal Cannula 2.0 10/11/18 08:00 98.8 98 19 109/64 (79) 95 10/11/18 07:18 86 18 99 Room Air 21 10/11/18 07:13 99 Room Air 21 10/11/18 07:10 83 18 99 Room Air 10/11/18 05:11 86 12 99 Facial 28 10/11/18 02:31 79 12 98 Facial 28 10/11/18 01:48 Bi-Pap 28 10/11/18 01:47 Bi-Pap 28 10/11/18 01:20 84 14 99 Facial 28 10/11/18 00:00 98.7 90 19 101/59 (73) 98 10/10/18 23:12 86 14 98 Facial 28 10/10/18 23:07 86 14 98 Bi-Pap 28 10/10/18 21:00 Nasal Cannula 2.0 10/10/18 20:00 99.1 102 19 125/53 (77) 96 10/10/18 19:05 Room Air 21 10/10/18 19:04 97 Room Air 21 10/10/18 19:04 Room Air 10/10/18 16:00 98.4 102 20 111/68 (82) 99 10/10/18 13:29 78 18 100 Room Air 21 10/10/18 13:15 68 18 97 Room Air 21 10/10/18 12:00 98.2 86 20 114/76 (89) 95 10/10/18 09:00 Nasal Cannula 2.0 10/10/18 08:00 98.3 94 20 114/61 (78) 95 10/10/18 06:49 88 20 99 Room Air 10/10/18 06:35 80 20 98 Room Air 10/10/18 06:35 98 Room Air 10/10/18 05:34 82 14 98 Facial 28 10/10/18 03:21 80 15 98 Facial 28 10/10/18 00:27 84 13 98 Bi-Pap 28 10/10/18 00:17 84 18 97 Bi-Pap 28 10/10/18 00:15 84 18 96 Facial 28 10/10/18 00:00 98.7 84 19 105/53 (70) 97 10/09/18 21:00 Nasal Cannula 2.0 10/09/18 20:00 97.9 89 19 97/51 (66) 97 Intake and Output 10/10/18 10/11/18 19:00 07:00 Intake Total 960 ml 2880 ml Output Total 200 ml 6600 ml Balance 760 ml -3720 ml Intake Oral 960 ml 480 ml Other 2400 ml Output Urine Total 200 ml 600 ml Hemodialysis UF 6000 ml # Voids 6 2 # Bowel Movements 1 1 Labs Test 10/09/18 09:30 10/10/18 09:00 Random Vancomycin Level 20.7 ug/mL White Blood Count 8.6 K/UL (4.8-10.8) Red Blood Count 3.67 M/UL (4.20-5.40) Hemoglobin 9.9 G/DL (12.0-16.0) Hematocrit 33.1 % (37.0-47.0) Mean Corpuscular Volume 90 FL (80-99) Mean Corpuscular Hemoglobin 27.0 PG (27.0-31.0) Mean Corpuscular Hemoglobin Concent 30.0 G/DL (32.0-36.0) Red Cell Distribution Width 16.6 % (11.6-14.8) Platelet Count 165 K/UL (150-450) Mean Platelet Volume 7.7 FL (6.5-10.1) Neutrophils (%) (Auto) 61.7 % (45.0-75.0) Lymphocytes (%) (Auto) 28.7 % (20.0-45.0) Monocytes (%) (Auto) 5.6 % (1.0-10.0) Eosinophils (%) (Auto) 3.3 % (0.0-3.0) Basophils (%) (Auto) 0.7 % (0.0-2.0) Sodium Level 138 MMOL/L (136-145) Potassium Level 4.4 MMOL/L (3.5-5.1) Chloride Level 99 MMOL/L (98-107) Carbon Dioxide Level 28 MMOL/L (21-32) Anion Gap 11 mmol/L (5-15) Blood Urea Nitrogen 74 mg/dL (7-18) Creatinine 6.8 MG/DL (0.55-1.30) Estimat Glomerular Filtration Rate 7.8 mL/min (>60) Glucose Level 244 MG/DL (74-106) Calcium Level 9.0 MG/DL (8.5-10.1) Phosphorus Level 6.4 MG/DL (2.5-4.9) Total Bilirubin 0.3 MG/DL (0.2-1.0) Aspartate Amino Transf (AST/SGOT) 7 U/L (15-37) Alanine Aminotransferase (ALT/SGPT) 7 U/L (12-78) Alkaline Phosphatase 140 U/L (46-116) Total Protein 7.3 G/DL (6.4-8.2) Albumin 3.4 G/DL (3.4-5.0) Globulin 3.9 g/dL Albumin/Globulin Ratio 0.9 (1.0-2.7) Height (Feet): 5 Height (Inches): 5.00 Weight (Pounds): 306 Objective Objective PHYSICAL EXAMINATION: VITAL SIGNS: Have been reviewed HEAD AND NECK: Atraumatic and normocephalic. CHEST: Clear to auscultation. HEART: S1 and S2. Regular rate and rhythm. ABDOMEN: Soft. No organomegaly. MUSCULOSKELETAL: Positive for the right AKA, left-sided amputation of toe. NEUROLOGY: The patient is awake, alert, and oriented x3. Lina Shah CONFIGURATION MANAGEMENT ADVISOR Oct 11, 2018 19:50
[2018-10-11 20:00] VITALS: BP 105/33
[2018-10-11] MEDS: Cefdinir 300mg cap ORAL SCH (21:50)
[2018-10-11] MEDS: Levemir Flexpen SUBQ SCH (21:56)
--- NOTE | 2018-10-11 22:32 | NUR ---
NURSE NOTES: DIALYSIS OUTPUT 4L. PT RECEIVED VANCOMYCIN 1G WITH DIALYSIS. VSS. WILL CONTINUE TO MONITOR.
[2018-10-12] MEDS: Ipratropium 0.02% Inh Soln 2.5ml UD HHN SCH ×5 (01:34→23:25)
[2018-10-12] MEDS: NovoLOG Insulin Flexpen SUBQ SCH ×7 (06:30→21:44)
[2018-10-12] MEDS: HYDROcodone/Acetamin 10/325 tab ORAL PRN ×2 (06:40→22:57)
--- NOTE | 2018-10-12 07:29 | NUR ---
NURSE NOTES: Patient alert x4, on nasal cannula 2 Liter, no sign of distress and shortness of breath; dialysis shunt at Left-Upper arm; patient did dialysis last night removed 4 Liter; No IV Access, MD aware; Right Below Knee amputation; patient complained Left breast hurts, larger than right breast; assessed breast it feels tender, warm to touch, will follow up with MD; will monitoring blood sugar as scheduled; call light within reach; bed at lowest position, side rails up x2, breaks engaged; will keep monitoring.
--- NOTE | 2018-10-12 07:33 | NUR ---
NURSE NOTES: CHANGED DRESSINGS ON LEFT HAND 3RD DIGIT AND LEFT TOE.
--- NOTE | 2018-10-12 07:34 | NUR ---
NURSE NOTES: PT WOKE UP THIS MORNING C/O PAIN ON THE LEFT BREAST THAT WASN'T HURTING BEFORE. REDNESS, WARM TO TOUCH AND SWELLING UPON ASSESSMENT. PT STATES THAT SHE HAS HAD AND EXPLORATORY BREAST SURGERY BEFORE AND "BENIGN CELLS WAS REMOVED". NO NIPPLE NOTED ON LEFT BREAST FROM THE SURGERY. ENDORSED TO MORNING NURSE TO CONTACT DR. BAUGH.
--- NOTE | 2018-10-12 07:38 | NUR ---
HAND-OFF: Report given to IPNKY ROSENBAUM.
--- NOTE | 2018-10-12 07:55 | NUR ---
NURSE NOTES: Patient complained of Left breast pain. I communicated MD Chan and received order. Order carried out as order.
[2018-10-12 08:00] VITALS: BP 128/63
[2018-10-12] MEDS: Zinc Sulfate 220mg cap ORAL SCH (08:14)
[2018-10-12] MEDS: Nephrovite tab (Rena-Vite) ORAL SCH (08:14)
[2018-10-12] MEDS: Eliquis 2.5mg tablet ORAL SCH ×2 (08:15→18:06)
[2018-10-12] MEDS: Docusate 100mg cap ORAL SCH ×3 (08:16→18:05)
[2018-10-12] MEDS: Lyrica 75mg cap ORAL SCH ×2 (08:16→18:06)
[2018-10-12 08:22] LABS: BASOPHILS % (AUTO) 0.1 % (0.0-2.0); EOSINOPHILS % (AUTO) 0.4 % (0.0-3.0); HEMATOCRIT 29.4 % (37.0-47.0); HEMOGLOBIN 9.1 G/DL (12.0-16.0); LYMPHOCYTES % (AUTO) 23.4 % (20.0-45.0); MEAN CORPUSCULAR VOLUME 89 FL (80-99); MONOCYTES % (AUTO) 4.5 % (1.0-10.0); NEUTROPHILS % (AUTO) 71.6 % (45.0-75.0); PLATELET COUNT 147 K/UL (150-450); RED BLOOD COUNT 3.29 M/UL (4.20-5.40); RED CELL DISTRIBUTION WIDTH 16.6 % (11.6-14.8)
[2018-10-12] MEDS: Cefdinir 300mg cap ORAL SCH ×2 (08:33→21:42)
--- NOTE | 2018-10-12 11:36 | Nephrology Progress Note ---
Assessment/Plan Problem List: (1) ESRD (end stage renal disease) on dialysis (2) Bronchitis, acute, with bronchospasm (3) Morbid obesity (4) Anemia in chronic kidney disease (CKD) (5) PVD (peripheral vascular disease) (6) Diabetes mellitus Assessment: OOC Assessment ESRD , HD Tue Gisela Sat Obese DM PVD s/p LE amputation Rt Anemia of CKD Bronchitis / UTI Plan Per ID - on PO antibiotics HD next 10/14 Kayexelate as needed pulm toilet BP and BS control taper steroids as possible per orders ? DC planning? Subjective ROS Limited/Unobtainable: No Constitutional: Reports: malaise Objective Objective Last 24 Hour Vital Signs Date Time Temp Pulse Resp B/P (MAP) Pulse Ox O2 Delivery O2 Flow Rate FiO2 10/12/18 09:00 Nasal Cannula 2.0 10/12/18 08:46 98.1 10/12/18 08:00 99.1 86 17 128/63 (84) 95 10/12/18 07:41 85 19 99 Room Air 21 10/12/18 07:28 97 Room Air 21 10/12/18 07:28 87 19 97 Room Air 21 10/12/18 05:30 81 14 98 Facial 28 10/12/18 03:25 80 13 98 Facial 28 10/12/18 01:44 81 18 99 Bi-Pap 28 10/12/18 01:34 82 18 98 Bi-Pap 28 10/12/18 01:34 91 13 98 Facial 28 10/11/18 23:40 84 17 98 Facial 28 10/11/18 21:00 Nasal Cannula 2.0 10/11/18 20:00 98.1 88 18 105/33 (57) 97 10/11/18 19:36 89 18 99 Nasal Cannula 2.0 28 10/11/18 19:26 86 18 98 Nasal Cannula 2.0 28 10/11/18 19:26 98 Nasal Cannula 2.0 28 10/11/18 16:00 98.9 86 18 134/63 (86) 96 10/11/18 13:26 Room Air 10/11/18 13:26 Room Air 10/11/18 12:00 98.5 87 18 155/65 (95) 95 Intake and Output 10/11/18 10/12/18 18:59 06:59 Intake Total 900 ml 1140 ml Output Total 3000 ml Balance 900 ml -1860 ml Intake Oral 240 ml Other 900 ml 900 ml Hemodialysis UF 3000 ml # Voids 2 # Bowel Movements 3 Laboratory Tests 10/12/18 05:45: White Blood Count 8.0, Red Blood Count 3.29L, Hemoglobin 9.1L, Hematocrit 29.4L , Mean Corpuscular Volume 89, Mean Corpuscular Hemoglobin 27.5, Mean Corpuscular Hemoglobin Concent 30.8L, Red Cell Distribution Width 16.6H, Platelet Count 147L, Mean Platelet Volume 7.3, Neutrophils (%) (Auto) 71.6, Lymphocytes (%) (Auto) 23.4, Monocytes (%) (Auto) 4.5, Eosinophils (%) (Auto) 0.4, Basophils (%) (Auto) 0.1, Random Vancomycin Level 18.4 Height (Feet): 5 Height (Inches): 5.00 Weight (Pounds): 305 General Appearance: no apparent distress Cardiovascular: normal rate Respiratory/Chest: decreased breath sounds Abdomen: soft Objective no change Ronen Leone MD Oct 12, 2018 11:36
[2018-10-12 12:00] VITALS: BP 110/52
--- NOTE | 2018-10-12 13:07 | Diagnostic Imaging Report ---
EXAM: US Left Breast, Limited CLINICAL HISTORY: 53-year-old woman with left breast pain and history of left breast cancer and exploratory surgery in 2015. TECHNIQUE: Limited real time ultrasound of the left breast with image documentation, including axilla when performed. COMPARISON: None available FINDINGS: The technologist reports the patient has very large and tender breasts that are firmer closer to the nipple areola complex although the nipple was removed in 2015. The provided images show subareolar architectural distortion consistent with postsurgical scarring in the subareolar and periareolar left breast that is present in a near circumferential pattern but is most conspicuous across the lower half of the left breast from 3:00 through 9:00. This is associated with skin thickening. The chest wall is not consistently visualized in the included field-of- view. The left axilla was not imaged either. No fluid collection is apparent. No discrete mass seen. IMPRESSION: 1. Limited sonographic evaluation of the left breast reveals skin thickening and architectural distortion in the subareolar breast primarily along the inferior half, consistent with a history of surgery for breast cancer. The skin thickening and edema could reflect posttreatment changes. Although no fluid collection is identified as a potential target for drainage for symptomatic relief, imaging assessment is considered incomplete in the absence of concurrent diagnostic mammography and availability of prior breast imaging to assess for interval changes and for any evidence of local recurrence. 2. When clinically feasible, left diagnostic mammography (with up to date contralateral imaging for comparison purposes if possible) is recommended, to be compared with patient's prior breast imaging before and after her breast cancer diagnosis. 3. Notwithstanding the imaging findings, if there are any clinically suspicious findings for malignancy, such findings should be considered for biopsy and a surgical consult might be appropriate in such settings. ASSESSMENT: BI-RADS 0, Incomplete. Need additional imaging evaluation.
--- NOTE | 2018-10-12 14:16 | Surgery Progress Note ---
Surgery Progress Note Subjective Symptoms: improved Objective Last 24 Hour Vital Signs Date Time Temp Pulse Resp B/P (MAP) Pulse Ox O2 Delivery O2 Flow Rate FiO2 10/12/18 13:26 84 16 99 Room Air 21 10/12/18 13:15 83 16 99 Room Air 10/12/18 12:00 98.8 80 18 110/52 (71) 96 10/12/18 09:00 Nasal Cannula 2.0 10/12/18 08:46 98.1 10/12/18 08:00 99.1 86 17 128/63 (84) 95 10/12/18 07:41 85 19 99 Room Air 10/12/18 07:28 97 Room Air 10/12/18 07:28 87 19 97 Room Air 10/12/18 05:30 81 14 98 Facial 28 10/12/18 03:25 80 13 98 Facial 28 10/12/18 01:44 81 18 99 Bi-Pap 28 10/12/18 01:34 82 18 98 Bi-Pap 28 10/12/18 01:34 91 13 98 Facial 28 10/11/18 23:40 84 17 98 Facial 28 10/11/18 21:00 Nasal Cannula 2.0 10/11/18 20:00 98.1 88 18 105/33 (57) 97 10/11/18 19:36 89 18 99 Nasal Cannula 2.0 28 10/11/18 19:26 86 18 98 Nasal Cannula 2.0 28 10/11/18 19:26 98 Nasal Cannula 2.0 28 10/11/18 16:00 98.9 86 18 134/63 (86) 96 I&O Intake and Output 10/11/18 10/12/18 18:59 06:59 Intake Total 900 ml 1140 ml Output Total 3000 ml Balance 900 ml -1860 ml Intake Oral 240 ml Other 900 ml 900 ml Hemodialysis UF 3000 ml # Voids 2 # Bowel Movements 3 Dressing: dry Wound: clean Cardiovascular: RSR Respiratory: clear Abdomen: soft, present bowel sounds, non-distended Extremities: tenderness, cyanosis Laboratory Tests Test 10/12/18 05:45 White Blood Count 8.0 K/UL (4.8-10.8) Red Blood Count 3.29 M/UL (4.20-5.40) L Hemoglobin 9.1 G/DL (12.0-16.0) L Hematocrit 29.4 % (37.0-47.0) L Mean Corpuscular Volume 89 FL (80-99) Mean Corpuscular Hemoglobin 27.5 PG (27.0-31.0) Mean Corpuscular Hemoglobin Concent 30.8 G/DL (32.0-36.0) L Red Cell Distribution Width 16.6 % (11.6-14.8) H Platelet Count 147 K/UL (150-450) L Mean Platelet Volume 7.3 FL (6.5-10.1) Neutrophils (%) (Auto) 71.6 % (45.0-75.0) Lymphocytes (%) (Auto) 23.4 % (20.0-45.0) Monocytes (%) (Auto) 4.5 % (1.0-10.0) Eosinophils (%) (Auto) 0.4 % (0.0-3.0) Basophils (%) (Auto) 0.1 % (0.0-2.0) Random Vancomycin Level 18.4 ug/mL Plan Problems: (1) Cellulitis Assessment & Plan: Morbidly obese female whom presented on admission with necrotic 3rd digit of L hand. 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 Hx of TMA L st metatarsal.Necrotic area noted to dorsal aspect of L TMA.Small amt sanguineous exudate noted. No odor noted .Periwound without erythema or edema. L heel is dry ,firm and blanchable. 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 No evidence of skin breakdown to sacrum. Pt demonstrated good mobility repositioning self in bed. Educated on wound prevention and encouraged to frequently turn and to off-lift buttocks when repositioning to prevent friction to skin. Tx.Plan: Swab 3rd digit of L hand with Betadine daily . May cover with Optifoam s needed. Swab L 1st TMA with Betadine. Cover with Gauze and wrap loosely with Kerlix Daily and prn. Off-load L heel with pillow. Encourage and assist as needed with repositioning at least every 2hours or as tolerated. f/u with plastic and podiatry as outpatient for revision (2) Bronchitis (3) Cough productive of yellow sputum (4) UTI (urinary tract infection) (5) Bronchitis, acute, with bronchospasm (6) ESRD (end stage renal disease) on dialysis (7) Morbid obesity (8) Anemia in chronic kidney disease (CKD) (9) PVD (peripheral vascular disease) Assessment & Plan: known PVD multiple studies done prior right LE amputation stable. flap viable without wound left foot with great toe amp cont with current care plan Melvin Santana Oct 12, 2018 14:16
[2018-10-12 15:15] LABS: BASOPHILS % (AUTO) 0.5 % (0.0-2.0); EOSINOPHILS % (AUTO) 0.6 % (0.0-3.0); HEMATOCRIT 31.7 % (37.0-47.0); HEMOGLOBIN 9.8 G/DL (12.0-16.0); LYMPHOCYTES % (AUTO) 14.7 % (20.0-45.0); MEAN CORPUSCULAR VOLUME 89 FL (80-99); MONOCYTES % (AUTO) 3.4 % (1.0-10.0); NEUTROPHILS % (AUTO) 80.8 % (45.0-75.0); PLATELET COUNT 152 K/UL (150-450); RED BLOOD COUNT 3.58 M/UL (4.20-5.40); RED CELL DISTRIBUTION WIDTH 15.7 % (11.6-14.8); WHITE BLOOD COUNT 10.2 K/UL (4.8-10.8)
[2018-10-12 16:00] VITALS: BP 127/65
--- NOTE | 2018-10-12 16:27 | Infectious Diseases Prog Note ---
Assessment/Plan Problems: (1) Bronchitis, acute, with bronchospasm Assessment & Plan: continue vancomycin and cefepime for 10 days total empirically . sputum culture grew normal tessa , continue inhalers as needed (2) Cough productive of yellow sputum Assessment & Plan: possible pneumonia , on vancomycin and cefepime since HD patient and improving clinically on this regimen , sputum culture and blood culture showed no growth of pathogenic bacteria (3) UTI (urinary tract infection) Assessment & Plan: already on cefepime pending urine culture (4) ESRD (end stage renal disease) on dialysis Assessment & Plan: continue HD as per renal (5) Breast edema Assessment & Plan: unclear etiology, surgical eval is recommended Subjective Constitutional: Reports: no symptoms HEENT: Reports: no symptoms Respiratory: Reports: no symptoms Breasts: Reports: swelling, tenderness Cardiovascular: Reports: no symptoms Gastrointestinal/Abdominal: Reports: no symptoms Genitourinary: Reports: no symptoms Neurologic: Reports: no symptoms Psychiatric: Reports: no symptoms Skin: Reports: no symptoms Endocrine: Reports: no symptoms Hematologic: Reports: no symptoms Musculoskeletal: Reports: no symptoms Allergies: Coded Allergies: LATEX (Verified Allergy, Unknown, 06/28/18) Objective Vital Signs Last 24 Hour Vital Signs Date Time Temp Pulse Resp B/P (MAP) Pulse Ox O2 Delivery O2 Flow Rate FiO2 10/12/18 16:00 99.1 81 19 127/65 (85) 95 10/12/18 13:26 84 16 99 Room Air 10/12/18 13:15 83 16 99 Room Air 10/12/18 12:00 98.8 80 18 110/52 (71) 96 10/12/18 09:00 Nasal Cannula 2.0 10/12/18 08:46 98.1 10/12/18 08:00 99.1 86 17 128/63 (84) 95 10/12/18 07:41 85 19 99 Room Air 10/12/18 07:28 97 Room Air 21 10/12/18 07:28 87 19 97 Room Air 10/12/18 05:30 81 14 98 Facial 28 10/12/18 03:25 80 13 98 Facial 28 10/12/18 01:44 81 18 99 Bi-Pap 28 10/12/18 01:34 82 18 98 Bi-Pap 28 10/12/18 01:34 91 13 98 Facial 28 10/11/18 23:40 84 17 98 Facial 28 10/11/18 21:00 Nasal Cannula 2.0 10/11/18 20:00 98.1 88 18 105/33 (57) 97 10/11/18 19:36 89 18 99 Nasal Cannula 2.0 28 10/11/18 19:26 86 18 98 Nasal Cannula 2.0 28 10/11/18 19:26 98 Nasal Cannula 2.0 28 Height (Feet): 5 Height (Inches): 5.00 Weight (Pounds): 293 General Appearance: WD/WN, no acute distress HEENT: normocephalic, atraumatic, anicteric, mucous membranes moist, PERRL Respiratory/Chest: chest wall non-tender, lungs clear, no respiratory distress , no accessory muscle use, decreased breath sounds Breasts: other - left breast swelling Cardiovascular: normal peripheral pulses, normal rate, regular rhythm, no gallop/murmur, no JVD Abdomen: normal bowel sounds, soft, non tender, no organomegaly, non distended , no mass, no scars Extremities: no cyanosis, no clubbing Skin: no rash, no lesions 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, no motor/sensory deficits, alert, oriented x 3, normal mood/affect Lymphatic: no neck adenopathy, no groin adenopathy Musculoskeletal: normal muscle bulk, no effusion Laboratory Tests Test 10/12/18 05:45 10/12/18 15:00 White Blood Count 8.0 K/UL (4.8-10.8) 10.2 K/UL (4.8-10.8) Red Blood Count 3.29 M/UL (4.20-5.40) L 3.58 M/UL (4.20-5.40) L Hemoglobin 9.1 G/DL (12.0-16.0) L 9.8 G/DL (12.0-16.0) L Hematocrit 29.4 % (37.0-47.0) L 31.7 % (37.0-47.0) L Mean Corpuscular Volume 89 FL (80-99) 89 FL (80-99) Mean Corpuscular Hemoglobin 27.5 PG (27.0-31.0) 27.3 PG (27.0-31.0) Mean Corpuscular Hemoglobin Concent 30.8 G/DL (32.0-36.0) L 30.8 G/DL (32.0-36.0) L Red Cell Distribution Width 16.6 % (11.6-14.8) H 15.7 % (11.6-14.8) H Platelet Count 147 K/UL (150-450) L 152 K/UL (150-450) Mean Platelet Volume 7.3 FL (6.5-10.1) 8.7 FL (6.5-10.1) Neutrophils (%) (Auto) 71.6 % (45.0-75.0) 80.8 % (45.0-75.0) H Lymphocytes (%) (Auto) 23.4 % (20.0-45.0) 14.7 % (20.0-45.0) L Monocytes (%) (Auto) 4.5 % (1.0-10.0) 3.4 % (1.0-10.0) Eosinophils (%) (Auto) 0.4 % (0.0-3.0) 0.6 % (0.0-3.0) Basophils (%) (Auto) 0.1 % (0.0-2.0) 0.5 % (0.0-2.0) Random Vancomycin Level 18.4 ug/mL Current Medications Medications (Trade) Dose Ordered Sig/Alex Route PRN Reason Start Time Stop Time Status Last Admin Dose Admin Acetaminophen (Tylenol) 650 mg Q4H PRN ORAL Mild Pain/Temp > 100.5 10/06/18 13:00 11/05/18 12:59 Acetaminophen/ Hydrocodone Bitart ([place] 10/325) 1 tab Q6H PRN ORAL For Pain 10/06/18 13:00 10/13/18 12:59 10/12/18 06:40 Apixaban (Eliquis) 2.5 mg BID ORAL 10/06/18 18:00 11/05/18 17:59 10/12/18 08:15 Atorvastatin Calcium (Lipitor) 10 mg BEDTIME ORAL 10/06/18 21:00 11/05/18 20:59 10/11/18 21:49 Cefdinir (Cefdinir) 300 mg Q12HR ORAL 10/11/18 21:00 10/18/18 20:59 10/12/18 08:33 Dextrose (Dextrose 50%) 25 ml Q30M PRN IV Hypoglycemia 10/06/18 15:15 11/05/18 15:14 Dextrose (Dextrose 50%) 25 ml Q30M PRN IV Hypoglycemia 10/11/18 07:15 11/10/18 07:14 Dextrose (Dextrose 50%) 50 ml Q30M PRN IV Hypoglycemia 10/06/18 15:15 11/05/18 15:14 Dextrose (Dextrose 50%) 50 ml Q30M PRN IV Hypoglycemia 10/11/18 07:15 11/10/18 07:14 Diphenhydramine HCl (Benadryl) 25 mg DAILYPRN PRN IVP Itching/Pruritis 10/07/18 15:00 11/06/18 14:59 10/07/18 17:00 Docusate Sodium (Colace) 100 mg THREE TIMES A DAY ORAL 10/06/18 13:20 11/05/18 13:19 10/12/18 12:05 Fluticasone Propionate (Flonase) 1 spray Q8H PRN NASAL NASAL CONGESTION 10/06/18 13:00 11/05/18 12:59 Gabapentin (Neurontin) 300 mg THREE TIMES A DAY ORAL 10/06/18 13:20 11/05/18 13:19 10/12/18 12:05 Guaifenesin (Robitussin) 200 mg Q4H PRN ORAL For Cough 10/08/18 17:30 11/07/18 17:29 Insulin Aspart (NovoLOG) BEFORE MEALS AND HS SUBQ 10/11/18 11:30 11/10/18 11:29 10/12/18 12:08 Insulin Aspart (NovoLOG) 16 units BEFORE MEALS SUBQ 10/11/18 11:30 11/06/18 16:49 10/12/18 12:07 Insulin Detemir (Levemir) 50 units BEDTIME SUBQ 10/11/18 21:00 11/05/18 20:59 10/11/18 21:56 Ipratropium [place] (Atrovent) 500 mcg Q6H PRN HHN Shortness of Breath 10/11/18 17:30 10/16/18 17:29 Ipratropium [place] (Atrovent) 500 mcg Q6HRT HHN 10/11/18 19:00 10/16/18 18:59 10/12/18 13:14 Lactulose (Cephulac) 45 gm Q12H PRN ORAL CONSTIPATION 10/06/18 13:30 11/05/18 12:59 Levalbuterol HCl (Xopenex) 1.25 mg Q6H PRN HHN Shortness of Breath 10/11/18 17:30 10/16/18 17:29 Lidocaine (Lidoderm 5% PATCH) 1 patch DAILYPRN PRN TDERMAL BACK PAIN 10/06/18 13:00 11/05/18 12:59 Loratadine (Claritin 10mg) 10 mg DAILY ORAL 10/07/18 09:00 11/06/18 08:59 10/12/18 08:14 Nateglinide (Starlix) 120 mg TIAC ORAL 10/06/18 16:30 11/05/18 16:29 10/12/18 12:05 Pantoprazole (Protonix) 40 mg DAILY ORAL 10/07/18 09:00 11/06/18 08:59 10/12/18 08:14 Prednisone (PredniSONE) 30 mg DAILY ORAL 10/12/18 09:00 11/11/18 08:59 10/12/18 08:15 Pregabalin (Lyrica) 75 mg BID ORAL 10/06/18 18:00 11/05/18 17:59 10/12/18 08:16 Sennosides (Senokot) 8.6 mg BIDPRN PRN ORAL Constipation 10/06/18 13:00 11/05/18 12:59 Sevelamer Carbonate (Renvela) 2,400 mg THREE TIMES A DAY ORAL 10/10/18 13:00 11/05/18 13:21 10/12/18 12:05 Vancomycin HCl (Vanco rx to dose) 1 ea DAILY PRN MISC Per rx protocol 10/06/18 14:15 11/05/18 14:14 Vitamin B Complex/ Vit C/Folic Acid (Nephrovite) 1 tab DAILY ORAL 10/07/18 09:00 11/06/18 08:59 10/12/18 08:14 Zinc Sulfate (Zinc Sulfate) 220 mg DAILY ORAL 10/07/18 09:00 11/06/18 08:59 10/12/18 08:14 Naa Mina M.D. Oct 12, 2018 16:27
--- NOTE | 2018-10-12 18:43 | Pulmonology Progress Note ---
Assessment/Plan Assessment/Plan Pulmonary Progress Note Problems: (1) Morbid obesity (2) ESRD (end stage renal disease) on dialysis (3) Bronchitis, acute, with bronchospasm (4) UTI (urinary tract infection) (5) Cough productive of yellow sputum (6) Bronchitis (7) PVD (peripheral vascular disease) (8) Anemia in chronic kidney disease (CKD) Assessment/Plan ASSESSMENT: The patient is a 53-year-old female with a history of obesity, questionable history of asthma, end-stage renal disease on dialysis, diabetes, hypertension, peripheral vascular disease, BKA and finger amputations, presenting with shortness of breath and cough likely secondary to URI/bronchitis with an exacerbation of her asthma. Less SOB today PROBLEM LIST: 1. URI/bronchitis. 2. Asthma with acute exacerbation. 3. Urinary tract infection. 4. Morbid obesity. 5. End-stage renal disease, on dialysis. 6. Diabetes. 7. Hypertension. 8. Peripheral vascular disease, status post right BKA and finger amputations. 9. Neuropathy. 10. Anemia. 11. Thrombocytopenia. 12. Prior stated history of DVT. 13. SANDOVAL, likely OHS TREATMENT PLAN: 1. Optimize pulmonary hygiene/mobilize as tolerated. 2. CPAP 12 cm qHS 3. P.r.n. O2 to keep saturations greater than 90%. 4. [id number] and p.r.n. Atrovent and Xopenex hand-held nebulizers (the patient states she has palpitations with albuterol). 5. Abx per ID 6. Follow up Cx's 7. Monitor volumes and renal function. 8. Diabetic diet. 9. Continue Eliquis for prior DVT. 10. Weight loss diet and exercise have to be addressed. 11. The patient should have full PFTs and a sleep study as an outpatient. 12. Wean steroids - reduved to 30 mg daily Subjective Allergies: Coded Allergies: LATEX (Verified Allergy, Unknown, 06/28/18) Subjective AFVSS O2 needs stable Less cough and congestion some wheezing no FC Objective Vital Signs Noted General Appearance: WD/WN, no acute distress, other - ob F HEENT: normocephalic, atraumatic, anicteric, mucous membranes moist Respiratory/Chest: rhonchi Cardiovascular: normal peripheral pulses, normal rate, regular rhythm Abdomen: normal bowel sounds, soft, non tender, no organomegaly, non distended , no mass Extremities: no cyanosis, no clubbing, other - BKA Microbiology Date/Time Source Procedure Growth Status 10/06/18 10:00 Blood Blood Culture - Preliminary NO GROWTH AFTER 24 HOURS Resulted 10/06/18 09:55 Blood Blood Culture - Preliminary NO GROWTH AFTER 24 HOURS Resulted 10/07/18 00:45 Sputum Induced Gram Stain - Final Resulted 10/07/18 00:45 Sputum Induced Sputum Culture Pending Resulted 10/06/18 10:20 Urine,Clean Catch Urine Culture - Preliminary NO GROWTH AFTER 24 HOURS Resulted 10/06/18 10:10 Rectum - Final NO CARBAPENEM-RESISTANT ENTEROBACTERI... Complete 10/06/18 10:10 Rectal Mucosa VRE Culture - Final Enterococcus Faecalis - Vre Complete Laboratory Tests 10/08/18 08:20: Sodium Level 136, Potassium Level 4.5, Chloride Level 97L, Carbon Dioxide Level 29, Anion Gap 10, Blood Urea Nitrogen 70H, Creatinine 6.5H, Estimat Glomerular Filtration Rate 8.1, Glucose Level 330H, Calcium Level 8.5, Phosphorus Level 5.9H, Total Bilirubin 0.3, Aspartate Amino Transf (AST/SGOT) 13L, Alanine Aminotransferase (ALT/SGPT) 12, Alkaline Phosphatase 140H, Total Protein 7.6, Albumin 3.5, Globulin 4.1, Albumin/Globulin Ratio 0.9L Current Medications Medications (Trade) Dose Ordered Sig/Alex Route PRN Reason Start Time Stop Time Status Last Admin Dose Admin Acetaminophen (Tylenol) 650 mg Q4H PRN ORAL Mild Pain/Temp > 100.5 10/06/18 13:00 11/05/18 12:59 Acetaminophen/ Hydrocodone Bitart ([place] 10/325) 1 tab Q6H PRN ORAL For Pain 10/06/18 13:00 10/13/18 12:59 10/08/18 11:34 Apixaban (Eliquis) 2.5 mg BID ORAL 10/06/18 18:00 11/05/18 17:59 10/08/18 09:08 Atorvastatin Calcium (Lipitor) 10 mg BEDTIME ORAL 10/06/18 21:00 11/05/18 20:59 10/07/18 20:04 Cefepime HCl 0.5 gm/Dextrose 55 ml @ 110 mls/hr Q24H IVPB 10/08/18 16:00 10/15/18 15:59 Dextrose (Dextrose 50%) 25 ml Q30M PRN IV Hypoglycemia 10/06/18 15:15 11/05/18 15:14 Dextrose (Dextrose 50%) 50 ml Q30M PRN IV Hypoglycemia 10/06/18 15:15 11/05/18 15:14 Diphenhydramine HCl (Benadryl) 25 mg DAILYPRN PRN IVP Itching/Pruritis 10/07/18 15:00 11/06/18 14:59 10/07/18 17:00 Docusate Sodium (Colace) 100 mg THREE TIMES A DAY ORAL 10/06/18 13:20 11/05/18 13:19 10/08/18 09:09 Fluticasone Propionate (Flonase) 1 spray Q8H PRN NASAL NASAL CONGESTION 10/06/18 13:00 11/05/18 12:59 Gabapentin (Neurontin) 300 mg THREE TIMES A DAY ORAL 10/06/18 13:20 11/05/18 13:19 10/08/18 09:09 Insulin Aspart (NovoLOG) BEFORE MEALS AND HS SUBQ 10/06/18 16:30 11/05/18 16:29 10/08/18 05:55 Insulin Aspart (NovoLOG) 5 units BEFORE MEALS SUBQ 10/07/18 16:30 11/06/18 16:49 10/08/18 05:57 Insulin Detemir (Levemir) 30 units BEDTIME SUBQ 10/06/18 21:00 11/05/18 20:59 10/07/18 20:13 Ipratropium [place] (Atrovent) 500 mcg Q4H PRN HHN Shortness of Breath 10/06/18 12:30 10/11/18 12:29 Ipratropium [place] (Atrovent) 500 mcg Q6HRT HHN 10/06/18 13:00 10/11/18 12:59 10/08/18 06:33 Lactulose (Cephulac) 45 gm Q12H PRN ORAL CONSTIPATION 10/06/18 13:30 11/05/18 12:59 Levalbuterol HCl (Xopenex) 0.63 mg Q4H PRN HHN SOB/wheezing 10/06/18 12:30 10/11/18 12:29 Levalbuterol HCl (Xopenex) 0.63 mg Q6HRT HHN 10/06/18 13:00 10/11/18 12:59 10/08/18 06:33 Levofloxacin 50 ml @ 50 mls/hr Q48H IVPB 10/06/18 20:00 10/13/18 19:59 10/06/18 20:15 Lidocaine (Lidoderm 5% PATCH) 1 patch DAILYPRN PRN TDERMAL BACK PAIN 10/06/18 13:00 11/05/18 12:59 Loratadine (Claritin 10mg) 10 mg DAILY ORAL 10/07/18 09:00 11/06/18 08:59 10/08/18 09:09 Methylprednisolone Sodium Succinate (Solu-MEDROL) 40 mg EVERY 12 HOURS IVP 10/06/18 21:00 11/05/18 20:59 10/08/18 09:08 Nateglinide (Starlix) 120 mg TIAC ORAL 10/06/18 16:30 11/05/18 16:29 10/08/18 11:32 Pantoprazole (Protonix) 40 mg DAILY ORAL 10/07/18 09:00 11/06/18 08:59 10/08/18 09:09 Pregabalin (Lyrica) 75 mg BID ORAL 10/06/18 18:00 11/05/18 17:59 10/08/18 09:11 Sennosides (Senokot) 8.6 mg BIDPRN PRN ORAL Constipation 10/06/18 13:00 11/05/18 12:59 Sevelamer Carbonate (Renvela) 1,600 mg THREE TIMES A DAY ORAL 10/07/18 13:00 11/05/18 13:21 10/08/18 09:09 Vancomycin HCl (Vanco rx to dose) 1 ea DAILY PRN MISC Per rx protocol 10/06/18 14:15 11/05/18 14:14 Vitamin B Complex/ Vit C/Folic Acid (Nephrovite) 1 tab DAILY ORAL 10/07/18 09:00 11/06/18 08:59 10/08/18 09:09 Zinc Sulfate (Zinc Sulfate) 220 mg DAILY ORAL 10/07/18 09:00 11/06/18 08:59 10/08/18 09:09 IMPRESSION: Suspected mild pulmonary vascular congestion Subjective ROS Limited/Unobtainable: No Allergies: Coded Allergies: LATEX (Verified Allergy, Unknown, 06/28/18) Objective Last 24 Hour Vital Signs Date Time Temp Pulse Resp B/P (MAP) Pulse Ox O2 Delivery O2 Flow Rate FiO2 10/12/18 16:00 99.1 81 19 127/65 (85) 95 10/12/18 13:26 84 16 99 Room Air 10/12/18 13:15 83 16 99 Room Air 10/12/18 12:00 98.8 80 18 110/52 (71) 96 10/12/18 09:00 Nasal Cannula 2.0 10/12/18 08:46 98.1 10/12/18 08:00 99.1 86 17 128/63 (84) 95 10/12/18 07:41 85 19 99 Room Air 10/12/18 07:28 97 Room Air 10/12/18 07:28 87 19 97 Room Air 10/12/18 05:30 81 14 98 Facial 28 10/12/18 03:25 80 13 98 Facial 28 10/12/18 01:44 81 18 99 Bi-Pap 28 10/12/18 01:34 82 18 98 Bi-Pap 28 10/12/18 01:34 91 13 98 Facial 28 10/11/18 23:40 84 17 98 Facial 28 10/11/18 21:00 Nasal Cannula 2.0 10/11/18 20:00 98.1 88 18 105/33 (57) 97 10/11/18 19:36 89 18 99 Nasal Cannula 2.0 28 10/11/18 19:26 86 18 98 Nasal Cannula 2.0 28 10/11/18 19:26 98 Nasal Cannula 2.0 28 Intake and Output 10/11/18 10/12/18 18:59 06:59 Intake Total 900 ml 1140 ml Output Total 3000 ml Balance 900 ml -1860 ml Intake Oral 240 ml Other 900 ml 900 ml Hemodialysis UF 3000 ml # Voids 2 # Bowel Movements 3 Laboratory Tests 10/12/18 05:45: White Blood Count 8.0, Red Blood Count 3.29L, Hemoglobin 9.1L, Hematocrit 29.4L , Mean Corpuscular Volume 89, Mean Corpuscular Hemoglobin 27.5, Mean Corpuscular Hemoglobin Concent 30.8L, Red Cell Distribution Width 16.6H, Platelet Count 147L, Mean Platelet Volume 7.3, Neutrophils (%) (Auto) 71.6, Lymphocytes (%) (Auto) 23.4, Monocytes (%) (Auto) 4.5, Eosinophils (%) (Auto) 0.4, Basophils (%) (Auto) 0.1, Random Vancomycin Level 18.4 10/12/18 15:00: White Blood Count 10.2, Red Blood Count 3.58L, Hemoglobin 9.8L, Hematocrit 31.7L , Mean Corpuscular Volume 89, Mean Corpuscular Hemoglobin 27.3, Mean Corpuscular Hemoglobin Concent 30.8L, Red Cell Distribution Width 15.7H, Platelet Count 152, Mean Platelet Volume 8.7, Neutrophils (%) (Auto) 80.8H, Lymphocytes (%) (Auto) 14.7L, Monocytes (%) (Auto) 3.4, Eosinophils (%) (Auto) 0.6, Basophils (%) (Auto) 0.5 Current Medications Medications (Trade) Dose Ordered Sig/Alex Route PRN Reason Start Time Stop Time Status Last Admin Dose Admin Acetaminophen (Tylenol) 650 mg Q4H PRN ORAL Mild Pain/Temp > 100.5 10/06/18 13:00 11/05/18 12:59 Acetaminophen/ Hydrocodone Bitart ([place] 10/325) 1 tab Q6H PRN ORAL For Pain 10/06/18 13:00 10/13/18 12:59 10/12/18 06:40 Apixaban (Eliquis) 2.5 mg BID ORAL 10/06/18 18:00 11/05/18 17:59 10/12/18 18:06 Atorvastatin Calcium (Lipitor) 10 mg BEDTIME ORAL 10/06/18 21:00 11/05/18 20:59 10/11/18 21:49 Cefdinir (Cefdinir) 300 mg Q12HR ORAL 10/11/18 21:00 10/18/18 20:59 10/12/18 08:33 Dextrose (Dextrose 50%) 25 ml Q30M PRN IV Hypoglycemia 10/06/18 15:15 11/05/18 15:14 Dextrose (Dextrose 50%) 25 ml Q30M PRN IV Hypoglycemia 10/11/18 07:15 11/10/18 07:14 Dextrose (Dextrose 50%) 50 ml Q30M PRN IV Hypoglycemia 10/06/18 15:15 11/05/18 15:14 Dextrose (Dextrose 50%) 50 ml Q30M PRN IV Hypoglycemia 10/11/18 07:15 11/10/18 07:14 Diphenhydramine HCl (Benadryl) 25 mg DAILYPRN PRN IVP Itching/Pruritis 10/07/18 15:00 11/06/18 14:59 10/07/18 17:00 Docusate Sodium (Colace) 100 mg THREE TIMES A DAY ORAL 10/06/18 13:20 11/05/18 13:19 10/12/18 18:05 Fluticasone Propionate (Flonase) 1 spray Q8H PRN NASAL NASAL CONGESTION 10/06/18 13:00 11/05/18 12:59 Gabapentin (Neurontin) 300 mg THREE TIMES A DAY ORAL 10/06/18 13:20 11/05/18 13:19 10/12/18 18:06 Guaifenesin (Robitussin) 200 mg Q4H PRN ORAL For Cough 10/08/18 17:30 11/07/18 17:29 Insulin Aspart (NovoLOG) BEFORE MEALS AND HS SUBQ 10/11/18 11:30 11/10/18 11:29 10/12/18 18:08 Insulin Aspart (NovoLOG) 16 units BEFORE MEALS SUBQ 10/11/18 11:30 11/06/18 16:49 10/12/18 18:09 Insulin Detemir (Levemir) 50 units BEDTIME SUBQ 10/11/18 21:00 11/05/18 20:59 10/11/18 21:56 Ipratropium [place] (Atrovent) 500 mcg Q6H PRN HHN Shortness of Breath 10/11/18 17:30 10/16/18 17:29 Ipratropium [place] (Atrovent) 500 mcg Q6HRT HHN 10/11/18 19:00 10/16/18 18:59 10/12/18 13:14 Lactulose (Cephulac) 45 gm Q12H PRN ORAL CONSTIPATION 10/06/18 13:30 11/05/18 12:59 Levalbuterol HCl (Xopenex) 1.25 mg Q6H PRN HHN Shortness of Breath 10/11/18 17:30 10/16/18 17:29 Lidocaine (Lidoderm 5% PATCH) 1 patch DAILYPRN PRN TDERMAL BACK PAIN 10/06/18 13:00 11/05/18 12:59 Loratadine (Claritin 10mg) 10 mg DAILY ORAL 10/07/18 09:00 11/06/18 08:59 10/12/18 08:14 Nateglinide (Starlix) 120 mg TIAC ORAL 10/06/18 16:30 11/05/18 16:29 10/12/18 18:05 Pantoprazole (Protonix) 40 mg DAILY ORAL 10/07/18 09:00 11/06/18 08:59 10/12/18 08:14 Prednisone (PredniSONE) 30 mg DAILY ORAL 10/12/18 09:00 11/11/18 08:59 10/12/18 08:15 Pregabalin (Lyrica) 75 mg BID ORAL 10/06/18 18:00 11/05/18 17:59 10/12/18 18:06 Sennosides (Senokot) 8.6 mg BIDPRN PRN ORAL Constipation 10/06/18 13:00 11/05/18 12:59 Sevelamer Carbonate (Renvela) 2,400 mg THREE TIMES A DAY ORAL 10/10/18 13:00 11/05/18 13:21 10/12/18 18:05 Vancomycin HCl (Vanco rx to dose) 1 ea DAILY PRN MISC Per rx protocol 10/06/18 14:15 11/05/18 14:14 Vitamin B Complex/ Vit C/Folic Acid (Nephrovite) 1 tab DAILY ORAL 10/07/18 09:00 11/06/18 08:59 10/12/18 08:14 Zinc Sulfate (Zinc Sulfate) 220 mg DAILY ORAL 10/07/18 09:00 11/06/18 08:59 10/12/18 08:14 Colby Baez MD Oct 12, 2018 18:43
--- NOTE | 2018-10-12 19:34 | NUR ---
HAND-OFF: Report given to PINKY Ridley.
--- NOTE | 2018-10-12 19:40 | NUR ---
NURSE NOTES: RECEIVED PT FROM PINK[facility] ROSENBAUM. PT IS AWAKE, AAO X4, VVS, ON NC 2L, C/O SOB WHEN CHANGING POSITION. C/O 7/10 PAIN ON LEFT BREAST. REDNESS, WARM TO TOUCH, AND SWELLING NOTED UPON ASSESSMENT OF THE LEFT BREAST. LEFT HAND 3RD DIGIT GANGRENE WOUND IS DRY AND OPEN TO AIR AT THE MOMENT. LEFT TOE DRESSING IS DRY AND INTACT. BED IS LOCKED AT THE LOWEST POSITION, BED ALARMS ACTIVE, SIDE RAILS UP X2, AND CALL LIGHT IS WITHIN REACH. WILL CONTINUE TO MONITOR.
[2018-10-12 20:00] VITALS: BP 142/67
--- NOTE | 2018-10-12 20:58 | Hematology/Onc Progress Note ---
Assessment/Plan Assessment/Plan ASSESSMENT AND REC'S # Thrombocytopenia - potential causes multifactorial, evaluate liver and viral etiologies to begin, also could be related to underlying medications patient has received. --> Hep panel and HIV ordered --> US abd to evaluate for cirrhosis and hsm ordered --> Peripheral smear ordered to evaluate for blasts /schistocytes --> abx and other meds have been reviewed --> ok for ppx if plt >50k w/ either heparin or lovenox --> Trend 129k-->145k--> 165k # Anemia of chronic disease due to underlying chronic medical issues, multifactorial -- noted with HD --> Anemia workup has been ordered, rule out gi bleed --> No evidence of hemolysis is noted, peripheral smear has been reviewed. --> Hgb goal >7. Transfuse prn. --> Epogen 3X a week SQ as needed --> Medications have been reviewed --> low threshold for gi evaluation in case has occult + --> trend hgb 9.8-->9.6--> 9.9 # DVT of the lower extremity --> given anemia that is not acute, okay to continue anticoag --> on eliquis at this time # ESRD. Nephro is following, appreciate recs. # SIRS. --> per ID recs # UTI. # AFib. On anticoagulation eliquis # Severe peripheral vascular disease, status post amputation of the extremities and toes. # Hypertension. # Diabetes type 2. #. Left Breast edema --> Us Breast The time this note is entered does not reflect the time the patient was examined. I greatly appreciate the consultation. 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 10/11: Awaiting HD today. 10/12: left breast pain and edema, no fever., Objective Objective Current Medications Medications (Trade) Dose Ordered Sig/Alex Route PRN Reason Start Time Stop Time Status Last Admin Dose Admin Acetaminophen (Tylenol) 650 mg Q4H PRN ORAL Mild Pain/Temp > 100.5 10/06/18 13:00 11/05/18 12:59 Acetaminophen/ Hydrocodone Bitart ([place] 10/325) 1 tab Q6H PRN ORAL For Pain 10/06/18 13:00 10/13/18 12:59 10/12/18 06:40 Apixaban (Eliquis) 2.5 mg BID ORAL 10/06/18 18:00 11/05/18 17:59 10/12/18 18:06 Atorvastatin Calcium (Lipitor) 10 mg BEDTIME ORAL 10/06/18 21:00 11/05/18 20:59 10/11/18 21:49 Cefdinir (Cefdinir) 300 mg Q12HR ORAL 10/11/18 21:00 10/18/18 20:59 10/12/18 08:33 Dextrose (Dextrose 50%) 25 ml Q30M PRN IV Hypoglycemia 10/06/18 15:15 11/05/18 15:14 Dextrose (Dextrose 50%) 25 ml Q30M PRN IV Hypoglycemia 10/11/18 07:15 11/10/18 07:14 Dextrose (Dextrose 50%) 50 ml Q30M PRN IV Hypoglycemia 10/06/18 15:15 11/05/18 15:14 Dextrose (Dextrose 50%) 50 ml Q30M PRN IV Hypoglycemia 10/11/18 07:15 11/10/18 07:14 Diphenhydramine HCl (Benadryl) 25 mg DAILYPRN PRN IVP Itching/Pruritis 10/07/18 15:00 11/06/18 14:59 10/07/18 17:00 Docusate Sodium (Colace) 100 mg THREE TIMES A DAY ORAL 10/06/18 13:20 11/05/18 13:19 10/12/18 18:05 Fluticasone Propionate (Flonase) 1 spray Q8H PRN NASAL NASAL CONGESTION 10/06/18 13:00 11/05/18 12:59 Gabapentin (Neurontin) 300 mg THREE TIMES A DAY ORAL 10/06/18 13:20 11/05/18 13:19 10/12/18 18:06 Guaifenesin (Robitussin) 200 mg Q4H PRN ORAL For Cough 10/08/18 17:30 11/07/18 17:29 Insulin Aspart (NovoLOG) BEFORE MEALS AND HS SUBQ 10/11/18 11:30 11/10/18 11:29 10/12/18 18:08 Insulin Aspart (NovoLOG) 16 units BEFORE MEALS SUBQ 10/11/18 11:30 11/06/18 16:49 10/12/18 18:09 Insulin Detemir (Levemir) 50 units BEDTIME SUBQ 10/11/18 21:00 11/05/18 20:59 10/11/18 21:56 Ipratropium [place] (Atrovent) 500 mcg Q6H PRN HHN Shortness of Breath 10/11/18 17:30 10/16/18 17:29 Ipratropium [place] (Atrovent) 500 mcg Q6HRT HHN 10/11/18 19:00 10/16/18 18:59 10/12/18 19:25 Lactulose (Cephulac) 45 gm Q12H PRN ORAL CONSTIPATION 10/06/18 13:30 11/05/18 12:59 Levalbuterol HCl (Xopenex) 1.25 mg Q6H PRN HHN Shortness of Breath 10/11/18 17:30 10/16/18 17:29 Lidocaine (Lidoderm 5% PATCH) 1 patch DAILYPRN PRN TDERMAL BACK PAIN 10/06/18 13:00 11/05/18 12:59 Loratadine (Claritin 10mg) 10 mg DAILY ORAL 10/07/18 09:00 11/06/18 08:59 10/12/18 08:14 Nateglinide (Starlix) 120 mg TIAC ORAL 10/06/18 16:30 11/05/18 16:29 10/12/18 18:05 Pantoprazole (Protonix) 40 mg DAILY ORAL 10/07/18 09:00 11/06/18 08:59 10/12/18 08:14 Prednisone (PredniSONE) 30 mg DAILY ORAL 10/12/18 09:00 11/11/18 08:59 10/12/18 08:15 Pregabalin (Lyrica) 75 mg BID ORAL 10/06/18 18:00 11/05/18 17:59 10/12/18 18:06 Sennosides (Senokot) 8.6 mg BIDPRN PRN ORAL Constipation 10/06/18 13:00 7/31/19 12:59 Sevelamer Carbonate (Renvela) 2,400 mg THREE TIMES A DAY ORAL 10/10/18 13:00 11/05/18 13:21 10/12/18 18:05 Vancomycin HCl (Vanco rx to dose) 1 ea DAILY PRN MISC Per rx protocol 10/06/18 14:15 11/05/18 14:14 Vitamin B Complex/ Vit C/Folic Acid (Nephrovite) 1 tab DAILY ORAL 10/07/18 09:00 11/06/18 08:59 10/12/18 08:14 Zinc Sulfate (Zinc Sulfate) 220 mg DAILY ORAL 10/07/18 09:00 11/06/18 08:59 10/12/18 08:14 Last 24 Hour Vital Signs Date Time Temp Pulse Resp B/P (MAP) Pulse Ox O2 Delivery O2 Flow Rate FiO2 10/12/18 19:38 89 16 100 Room Air 10/12/18 19:26 90 16 98 Room Air 10/12/18 19:26 97 Room Air 10/12/18 18:36 99.1 10/12/18 16:00 99.1 81 19 127/65 (85) 95 10/12/18 13:26 84 16 99 Room Air 10/12/18 13:15 83 16 99 Room Air 10/12/18 12:00 98.8 80 18 110/52 (71) 96 10/12/18 09:00 Nasal Cannula 2.0 10/12/18 08:00 99.1 86 17 128/63 (84) 95 10/12/18 07:41 85 19 99 Room Air 10/12/18 07:28 97 Room Air 10/12/18 07:28 87 19 97 Room Air 10/12/18 05:30 81 14 98 Facial 28 10/12/18 03:25 80 13 98 Facial 28 10/12/18 01:44 81 18 99 Bi-Pap 28 10/12/18 01:34 82 18 98 Bi-Pap 28 10/12/18 01:34 91 13 98 Facial 28 10/11/18 23:40 84 17 98 Facial 28 10/11/18 21:00 Nasal Cannula 2.0 10/11/18 20:00 98.1 88 18 105/33 (57) 97 10/11/18 19:36 89 18 99 Nasal Cannula 2.0 28 10/11/18 19:26 86 18 98 Nasal Cannula 2.0 28 10/11/18 19:26 98 Nasal Cannula 2.0 28 10/11/18 16:00 98.9 86 18 134/63 (86) 96 10/11/18 13:26 Room Air 10/11/18 13:26 Room Air 10/11/18 12:00 98.5 87 18 155/65 (95) 95 10/11/18 09:00 Nasal Cannula 2.0 10/11/18 08:00 98.8 98 19 109/64 (79) 95 10/11/18 07:18 86 18 99 Room Air 21 10/11/18 07:13 99 Room Air 21 10/11/18 07:10 83 18 99 Room Air 10/11/18 05:11 86 12 99 Facial 28 10/11/18 02:31 79 12 98 Facial 28 10/11/18 01:48 Bi-Pap 28 10/11/18 01:47 Bi-Pap 28 10/11/18 01:20 84 14 99 Facial 28 10/11/18 00:00 98.7 90 19 101/59 (73) 98 10/10/18 23:12 86 14 98 Facial 28 10/10/18 23:07 86 14 98 Bi-Pap 28 10/10/18 21:00 Nasal Cannula 2.0 Intake and Output 10/11/18 10/12/18 19:00 07:00 Intake Total 900 ml 1140 ml Output Total 3000 ml Balance 900 ml -1860 ml Intake Oral 240 ml Other 900 ml 900 ml Hemodialysis UF 3000 ml # Voids 2 # Bowel Movements 3 Labs Test 10/10/18 09:00 10/12/18 05:45 10/12/18 15:00 White Blood Count 8.6 K/UL (4.8-10.8) 8.0 K/UL (4.8-10.8) 10.2 K/UL (4.8-10.8) Red Blood Count 3.67 M/UL (4.20-5.40) 3.29 M/UL (4.20-5.40) 3.58 M/UL (4.20-5.40) Hemoglobin 9.9 G/DL (12.0-16.0) 9.1 G/DL (12.0-16.0) 9.8 G/DL (12.0-16.0) Hematocrit 33.1 % (37.0-47.0) 29.4 % (37.0-47.0) 31.7 % (37.0-47.0) Mean Corpuscular Volume 90 FL (80-99) 89 FL (80-99) 89 FL (80-99) Mean Corpuscular Hemoglobin 27.0 PG (27.0-31.0) 27.5 PG (27.0-31.0) 27.3 PG (27.0-31.0) Mean Corpuscular Hemoglobin Concent 30.0 G/DL (32.0-36.0) 30.8 G/DL (32.0-36.0) 30.8 G/DL (32.0-36.0) Red Cell Distribution Width 16.6 % (11.6-14.8) 16.6 % (11.6-14.8) 15.7 % (11.6-14.8) Platelet Count 165 K/UL (150-450) 147 K/UL (150-450) 152 K/UL (150-450) Mean Platelet Volume 7.7 FL (6.5-10.1) 7.3 FL (6.5-10.1) 8.7 FL (6.5-10.1) Neutrophils (%) (Auto) 61.7 % (45.0-75.0) 71.6 % (45.0-75.0) 80.8 % (45.0-75.0) Lymphocytes (%) (Auto) 28.7 % (20.0-45.0) 23.4 % (20.0-45.0) 14.7 % (20.0-45.0) Monocytes (%) (Auto) 5.6 % (1.0-10.0) 4.5 % (1.0-10.0) 3.4 % (1.0-10.0) Eosinophils (%) (Auto) 3.3 % (0.0-3.0) 0.4 % (0.0-3.0) 0.6 % (0.0-3.0) Basophils (%) (Auto) 0.7 % (0.0-2.0) 0.1 % (0.0-2.0) 0.5 % (0.0-2.0) Sodium Level 138 MMOL/L (136-145) Potassium Level 4.4 MMOL/L (3.5-5.1) Chloride Level 99 MMOL/L (98-107) Carbon Dioxide Level 28 MMOL/L (21-32) Anion Gap 11 mmol/L (5-15) Blood Urea Nitrogen 74 mg/dL (7-18) Creatinine 6.8 MG/DL (0.55-1.30) Estimat Glomerular Filtration Rate 7.8 mL/min (>60) Glucose Level 244 MG/DL (74-106) Calcium Level 9.0 MG/DL (8.5-10.1) Phosphorus Level 6.4 MG/DL (2.5-4.9) Total Bilirubin 0.3 MG/DL (0.2-1.0) Aspartate Amino Transf (AST/SGOT) 7 U/L (15-37) Alanine Aminotransferase (ALT/SGPT) 7 U/L (12-78) Alkaline Phosphatase 140 U/L (46-116) Total Protein 7.3 G/DL (6.4-8.2) Albumin 3.4 G/DL (3.4-5.0) Globulin 3.9 g/dL Albumin/Globulin Ratio 0.9 (1.0-2.7) Random Vancomycin Level 18.4 ug/mL Height (Feet): 5 Height (Inches): 5.00 Weight (Pounds): 293 Objective Objective PHYSICAL EXAMINATION: VITAL SIGNS: Have been reviewed HEAD AND NECK: Atraumatic and normocephalic. CHEST: Clear to auscultation. HEART: S1 and S2. Regular rate and rhythm. ABDOMEN: Soft. No organomegaly. MUSCULOSKELETAL: Positive for the right AKA, left-sided amputation of toe. NEUROLOGY: The patient is awake, alert, and oriented x3. Lina Shah NP Oct 12, 2018 20:58
[2018-10-12] MEDS: Levemir Flexpen SUBQ SCH (21:44)
[2018-10-13 04:00] VITALS: BP 142/78
[2018-10-13] MEDS: NovoLOG Insulin Flexpen SUBQ SCH ×4 (05:52→11:30)
[2018-10-13] MEDS: Ipratropium 0.02% Inh Soln 2.5ml UD HHN SCH ×2 (07:11→13:10)
--- NOTE | 2018-10-13 07:23 | General Progress Note ---
Assessment/Plan Problem List: (1) ESRD (end stage renal disease) on dialysis ICD Codes: N18.6 - End stage renal disease; Z99.2 - Dependence on renal dialysis SNOMED: 875253817 (2) Bronchitis, acute, with bronchospasm ICD Codes: J20.9 - Acute bronchitis, unspecified SNOMED: 83992400 (3) Morbid obesity ICD Codes: E66.01 - Morbid (severe) obesity due to excess calories SNOMED: 175274075 (4) Diabetes mellitus ICD Codes: E11.9 - Type 2 diabetes mellitus without complications SNOMED: 02751667 (5) PVD (peripheral vascular disease) ICD Codes: I73.9 - Peripheral vascular disease, unspecified SNOMED: 951679230 Assessment/Plan: continue Levemir 50 units qhs continue Novolog 16 units ac tid continue NISS ac / hs continue Starlix 120 mg ac tid Subjective Allergies: Coded Allergies: LATEX (Verified Allergy, Unknown, 06/28/18) All Systems: reviewed and negative except above Subjective events noted glucose values improved on Prednisone 30 mg daily Item Value Date Time Bedside Blood Glucose 161 mg/dl H 10/13/18 0553 Bedside Blood Glucose 221 mg/dl H 10/12/18 2144 Bedside Blood Glucose 181 mg/dl H 10/12/18 1809 Bedside Blood Glucose 168 mg/dl H 10/12/18 1208 Bedside Blood Glucose 224 mg/dl H 10/12/18 0631 Objective Last 24 Hour Vital Signs Date Time Temp Pulse Resp B/P (MAP) Pulse Ox O2 Delivery O2 Flow Rate FiO2 10/13/18 07:14 78 20 100 Nasal Cannula 2.0 10/13/18 07:04 79 24 99 Nasal Cannula 2.0 28 10/13/18 07:03 79 20 99 Nasal Cannula 2.0 28 10/13/18 07:02 99 Nasal Cannula 3.0 32 10/13/18 05:25 84 14 98 Facial 28 10/13/18 03:37 81 15 99 Facial 28 10/13/18 01:13 75 15 99 Facial 28 10/12/18 23:38 81 15 99 Bi-Pap 28 10/12/18 23:30 79 16 97 Bi-Pap 28 10/12/18 23:24 78 14 97 Facial 28 10/12/18 21:00 Nasal Cannula 2.0 10/12/18 20:00 97.2 86 20 142/67 (92) 100 10/12/18 19:38 89 16 100 Room Air 21 10/12/18 19:26 90 16 98 Room Air 21 10/12/18 19:26 97 Room Air 21 10/12/18 18:36 99.1 10/12/18 16:00 99.1 81 19 127/65 (85) 95 10/12/18 13:26 84 16 99 Room Air 21 10/12/18 13:15 83 16 99 Room Air 21 10/12/18 12:00 98.8 80 18 110/52 (71) 96 10/12/18 09:00 Nasal Cannula 2.0 10/12/18 08:00 99.1 86 17 128/63 (84) 95 10/12/18 07:41 85 19 99 Room Air 21 10/12/18 07:28 97 Room Air 10/12/18 07:28 87 19 97 Room Air 21 Intake and Output 10/12/18 10/13/18 19:00 07:00 Intake Total 800 ml 1040 ml Output Total 3300 ml Balance 800 ml -2260 ml Intake Oral 240 ml Other 800 ml 800 ml Output Urine Total 300 ml Hemodialysis UF 3000 ml # Voids 2 # Bowel Movements 1 Laboratory Tests 10/12/18 15:00: White Blood Count 10.2, Red Blood Count 3.58L, Hemoglobin 9.8L, Hematocrit 31.7L , Mean Corpuscular Volume 89, Mean Corpuscular Hemoglobin 27.3, Mean Corpuscular Hemoglobin Concent 30.8L, Red Cell Distribution Width 15.7H, Platelet Count 152, Mean Platelet Volume 8.7, Neutrophils (%) (Auto) 80.8H, Lymphocytes (%) (Auto) 14.7L, Monocytes (%) (Auto) 3.4, Eosinophils (%) (Auto) 0.6, Basophils (%) (Auto) 0.5 Height (Feet): 5 Height (Inches): 5.00 Weight (Pounds): 291 General Appearance: no apparent distress Neck: normal alignment Cardiovascular: normal rate Respiratory/Chest: expiratory wheezing Abdomen: normal bowel sounds Extremities: other - BKA Objective Current Medications Medications (Trade) Dose Ordered Sig/Alex Route PRN Reason Start Time Stop Time Status Last Admin Dose Admin Acetaminophen (Tylenol) 650 mg Q4H PRN ORAL Mild Pain/Temp > 100.5 10/06/18 13:00 11/05/18 12:59 Acetaminophen/ Hydrocodone Bitart ([place] 10/325) 1 tab Q6H PRN ORAL For Pain 10/06/18 13:00 10/13/18 12:59 10/12/18 22:57 Apixaban (Eliquis) 2.5 mg BID ORAL 10/06/18 18:00 11/05/18 17:59 10/12/18 18:06 Atorvastatin Calcium (Lipitor) 10 mg BEDTIME ORAL 10/06/18 21:00 11/05/18 20:59 10/12/18 21:42 Cefdinir (Cefdinir) 300 mg Q12HR ORAL 10/11/18 21:00 10/18/18 20:59 10/12/18 21:42 Dextrose (Dextrose 50%) 25 ml Q30M PRN IV Hypoglycemia 10/06/18 15:15 11/05/18 15:14 Dextrose (Dextrose 50%) 25 ml Q30M PRN IV Hypoglycemia 10/11/18 07:15 11/10/18 07:14 Dextrose (Dextrose 50%) 50 ml Q30M PRN IV Hypoglycemia 10/06/18 15:15 11/05/18 15:14 Dextrose (Dextrose 50%) 50 ml Q30M PRN IV Hypoglycemia 10/11/18 07:15 11/10/18 07:14 Diphenhydramine HCl (Benadryl) 25 mg DAILYPRN PRN IVP Itching/Pruritis 10/07/18 15:00 11/06/18 14:59 10/07/18 17:00 Docusate Sodium (Colace) 100 mg THREE TIMES A DAY ORAL 10/06/18 13:20 11/05/18 13:19 10/12/18 18:05 Fluticasone Propionate (Flonase) 1 spray Q8H PRN NASAL NASAL CONGESTION 10/06/18 13:00 11/05/18 12:59 Gabapentin (Neurontin) 300 mg THREE TIMES A DAY ORAL 10/06/18 13:20 11/05/18 13:19 10/12/18 18:06 Guaifenesin (Robitussin) 200 mg Q4H PRN ORAL For Cough 10/08/18 17:30 11/07/18 17:29 Insulin Aspart (NovoLOG) BEFORE MEALS AND HS SUBQ 10/11/18 11:30 11/10/18 11:29 10/13/18 05:53 Insulin Aspart (NovoLOG) 16 units BEFORE MEALS SUBQ 10/11/18 11:30 11/06/18 16:49 10/13/18 05:52 Insulin Detemir (Levemir) 50 units BEDTIME SUBQ 10/11/18 21:00 11/05/18 20:59 10/12/18 21:44 Ipratropium [place] (Atrovent) 500 mcg Q6H PRN HHN Shortness of Breath 10/11/18 17:30 10/16/18 17:29 Ipratropium [place] (Atrovent) 500 mcg Q6HRT HHN 10/11/18 19:00 10/16/18 18:59 10/13/18 07:11 Lactulose (Cephulac) 45 gm Q12H PRN ORAL CONSTIPATION 10/06/18 13:30 11/05/18 12:59 Levalbuterol HCl (Xopenex) 1.25 mg Q6H PRN HHN Shortness of Breath 10/11/18 17:30 10/16/18 17:29 Lidocaine (Lidoderm 5% PATCH) 1 patch DAILYPRN PRN TDERMAL BACK PAIN 10/06/18 13:00 11/05/18 12:59 Loratadine (Claritin 10mg) 10 mg DAILY ORAL 10/07/18 09:00 11/06/18 08:59 10/12/18 08:14 Nateglinide (Starlix) 120 mg TIAC ORAL 10/06/18 16:30 11/05/18 16:29 10/13/18 05:49 Pantoprazole (Protonix) 40 mg DAILY ORAL 10/07/18 09:00 11/06/18 08:59 10/12/18 08:14 Prednisone (PredniSONE) 30 mg DAILY ORAL 10/12/18 09:00 11/11/18 08:59 10/12/18 08:15 Pregabalin (Lyrica) 75 mg BID ORAL 10/06/18 18:00 11/05/18 17:59 10/12/18 18:06 Sennosides (Senokot) 8.6 mg BIDPRN PRN ORAL Constipation 10/06/18 13:00 11/05/18 12:59 Sevelamer Carbonate (Renvela) 2,400 mg THREE TIMES A DAY ORAL 10/10/18 13:00 11/05/18 13:21 10/12/18 18:05 Vancomycin HCl (Vanco rx to dose) 1 ea DAILY PRN MISC Per rx protocol 10/06/18 14:15 11/05/18 14:14 Vitamin B Complex/ Vit C/Folic Acid (Nephrovite) 1 tab DAILY ORAL 10/07/18 09:00 11/06/18 08:59 10/12/18 08:14 Zinc Sulfate (Zinc Sulfate) 220 mg DAILY ORAL 10/07/18 09:00 11/06/18 08:59 10/12/18 08:14 Todd Roman MD Oct 13, 2018 07:23
[2018-10-13 08:00] VITALS: BP 121/64
--- NOTE | 2018-10-13 08:03 | NUR ---
HAND-OFF: Report given to PINKY GOLDBERG.
[2018-10-13] MEDS: Cefdinir 300mg cap ORAL SCH (08:12)
[2018-10-13] MEDS: Zinc Sulfate 220mg cap ORAL SCH (08:12)
[2018-10-13] MEDS: Lyrica 75mg cap ORAL SCH (08:14)
[2018-10-13] MEDS: Eliquis 2.5mg tablet ORAL SCH (08:14)
[2018-10-13] MEDS: Docusate 100mg cap ORAL SCH ×2 (08:14→12:30)
[2018-10-13] MEDS: Nephrovite tab (Rena-Vite) ORAL SCH (08:14)
--- NOTE | 2018-10-13 08:22 | NUR ---
NURSE NOTES: PT AXOX4, COMPLAINS OF SWELLING AND SORENESS OF LEFT BREAST. PT'S LEFT BREAST IS SIGNIFICANTLY LARGER THAN THE RIGHT BREAST. DR CARLSON AT BEDSIDE AND EXPLAINED PT NEEDS OUTPATIENT MAMMOGRAM. IN NO APPARENT DISTRESS. PT STATE SHE WOULD LIKE DR BAUGH TO EXAMINE HER BREAST BEFORE DISCHARGE. CALL LIGHT WITHIN REACH. WILL CONTINUE TO MONITOR.
--- NOTE | 2018-10-13 11:12 | NUR ---
NURSE NOTES: PER DR BAUGH, HE WILL BE AT HOSPITAL TO SPEAK TO PT AROUND NOON. PT MADE AWARE.
[2018-10-13 12:00] VITALS: BP 138/53
[2018-10-13] MEDS ORDERED: CEFDINIR300 MG PO (13:14)
--- NOTE | 2018-10-13 13:18 | Infectious Diseases Prog Note ---
Assessment/Plan Problems: (1) Bronchitis, acute, with bronchospasm Assessment & Plan: continue vancomycin and cefepime for 10 days total empirically . sputum culture grew normal tessa , continue inhalers as needed (2) Cough productive of yellow sputum Assessment & Plan: possible pneumonia , on vancomycin and cefepime since HD patient and improving clinically on this regimen , sputum culture and blood culture showed no growth of pathogenic bacteria (3) UTI (urinary tract infection) Assessment & Plan: already on cefepime (4) ESRD (end stage renal disease) on dialysis Assessment & Plan: continue HD as per renal (5) Breast edema Assessment & Plan: unclear etiology, surgical eval and foolow up is recommended . recommend mammogram Subjective Constitutional: Reports: no symptoms HEENT: Reports: no symptoms Respiratory: Reports: no symptoms Breasts: Reports: no symptoms Cardiovascular: Reports: no symptoms Gastrointestinal/Abdominal: Reports: no symptoms Genitourinary: Reports: no symptoms Neurologic: Reports: no symptoms Psychiatric: Reports: no symptoms Skin: Reports: no symptoms Endocrine: Reports: no symptoms Hematologic: Reports: no symptoms Musculoskeletal: Reports: no symptoms Allergies: Coded Allergies: LATEX (Verified Allergy, Unknown, 06/28/18) Objective Vital Signs Last 24 Hour Vital Signs Date Time Temp Pulse Resp B/P (MAP) Pulse Ox O2 Delivery O2 Flow Rate FiO2 10/13/18 13:07 88 20 99 Nasal Cannula 2.0 28 10/13/18 12:00 98.7 88 18 138/53 (81) 99 10/13/18 09:00 Nasal Cannula 2.0 10/13/18 08:00 98.5 83 19 121/64 (83) 98 10/13/18 07:14 78 20 100 Nasal Cannula 2.0 28 10/13/18 07:04 79 24 99 Nasal Cannula 2.0 28 10/13/18 07:03 79 20 99 Nasal Cannula 2.0 28 10/13/18 07:02 99 Nasal Cannula 3.0 32 10/13/18 05:25 84 14 98 Facial 28 10/13/18 04:00 97.2 86 20 142/78 (99) 100 10/13/18 03:37 81 15 99 Facial 28 10/13/18 01:13 75 15 99 Facial 28 10/12/18 23:38 81 15 99 Bi-Pap 28 10/12/18 23:30 79 16 97 Bi-Pap 28 10/12/18 23:24 78 14 97 Facial 28 10/12/18 21:00 Nasal Cannula 2.0 10/12/18 20:00 97.2 86 20 142/67 (92) 100 10/12/18 19:38 89 16 100 Room Air 21 10/12/18 19:26 90 16 98 Room Air 21 10/12/18 19:26 97 Room Air 21 10/12/18 18:36 99.1 10/12/18 16:00 99.1 81 19 127/65 (85) 95 10/12/18 13:26 84 16 99 Room Air 21 Height (Feet): 5 Height (Inches): 5.00 Weight (Pounds): 298 General Appearance: WD/WN, no acute distress HEENT: normocephalic, atraumatic, anicteric, mucous membranes moist, PERRL Respiratory/Chest: chest wall non-tender, lungs clear, normal breath sounds, no respiratory distress, no accessory muscle use Cardiovascular: normal peripheral pulses, normal rate, regular rhythm, no gallop/murmur, no JVD Abdomen: normal bowel sounds, soft, non tender, no organomegaly, non distended , no mass, no scars Extremities: no cyanosis, no clubbing Skin: no rash, no lesions, no ulcers Neurologic/Psychiatric: alert, responsive Lymphatic: no neck adenopathy, no groin adenopathy Musculoskeletal: normal muscle bulk, no effusion Laboratory Tests Test 10/12/18 15:00 White Blood Count 10.2 K/UL (4.8-10.8) Red Blood Count 3.58 M/UL (4.20-5.40) L Hemoglobin 9.8 G/DL (12.0-16.0) L Hematocrit 31.7 % (37.0-47.0) L Mean Corpuscular Volume 89 FL (80-99) Mean Corpuscular Hemoglobin 27.3 PG (27.0-31.0) Mean Corpuscular Hemoglobin Concent 30.8 G/DL (32.0-36.0) L Red Cell Distribution Width 15.7 % (11.6-14.8) H Platelet Count 152 K/UL (150-450) Mean Platelet Volume 8.7 FL (6.5-10.1) Neutrophils (%) (Auto) 80.8 % (45.0-75.0) H Lymphocytes (%) (Auto) 14.7 % (20.0-45.0) L Monocytes (%) (Auto) 3.4 % (1.0-10.0) Eosinophils (%) (Auto) 0.6 % (0.0-3.0) Basophils (%) (Auto) 0.5 % (0.0-2.0) Current Medications Medications (Trade) Dose Ordered Sig/Alex Route PRN Reason Start Time Stop Time Status Last Admin Dose Admin Acetaminophen (Tylenol) 650 mg Q4H PRN ORAL Mild Pain/Temp > 100.5 10/06/18 13:00 11/05/18 12:59 Apixaban (Eliquis) 2.5 mg BID ORAL 10/06/18 18:00 11/05/18 17:59 10/13/18 08:14 Atorvastatin Calcium (Lipitor) 10 mg BEDTIME ORAL 10/06/18 21:00 11/05/18 20:59 10/12/18 21:42 Cefdinir (Cefdinir) 300 mg Q12HR ORAL 10/11/18 21:00 10/18/18 20:59 10/13/18 08:12 Dextrose (Dextrose 50%) 25 ml Q30M PRN IV Hypoglycemia 10/06/18 15:15 11/05/18 15:14 Dextrose (Dextrose 50%) 25 ml Q30M PRN IV Hypoglycemia 10/11/18 07:15 11/10/18 07:14 Dextrose (Dextrose 50%) 50 ml Q30M PRN IV Hypoglycemia 10/06/18 15:15 11/05/18 15:14 Dextrose (Dextrose 50%) 50 ml Q30M PRN IV Hypoglycemia 10/11/18 07:15 11/10/18 07:14 Diphenhydramine HCl (Benadryl) 25 mg DAILYPRN PRN IVP Itching/Pruritis 10/07/18 15:00 11/06/18 14:59 10/07/18 17:00 Docusate Sodium (Colace) 100 mg THREE TIMES A DAY ORAL 10/06/18 13:20 11/05/18 13:19 10/13/18 12:30 Fluticasone Propionate (Flonase) 1 spray Q8H PRN NASAL NASAL CONGESTION 10/06/18 13:00 11/05/18 12:59 Gabapentin (Neurontin) 300 mg THREE TIMES A DAY ORAL 10/06/18 13:20 11/05/18 13:19 10/13/18 12:29 Guaifenesin (Robitussin) 200 mg Q4H PRN ORAL For Cough 10/08/18 17:30 11/07/18 17:29 Insulin Aspart (NovoLOG) BEFORE MEALS AND HS SUBQ 10/11/18 11:30 11/10/18 11:29 10/13/18 05:53 Insulin Aspart (NovoLOG) 16 units BEFORE MEALS SUBQ 10/11/18 11:30 11/06/18 16:49 10/13/18 05:52 Insulin Detemir (Levemir) 50 units BEDTIME SUBQ 10/11/18 21:00 11/05/18 20:59 10/12/18 21:44 Ipratropium [place] (Atrovent) 500 mcg Q6H PRN HHN Shortness of Breath 10/11/18 17:30 10/16/18 17:29 Ipratropium [place] (Atrovent) 500 mcg Q6HRT HHN 10/11/18 19:00 10/16/18 18:59 10/13/18 13:10 Lactulose (Cephulac) 45 gm Q12H PRN ORAL CONSTIPATION 10/06/18 13:30 11/05/18 12:59 Levalbuterol HCl (Xopenex) 1.25 mg Q6H PRN HHN Shortness of Breath 10/11/18 17:30 10/16/18 17:29 Lidocaine (Lidoderm 5% PATCH) 1 patch DAILYPRN PRN TDERMAL BACK PAIN 10/06/18 13:00 11/05/18 12:59 Loratadine (Claritin 10mg) 10 mg DAILY ORAL 10/07/18 09:00 11/06/18 08:59 10/13/18 08:13 Nateglinide (Starlix) 120 mg TIAC ORAL 10/06/18 16:30 11/05/18 16:29 10/13/18 05:49 Pantoprazole (Protonix) 40 mg DAILY ORAL 10/07/18 09:00 11/06/18 08:59 10/13/18 08:13 Prednisone (PredniSONE) 30 mg DAILY ORAL 10/12/18 09:00 11/11/18 08:59 10/13/18 08:13 Pregabalin (Lyrica) 75 mg BID ORAL 10/06/18 18:00 11/05/18 17:59 10/13/18 08:14 Sennosides (Senokot) 8.6 mg BIDPRN PRN ORAL Constipation 10/06/18 13:00 11/05/18 12:59 Sevelamer Carbonate (Renvela) 2,400 mg THREE TIMES A DAY ORAL 10/10/18 13:00 11/05/18 13:21 10/13/18 12:30 Vancomycin HCl (Vanco rx to dose) 1 ea DAILY PRN MISC Per rx protocol 10/06/18 14:15 11/05/18 14:14 Vitamin B Complex/ Vit C/Folic Acid (Nephrovite) 1 tab DAILY ORAL 10/07/18 09:00 11/06/18 08:59 10/13/18 08:14 Zinc Sulfate (Zinc Sulfate) 220 mg DAILY ORAL 10/07/18 09:00 11/06/18 08:59 10/13/18 08:12 Naa Mina M.D. Oct 13, 2018 13:18
--- NOTE | 2018-10-13 13:34 | Pulmonology Progress Note ---
Assessment/Plan Problems: (1) Morbid obesity (2) ESRD (end stage renal disease) on dialysis (3) Bronchitis, acute, with bronchospasm (4) UTI (urinary tract infection) (5) Cough productive of yellow sputum (6) Bronchitis (7) PVD (peripheral vascular disease) (8) Anemia in chronic kidney disease (CKD) Assessment/Plan ASSESSMENT: The patient is a 53-year-old female with a history of obesity, questionable history of asthma, end-stage renal disease on dialysis, diabetes, hypertension, peripheral vascular disease, BKA and finger amputations, presenting with shortness of breath and cough likely secondary to URI/bronchitis with an exacerbation of her asthma. PROBLEM LIST: 1. URI/bronchitis. 2. Asthma with acute exacerbation. 3. Urinary tract infection. 4. Morbid obesity. 5. End-stage renal disease, on dialysis. 6. Diabetes. 7. Hypertension. 8. Peripheral vascular disease, status post right BKA and finger amputations. 9. Neuropathy. 10. Anemia. 11. Thrombocytopenia. 12. Prior stated history of DVT. 13. SANDOVAL, likely OHS 14. H/O breast CA with changes on US TREATMENT PLAN: 1. Optimize pulmonary hygiene/mobilize as tolerated. 2. CPAP 12 cm qHS 3. P.r.n. O2 to keep saturations greater than 90%. 4. [id number] and p.r.n. Atrovent and Xopenex hand-held nebulizers (the patient states she has palpitations with albuterol). 5. Abx per ID 6. Prednisone taper 7. Monitor volumes and renal function. 8. Diabetic diet. 9. Continue Eliquis for prior DVT. 10. Weight loss diet and exercise have to be addressed. 11. The patient should have full PFTs and a sleep study as an outpatient. 12. Needs OP mammo and breast eval Subjective Allergies: Coded Allergies: LATEX (Verified Allergy, Unknown, 06/28/18) Subjective Events reviewed AFVSS O2 needs stable Less cough no congestion less wheezing no FC Objective Last 24 Hour Vital Signs Date Time Temp Pulse Resp B/P (MAP) Pulse Ox O2 Delivery O2 Flow Rate FiO2 10/13/18 13:19 86 20 99 Nasal Cannula 2.0 28 10/13/18 13:07 88 20 99 Nasal Cannula 2.0 28 10/13/18 12:00 98.7 88 18 138/53 (81) 99 10/13/18 09:00 Nasal Cannula 2.0 10/13/18 08:00 98.5 83 19 121/64 (83) 98 10/13/18 07:14 78 20 100 Nasal Cannula 2.0 28 10/13/18 07:04 79 24 99 Nasal Cannula 2.0 28 10/13/18 07:03 79 20 99 Nasal Cannula 2.0 28 10/13/18 07:02 99 Nasal Cannula 3.0 32 10/13/18 05:25 84 14 98 Facial 28 10/13/18 04:00 97.2 86 20 142/78 (99) 100 10/13/18 03:37 81 15 99 Facial 28 10/13/18 01:13 75 15 99 Facial 28 10/12/18 23:38 81 15 99 Bi-Pap 28 10/12/18 23:30 79 16 97 Bi-Pap 28 10/12/18 23:24 78 14 97 Facial 28 10/12/18 21:00 Nasal Cannula 2.0 10/12/18 20:00 97.2 86 20 142/67 (92) 100 10/12/18 19:38 89 16 100 Room Air 21 10/12/18 19:26 90 16 98 Room Air 21 10/12/18 19:26 97 Room Air 21 10/12/18 18:36 99.1 10/12/18 16:00 99.1 81 19 127/65 (85) 95 Intake and Output 10/12/18 10/13/18 19:00 07:00 Intake Total 800 ml 1040 ml Output Total 3300 ml Balance 800 ml -2260 ml Intake Oral 240 ml Other 800 ml 800 ml Output Urine Total 300 ml Hemodialysis UF 3000 ml # Voids 2 # Bowel Movements 1 1 General Appearance: WD/WN, no acute distress, other - obese HEENT: normocephalic, atraumatic, anicteric, mucous membranes moist Respiratory/Chest: chest wall non-tender, lungs clear, normal breath sounds, no respiratory distress Cardiovascular: normal peripheral pulses, normal rate, regular rhythm Abdomen: normal bowel sounds, soft, non tender, no organomegaly, non distended , no mass Extremities: no cyanosis, no clubbing, no edema, other - S/P BKA Laboratory Tests 10/12/18 15:00: White Blood Count 10.2, Red Blood Count 3.58L, Hemoglobin 9.8L, Hematocrit 31.7L , Mean Corpuscular Volume 89, Mean Corpuscular Hemoglobin 27.3, Mean Corpuscular Hemoglobin Concent 30.8L, Red Cell Distribution Width 15.7H, Platelet Count 152, Mean Platelet Volume 8.7, Neutrophils (%) (Auto) 80.8H, Lymphocytes (%) (Auto) 14.7L, Monocytes (%) (Auto) 3.4, Eosinophils (%) (Auto) 0.6, Basophils (%) (Auto) 0.5 Current Medications Medications (Trade) Dose Ordered Sig/Alex Route PRN Reason Start Time Stop Time Status Last Admin Dose Admin Acetaminophen (Tylenol) 650 mg Q4H PRN ORAL Mild Pain/Temp > 100.5 10/06/18 13:00 11/05/18 12:59 Apixaban (Eliquis) 2.5 mg BID ORAL 10/06/18 18:00 11/05/18 17:59 10/13/18 08:14 Atorvastatin Calcium (Lipitor) 10 mg BEDTIME ORAL 10/06/18 21:00 11/05/18 20:59 10/12/18 21:42 Cefdinir (Cefdinir) 300 mg Q12HR ORAL 10/11/18 21:00 10/18/18 20:59 10/13/18 08:12 Dextrose (Dextrose 50%) 25 ml Q30M PRN IV Hypoglycemia 10/06/18 15:15 11/05/18 15:14 Dextrose (Dextrose 50%) 25 ml Q30M PRN IV Hypoglycemia 10/11/18 07:15 11/10/18 07:14 Dextrose (Dextrose 50%) 50 ml Q30M PRN IV Hypoglycemia 10/06/18 15:15 11/05/18 15:14 Dextrose (Dextrose 50%) 50 ml Q30M PRN IV Hypoglycemia 10/11/18 07:15 11/10/18 07:14 Diphenhydramine HCl (Benadryl) 25 mg DAILYPRN PRN IVP Itching/Pruritis 10/07/18 15:00 11/06/18 14:59 10/07/18 17:00 Docusate Sodium (Colace) 100 mg THREE TIMES A DAY ORAL 10/06/18 13:20 11/05/18 13:19 10/13/18 12:30 Fluticasone Propionate (Flonase) 1 spray Q8H PRN NASAL NASAL CONGESTION 10/06/18 13:00 11/05/18 12:59 Gabapentin (Neurontin) 300 mg THREE TIMES A DAY ORAL 10/06/18 13:20 11/05/18 13:19 10/13/18 12:29 Guaifenesin (Robitussin) 200 mg Q4H PRN ORAL For Cough 10/08/18 17:30 11/07/18 17:29 Insulin Aspart (NovoLOG) BEFORE MEALS AND HS SUBQ 10/11/18 11:30 11/10/18 11:29 10/13/18 05:53 Insulin Aspart (NovoLOG) 16 units BEFORE MEALS SUBQ 10/11/18 11:30 11/06/18 16:49 10/13/18 05:52 Insulin Detemir (Levemir) 50 units BEDTIME SUBQ 10/11/18 21:00 11/05/18 20:59 10/12/18 21:44 Ipratropium [place] (Atrovent) 500 mcg Q6H PRN HHN Shortness of Breath 10/11/18 17:30 10/16/18 17:29 Ipratropium [place] (Atrovent) 500 mcg Q6HRT HHN 10/11/18 19:00 10/16/18 18:59 10/13/18 13:10 Lactulose (Cephulac) 45 gm Q12H PRN ORAL CONSTIPATION 10/06/18 13:30 11/05/18 12:59 Levalbuterol HCl (Xopenex) 1.25 mg Q6H PRN HHN Shortness of Breath 10/11/18 17:30 10/16/18 17:29 Lidocaine (Lidoderm 5% PATCH) 1 patch DAILYPRN PRN TDERMAL BACK PAIN 10/06/18 13:00 11/05/18 12:59 Loratadine (Claritin 10mg) 10 mg DAILY ORAL 10/07/18 09:00 11/06/18 08:59 10/13/18 08:13 Nateglinide (Starlix) 120 mg TIAC ORAL 10/06/18 16:30 11/05/18 16:29 10/13/18 05:49 Pantoprazole (Protonix) 40 mg DAILY ORAL 10/07/18 09:00 11/06/18 08:59 10/13/18 08:13 Prednisone (PredniSONE) 30 mg DAILY ORAL 10/12/18 09:00 11/11/18 08:59 10/13/18 08:13 Pregabalin (Lyrica) 75 mg BID ORAL 10/06/18 18:00 11/05/18 17:59 10/13/18 08:14 Sennosides (Senokot) 8.6 mg BIDPRN PRN ORAL Constipation 10/06/18 13:00 11/05/18 12:59 Sevelamer Carbonate (Renvela) 2,400 mg THREE TIMES A DAY ORAL 10/10/18 13:00 11/05/18 13:21 10/13/18 12:30 Vancomycin HCl (Vanco rx to dose) 1 ea DAILY PRN MISC Per rx protocol 10/06/18 14:15 11/05/18 14:14 Vitamin B Complex/ Vit C/Folic Acid (Nephrovite) 1 tab DAILY ORAL 10/07/18 09:00 11/06/18 08:59 10/13/18 08:14 Zinc Sulfate (Zinc Sulfate) 220 mg DAILY ORAL 10/07/18 09:00 11/06/18 08:59 10/13/18 08:12 Castillo Carrizales MD Oct 13, 2018 13:34
--- NOTE | 2018-10-13 13:53 | General Progress Note ---
Assessment/Plan Status: stable Assessment/Plan: S: My left breast hurts O: Denies chest or breast pain. PHYSICAL EXAMINATION:HEAD AND NECK: Atraumatic and normocephalic. CHEST: Large size left breast with chronic edemato chanes . No abcess. No gross evidence of cellulitis. Clear to auscultation.HEART: S1 and S2. Regular rate and rhythm. ABDOMEN: Soft. No organomegaly.MUSCULOSKELETAL: Positive for the right AKA, left-sided amputation of toe.NEUROLOGY: The patient is awake, alert, and oriented x3. Meds: reviewed and reconciled in the chart ASSESSMENT AND PLAN: 1. End-stage renal disease, on hemodialysis. 2. SIRS. 3. UTI. 4. AFib. On anticoagulation. 5. Hypoxemic respiratory distress, one episode. 6. HCA- PNA, can not be excluded 6. Anemia. 7. Severe peripheral vascular disease, status post amputation of the extremities and toes. 8. Hypertension. 9. Diabetes type 2. 10. GI and DVT prophylaxis. 12. Lymphedema changes of left breast, conservative mgt plan: negative cultures Lymphedema of left breast, conservative mgt Subjective Allergies: Coded Allergies: LATEX (Verified Allergy, Unknown, 06/28/18) Objective Last 24 Hour Vital Signs Date Time Temp Pulse Resp B/P (MAP) Pulse Ox O2 Delivery O2 Flow Rate FiO2 10/13/18 13:19 86 20 99 Nasal Cannula 2.0 28 10/13/18 13:07 88 20 99 Nasal Cannula 2.0 28 10/13/18 12:00 98.7 88 18 138/53 (81) 99 10/13/18 09:00 Nasal Cannula 2.0 10/13/18 08:00 98.5 83 19 121/64 (83) 98 10/13/18 07:14 78 20 100 Nasal Cannula 2.0 28 10/13/18 07:04 79 24 99 Nasal Cannula 2.0 28 10/13/18 07:03 79 20 99 Nasal Cannula 2.0 28 10/13/18 07:02 99 Nasal Cannula 3.0 32 10/13/18 05:25 84 14 98 Facial 28 10/13/18 04:00 97.2 86 20 142/78 (99) 100 10/13/18 03:37 81 15 99 Facial 28 10/13/18 01:13 75 15 99 Facial 28 10/12/18 23:38 81 15 99 Bi-Pap 28 10/12/18 23:30 79 16 97 Bi-Pap 28 10/12/18 23:24 78 14 97 Facial 28 10/12/18 21:00 Nasal Cannula 2.0 10/12/18 20:00 97.2 86 20 142/67 (92) 100 10/12/18 19:38 89 16 100 Room Air 21 10/12/18 19:26 90 16 98 Room Air 21 10/12/18 19:26 97 Room Air 10/12/18 18:36 99.1 10/12/18 16:00 99.1 81 19 127/65 (85) 95 Intake and Output 10/12/18 10/13/18 19:00 07:00 Intake Total 800 ml 1040 ml Output Total 3300 ml Balance 800 ml -2260 ml Intake Oral 240 ml Other 800 ml 800 ml Output Urine Total 300 ml Hemodialysis UF 3000 ml # Voids 2 # Bowel Movements 1 1 Laboratory Tests 10/12/18 15:00: White Blood Count 10.2, Red Blood Count 3.58L, Hemoglobin 9.8L, Hematocrit 31.7L , Mean Corpuscular Volume 89, Mean Corpuscular Hemoglobin 27.3, Mean Corpuscular Hemoglobin Concent 30.8L, Red Cell Distribution Width 15.7H, Platelet Count 152, Mean Platelet Volume 8.7, Neutrophils (%) (Auto) 80.8H, Lymphocytes (%) (Auto) 14.7L, Monocytes (%) (Auto) 3.4, Eosinophils (%) (Auto) 0.6, Basophils (%) (Auto) 0.5 Height (Feet): 5 Height (Inches): 5.00 Weight (Pounds): 298 Archana Chan MD Oct 13, 2018 13:53
--- NOTE | 2018-10-13 14:00 | NUR ---
NURSE NOTES: PT AXOX4 MADE AWARE OF DISCHARGE [facility] RN GAVE REPORT TO RN PARTY DIRECTOR RAYMOND. [facility] ETA 1430HRS. RN DID WOUND CARE FOR LEFT THIRD DIGIT AND LEFT GREAT TOE. BELONGINGS CHECKED AT BEDSIDE, ALL BELONGINGS ACCOUNTED. RAYMOND, PINKY, MADE AWARE OF PT'S DIALYSIS SCHEDULE TUESDAYS, THURSDAYS, AND SATURDAYS (AND TOMORROW'S DIALYSIS NEEDS TO BE SCHEDULED). PT TO ALSO CONTINUE CEFDINIR 300MG Q12H X7 DAYS, WITH NEXT DOSE DUE AT 2100HRS TODAY.
--- NOTE | 2018-10-13 14:21 | Surgery Progress Note ---
Surgery Progress Note Subjective Symptoms: improved, tolerating diet, passing flatus, BM, pain decreased Objective Last 24 Hour Vital Signs Date Time Temp Pulse Resp B/P (MAP) Pulse Ox O2 Delivery O2 Flow Rate FiO2 10/13/18 13:19 86 20 99 Nasal Cannula 2.0 28 10/13/18 13:07 88 20 99 Nasal Cannula 2.0 28 10/13/18 12:00 98.7 88 18 138/53 (81) 99 10/13/18 09:00 Nasal Cannula 2.0 10/13/18 08:00 98.5 83 19 121/64 (83) 98 10/13/18 07:14 78 20 100 Nasal Cannula 2.0 28 10/13/18 07:04 79 24 99 Nasal Cannula 2.0 28 10/13/18 07:03 79 20 99 Nasal Cannula 2.0 28 10/13/18 07:02 99 Nasal Cannula 3.0 32 10/13/18 05:25 84 14 98 Facial 28 10/13/18 04:00 97.2 86 20 142/78 (99) 100 10/13/18 03:37 81 15 99 Facial 28 10/13/18 01:13 75 15 99 Facial 28 10/12/18 23:38 81 15 99 Bi-Pap 28 10/12/18 23:30 79 16 97 Bi-Pap 28 10/12/18 23:24 78 14 97 Facial 28 10/12/18 21:00 Nasal Cannula 2.0 10/12/18 20:00 97.2 86 20 142/67 (92) 100 10/12/18 19:38 89 16 100 Room Air 21 10/12/18 19:26 90 16 98 Room Air 21 10/12/18 19:26 97 Room Air 21 10/12/18 18:36 99.1 10/12/18 16:00 99.1 81 19 127/65 (85) 95 I&O Intake and Output 10/12/18 10/13/18 19:00 07:00 Intake Total 800 ml 1040 ml Output Total 3300 ml Balance 800 ml -2260 ml Intake Oral 240 ml Other 800 ml 800 ml Output Urine Total 300 ml Hemodialysis UF 3000 ml # Voids 2 # Bowel Movements 1 1 Dressing: dry Wound: clean, other Drains: other Cardiovascular: RSR Respiratory: clear Abdomen: soft, non-tender, present bowel sounds, non-distended Extremities: tenderness, cyanosis, no edema, other Laboratory Tests Test 10/12/18 15:00 White Blood Count 10.2 K/UL (4.8-10.8) Red Blood Count 3.58 M/UL (4.20-5.40) L Hemoglobin 9.8 G/DL (12.0-16.0) L Hematocrit 31.7 % (37.0-47.0) L Mean Corpuscular Volume 89 FL (80-99) Mean Corpuscular Hemoglobin 27.3 PG (27.0-31.0) Mean Corpuscular Hemoglobin Concent 30.8 G/DL (32.0-36.0) L Red Cell Distribution Width 15.7 % (11.6-14.8) H Platelet Count 152 K/UL (150-450) Mean Platelet Volume 8.7 FL (6.5-10.1) Neutrophils (%) (Auto) 80.8 % (45.0-75.0) H Lymphocytes (%) (Auto) 14.7 % (20.0-45.0) L Monocytes (%) (Auto) 3.4 % (1.0-10.0) Eosinophils (%) (Auto) 0.6 % (0.0-3.0) Basophils (%) (Auto) 0.5 % (0.0-2.0) Plan Problems: (1) Cellulitis Assessment & Plan: Morbidly obese female whom presented on admission with necrotic 3rd digit of L hand. 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 Hx of TMA L st metatarsal.Necrotic area noted to dorsal aspect of L TMA.Small amt sanguineous exudate noted. No odor noted .Periwound without erythema or edema. L heel is dry ,firm and blanchable. 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 No evidence of skin breakdown to sacrum. Pt demonstrated good mobility repositioning self in bed. Educated on wound prevention and encouraged to frequently turn and to off-lift buttocks when repositioning to prevent friction to skin. Tx.Plan: Swab 3rd digit of L hand with Betadine daily . May cover with Optifoam s needed. Swab L 1st TMA with Betadine. Cover with Gauze and wrap loosely with Kerlix Daily and prn. Off-load L heel with pillow. Encourage and assist as needed with repositioning at least every 2hours or as tolerated. f/u with plastic and podiatry as outpatient for revision (2) Bronchitis (3) Cough productive of yellow sputum (4) UTI (urinary tract infection) (5) Bronchitis, acute, with bronchospasm (6) ESRD (end stage renal disease) on dialysis (7) Morbid obesity (8) Anemia in chronic kidney disease (CKD) (9) PVD (peripheral vascular disease) Assessment & Plan: known PVD multiple studies done prior right LE amputation stable. flap viable without wound left foot with great toe amp cont with current care plan Melvin Santana Oct 13, 2018 14:21
--- NOTE | 2018-10-13 15:03 | Hematology/Onc Progress Note ---
Assessment/Plan Assessment/Plan ASSESSMENT AND REC'S # Thrombocytopenia - potential causes multifactorial, evaluate liver and viral etiologies to begin, also could be related to underlying medications patient has received. --> Hep panel and HIV ordered --> US abd to evaluate for cirrhosis and hsm ordered --> Peripheral smear ordered to evaluate for blasts /schistocytes --> abx and other meds have been reviewed --> ok for ppx if plt >50k w/ either heparin or lovenox --> Trend 129k-->145k--> 165k->152k # Anemia of chronic disease due to underlying chronic medical issues, multifactorial -- noted with HD --> Anemia workup has been ordered, rule out gi bleed --> No evidence of hemolysis is noted, peripheral smear has been reviewed. --> Hgb goal >7. Transfuse prn. --> Epogen 3X a week SQ as needed --> Medications have been reviewed --> low threshold for gi evaluation in case has occult + --> trend hgb 9.8-->9.6--> 9.9-->9.8 # DVT of the lower extremity --> given anemia that is not acute, okay to continue anticoag --> on eliquis at this time (lower dose) # Left Breast edema --> imaging us consistent with postsurgical changes --> ouptatient mammo # ESRD. Nephro is following, appreciate recs. --> HD 3x/week # SIRS. --> per ID recs # UTI. # AFib. On anticoagulation eliquis # Severe peripheral vascular disease, status post amputation of the extremities and toes. # Hypertension. # Diabetes type 2. The time this note is entered does not reflect the time the patient was examined. I greatly appreciate the consultation. Subjective Constitutional: Denies: no symptoms, chills, fever, malaise, weakness, other HEENT: Denies: no symptoms, eye pain, blurred vision, tearing, double vision, ear pain, ear discharge, nose pain, nose congestion, throat pain, throat swelling, mouth pain, mouth swelling, other Cardiovascular: Denies: no symptoms, chest pain, edema, irregular heart rate, lightheadedness, palpitations, syncope, other Respiratory: Reports: no symptoms, cough, shortness of breath, SOB with excertion, SOB at rest, sputum, wheezing, other Gastrointestinal/Abdominal: Denies: no symptoms, abdomen distended, abdominal pain, black stools, tarry stools, blood in stool, constipated, diarrhea, difficulty swallowing, nausea, poor appetite, poor fluid intake, rectal bleeding , vomiting, other Genitourinary: Denies: no symptoms, burning, discharge, frequency, flank pain, hematuria, incontinence, pain, urgency, other Neurologic/Psychiatric: Denies: no symptoms, anxiety, depressed, emotional problems, headache, numbness, paresthesia, pre-existing deficit, seizure, tingling, tremors, weakness, other Endocrine: Denies: no symptoms, excessive sweating, flushing, intolerance to cold, intolerance to heat, increased hunger, increased thirst, increased urine, unexplained weight gain, unexplained weight loss, other Allergies: Coded Allergies: LATEX (Verified Allergy, Unknown, 06/28/18) Subjective 10/08: cxr is better, is on abx per id 10/10: no acute events, pt awaiting to see surgery for possible amputation of left middel finger gangrene., D/W RN. 10/11: Awaiting HD today. 10/12: left breast pain and edema, no fever., 10/13: potential dc today, snf contacted Objective Objective Current Medications Medications (Trade) Dose Ordered Sig/Alex Route PRN Reason Start Time Stop Time Status Last Admin Dose Admin Acetaminophen (Tylenol) 650 mg Q4H PRN ORAL Mild Pain/Temp > 100.5 10/06/18 13:00 11/05/18 12:59 Apixaban (Eliquis) 2.5 mg BID ORAL 10/06/18 18:00 11/05/18 17:59 10/13/18 08:14 Atorvastatin Calcium (Lipitor) 10 mg BEDTIME ORAL 10/06/18 21:00 11/05/18 20:59 10/12/18 21:42 Cefdinir (Cefdinir) 300 mg Q12HR ORAL 10/11/18 21:00 10/18/18 20:59 10/13/18 08:12 Dextrose (Dextrose 50%) 25 ml Q30M PRN IV Hypoglycemia 10/06/18 15:15 11/05/18 15:14 Dextrose (Dextrose 50%) 25 ml Q30M PRN IV Hypoglycemia 10/11/18 07:15 11/10/18 07:14 Dextrose (Dextrose 50%) 50 ml Q30M PRN IV Hypoglycemia 10/06/18 15:15 11/05/18 15:14 Dextrose (Dextrose 50%) 50 ml Q30M PRN IV Hypoglycemia 10/11/18 07:15 11/10/18 07:14 Diphenhydramine HCl (Benadryl) 25 mg DAILYPRN PRN IVP Itching/Pruritis 10/07/18 15:00 11/06/18 14:59 10/07/18 17:00 Docusate Sodium (Colace) 100 mg THREE TIMES A DAY ORAL 10/06/18 13:20 11/05/18 13:19 10/13/18 12:30 Fluticasone Propionate (Flonase) 1 spray Q8H PRN NASAL NASAL CONGESTION 10/06/18 13:00 11/05/18 12:59 Gabapentin (Neurontin) 300 mg THREE TIMES A DAY ORAL 10/06/18 13:20 11/05/18 13:19 10/13/18 12:29 Guaifenesin (Robitussin) 200 mg Q4H PRN ORAL For Cough 10/08/18 17:30 11/07/18 17:29 Insulin Aspart (NovoLOG) BEFORE MEALS AND HS SUBQ 10/11/18 11:30 11/10/18 11:29 10/13/18 05:53 Insulin Aspart (NovoLOG) 16 units BEFORE MEALS SUBQ 10/11/18 11:30 11/06/18 16:49 10/13/18 05:52 Insulin Detemir (Levemir) 50 units BEDTIME SUBQ 10/11/18 21:00 11/05/18 20:59 10/12/18 21:44 Ipratropium [place] (Atrovent) 500 mcg Q6H PRN HHN Shortness of Breath 10/11/18 17:30 10/16/18 17:29 Ipratropium [place] (Atrovent) 500 mcg Q6HRT HHN 10/11/18 19:00 10/16/18 18:59 10/13/18 13:10 Lactulose (Cephulac) 45 gm Q12H PRN ORAL CONSTIPATION 10/06/18 13:30 11/05/18 12:59 Levalbuterol HCl (Xopenex) 1.25 mg Q6H PRN HHN Shortness of Breath 10/11/18 17:30 10/16/18 17:29 Lidocaine (Lidoderm 5% PATCH) 1 patch DAILYPRN PRN TDERMAL BACK PAIN 10/06/18 13:00 11/05/18 12:59 Loratadine (Claritin 10mg) 10 mg DAILY ORAL 10/07/18 09:00 11/06/18 08:59 10/13/18 08:13 Nateglinide (Starlix) 120 mg TIAC ORAL 10/06/18 16:30 11/05/18 16:29 10/13/18 05:49 Pantoprazole (Protonix) 40 mg DAILY ORAL 10/07/18 09:00 11/06/18 08:59 10/13/18 08:13 Prednisone (PredniSONE) 30 mg DAILY ORAL 10/12/18 09:00 11/11/18 08:59 10/13/18 08:13 Pregabalin (Lyrica) 75 mg BID ORAL 10/06/18 18:00 11/05/18 17:59 10/13/18 08:14 Sennosides (Senokot) 8.6 mg BIDPRN PRN ORAL Constipation 10/06/18 13:00 11/05/18 12:59 Sevelamer Carbonate (Renvela) 2,400 mg THREE TIMES A DAY ORAL 10/10/18 13:00 11/05/18 13:21 10/13/18 12:30 Vancomycin HCl (Vanco rx to dose) 1 ea DAILY PRN MISC Per rx protocol 10/06/18 14:15 11/05/18 14:14 Vitamin B Complex/ Vit C/Folic Acid (Nephrovite) 1 tab DAILY ORAL 10/07/18 09:00 11/06/18 08:59 10/13/18 08:14 Zinc Sulfate (Zinc Sulfate) 220 mg DAILY ORAL 10/07/18 09:00 11/06/18 08:59 10/13/18 08:12 Last 24 Hour Vital Signs Date Time Temp Pulse Resp B/P (MAP) Pulse Ox O2 Delivery O2 Flow Rate FiO2 10/13/18 13:19 86 20 99 Nasal Cannula 2.0 28 10/13/18 13:07 88 20 99 Nasal Cannula 2.0 28 19 12:00 98.7 88 18 138/53 (81) 99 10/13/18 09:00 Nasal Cannula 2.0 10/13/18 08:00 98.5 83 19 121/64 (83) 98 10/13/18 07:14 78 20 100 Nasal Cannula 2.0 10/13/18 07:04 79 24 99 Nasal Cannula 2.0 28 10/13/18 07:03 79 20 99 Nasal Cannula 2.0 28 10/13/18 07:02 99 Nasal Cannula 3.0 32 10/13/18 05:25 84 14 98 Facial 28 10/13/18 04:00 97.2 86 20 142/78 (99) 100 10/13/18 03:37 81 15 99 Facial 28 10/13/18 01:13 75 15 99 Facial 28 10/12/18 23:38 81 15 99 Bi-Pap 28 10/12/18 23:30 79 16 97 Bi-Pap 28 10/12/18 23:24 78 14 97 Facial 28 10/12/18 21:00 Nasal Cannula 2.0 10/12/18 20:00 97.2 86 20 142/67 (92) 100 10/12/18 19:38 89 16 100 Room Air 10/12/18 19:26 90 16 98 Room Air 10/12/18 19:26 97 Room Air 10/12/18 18:36 99.1 10/12/18 16:00 99.1 81 19 127/65 (85) 95 10/12/18 13:26 84 16 99 Room Air 21 10/12/18 13:15 83 16 99 Room Air 10/12/18 12:00 98.8 80 18 110/52 (71) 96 10/12/18 09:00 Nasal Cannula 2.0 10/12/18 08:00 99.1 86 17 128/63 (84) 95 10/12/18 07:41 85 19 99 Room Air 10/12/18 07:28 97 Room Air 21 10/12/18 07:28 87 19 97 Room Air 10/12/18 05:30 81 14 98 Facial 28 10/12/18 03:25 80 13 98 Facial 28 10/12/18 01:44 81 18 99 Bi-Pap 28 10/12/18 01:34 82 18 98 Bi-Pap 28 10/12/18 01:34 91 13 98 Facial 28 10/11/18 23:40 84 17 98 Facial 28 10/11/18 21:00 Nasal Cannula 2.0 10/11/18 20:00 98.1 88 18 105/33 (57) 97 10/11/18 19:36 89 18 99 Nasal Cannula 2.0 28 10/11/18 19:26 86 18 98 Nasal Cannula 2.0 28 10/11/18 19:26 98 Nasal Cannula 2.0 28 10/11/18 16:00 98.9 86 18 134/63 (86) 96 Intake and Output 10/12/18 10/13/18 19:00 07:00 Intake Total 800 ml 1040 ml Output Total 3300 ml Balance 800 ml -2260 ml Intake Oral 240 ml Other 800 ml 800 ml Output Urine Total 300 ml Hemodialysis UF 3000 ml # Voids 2 # Bowel Movements 1 1 Labs Test 10/12/18 05:45 10/12/18 15:00 White Blood Count 8.0 K/UL (4.8-10.8) 10.2 K/UL (4.8-10.8) Red Blood Count 3.29 M/UL (4.20-5.40) 3.58 M/UL (4.20-5.40) Hemoglobin 9.1 G/DL (12.0-16.0) 9.8 G/DL (12.0-16.0) Hematocrit 29.4 % (37.0-47.0) 31.7 % (37.0-47.0) Mean Corpuscular Volume 89 FL (80-99) 89 FL (80-99) Mean Corpuscular Hemoglobin 27.5 PG (27.0-31.0) 27.3 PG (27.0-31.0) Mean Corpuscular Hemoglobin Concent 30.8 G/DL (32.0-36.0) 30.8 G/DL (32.0-36.0) Red Cell Distribution Width 16.6 % (11.6-14.8) 15.7 % (11.6-14.8) Platelet Count 147 K/UL (150-450) 152 K/UL (150-450) Mean Platelet Volume 7.3 FL (6.5-10.1) 8.7 FL (6.5-10.1) Neutrophils (%) (Auto) 71.6 % (45.0-75.0) 80.8 % (45.0-75.0) Lymphocytes (%) (Auto) 23.4 % (20.0-45.0) 14.7 % (20.0-45.0) Monocytes (%) (Auto) 4.5 % (1.0-10.0) 3.4 % (1.0-10.0) Eosinophils (%) (Auto) 0.4 % (0.0-3.0) 0.6 % (0.0-3.0) Basophils (%) (Auto) 0.1 % (0.0-2.0) 0.5 % (0.0-2.0) Random Vancomycin Level 18.4 ug/mL Height (Feet): 5 Height (Inches): 5.00 Weight (Pounds): 298 Objective PHYSICAL EXAMINATION: VITAL SIGNS: Have been reviewed HEAD AND NECK: Atraumatic and normocephalic. CHEST: Clear to auscultation. HEART: S1 and S2. Regular rate and rhythm. ABDOMEN: Soft. No organomegaly. MUSCULOSKELETAL: Positive for the right AKA, left-sided amputation of toe. NEUROLOGY: The patient is awake, alert, and oriented x3. Fabiano Perez MD Oct 13, 2018 15:03
--- NOTE | 2018-10-13 15:50 | NUR ---
NURSE NOTES: PT WAS DISCHARGED IN STABLE CONDITION WITH AMBULANCE PERSONNEL.
--- NOTE | 2018-10-13 17:01 | Nephrology Progress Note ---
Assessment/Plan Problem List: (1) ESRD (end stage renal disease) on dialysis (2) Bronchitis, acute, with bronchospasm (3) Morbid obesity (4) Anemia in chronic kidney disease (CKD) (5) PVD (peripheral vascular disease) (6) Diabetes mellitus Assessment: OOC Assessment ESRD , HD Tue Gisela Sat Obese DM PVD s/p LE amputation Rt Anemia of CKD Bronchitis / UTI Plan Per ID - on PO antibiotics HD next 10/14 Kayexelate as needed pulm toilet BP and BS control taper steroids as possible per orders ? DC planning? Subjective ROS Limited/Unobtainable: No Interval Events/Complaints seen at 11 am Objective Objective Last 24 Hour Vital Signs Date Time Temp Pulse Resp B/P (MAP) Pulse Ox O2 Delivery O2 Flow Rate FiO2 10/13/18 13:19 86 20 99 Nasal Cannula 2.0 28 10/13/18 13:07 88 20 99 Nasal Cannula 2.0 28 10/13/18 12:00 98.7 88 18 138/53 (81) 99 10/13/18 09:00 Nasal Cannula 2.0 10/13/18 08:00 98.5 83 19 121/64 (83) 98 10/13/18 07:14 78 20 100 Nasal Cannula 2.0 28 10/13/18 07:04 79 24 99 Nasal Cannula 2.0 28 10/13/18 07:03 79 20 99 Nasal Cannula 2.0 28 10/13/18 07:02 99 Nasal Cannula 3.0 32 10/13/18 05:25 84 14 98 Facial 28 10/13/18 04:00 97.2 86 20 142/78 (99) 100 10/13/18 03:37 81 15 99 Facial 28 10/13/18 01:13 75 15 99 Facial 28 10/12/18 23:38 81 15 99 Bi-Pap 28 10/12/18 23:30 79 16 97 Bi-Pap 28 10/12/18 23:24 78 14 97 Facial 28 10/12/18 21:00 Nasal Cannula 2.0 10/12/18 20:00 97.2 86 20 142/67 (92) 100 10/12/18 19:38 89 16 100 Room Air 21 10/12/18 19:26 90 16 98 Room Air 21 10/12/18 19:26 97 Room Air 10/12/18 18:36 99.1 Intake and Output 10/12/18 10/13/18 18:59 06:59 Intake Total 800 ml 1040 ml Output Total 3300 ml Balance 800 ml -2260 ml Intake Oral 240 ml Other 800 ml 800 ml Output Urine Total 300 ml Hemodialysis UF 3000 ml # Voids 2 # Bowel Movements 1 1 Height (Feet): 5 Height (Inches): 5.00 Weight (Pounds): 298 General Appearance: no apparent distress Objective no change Ronen Leone MD Oct 13, 2018 17:01
--- NOTE | 2018-10-14 08:14 | Discharge Summary ---
Discharge Summary Discharge Summary _ DATE OF ADMISSION: 10/06/2018 DATE OF DISCHARGE: 10/13/2018 DISCHARGED BY: Dr. Chan REASON FOR ADMISSION: 53 years old female with past medical history of congestive heart failure, atrial fibrillation, diabetes mellitus, end-stage renal disease, on hemodialysis , asthma, hyperlipidemia, anemia, history of DVT, history of left breast cancer , presented with shortness of breath, cough and fatigue for the last few days. Cough described as productive with yellow phlegm. No hemoptysis. She denied chest pain. She denied fever and chills. Patient reported being at [facility] last night for similar presentation. Patient subsequently was discharged, however she reportedly was not feeling better. Upon evaluation in emergency department vital signs were stable. Laboratory work-up revealed no leukocytosis, hemoglobin 9.8, hematocrit 32.3. Potassium 5.3. BUN 62, creatinine 6.6, consistent with known history of end- stage renal disease. Glucose 237. Lactic acid 1.3. Stable LFT. Pro BNP 519. Albumin 3.1. Urinalysis revealed pyuria +3 leukocyte esterase,, and few bacteria. EKG revealed sinus rhythm, no acute ischemic changes. Knee chest x-ray revealed no acute cardiopulmonary pathology. ABG revealed hypoxia on room air with PO2 being 85% and PCO2 48 , pH 7.37. Patient required supplemental oxygen to keep proper pulse oxygenation. Patient subsequently admitted for further management . CONSULTANTS: pulmonary ID specialist Dr. Mina internal medicine physician assistant Dr. Leone board worker/oncologist Dr. Perez [facility] Dr. Santana chronic condition nurse Dr. Roman [facility] COURSE: Patient admitted to the hospital. Supplemental oxygen provided as needed to keep pulse oximetry above 92%. Pulmonary toilet provided. Patient started on empiric antibiotic as per ID recommendation. Graffiti Cleaner closely followed. Patient was on CPAP at nighttime. Nebulizing treatment via hand-held nebulizer provided [id number] and as needed with Xopenex and Atrovent, since patient had palpitation with albuterol. Patient initially started on intravenous steroids which gradually tapered and changed to oral. Complete oral steroids upon discharge as specified medication reconciliation list. Antitussive provided as needed. Claritin initiated. Anticoagulation for history of DVT with Eliquis continued. GI prophylaxis provided. Patient was counseled on weight loss diet and exercise. Graffiti Cleaner recommended full pulmonary function and sleep study as outpatient. Infectious disease specialist followed. Blood cultures were negative. Patient was followed-up with chest x-ray , which revealed mild pulmonary vascular congestion. Infectious disease doctor recommended continue cefdinir for 7 more days at the facility. Hemodialysis provided as per internal medicine physician assistant recommendations with close monitoring of volumes, renal parameters and electrolytes. Hyperkalemia was treated. Hemoglobin and hematocrit were closely monitored with goal to keep hemoglobin above 7. Anemia work-up was consistent with anemia of chronic disease due to multiply chronic medical issue including end-stage renal disease. Ferritin 812. Epogen provided 3 times a week. Knot Borer followed. Prior to discharge hemoglobin 9.8, hematocrit 31.7. Platelet counts closely monitor her initially noted thrombocytopenia with platelets 129 with multiply possible etiology as per board worker. Prior to discharge platelet count 152. HIV test was nonreactive. Hepatitis panel was negative. Blood pressure was closely monitored and remained stable Statin continued. Lipid panel stable. Blood sugar was managed as per chronic condition nurse recommendations with long-acting Levemir, Starlix and sliding scale of insulin as needed. Hemoglobin A1c 7.0 at goal. Surgeon seen and evaluated patient for present on admission necrotic third digit of left hand. Patient presented with necrotic third digit of left hand with history of partial amputation of head of the left third digit. Patient also had first digit left foot metatarsal amputation with necrotic area to the dorsal aspect. Left BKA stump revealed no evidence of skin breakdown. No evidence of skin breakdown to sacrum. Wound care provided as per surgeon recommendation. Patient well-known to surgeon from the prior admission. Multiply studies were done prior. No acute surgical intervention was necessary at this time. Surgeon recommended to see surgeon who performed amputation for possible revision likely PIP amputation, very poor distal flow. Left arm used for hemodialysis via fistula. Continue wound care at the facility. Ultrasound of the breast was done due to left breast pain and history of left breast cancer and expiratory surgery in 2014. Imaging assessment with incomplete in the absence of concurrent diagnostic mammogram and availability of prior breast imaging. Patient was recommended to have outpatient mammogram and breast evaluation. FINAL DIAGNOSES: SIRS Acute bronchitis with bronchospasm Asthma with acute exacerbation Upper respiratory infection/bronchitis Hypoxemic respiratory distress, one episode. Urinary tract infection Morbid obesity End-stage renal disease , on hemodialysis Diabetes mellitus type 2 Hypertension Severe peripheral vascular disease, status post right BKA , great toe L foot TMA, partial amputation of head of the third digit Left hand Neuropathy Anemia of chronic kidney disease Thrombocytopenia History of DVT Obstructive sleep apnea Likely obesity hypoventilation syndrome History of breast cancer with changes on ultrasound Lymphedema left breast DISCHARGE MEDICATIONS: See Medication Reconciliation list. DISCHARGE INSTRUCTIONS: Patient was discharged to the senior living facility. Follow up with medical doctor at the facility. I have been assigned to dictate discharge summary for this account. I was not involved in the patient's management. Monika White NP Oct 14, 2018 08:13
== END 2018-10-13 15:45 | DRG 202 ==
LOC: EDBD 08:48 → EMR 09:10 → EDBEDREQ 09:18 → 3E 10:58 → 4E 11:29
PROC: 5A1D70Z Performance of Urinary Filtration, Intermittent, Less than 6 Hours Per Day (ICD-10-PCS; principal; 2018-10-07)
DX: J20.9 Acute bronchitis, unspecified (principal); J18.9 Pneumonia, unspecified organism; N18.6 End stage renal disease; I13.2 Hypertensive heart and chronic kidney disease with heart failure and with stage 5 chronic kidney disease, or end stage renal disease; N39.0 Urinary tract infection, site not specified; R65.10 Systemic inflammatory response syndrome (SIRS) of non-infectious origin without acute organ dysfunction; J45.901 Unspecified asthma with (acute) exacerbation; E66.2 Morbid (severe) obesity with alveolar hypoventilation; Z91.040 Latex allergy status; K21.9 Gastro-esophageal reflux disease without esophagitis; I48.91 Unspecified atrial fibrillation; Z79.01 Long term (current) use of anticoagulants; E11.22 Type 2 diabetes mellitus with diabetic chronic kidney disease; I50.9 Heart failure, unspecified; Z89.611 Acquired absence of right leg above knee; Z89.422 Acquired absence of other left toe(s); Z89.022 Acquired absence of left finger(s); Z99.2 Dependence on renal dialysis; R09.02 Hypoxemia; I73.9 Peripheral vascular disease, unspecified; D63.1 Anemia in chronic kidney disease; R06.03 Acute respiratory distress; G62.9 Polyneuropathy, unspecified; D69.6 Thrombocytopenia, unspecified; Z86.718 Personal history of other venous thrombosis and embolism; G47.33 Obstructive sleep apnea (adult) (pediatric); Z85.3 Personal history of malignant neoplasm of breast; I89.0 Lymphedema, not elsewhere classified; E78.5 Hyperlipidemia, unspecified
CPT/HCPCS: 36415; 36600; 71045; 80053; 80061; 80202; 81003; 82140; 82550; 82553; 82607; 82728; 82746; 82803; 82962; 82977; 83036; 83540; 83550; 83605; 83735; 83880; 84100; 84443; 84484; 84550; 85025; 86140; 86703; 86705; 86709; 86803; 87040; 87070; 87081; 87086; 87205; 87340; 93005; 94640; 94660; 94664; 96365; 96375; 99285; J1815; S5561